=== PATIENT | female | born 1935 | race Caucasian/White ===

== ENCOUNTER 2017-02-14 09:37 | Inpatient (IN) | payer MEDICARE ==
[2017-02-14] MEDS ORDERED: FUROSEMIDE 10 MG/ML 4 ML VIAL IV STA (09:56)
[2017-02-14] MEDS ORDERED: NITROGLYCERIN OINT 1 INCH/GM PACKET TOPICAL STA (09:56)
--- NOTE | 2017-02-14 09:58 | ED ---
General Adult HPI - General Chief complaint: Shortness of Breath Stated complaint: short of breath Time Seen by Provider: 02/14/17 09:51 Source: patient, RN notes reviewed Mode of arrival: wheelchair Limitations: no limitations - History of Present Illness Initial comments: Patient is a pleasant 81-year-old female presenting to the emergency department complaining of fatigue and shortness of breath. Patient was in the hospital and released several days ago. Patient was diagnosed with A. fib and congestive heart failure at that time. Patient states symptoms are similar. Symptoms do worsen with exertion. No chest pain. - Related Data Home Medications Medication Instructions Recorded Confirmed Apixaban [Eliquis] 2.5 mg PO BID 02/02/17 02/14/17 Cholecalciferol [Vitamin D3] 2,000 unit PO DAILY 02/02/17 02/14/17 Fenofibrate [Lofibra] 160 mg PO HS 02/02/17 02/14/17 Previous Rx's Medication Instructions Recorded Amiodarone [Cordarone] 200 mg PO BID #60 tab 02/09/17 Carvedilol [Coreg*] 12.5 mg PO BID-W/MEALS #60 tab 02/09/17 Lisinopril [Zestril] 2.5 mg PO DAILY #90 tab 02/09/17 Sennosides-Docusate Sodium 1 each PO BID PRN tab 02/09/17 [Senokot-S] Spironolactone [Aldactone] 25 mg PO DAILY #90 tab 02/09/17 Allergies Allergy/AdvReac Type Severity Reaction Status Date / Time No Known Allergies Allergy Verified 02/14/17 10:50 Review of Systems ROS Statement: Those systems with pertinent positive or pertinent negative responses have been documented in the HPI. ROS Other: All systems not noted in ROS Statement are negative. Constitutional: Denies: fever Eyes: Denies: eye pain ENT: Denies: ear pain Respiratory: Reports: dyspnea. Denies: cough Cardiovascular: Reports: palpitations. Denies: chest pain Endocrine: Reports: fatigue Gastrointestinal: Denies: abdominal pain Genitourinary: Denies: dysuria Musculoskeletal: Denies: back pain Skin: Denies: rash Neurological: Denies: weakness Past Medical History Past Medical History: Atrial Fibrillation, Heart Failure, GERD/Reflux, Hyperlipidemia, Hypertension History of Any Multi-Drug Resistant Organisms: None Reported Past Surgical History: Cholecystectomy Additional Past Surgical History / Comment(s): cataracts Past Anesthesia/Blood Transfusion Reactions: No Reported Reaction Past Psychological History: No Psychological Hx Reported Smoking Status: Former smoker Past Alcohol Use History: None Reported Past Drug Use History: None Reported - Past Family History Mother Family Medical History: Diabetes Mellitus Father Family Medical History: Myocardial Infarction ([place]) General Exam Limitations: no limitations General appearance: alert, in no apparent distress Head exam: Present: atraumatic Eye exam: Present: normal appearance Neck exam: Present: normal inspection Respiratory exam: Present: normal lung sounds bilaterally Cardiovascular Exam: Present: tachycardia, irregular rhythm GI/Abdominal exam: Present: soft. Absent: tenderness Extremities exam: Present: pedal edema. Absent: calf tenderness Neurological exam: Present: alert Psychiatric exam: Present: normal affect, normal mood Skin exam: Present: normal color Course Vital Signs 02/14/17 02/14/17 02/14/17 09:39 11:00 11:30 Temperature 97.0 F L Pulse Rate 121 H 118 H 114 H Respiratory 22 20 20 Rate Blood Pressure 154/108 209/119 192/113 O2 Sat by Pulse 95 98 99 Oximetry EKG Findings - EKG Comments: EKG Findings:: A. fib with RVR, rate 109. QRS 98. QT 294. QTC 395. Left axis. Q wave in lead V1 and V2. No acute ST change. Medical Decision Making - Medical Decision Making Patient reexamined and slightly improved. Heart rate has improved to 105. Patient and family updated on results and plan. Case discussed with Dr. Kolb , who will admit for Dr. Anglin. - Lab Data Result diagrams: 02/14/17 10:22 02/14/17 11:39 Lab Results 02/14/17 02/14/17 02/14/17 Range/Units 10:22 10:22 10:22 WBC 6.0 (3.8-10.6) k/uL RBC 4.14 (3.80-5.40) m/uL Hgb 13.4 (11.4-16.0) gm/dL Hct 42.0 (34.0-46.0) % MCV 101.4 H (80.0-100.0) fL MCH 32.3 (25.0-35.0) pg MCHC 31.8 (31.0-37.0) g/dL RDW 13.9 (11.5-15.5) % Plt Count 185 (150-450) k/uL Neutrophils % 67 % Lymphocytes % 22 % Monocytes % 8 % Eosinophils % 1 % Basophils % 0 % Neutrophils # 4.0 (1.3-7.7) k/uL Lymphocytes # 1.3 (1.0-4.8) k/uL Monocytes # 0.5 (0-1.0) k/uL Eosinophils # 0.1 (0-0.7) k/uL Basophils # 0.0 (0-0.2) k/uL Macrocytosis Slight PT (9.0-12.0) sec INR (<1.2) APTT (22.0-30.0) sec Sodium 132 L (137-145) mmol/L Potassium 6.2 H* (3.5-5.1) mmol/L Chloride 101 (98-107) mmol/L Carbon Dioxide 22 (22-30) mmol/L Anion Gap 9 mmol/L BUN 25 H (7-17) mg/dL Creatinine 1.10 H (0.52-1.04) mg/dL Est GFR (MDRD) Af Amer 58 (>60 ml/min/1.73 sqM) Est GFR (MDRD) Non-Af 48 (>60 ml/min/1.73 sqM) Glucose 119 H (74-99) mg/dL Calcium 9.4 (8.4-10.2) mg/dL Magnesium 1.8 (1.6-2.3) mg/dL Total Bilirubin 1.6 H (0.2-1.3) mg/dL AST 55 H (14-36) U/L ALT 9 (9-52) U/L Alkaline Phosphatase 32 L (38-126) U/L Total Creatine Kinase 65 (30-135) U/L CK-MB (CK-2) 1.3 (0.0-2.4) ng/mL CK-MB (CK-2) Rel Index 2.0 Troponin I 0.025 (0.000-0.034) ng/mL NT-Pro-B Natriuret Pep pg/mL Total Protein 7.5 (6.3-8.2) g/dL Albumin 4.1 (3.5-5.0) g/dL 02/14/17 02/14/17 02/14/17 Range/Units 10:22 11:39 11:53 WBC (3.8-10.6) k/uL RBC (3.80-5.40) m/uL Hgb (11.4-16.0) gm/dL Hct (34.0-46.0) % MCV (80.0-100.0) fL MCH (25.0-35.0) pg MCHC (31.0-37.0) g/dL RDW (11.5-15.5) % Plt Count (150-450) k/uL Neutrophils % % Lymphocytes % % Monocytes % % Eosinophils % % Basophils % % Neutrophils # (1.3-7.7) k/uL Lymphocytes # (1.0-4.8) k/uL Monocytes # (0-1.0) k/uL Eosinophils # (0-0.7) k/uL Basophils # (0-0.2) k/uL Macrocytosis PT 11.3 (9.0-12.0) sec INR 1.1 (<1.2) APTT 24.5 (22.0-30.0) sec Sodium (137-145) mmol/L Potassium 4.7 (3.5-5.1) mmol/L Chloride (98-107) mmol/L Carbon Dioxide (22-30) mmol/L Anion Gap mmol/L BUN (7-17) mg/dL Creatinine (0.52-1.04) mg/dL Est GFR (MDRD) Af Amer (>60 ml/min/1.73 sqM) Est GFR (MDRD) Non-Af (>60 ml/min/1.73 sqM) Glucose (74-99) mg/dL Calcium (8.4-10.2) mg/dL Magnesium (1.6-2.3) mg/dL Total Bilirubin (0.2-1.3) mg/dL AST (14-36) U/L ALT (9-52) U/L Alkaline Phosphatase (38-126) U/L Total Creatine Kinase (30-135) U/L CK-MB (CK-2) (0.0-2.4) ng/mL CK-MB (CK-2) Rel Index Troponin I (0.000-0.034) ng/mL NT-Pro-B Natriuret Pep 07823 pg/mL Total Protein (6.3-8.2) g/dL Albumin (3.5-5.0) g/dL - Radiology Data Radiology results: image reviewed (Chest x-ray shows cardiomegaly and vascular congestion.) Critical Care Time Critical Care Time: Yes Total Critical Care Time: 31 Disposition Clinical Impression: Atrial fibrillation with RVR, Congestive heart failure Disposition: ADMITTED IP TO THIS [facility] Condition: Serious Referrals: Jl Anglin MD [Primary Care Provider] - 1-2 days Decision Time: 12:38
[2017-02-14] MEDS: DILTIAZEM 125 MG in SODIUM CHLORIDE 0.9% 100 ML IV SCH (10:30)
[2017-02-14 10:38] LABS: Basophils % (A) 0 %; CH 31.5; CHCM 31.2; Eosinophils # (A) 0.1 k/uL (0-0.7); Eosinophils % (A) 1 %; HDW 2.06; HGB 13.4 gm/dL (11.4-16.0); Luc # (Auto) 0.14; Luc % (Auto) 2; Lymphocytes # (A) 1.3 k/uL (1.0-4.8); Lymphocytes % (A) 22 %; MCH 32.3 pg (25.0-35.0); MCHC 31.8 g/dL (31.0-37.0); MCV 101.4 fL (80.0-100.0); Macrocytosis Slight; Mean Platelet Volume 7.6; Monocytes # (A) 0.5 k/uL (0-1.0); Monocytes % (A) 8 %; Neutrophils % (A) 67 %; RBC 4.14 m/uL (3.80-5.40); RDW 13.9 % (11.5-15.5); WBC (Perox) 5.72
[2017-02-14 11:07] LABS: Calcium 9.4 mg/dL (8.4-10.2); Magnesium 1.8 mg/dL (1.6-2.3); Total Protein 7.5 g/dL (6.3-8.2)
[2017-02-14 11:13] LABS: Creatine Kinase MB 1.3 ng/mL (0.0-2.4); Troponin I 0.025 ng/mL (0.000-0.034)
[2017-02-14] MEDS ORDERED: DEXTROSE 50%-WATER 50 ML SYRINGE IVP STA (11:18)
[2017-02-14] MEDS ORDERED: INSULIN REGULAR 100 UNIT/ML VIAL IV ONE (11:19)
[2017-02-14] MEDS ORDERED: SODIUM POLYSTYRENE SULFONATE 15 GM/60 ML BOTTLE PO STA (11:19)
[2017-02-14 11:30] LABS: Potassium 6.2 mmol/L (3.5-5.1)
[2017-02-14] MEDS ORDERED: CALCIUM GLUCONATE 1,000 MG in SODIUM CHLORIDE 0.9% 100 ML IVPB ONE (11:30)
[2017-02-14 12:12] LABS: INR 1.1 (<1.2); Partial Thromboplastin Time 24.5 sec (22.0-30.0); Prothrombin Time 11.3 sec (9.0-12.0)
--- NOTE | 2017-02-14 12:33 | XR ---
EXAMINATION TYPE: XR chest 2V DATE OF EXAM: 02/14/2017 HISTORY: difficulty breathing. REFERENCE: Previous examination dated 02/05/2017. FINDINGS: The lungs are overinflated. The heart is enlarged. There is mild vascular congestion. There is mild interstitial change. Pleural spaces are clear. IMPRESSION: 1. COPD. 2. CARDIOMEGALY. 3. CHANGES MOST CONSISTENT WITH MILD HEART FAILURE.
[2017-02-14 12:36] LABS: Total Bilirubin 1.6 mg/dL (0.2-1.3)
--- NOTE | 2017-02-14 16:40 | P.HPIM ---
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 Patient states symptoms are similar to her previous admission.. Symptoms do worsen with exertion. No chest pain. No fever no chills. Patient was found have it fibrillation with a rapid regular rate. Chest x-ray showed mild pulmonary vascular congestion. B[place] [id number] Review of Systems Constitutional: Patient denies any fever or chills . No generalized weakness or weight loss. Abdomen: Patient denied nausea vomiting and diarrhea and abdominal pain. Cardiovascular: Patient denies any chest pain . Patient does have short of breath and palpitations. Respiratory: patient denied any cough is from production. No shortness of breath Neurologic: Patient denied any numbness or tingling headache. Musculoskeletal: Patient denies any complaints of joint swelling or deformity. Skin: Negative Psychiatric: Negative Endocrine: No heat or cold intolerance. No recent weight gain. Genitourinary: No dysuria or hematuria. All other 14 point ROS negative except the above Past Medical History Past Medical History: Atrial Fibrillation, Heart Failure, GERD/Reflux, Hyperlipidemia, Hypertension History of Any Multi-Drug Resistant Organisms: None Reported Past Surgical History: Cholecystectomy Additional Past Surgical History / Comment(s): cataracts Past Anesthesia/Blood Transfusion Reactions: No Reported Reaction Past Psychological History: No Psychological Hx Reported Smoking Status: Former smoker Past Alcohol Use History: None Reported Past Drug Use History: None Reported - Past Family History Mother Family Medical History: Diabetes Mellitus Father Family Medical History: Myocardial Infarction ([place]) Medications and Allergies Home Medications Medication Instructions Recorded Confirmed Type Apixaban [Eliquis] 2.5 mg PO BID 02/02/17 02/14/17 History Cholecalciferol [Vitamin D3] 2,000 unit PO DAILY 02/02/17 02/14/17 History Fenofibrate [Lofibra] 160 mg PO HS 02/02/17 02/14/17 History Amiodarone [Cordarone] 200 mg PO BID #60 tab 02/09/17 02/14/17 Rx Carvedilol [Coreg*] 12.5 mg PO BID-W/MEALS #60 tab 02/09/17 02/14/17 Rx Lisinopril [Zestril] 2.5 mg PO DAILY #90 tab 02/09/17 02/14/17 Rx Sennosides-Docusate Sodium 1 each PO BID PRN tab 02/09/17 02/14/17 Rx [Senokot-S] Spironolactone [Aldactone] 25 mg PO DAILY #90 tab 02/09/17 02/14/17 Rx Allergies Allergy/AdvReac Type Severity Reaction Status Date / Time No Known Allergies Allergy Verified 02/14/17 10:50 Physical Exam Vitals: Vital Signs Temp Pulse Pulse Resp BP BP Pulse Ox 02/14/17 14:04 97.8 F 93 18 150/93 96 02/14/17 13:10 98.1 F 94 18 170/85 99 02/14/17 12:00 110 H 20 173/82 99 02/14/17 11:30 114 H 20 192/113 99 02/14/17 11:00 118 H 20 209/119 98 02/14/17 09:39 97.0 F L 121 H 22 154/108 95 Intake and Output 02/13/17 02/14/17 02/14/17 23:59 06:59 14:59 Other: Weight 83.915 kg Patient Weight 02/15/17 06:59 Weight 83.915 kg PHYSICAL EXAMINATION: Patient is lying in the bed comfortably, no acute distress, awake alert and oriented.. HEENT: Normocephalic. Neck is supple. Pupils reactive. Nostrils clear. Oral cavity is moist. Ears reveal no drainage. Neck reveals no JVD, carotid bruits, or thyromegaly. CHEST EXAMINATION: Trachea is central. Symmetrical expansion. Bilateral air entry is present. Minimal right basilar crackles. No wheezing. CARDIAC: Normal S1, S2 with no gallops. No murmurs ABDOMEN: Soft. Bowel sounds normal. No organomegaly. No abdominal bruits. Extremities: 2+ pitting edema. No clubbing or cyanosis Neurologically awake, alert, oriented x3 with well-coordinated movements. No focal deficits noted Skin: No rash or skin lesions. Psychiatric: Cooperative. Nonsuicidal Musculoskeletal: No joint swelling or deformity. Normal range of motion. Results CBC & Chem 7: 02/14/17 10:22 02/14/17 11:39 Labs: Abnormal Lab Results - Last 24 Hours (Table) 02/14/17 02/14/17 Range/Units 10:22 10:22 MCV 101.4 H (80.0-100.0) fL Sodium 132 L (137-145) mmol/L Potassium 6.2 H* (3.5-5.1) mmol/L BUN 25 H (7-17) mg/dL Creatinine 1.10 H (0.52-1.04) mg/dL Glucose 119 H (74-99) mg/dL Total Bilirubin 1.6 H (0.2-1.3) mg/dL AST 55 H (14-36) U/L Alkaline Phosphatase 32 L (38-126) U/L Assessment and Plan Assessment: Atrial fibrillation with rapid regular rate Hyperkalemia with moderate hemolysis. 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 Continue with the Cardizem drip. Patient was started back on Coreg and amiodarone. Continue with oral anticoagulation. Cardiology was consulted. We will continue the current management and further recommendations based on the clinical course. Time with Patient: Greater than 30
[2017-02-14] MEDS: CARVEDILOL 12.5 MG TAB PO SCH (17:00)
[2017-02-14] MEDS: FUROSEMIDE 10 MG/ML 4 ML VIAL IV SCH ×2 (17:00→23:05)
--- NOTE | 2017-02-14 19:47 | P.CRDCN ---
History of Present Illness Consult date: 02/14/17 Chief complaint: Shortness of breath History of present illness: This is a pleasant 81-year-old female patient with past medical history significant for severe cardiomyopathy documented on recent echocardiogram with an ejection fraction around 20-25%, persistent atrial fibrillation, as well as multiple comorbid conditions who just was discharged from the hospital recently, presented back to the hospital complaining of fatigue, shortness of breath, and not feeling well. The patient was admitted to the hospital a few days ago with progressive dyspnea and at that point she was diagnosed was congestive heart failure exacerbation. An echocardiogram revealed severe lead impaired LV function with an ejection fraction around 20-25% and known if it's too to ischemic or nonischemic. Also the patient was at that point in A. fib with RVR. She was treated medically and discharged home in stable medical condition. She presented back to the hospital with progressive dyspnea and fatigue as well as tiredness. She developed severe bilateral lower extremities edema. She stated that she was compliant with her medications at home but she was not very compliant with her diet. The patient did not have any symptoms of chest pain or discomfort. No dizziness or lightheadedness. No syncope. No cough. No fever and no chills. The physical examination revealed that the patient was not in acute respiratory distress. She has bilateral rhonchi. She does have severe pitting edema was mild chronic skin changes. This time the chest x-ray showed findings consistent with CHF. The BNP came in to be around 10,000. The EKG showed low voltage QRS with A. fib and diffuse nonspecific ST and T wave abnormalities. The patient was started on Lasix IV. She was also started on Cardizem IV in view of her A. fib with RVR. Past Medical History Past Medical History: Atrial Fibrillation, Heart Failure, GERD/Reflux, Hyperlipidemia, Hypertension History of Any Multi-Drug Resistant Organisms: None Reported Past Surgical History: Cholecystectomy Additional Past Surgical History / Comment(s): cataracts Past Anesthesia/Blood Transfusion Reactions: No Reported Reaction Past Psychological History: No Psychological Hx Reported Smoking Status: Former smoker Past Alcohol Use History: None Reported Past Drug Use History: None Reported - Past Family History Mother Family Medical History: Diabetes Mellitus Father Family Medical History: Myocardial Infarction ([place]) Medications and Allergies Home Medications Medication Instructions Recorded Confirmed Type Apixaban [Eliquis] 2.5 mg PO BID 02/02/17 02/14/17 History Cholecalciferol [Vitamin D3] 2,000 unit PO DAILY 02/02/17 02/14/17 History Fenofibrate [Lofibra] 160 mg PO HS 02/02/17 02/14/17 History Amiodarone [Cordarone] 200 mg PO BID #60 tab 02/09/17 02/14/17 Rx Carvedilol [Coreg*] 12.5 mg PO BID-W/MEALS #60 tab 02/09/17 02/14/17 Rx Lisinopril [Zestril] 2.5 mg PO DAILY #90 tab 02/09/17 02/14/17 Rx Sennosides-Docusate Sodium 1 each PO BID PRN tab 02/09/17 02/14/17 Rx [Senokot-S] Spironolactone [Aldactone] 25 mg PO DAILY #90 tab 02/09/17 02/14/17 Rx Allergies Allergy/AdvReac Type Severity Reaction Status Date / Time No Known Allergies Allergy Verified 02/14/17 10:50 Physical Exam Vitals: Vital Signs Temp Pulse Pulse Resp BP BP Pulse Ox 02/14/17 16:00 98 F 85 20 149/100 93 L 02/14/17 14:04 97.8 F 93 18 150/93 96 02/14/17 13:10 98.1 F 94 18 170/85 99 02/14/17 12:00 110 H 20 173/82 99 02/14/17 11:30 114 H 20 192/113 99 02/14/17 11:00 118 H 20 209/119 98 02/14/17 09:39 97.0 F L 121 H 22 154/108 95 Intake and Output 02/14/17 02/14/17 02/14/17 06:59 14:59 22:59 Intake Total 100 Balance 100 Intake: Oral 100 Other: # Voids 1 Weight 83.915 kg Patient Weight 02/15/17 06:59 Weight 83.915 kg - Constitutional General appearance: no acute distress - Respiratory Respiratory: bilateral: rales - Cardiovascular Rhythm: irregularly irregular Heart sounds: normal: S1, S2 Results 02/14/17 10:22 02/14/17 11:39 Cardiac Enzymes 02/14/17 02/14/17 Range/Units 10:22 10:22 AST 55 H (14-36) U/L CK-MB (CK-2) 1.3 (0.0-2.4) ng/mL Troponin I 0.025 (0.000-0.034) ng/mL Coagulation 02/14/17 Range/Units 11:53 PT 11.3 (9.0-12.0) sec APTT 24.5 (22.0-30.0) sec CBC 02/14/17 Range/Units 10:22 WBC 6.0 (3.8-10.6) k/uL RBC 4.14 (3.80-5.40) m/uL Hgb 13.4 (11.4-16.0) gm/dL Hct 42.0 (34.0-46.0) % Plt Count 185 (150-450) k/uL Comprehensive Metabolic Panel 02/14/17 02/14/17 Range/Units 10:22 11:39 Sodium 132 L (137-145) mmol/L Potassium 6.2 H* 4.7 (3.5-5.1) mmol/L Chloride 101 (98-107) mmol/L Carbon Dioxide 22 (22-30) mmol/L BUN 25 H (7-17) mg/dL Creatinine 1.10 H (0.52-1.04) mg/dL Glucose 119 H (74-99) mg/dL Calcium 9.4 (8.4-10.2) mg/dL AST 55 H (14-36) U/L ALT 9 (9-52) U/L Alkaline Phosphatase 32 L (38-126) U/L Total Protein 7.5 (6.3-8.2) g/dL Albumin 4.1 (3.5-5.0) g/dL Current Medications Generic Name Dose Route Start Last Admin Trade Name Freq PRN Reason Stop Dose Admin Amiodarone HCl 200 mg 02/14/17 21:00 Cordarone PO BID DELROY Apixaban 2.5 mg 02/14/17 21:00 Eliquis PO BID DELROY Carvedilol 12.5 mg 02/14/17 17:30 02/14/17 17:00 Coreg PO 12.5 mg BID-W/MEALS DELROY Administration Fenofibrate 160 mg 02/14/17 21:00 Lofibra PO HS DELROY Furosemide 40 mg 02/14/17 16:00 02/14/17 17:00 Lasix IV 40 mg Q8HR DELROY Administration Diltiazem HCl 125 mg/ Sodium 125 mls @ 5 mls/hr 02/14/17 09:56 02/14/17 10:30 Chloride IV 5 mg/hr .Q24H DELROY 5 mls/hr 5 MG/HR Administration Lisinopril 2.5 mg 02/15/17 09:00 Zestril PO DAILY DELROY Sodium Chloride 10 ml 02/14/17 21:00 Saline Flush IV BID DELROY Spironolactone 25 mg 02/15/17 09:00 Aldactone PO DAILY DELROY Intake and Output 02/14/17 02/14/17 02/14/17 06:59 14:59 22:59 Intake Total 100 Balance 100 Intake: Oral 100 Other: # Voids 1 Weight 83.915 kg Patient Weight 02/15/17 06:59 Weight 83.915 kg 02/14/17 10:22 02/14/17 11:39 Assessment and Plan Assessment: This is a pleasant 81-year-old female patient with known severe cardiomyopathy unknown if is due to ischemic or nonischemic etiology, as well as persistent atrial fibrillation presented back to the hospital was progressive dyspnea as well as fatigue and not feeling well. She was found to be in A. fib with RVR as well as she was in congestive heart failure exacerbation secondary to systolic dysfunction. Agree to keep the patient on the current above dose of Lasix IV with continued monitoring the kidney function and electrolytes. Agree to keep the patient on Cardizem IV and try to wean her from the Cardizem IV as well as. I will continue the Coreg. Continue the amiodarone. She is on chronic anticoagulation orally. Once the patient is better, I do feel that she needs to have a heart catheterization to rule out any severe underlying coronary artery disease as an etiology for her cardiomyopathy which could be also related to tachycardia induced cardiomyopathy secondary to A. fib. We'll continue following up with the patient. Thank you for allowing us participate in her care
[2017-02-14] MEDS: APIXABAN 2.5 MG TABLET PO SCH (20:31)
[2017-02-14] MEDS: AMIODARONE 200 MG TAB PO SCH (20:31)
[2017-02-14] MEDS: FENOFIBRATE 160 MG TAB PO SCH (20:31)
[2017-02-14 22:54] LABS: Calcium 9.4 mg/dL (8.4-10.2); Magnesium 1.6 mg/dL (1.6-2.3); Potassium 4.3 mmol/L (3.5-5.1)
[2017-02-14] MEDS ORDERED: Magnesium Replacement Protocol 1 EACH MISC MISCELLANE PRN (23:10)
[2017-02-14] MEDS: MAGNESIUM SULFATE-D5W PMX 1 GM in DEXTROSE/WATER 1 100ML.BAG IVPB SCH (23:28)
[2017-02-15] MEDS: MAGNESIUM SULFATE-D5W PMX 1 GM in DEXTROSE/WATER 1 100ML.BAG IVPB SCH (00:43)
[2017-02-15 06:11] LABS: Basophils % (A) 0 %; CH 31.9; CHCM 31.3; Eosinophils # (A) 0.1 k/uL (0-0.7); Eosinophils % (A) 2 %; HCT 39.5 % (34.0-46.0); HDW 2.09; HGB 12.2 gm/dL (11.4-16.0); Luc # (Auto) 0.12; Luc % (Auto) 3; Lymphocytes # (A) 1.2 k/uL (1.0-4.8); Lymphocytes % (A) 25 %; MCH 31.8 pg (25.0-35.0); MCV 102.4 fL (80.0-100.0); Macrocytosis Slight; Mean Platelet Volume 7.1; Monocytes # (A) 0.5 k/uL (0-1.0); Monocytes % (A) 11 %; Neutrophils % (A) 60 %; RBC 3.85 m/uL (3.80-5.40); RDW 12.9 % (11.5-15.5); WBC 4.9 k/uL (3.8-10.6); WBC (Perox) 4.88
[2017-02-15 06:31] LABS: Calcium 9.3 mg/dL (8.4-10.2); Magnesium 2.1 mg/dL (1.6-2.3); Potassium 4.1 mmol/L (3.5-5.1)
[2017-02-15] MEDS: CARVEDILOL 12.5 MG TAB PO SCH (06:41)
[2017-02-15] MEDS: LISINOPRIL 2.5 MG TAB PO SCH (08:37)
[2017-02-15] MEDS: FUROSEMIDE 10 MG/ML 4 ML VIAL IV SCH ×3 (08:37→22:21)
[2017-02-15] MEDS: SPIRONOLACTONE 25 MG TAB PO SCH (08:37)
[2017-02-15] MEDS: APIXABAN 2.5 MG TABLET PO SCH ×2 (08:37→20:43)
[2017-02-15] MEDS: AMIODARONE 200 MG TAB PO SCH ×2 (08:37→20:43)
[2017-02-15] MEDS: DILTIAZEM 125 MG in SODIUM CHLORIDE 0.9% 100 ML IV SCH ×2 (08:51→10:51)
--- NOTE | 2017-02-15 12:26 | P.PN ---
Subjective Progress Note Date: 02/15/17 Principal diagnosis: A. fib with RVR This is a pleasant 81-year-old female patient with past medical history significant for severe cardiomyopathy documented on recent echocardiogram with an ejection fraction around 20-25%, persistent atrial fibrillation, as well as multiple comorbid conditions who just was discharged from the hospital recently, presented back to the hospital complaining of fatigue, shortness of breath, and not feeling well. The patient was admitted to the hospital a few days ago with progressive dyspnea and at that point she was diagnosed was congestive heart failure exacerbation. An echocardiogram revealed severe lead impaired LV function with an ejection fraction around 20-25% and known if it's too to ischemic or nonischemic. Also the patient was at that point in A. fib with RVR. She was treated medically and discharged home in stable medical condition. She presented back to the hospital with progressive dyspnea and fatigue as well as tiredness. She developed severe bilateral lower extremities edema. She stated that she was compliant with her medications at home but she was not very compliant with her diet. The patient did not have any symptoms of chest pain or discomfort. No dizziness or lightheadedness. No syncope. No cough. No fever and no chills. The physical examination revealed that the patient was not in acute respiratory distress. She has bilateral rhonchi. She does have severe pitting edema was mild chronic skin changes. This time the chest x-ray showed findings consistent with CHF secondary to systolic dysfunction. So the patient currently is in acute on chronic congestive heart failure secondary to systolic dysfunction. The BNP came in to be around 10,000. The EKG showed low voltage QRS with A. fib and diffuse nonspecific ST and T wave abnormalities. I'll follow-up with the patient today, she is feeling better. The shortness of breath is better. The heart rate is better. I will try to wean her from Cardizem IV and increase the dose of Coreg. We'll continue oral anticoagulation. Objective - Vital Signs Vital signs: Vital Signs Temp 96.9 F L 02/15/17 08:00 Pulse 65 02/15/17 08:00 Resp 16 02/15/17 08:00 BP 112/51 02/15/17 08:00 Pulse Ox 98 02/15/17 08:00 Intake & Output 02/14/17 02/15/17 02/15/17 18:59 06:59 18:59 Intake Total 100 82.125 295.667 Output Total 350 500 Balance 100 -267.875 -204.333 Weight 83.915 kg 81.2 kg Intake: IV 40 0.9 40 Intake, IV Titration 82.125 19.667 Amount Diltiazem 125 mg In 82.125 19.667 Sodium Chloride 0.9% 100 ml @ 5 MG/HR 5 mls/hr IV .Q24H [facility] Rx#:[id number] Oral 100 0 236 Output: Urine 350 500 Other: Voiding Method Toilet # Voids 1 4 - Constitutional General appearance: Present: no acute distress - Respiratory Respiratory: bilateral: diminished - Cardiovascular Rhythm: irregularly irregular Heart sounds: normal: S1, S2 - Labs CBC & Chem 7: 02/15/17 05:32 02/15/17 05:32 Labs: Abnormal Lab Results - Last 24 Hours (Table) 02/14/17 02/14/17 02/15/17 Range/Units 10:22 22:16 05:32 MCV 102.4 H (80.0-100.0) fL Sodium 134 L (137-145) mmol/L Chloride (98-107) mmol/L Carbon Dioxide (22-30) mmol/L BUN 26 H (7-17) mg/dL Creatinine 1.30 H (0.52-1.04) mg/dL Total Bilirubin 1.6 H (0.2-1.3) mg/dL AST 55 H (14-36) U/L 02/15/17 Range/Units 05:32 MCV (80.0-100.0) fL Sodium 136 L (137-145) mmol/L Chloride 96 L (98-107) mmol/L Carbon Dioxide 34 H (22-30) mmol/L BUN 23 H (7-17) mg/dL Creatinine 1.38 H (0.52-1.04) mg/dL Total Bilirubin (0.2-1.3) mg/dL AST (14-36) U/L Assessment and Plan Assessment: This is a pleasant 81-year-old female patient with known severe cardiomyopathy unknown if is due to ischemic or nonischemic etiology, as well as persistent atrial fibrillation presented back to the hospital was progressive dyspnea as well as fatigue and not feeling well. She was found to be in A. fib with RVR as well as she was in congestive heart failure exacerbation secondary to systolic dysfunction. I'll follow-up with the patient today, she is feeling better. The shortness of breath is better. The heart rate is better. I will try to wean her from Cardizem IV and increase the dose of Coreg. We'll continue oral anticoagulation.
[2017-02-15 13:58] VITALS: BMI 28.8
[2017-02-15] MEDS: CARVEDILOL 6.25 MG TAB PO SCH (17:38)
[2017-02-15] MEDS: FENOFIBRATE 160 MG TAB PO SCH (20:43)
--- NOTE | 2017-02-15 23:28 | P.PN ---
Subjective Progress Note Date: 02/15/17 Principal diagnosis: Atrial fibrillation with a rapid regular rate and CHF exacerbation Patient is a 81-year-old female with a known history of recently diagnosed cardio myopathy ejection fraction 20-25%, atrial fibrillation, ventricular tachycardia and hypertension Presents to ER with complaints of fatigue and shortness of breath. Patient states symptoms are similar to her previous admission.. Symptoms do worsen with exertion. No chest pain. No fever no chills. Patient was found have it fibrillation with a rapid regular rate. Chest x-ray showed mild pulmonary vascular congestion. BNP elevated 03611 02/15/2017 Patient's heart rate is better controlled. Patient denied any complaints of chest pain. Shortness of breath improved. No fever no chills. Leg swelling improved as well. No nausea vomiting or abdominal pain. Current medications reviewed Objective - Vital Signs Vital signs: Vital Signs Temp 98.4 F 02/15/17 20:00 Pulse 117 H 02/15/17 20:00 Resp 18 02/15/17 20:00 BP 128/76 02/15/17 20:00 Pulse Ox 95 02/15/17 20:00 Intake & Output 02/15/17 02/15/17 02/16/17 06:59 18:59 06:59 Intake Total 82.125 755.667 Output Total 350 1550 300 Balance -267.875 -794.333 -300 Weight 81.2 kg 81.2 kg Intake: IV 40 0.9 40 Intake, IV Titration 82.125 19.667 Amount Diltiazem 125 mg In 82.125 19.667 Sodium Chloride 0.9% 100 ml @ 5 MG/HR 5 mls/hr IV .Q24H [facility] Rx#:[id number] Oral 0 696 Output: Urine 350 1550 300 Other: Voiding Method Toilet Toilet # Voids 4 - Exam PHYSICAL EXAMINATION: Patient is lying in the bed comfortably, no acute distress, awake alert and oriented.. HEENT: Normocephalic. Neck is supple. Pupils reactive. Nostrils clear. Oral cavity is moist. Ears reveal no drainage. Neck reveals no JVD, carotid bruits, or thyromegaly. CHEST EXAMINATION: Trachea is central. Symmetrical expansion. Bilateral partial decreased air entry. No wheezing. CARDIAC: Normal S1, S2 with no gallops. No murmurs ABDOMEN: Soft. Bowel sounds normal. No organomegaly. No abdominal bruits. Extremities: 2+ edema. No clubbing or cyanosis Neurologically awake, alert, oriented x3 with well-coordinated movements. No focal deficits noted Skin: No rash or skin lesions. Psychiatric: Operative. Nonsuicidal Musculoskeletal: No joint swelling or deformity. Normal range of motion. - Labs CBC & Chem 7: 02/15/17 05:32 02/15/17 05:32 Labs: Abnormal Lab Results - Last 24 Hours (Table) 02/14/17 02/15/17 02/15/17 Range/Units 22:16 05:32 05:32 MCV 102.4 H (80.0-100.0) fL Sodium 134 L 136 L (137-145) mmol/L Chloride 96 L (98-107) mmol/L Carbon Dioxide 34 H (22-30) mmol/L BUN 26 H 23 H (7-17) mg/dL Creatinine 1.30 H 1.38 H (0.52-1.04) mg/dL Assessment and Plan Assessment: Atrial fibrillation with rapid regular rate Hyperkalemia with moderate hemolysis. 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 Plan: Patient will be continued on IV diuresis. Still on Cardizem drip. Patient was started on Coreg back and does has been increased as per cardiology. Continue with IV diuresis and follow-up renal function. We will reduce Lasix to 40 mg twice a day Patient was started back on Coreg and amiodarone. Continue with oral anticoagulation. Cardiology was consulted. We will continue the current management and further recommendations based on the clinical course. Time with Patient: Greater than 30
[2017-02-16] MEDS: CARVEDILOL 6.25 MG TAB PO SCH ×2 (06:15→16:57)
[2017-02-16 06:22] LABS: Basophils % (A) 0 %; CH 32.4; CHCM 32.2; Eosinophils # (A) 0.1 k/uL (0-0.7); Eosinophils % (A) 2 %; HCT 41.2 % (34.0-46.0); HDW 2.09; Luc # (Auto) 0.19; Luc % (Auto) 3; Lymphocytes # (A) 1.6 k/uL (1.0-4.8); Lymphocytes % (A) 28 %; MCH 31.9 pg (25.0-35.0); MCHC 31.6 g/dL (31.0-37.0); Mean Platelet Volume 7.1; Monocytes # (A) 0.6 k/uL (0-1.0); Monocytes % (A) 10 %; Neutrophils # (A) 3.3 k/uL (1.3-7.7); Neutrophils % (A) 57 %; RBC 4.08 m/uL (3.80-5.40); RDW 13.1 % (11.5-15.5); WBC 5.9 k/uL (3.8-10.6); WBC (Perox) 5.82
[2017-02-16 06:45] LABS: Calcium 9.4 mg/dL (8.4-10.2); Potassium 3.9 mmol/L (3.5-5.1)
[2017-02-16] MEDS: SPIRONOLACTONE 25 MG TAB PO SCH (08:04)
[2017-02-16] MEDS: APIXABAN 2.5 MG TABLET PO SCH ×2 (08:04→20:20)
[2017-02-16] MEDS: AMIODARONE 200 MG TAB PO SCH ×2 (08:04→20:20)
[2017-02-16] MEDS: LISINOPRIL 2.5 MG TAB PO SCH (08:04)
[2017-02-16] MEDS ORDERED: FUROSEMIDE 10 MG/ML 4 ML VIAL IV SCH (09:00)
--- NOTE | 2017-02-16 10:50 | P.PN ---
Subjective patient states improvement from admission states edema less severe in the lower extremities Objective - Vital Signs Vital signs: Vital Signs Temp 98.6 F 02/16/17 07:57 Pulse 133 H 02/16/17 07:57 Resp 18 02/16/17 07:57 BP 120/64 02/16/17 07:57 Pulse Ox 93 L 02/16/17 07:57 Intake & Output 02/15/17 02/16/17 02/16/17 18:59 06:59 18:59 Intake Total 755.667 200 Output Total 1550 300 Balance -794.333 -300 200 Weight 81.2 kg 77.8 kg Intake: IV 40 0.9 40 Intake, IV Titration 19.667 Amount Diltiazem 125 mg In 19.667 Sodium Chloride 0.9% 100 ml @ 5 MG/HR 5 mls/hr IV .Q24H [facility] Rx#:[id number] Oral 696 200 Output: Urine 1550 300 Other: Voiding Method Toilet # Voids 1 1 - Constitutional General appearance: Present: obese - EENT Eyes: Present: PERRLA Ears: bilateral: normal - Neck Neck: Present: normal ROM - Respiratory Respiratory: bilateral: CTA - Cardiovascular Rhythm: irregularly irregular - Peripheral edema leg Peripheral Edema: bilateral: 2+ - Gastrointestinal General gastrointestinal: Present: soft - Integumentary Integumentary: Present: normal - Neurologic Neurologic: Present: CNII-XII intact - Musculoskeletal Musculoskeletal: Present: generalized weakness - Psychiatric Psychiatric: Present: A&O x's 3, appropriate affect, intact judgment & insight - Labs CBC & Chem 7: 02/16/17 05:58 02/16/17 05:58 Labs: Abnormal Lab Results - Last 24 Hours (Table) 02/16/17 02/16/17 Range/Units 05:58 05:58 MCV 101.0 H (80.0-100.0) fL Sodium 135 L (137-145) mmol/L Chloride 94 L (98-107) mmol/L Carbon Dioxide 34 H (22-30) mmol/L BUN 29 H (7-17) mg/dL Creatinine 1.60 H (0.52-1.04) mg/dL - Imaging and Cardiology Chest x-ray: report reviewed Assessment and Plan Plan: assessment Atrial fibrillation with RVR Acute on chronic congestive heart failure with systolic dysfunction cardiomyopathy with ejection fraction at 20% severe Ventricular tachycardia history Hypertension Hyperlipidemia Continue consultation with cardiology
--- NOTE | 2017-02-16 12:04 | CDI ---
In responding to this query, please exercise your independent professional judgment. The [facility] Coding Staff and Clinical Documentation Specialists appreciate your assistance in clarifying documentation, maintaining compliance with coding guidelines, accurately documenting patients condition and capturing severity of illness. The fact that a question is asked does not imply that any particular answer is desired or expected. Communication forms are a method of clarifying documentation and are not made part of the Legal Health Record. Thank you in advance for your clarification. Last Revision, February 2015 Jon Argueta [address] [facility] [place] [address] Documentation Clarification Form Date: 02/16/2017 11:57:00 AM From: Rosa De La Paz CCS, CCDS Admit Date: 02/14/2017 12:39:00 PM Patient Name: Linda Jamison Visit Number: [id number] Discharge Date: Dr. Cristian Anglin/Shazia Qureshi PA: The patient has documented sodium level of: 132, 134, 136, 135 Clinical indicators: Admit with Persistent Atrial Fibrillation & Acute on Chronic Systolic CHF requiring IV diuresis. Also diagnosed with RANDI probably d/ t diuresis per attending PN 02/15. Treatment: continued IV Lasix now po, Cardizem drip, Insulin drip, IV Mag Sulfate, IV fluid 10 mL BID In order to capture the severity of condition, please clarify if the condition signifies: Hyponatremia Abnormal Lab Value Unable to determine Other condition, please specify Please document in your progress notes and discharge summary in order to capture severity of illness and risk of mortality. Include clinical findings that support your diagnosis. FYI: Press F11 to launch patient chart. GABBY
--- NOTE | 2017-02-16 13:27 | P.PN ---
Subjective Progress Note Date: 02/16/17 Principal diagnosis: Shortness of breath This is an 81-year-old female with past medical history significant for severe ischemic cardiomyopathy, persistent atrial fibrillation, hypertension , hyperlipidemia, GERD, prior history of smoking, who was recently in the hospital, readmitted with symptoms of shortness of breath with associated general malaise. She was diagnosed to have an exacerbation of congestive cardiac failure and was initiated on IV Lasix. She diuresed well through the night last night, her weight today is down 4 kg from yesterday. Sodium 135, potassium 3.9, BUN 29, creatinine 1.6. TSH 1.59. Blood pressure this morning 128/70 with a heart rate in the 90s to low 100s. Objective - Vital Signs Vital signs: Vital Signs Temp 98.9 F 02/16/17 11:04 Pulse 110 H 02/16/17 11:04 Resp 18 02/16/17 11:04 BP 129/74 02/16/17 11:04 Pulse Ox 97 02/16/17 11:04 Intake & Output 02/15/17 02/16/17 02/16/17 18:59 06:59 18:59 Intake Total 755.667 200 Output Total 1550 300 Balance -794.333 -300 200 Weight 81.2 kg 77.8 kg Intake: IV 40 0.9 40 Intake, IV Titration 19.667 Amount Diltiazem 125 mg In 19.667 Sodium Chloride 0.9% 100 ml @ 5 MG/HR 5 mls/hr IV .Q24H [facility] Rx#:[id number] Oral 696 200 Output: Urine 1550 300 Other: Voiding Method Toilet # Voids 1 1 - Exam PHYSICAL EXAMINATION: HEENT: Head is atraumatic, normocephalic. Pupils equal, round. Neck is supple. There is no elevated jugular venous pressure. HEART EXAMINATION: Heart S1 and S2 irregularly irregular CHEST EXAMINATION: Lungs are clear to auscultation and precussion. No chest wall tenderness is noted on palpation or with deep breathing. ABDOMEN: Soft, nontender. Bowel sounds are heard. No organomegaly noted. EXTREMITIES: 2+ peripheral pulses with trace evidence of peripheral edema and no calf tenderness noted. NEUROLOGIC patient is awake, alert and oriented -3. . - Labs CBC & Chem 7: 02/16/17 05:58 02/16/17 05:58 Labs: Abnormal Lab Results - Last 24 Hours (Table) 02/16/17 02/16/17 Range/Units 05:58 05:58 MCV 101.0 H (80.0-100.0) fL Sodium 135 L (137-145) mmol/L Chloride 94 L (98-107) mmol/L Carbon Dioxide 34 H (22-30) mmol/L BUN 29 H (7-17) mg/dL Creatinine 1.60 H (0.52-1.04) mg/dL Assessment and Plan Plan: Assessment and plan #1 systolic congestive heart failure acute on chronic #2 chronic persistent atrial fibrillation, on Eliquis for anticoagulation #3 hypertension #4 hyperlipidemia Plan We will discontinue the patient's IV Lasix and start her on oral diuretics today. Repeat chest x-ray in the morning. DNP note has been reviewed, I agree with a documented findings and plan of care. Patient was seen and examined.
--- NOTE | 2017-02-16 14:56 | XR ---
EXAMINATION TYPE: XR chest 2V DATE OF EXAM: 02/16/2017 COMPARISON: Prior chest x-ray 02/14/2017 HISTORY: Follow-up congestive heart failure TECHNIQUE: Frontal and lateral views of the chest are obtained. FINDINGS: Hyperinflation is again noted. No pneumothorax or pleural effusion. Heart is enlarged. The re is improvement in the interstitium. Patient is rotated. Hyperinflation suggests underlying COPD. T here are overlying cardiac leads. IMPRESSION: Improvement in patient's volume status.
[2017-02-16] MEDS ORDERED: FUROSEMIDE 40 MG TAB PO SCH (16:00)
[2017-02-16] MEDS: FENOFIBRATE 160 MG TAB PO SCH (20:20)
[2017-02-16] MEDS: MAGNESIUM SULFATE-D5W PMX 1 GM in DEXTROSE/WATER 1 100ML.BAG IVPB SCH ×2 (21:00→22:39)
[2017-02-17] MEDS: CARVEDILOL 6.25 MG TAB PO SCH (06:53)
[2017-02-17] MEDS: FUROSEMIDE 20 MG TAB PO SCH ×2 (09:21→14:29)
[2017-02-17] MEDS: APIXABAN 2.5 MG TABLET PO SCH ×2 (09:21→20:56)
[2017-02-17] MEDS: AMIODARONE 200 MG TAB PO SCH ×2 (09:21→20:55)
--- NOTE | 2017-02-17 10:32 | P.PN ---
Subjective Principal diagnosis: The patient complaining of intermittent episodes of dizziness this morning. Discussed possible senior housing after discharge Objective - Vital Signs Vital signs: Vital Signs Temp 96.9 F L 02/17/17 07:22 Pulse 89 02/17/17 07:22 Resp 18 02/17/17 07:22 BP 99/59 02/17/17 08:30 Pulse Ox 95 02/17/17 07:22 Intake & Output 02/16/17 02/17/17 02/17/17 18:59 06:59 18:59 Intake Total 620 100 Balance 620 100 Weight 75.2 kg Intake: Intake, IV Titration 100 Amount Magnesium Sulfate-D5w Pmx 100 1 gm In Dextrose/Water 1 100ml.bag @ 100 mls/hr IVPB Q1H [facility] Rx#: [id number] Oral 620 Other: Voiding Method Toilet # Voids 1 1 - Constitutional General appearance: Present: mild distress - EENT Eyes: Present: PERRLA Ears: bilateral: normal - Neck Neck: Present: normal ROM - Respiratory Respiratory: bilateral: CTA - Cardiovascular Rhythm: irregularly irregular - Peripheral edema leg Peripheral Edema: bilateral: 2+ - Gastrointestinal General gastrointestinal: Present: soft - Integumentary Integumentary: Present: normal - Neurologic Neurologic: Present: CNII-XII intact - Musculoskeletal Musculoskeletal: Present: generalized weakness - Psychiatric Psychiatric: Present: A&O x's 3, appropriate affect, intact judgment & insight - Labs CBC & Chem 7: 02/16/17 05:58 02/16/17 05:58 - Imaging and Cardiology Chest x-ray: report reviewed Assessment and Plan Assessment: Assessment Chronic atrial fibrillation with RVR Acute on chronic congestive heart failure with systolic dysfunction ejection fraction 20% cardiomyopathy history of ventricular tachycardia Hypertension Hyperlipidemia Plan Continue consultation with cardiology
[2017-02-17] MEDS: SPIRONOLACTONE 25 MG TAB PO SCH (11:04)
[2017-02-17] MEDS: LISINOPRIL 2.5 MG TAB PO SCH (11:04)
--- NOTE | 2017-02-17 11:30 | P.PN ---
Subjective Progress Note Date: 02/17/17 Principal diagnosis: Shortness of breath This is an 81-year-old female with past medical history significant for severe ischemic cardiomyopathy, persistent atrial fibrillation, hypertension , hyperlipidemia, GERD, prior history of smoking, who was recently in the hospital, readmitted with symptoms of shortness of breath with associated general malaise. She was diagnosed to have an exacerbation of congestive cardiac failure and was initiated on IV Lasix. She diuresed well through the night last night, her weight today is down 4 kg from yesterday. Sodium 135, potassium 3.9, BUN 29, creatinine 1.6. TSH 1.59. Blood pressure this morning 128/70 with a heart rate in the 90s to low 100s. 02/17/2017 Seen and examined this morning, she had an episode earlier which she was getting up to go to the bathroom, felt dizzy and lightheaded, the nurse checked her blood pressure at that time, her pressure sitting was 100/60, standing 68/ 40. Patient was placed back to bed in Trendelenburg position. Blood pressure was rechecked again around 11 AM, 126/80 at that time. Heart rate stable overall her breathing is significantly improved. We will hold her dose of oral Lasix today and from tomorrow start her on by mouth Lasix. The patient had received her Coreg prior to this, the dose of Coreg to 3.125 mg by mouth twice a day. Objective - Vital Signs Vital signs: Vital Signs Temp 97.0 F L 02/17/17 11:19 Pulse 93 02/17/17 11:19 Resp 18 02/17/17 11:19 BP 126/88 02/17/17 11:19 Pulse Ox 96 02/17/17 11:19 Intake & Output 02/16/17 02/17/17 02/17/17 18:59 06:59 18:59 Intake Total 620 100 Balance 620 100 Weight 75.2 kg Intake: Intake, IV Titration 100 Amount Magnesium Sulfate-D5w Pmx 100 1 gm In Dextrose/Water 1 100ml.bag @ 100 mls/hr IVPB Q1H [facility] Rx#: [id number] Oral 620 Other: Voiding Method Toilet # Voids 1 1 - Exam PHYSICAL EXAMINATION: HEENT: Head is atraumatic, normocephalic. Pupils equal, round. Neck is supple. There is no elevated jugular venous pressure. HEART EXAMINATION: Heart S1 and S2 irregularly irregular CHEST EXAMINATION: Lungs are clear to auscultation and precussion. No chest wall tenderness is noted on palpation or with deep breathing. ABDOMEN: Soft, nontender. Bowel sounds are heard. No organomegaly noted. EXTREMITIES: 2+ peripheral pulses with trace evidence of peripheral edema and no calf tenderness noted. NEUROLOGIC patient is awake, alert and oriented -3. . - Labs CBC & Chem 7: 02/16/17 05:58 02/16/17 05:58 Assessment and Plan Plan: Assessment and plan #1 systolic congestive heart failure acute on chronic #2 chronic persistent atrial fibrillation, on Eliquis for anticoagulation #3 hypertension #4 hyperlipidemia Plan Patient did have an episode of orthostatic hypotension this morning, we will hold the Lasix today and from tomorrow resume at 20 mg by mouth twice a day. We will also decrease her dose of Coreg to 3.125 mg by mouth twice a day. Check lytes BUN and creatinine today and again tomorrow morning. DNP note has been reviewed, I agree with a documented findings and plan of care. Patient was seen and examined.
[2017-02-17 11:43] LABS: Calcium 9.2 mg/dL (8.4-10.2); Potassium 4.3 mmol/L (3.5-5.1)
[2017-02-17] MEDS: CARVEDILOL 3.125 MG TAB PO SCH (17:15)
[2017-02-17] MEDS: FENOFIBRATE 160 MG TAB PO SCH (20:56)
[2017-02-18 00:42] VITALS: TEMP 97.2
[2017-02-18 06:45] LABS: Potassium 4.4 mmol/L (3.5-5.1)
[2017-02-18] MEDS: CARVEDILOL 3.125 MG TAB PO SCH ×2 (06:49→17:44)
[2017-02-18] MEDS: FUROSEMIDE 20 MG TAB PO SCH ×2 (09:38→17:02)
[2017-02-18] MEDS: AMIODARONE 200 MG TAB PO SCH ×2 (09:38→17:43)
[2017-02-18] MEDS: LISINOPRIL 2.5 MG TAB PO SCH (09:39)
[2017-02-18] MEDS: APIXABAN 2.5 MG TABLET PO SCH ×2 (09:39→17:44)
[2017-02-18] MEDS: SPIRONOLACTONE 25 MG TAB PO SCH (09:39)
--- NOTE | 2017-02-18 11:34 | P.PN ---
Subjective Progress Note Date: 02/18/17 Principal diagnosis: Shortness of breath This is an 81-year-old female with past medical history significant for severe ischemic cardiomyopathy, persistent atrial fibrillation, hypertension , hyperlipidemia, GERD, prior history of smoking, who was recently in the hospital, readmitted with symptoms of shortness of breath with associated general malaise. She was diagnosed to have an exacerbation of congestive cardiac failure and was initiated on IV Lasix. She diuresed well through the night last night, her weight today is down 4 kg from yesterday. Sodium 135, potassium 3.9, BUN 29, creatinine 1.6. TSH 1.59. Blood pressure this morning 128/70 with a heart rate in the 90s to low 100s. 02/17/2017 Seen and examined this morning, she had an episode earlier which she was getting up to go to the bathroom, felt dizzy and lightheaded, the nurse checked her blood pressure at that time, her pressure sitting was 100/60, standing 68/ 40. Patient was placed back to bed in Trendelenburg position. Blood pressure was rechecked again around 11 AM, 126/80 at that time. Heart rate stable overall her breathing is significantly improved. We will hold her dose of oral Lasix today and from tomorrow start her on by mouth Lasix. The patient had received her Coreg prior to this, the dose of Coreg to 3.125 mg by mouth twice a day. 02/18/2017 Patient seen and examined this morning, she has been up ambulating with physical therapy twice today. Feels well, blood pressure remaining stable. Sodium 129, BUN 40, creatinine 1.7. Objective - Vital Signs Vital signs: Vital Signs Temp 97.2 F L 02/18/17 04:00 Pulse 86 02/18/17 08:00 Resp 18 02/18/17 08:00 BP 144/78 02/18/17 08:00 Pulse Ox 97 02/18/17 08:00 Intake & Output 02/17/17 02/18/17 02/18/17 18:59 06:59 18:59 Intake Total 510 180 Output Total 750 Balance -240 180 Weight 78.1 kg Intake: IV 0 0.9 0 Intake, IV Titration 100 Amount Magnesium Sulfate-D5w Pmx 100 1 gm In Dextrose/Water 1 100ml.bag @ 100 mls/hr IVPB Q1H [facility] Rx#: [id number] Oral 410 180 Output: Urine 750 Other: Voiding Method Toilet # Voids 1 1 - Exam PHYSICAL EXAMINATION: HEENT: Head is atraumatic, normocephalic. Pupils equal, round. Neck is supple. There is no elevated jugular venous pressure. HEART EXAMINATION: Heart S1 and S2 irregularly irregular CHEST EXAMINATION: Lungs are clear to auscultation and precussion. No chest wall tenderness is noted on palpation or with deep breathing. ABDOMEN: Soft, nontender. Bowel sounds are heard. No organomegaly noted. EXTREMITIES: 2+ peripheral pulses with trace evidence of peripheral edema and no calf tenderness noted. NEUROLOGIC patient is awake, alert and oriented -3. . - Labs CBC & Chem 7: 02/16/17 05:58 02/18/17 06:14 Labs: Abnormal Lab Results - Last 24 Hours (Table) 02/17/17 02/18/17 Range/Units 05:34 06:14 Sodium 133 L 129 L (137-145) mmol/L Chloride 94 L 96 L (98-107) mmol/L Carbon Dioxide 32 H (22-30) mmol/L BUN 37 H 40 H (7-17) mg/dL Creatinine 1.84 H 1.70 H (0.52-1.04) mg/dL Assessment and Plan Plan: Assessment and plan #1 systolic congestive heart failure acute on chronic #2 chronic persistent atrial fibrillation, on Eliquis for anticoagulation #3 hypertension #4 hyperlipidemia Plan From cardiology's perspective, patient may be able to be discharged home today. We'll make a follow-up appointment in the office post discharge. We will continue the patient on amiodarone 200 mg one tablet by mouth twice a day, Eliquis 2-1/2 mg one tablet by mouth twice a day, Coreg 3.125 mg by mouth twice a day, Lasix 20 mg by mouth twice a day, lisinopril 2-1/2 mg daily and Aldactone 25 mg daily. DNP note has been reviewed, I agree with a documented findings and plan of care. Patient was seen and examined.
--- NOTE | 2017-02-18 11:49 | P.DS ---
Providers Date of admission: 02/14/17 12:39 Expected date of discharge: 02/18/17 Attending physician: Cristian Anglin Consults: 02/14/17 12:39 Consult Physician Routine Consulting Provider: Scot Melvin Consult Reason/Comments: a fib, chf Do you want consulting provider notified?: Yes Primary care physician: Jl Anglin [facility] Course: 81 -year-old female has return visit with continued complaints of increasing shortness of breath. Was stabilized by cardiology and medication adjustments made Assessment Atrial fibrillation with RVR Acute on chronic congestive heart failure with systolic dysfunction cardiomyopathy with ejection fraction of 20% Ventricular tachycardia history hypertension Hyperlipidemia Plan medications have been adjusted Patient to follow-up with food writer Discussed with the patient regarding possible change of residence to Senior housing or living assisted Patient Condition at Discharge: Serious Plan - Discharge Summary Discharge Rx Participant: Yes New Discharge Prescriptions: No Action Cholecalciferol [Vitamin D3] 2,000 unit PO DAILY Apixaban [Eliquis] 2.5 mg PO BID Fenofibrate [Lofibra] 160 mg PO HS Amiodarone [Cordarone] 200 mg PO BID #60 tab Carvedilol [Coreg*] 12.5 mg PO BID-W/MEALS #60 tab Lisinopril [Zestril] 2.5 mg PO DAILY #90 tab Sennosides-Docusate Sodium [Senokot-S] 1 each PO BID PRN tab PRN Reason: Constipation Spironolactone [Aldactone] 25 mg PO DAILY #90 tab Discharge Medication List Apixaban [Eliquis] 2.5 mg PO BID 02/02/17 [History] Cholecalciferol [Vitamin D3] 2,000 unit PO DAILY 02/02/17 [History] Fenofibrate [Lofibra] 160 mg PO HS 02/02/17 [History] Amiodarone [Cordarone] 200 mg PO BID #60 tab 02/09/17 [Rx] Carvedilol [Coreg*] 12.5 mg PO BID-W/MEALS #60 tab 02/09/17 [Rx] Lisinopril [Zestril] 2.5 mg PO DAILY #90 tab 02/09/17 [Rx] Sennosides-Docusate Sodium [Senokot-S] 1 each PO BID PRN tab 02/09/17 [Rx] Spironolactone [Aldactone] 25 mg PO DAILY #90 tab 02/09/17 [Rx] Follow up Appointment(s)/Referral(s): [facility], [NON-STAFF] - Scot Melvin MD [STAFF PHYSICIAN] - 1 Week Jl Anglin MD [Primary Care Provider] - 1-2 days Patient Instructions/Handouts: Heart Failure (DC), Hypotension (DC)
[2017-02-18 15:38] VITALS: BP 126/76; PULSE 88; RESP 16
--- NOTE | 2017-02-18 15:58 | P.PN ---
Progress Note - Text assessment hyponatremia secondary to diurectics
[2017-02-18] MEDS: FENOFIBRATE 160 MG TAB PO SCH (17:43)
--- NOTE | 2017-03-05 11:49 | P.PN ---
Progress Note - Text addendum persistant afib factors include hyponatremia cardiomyopathy
== END 2017-02-18 18:07 | disposition home health service (06) | DRG 308 ==
LOC: EC 09:37 → 6SEL 12:39
PROVIDERS: ADMIT Family Medicine; ATTEND Family Medicine
DX: I48.1 Persistent atrial fibrillation (principal); I50.23 Acute on chronic systolic (congestive) heart failure; N17.9 Acute kidney failure, unspecified; E87.1 Hypo-osmolality and hyponatremia; E78.5 Hyperlipidemia, unspecified; E87.5 Hyperkalemia; I11.0 Hypertensive heart disease with heart failure; I25.5 Ischemic cardiomyopathy; I48.2 Chronic atrial fibrillation; K21.9 Gastro-esophageal reflux disease without esophagitis; T50.2X5A Adverse effect of carbonic-anhydrase inhibitors, benzothiadiazides and other diuretics, initial encounter; Z79.01 Long term (current) use of anticoagulants; Z79.899 Other long term (current) drug therapy; Z87.891 Personal history of nicotine dependence; Z82.49 Family history of ischemic heart disease and other diseases of the circulatory system
CPT/HCPCS: 36415; 71020; 80048; 80053; 82550; 82553; 83735; 83880; 84132; 84443; 84484; 85025; 85610; 85730; 93005; 96365; 96366; 96375; 99291

== ENCOUNTER 2017-08-25 23:02 | Emergency (ER) | payer MEDICARE ==
--- NOTE | 2017-08-25 23:34 | ED ---
Fall HPI - General Chief Complaint: Fall Stated Complaint: fall Time Seen by Provider: 08/25/17 23:16 Source: patient, RN notes reviewed Mode of arrival: ambulatory - History of Present Illness Initial Comments: This is an 81-year-old female who presents to the emergency department with chief complaint of fall injury. Patient states that this evening she was getting ready to go to bed and walking through her kitchen. She says that she lost her balance and fell, landing on her right arm. She complains of upper right arm pain and states that she has difficulty moving her arm. She states she is unsure if she hit her head as it happened so quickly. She denies neck or back pain. Denies any other injuries or trauma. She does state that she takes Eliquis for atrial fibrillation. Denies fevers or chills, headache or dizziness, chest pain or shortness breath, abdominal pain, nausea or vomiting. Denies loss of consciousness. She states that it took her 30 minutes to get to the telephone to call EMS following the fall. - Related Data Home Medications Medication Instructions Recorded Confirmed Apixaban [Eliquis] 2.5 mg PO BID 02/02/17 02/14/17 Cholecalciferol [Vitamin D3] 2,000 unit PO DAILY 02/02/17 02/14/17 Fenofibrate [Lofibra] 160 mg PO HS 02/02/17 02/14/17 Previous Rx's Medication Instructions Recorded Amiodarone [Cordarone] 200 mg PO BID #60 tab 02/09/17 Carvedilol [Coreg*] 12.5 mg PO BID-W/MEALS #60 tab 02/09/17 Lisinopril [Zestril] 2.5 mg PO DAILY #90 tab 02/09/17 Sennosides-Docusate Sodium 1 each PO BID PRN tab 02/09/17 [Senokot-S] Spironolactone [Aldactone] 25 mg PO DAILY #90 tab 02/09/17 Furosemide [Lasix] 20 mg PO BID #60 tab 02/18/17 Allergies Allergy/AdvReac Type Severity Reaction Status Date / Time No Known Allergies Allergy Verified 08/25/17 23:09 Review of Systems ROS Statement: Those systems with pertinent positive or pertinent negative responses have been documented in the HPI. ROS Other: All systems not noted in ROS Statement are negative. Past Medical History Past Medical History: Atrial Fibrillation, Heart Failure, GERD/Reflux, Hyperlipidemia, Hypertension History of Any Multi-Drug Resistant Organisms: None Reported Past Surgical History: Cholecystectomy Additional Past Surgical History / Comment(s): cataracts Past Anesthesia/Blood Transfusion Reactions: No Reported Reaction Past Psychological History: No Psychological Hx Reported Smoking Status: Former smoker Past Alcohol Use History: None Reported Past Drug Use History: None Reported - Past Family History Mother Family Medical History: Diabetes Mellitus Father Family Medical History: Myocardial Infarction ([place]) General Exam - General Exam Comments Initial Comments: General: Awake and alert, well-developed; in no apparent distress. Lying comfortably on ED stretcher with a niece at bedside. HEENT: Head atraumatic, normocephalic. Pupils are equal, round and reactive to light. Extraocular movements intact. Oropharynx moist without erythema or exudate. Neck: C-collar is in place. Cardiovascular: Regular rate and rhythm. No murmurs, rubs or gallops. Chest symmetrical. Respiratory: Lungs clear to auscultation bilaterally. No wheezes, rales or rhonchi. Normal respiratory effort with no use of accessory muscles. Abdomen: Soft, non-tender, non-distended. No rigidity, rebound or guarding. Normal bowel sounds in all 4 quadrants. Musculoskeletal: Limited range of motion of the right upper arm due to pain. There is tenderness at the proximal humerus. Sensation is intact. Radial pulses are 2+ equal and palpable bilaterally. No obvious gross deformities. Skin: Coats, warm and dry without rashes or lesions. Neurological: Alert and oriented x3. CN II-XII grossly intact. Speech is fluent and answers are appropriate. No focal neuro deficits. Psychiatric: Normal mood and affect. No overt signs of depression or anxiety noted. Limitations: no limitations Course Vital Signs 08/25/17 08/26/17 23:06 00:30 Temperature 98.7 F 98.7 F Pulse Rate 66 64 Respiratory 16 18 Rate Blood Pressure 170/72 165/78 O2 Sat by Pulse 99 97 Oximetry Procedures - Orthopedic Splinting/Casting Injury #1 Side: right Upper Extremity Injury Location: long arm Upper Extremity Immobilizer: posterior splint, synthetic pre-padded splint Medical Decision Making - Medical Decision Making This is an 81-year-old female presented to the emergency department with chief complaint of fall injury. Patient states that she lost her balance this evening and fell down, landing on her right arm. She states that she is unsure if she hit her head but denies loss of consciousness. She currently is on Eliquis for atrial fibrillation. A computed tomography scan of the brain and C- spine was obtained and revealed no acute abnormalities. X-ray of the right humerus revealed a displaced mid shaft fracture. X-rays were reviewed with attending physician, Dr. Rubio. Recommended placement of a posterior OCL splint and sling. Patient tolerated well without complication. Throughout entire emergency department stay, patient refused pain medication. She is in no acute distress and vital signs are stable. She will be discharged home at this time. Patient is to follow-up with orthopedics within 1-2 days. She is in agreement with plan and voices understanding. All questions were answered. - Radiology Data Radiology results: report reviewed, image reviewed CT brain and C-spine without contrast impression: Cerebral atrophy. No acute intracranial abnormality. Spondylotic changes in the cervical spine. No fracture. X-ray right humerus impression: Acute displaced midshaft fracture of the humerus. There is probably an old healed fracture distal shaft of the humerus. Disposition Clinical Impression: Humerus shaft fracture Disposition: HOME SELF-CARE Condition: Good Instructions: Arm Fracture in Adults (ED), Fall Prevention for Older Adults (ED ) Additional Instructions: Please follow-up with Dr. Mallory, orthopedics within 1-2 days. Please keep splint clean, dry and intact. Please follow up with primary care provider within 1-2 days. Return to emergency department if symptoms should worsen or any concerns arise. Is patient prescribed a controlled substance at d/c from ED?: No Referrals: Cristian Anglin MD [Primary Care Provider] - 1-2 days Venkatesh Mallory MD [STAFF PHYSICIAN] - 1-2 days Time of Disposition: 01:15
--- NOTE | 2017-08-26 00:10 | CT ---
EXAMINATION TYPE: CT brain lacey boles DATE OF EXAM: 08/25/2017 COMPARISON: NONE HISTORY: fall/pt. is on blood thinners CT DLP: 1454.40 mGycm Automated exposure control for dose reduction was used. TECHNIQUE: CT scan of the head and cervical spine are performed without contrast. FINDINGS: There is cerebral cortical atrophy. There is no mass effect nor midline shift. There is n o sign of intracranial hemorrhage. The calvarium is intact. The cervical vertebra have fairly normal alignment. There is narrowing at C5-6 C6-7 disc spaces with spurring of the endplates. There is mild multilevel hypertrophic facet arthropathy. There is anterior spurring throughout the cervical spine. The skull base appears intact. There is no sign of a fractur e. IMPRESSION: Cerebral atrophy. No acute intracranial abnormality. Spondylotic changes in the cervical spine. No fracture.
--- NOTE | 2017-08-26 00:18 | XR ---
EXAMINATION TYPE: XR humerus RT DATE OF EXAM: 08/26/2017 COMPARISON: NONE HISTORY: Fall. Pain. TECHNIQUE: 3 views FINDINGS: There is a midshaft fracture of the right humerus. There is 100% lateral displacement and p osterior displacement of the distal fragment. There is normal alignment. There is osteopenia. Shoulde r joint appears intact. IMPRESSION: Acute displaced midshaft fracture of the humerus. There is probably an old healed fractur e distal shaft of the humerus.
[2017-08-26 00:52] VITALS: RESP 18
[2017-08-26] MEDS ORDERED: ACET/COD 300 MG/30 MG STARTER PACK 6 TAB BTL PO STA (01:14)
[2017-08-26 01:53] VITALS: BP 136/55; PULSE 59; TEMP 97.7
== END 2017-08-26 01:18 | disposition home or self-care (01) ==
LOC: EC 23:02
DX: S42.301A Unspecified fracture of shaft of humerus, right arm, initial encounter for closed fracture (principal); M47.812 Spondylosis without myelopathy or radiculopathy, cervical region; G31.9 Degenerative disease of nervous system, unspecified; I48.91 Unspecified atrial fibrillation; E78.5 Hyperlipidemia, unspecified; I11.0 Hypertensive heart disease with heart failure; I50.9 Heart failure, unspecified; Z87.891 Personal history of nicotine dependence; Z79.01 Long term (current) use of anticoagulants; Z79.899 Other long term (current) drug therapy; Z82.49 Family history of ischemic heart disease and other diseases of the circulatory system; W01.0XXA Fall on same level from slipping, tripping and stumbling without subsequent striking against object, initial encounter; Y93.01 Activity, walking, marching and hiking; Y92.000 Kitchen of unspecified non-institutional (private) residence as the place of occurrence of the external cause
CPT/HCPCS: 29105; 70450; 72125; 99284

== ENCOUNTER → 2017-08-25 | Outpatient (CLI) | payer MEDICARE ==
--- NOTE | 2017-08-25 14:45 | US ---
EXAMINATION TYPE: US kidneys/renal and bladder DATE OF EXAM: 08/25/2017 COMPARISON: NONE CLINICAL HISTORY: 81-year-old female N19 Renal Failure. abn labs TECHNIQUE: Multiple sonographic images of the kidneys and bladder are obtained. FINDINGS: EXAM MEASUREMENTS: Right Kidney: 8.6 x 3.8 x 3.5 cm without hydronephrosis. There is a 1.6 cm hypoechoic lesion in the upper pole. Left Kidney: 9.6 x 3.6 x 4.6 cm without hydronephrosis. Underdistention of the bladder limits its evaluation. On the left ureteral jet is seen. IMPRESSION: 1. No hydronephrosis. 2. A 1.6 cm hypoechoic lesion in the upper pole is suspected to represent a cyst. Internal echoes cou ld be artifactual or could represent debris. Recommend six-month follow-up ultrasound to exclude the less likely possibility of an enlarging soft tissue mass.
== END | disposition home or self-care (01) ==
LOC: RADUSWWP 13:59
PROVIDERS: ATTEND Family Medicine
DX: N28.9 Disorder of kidney and ureter, unspecified (principal)
CPT/HCPCS: 76770

== ENCOUNTER 2017-08-30 23:42 | Inpatient (IN) | payer MEDICARE ==
[2017-08-30] MEDS ORDERED: SODIUM CHLORIDE 0.9% 1,000 ML IV STA (23:58)
[2017-08-31 00:20] LABS: Basophils % (A) 0 %; Eosinophils # (A) 0.1 k/uL (0-0.7); Eosinophils % (A) 3 %; HCT 30.4 % (34.0-46.0); HGB 10.1 gm/dL (11.4-16.0); Lymphocytes # (A) 1.2 k/uL (1.0-4.8); Lymphocytes % (A) 26 %; MCHC 33.2 g/dL (31.0-37.0); MCV 99.3 fL (80.0-100.0); Monocytes # (A) 0.5 k/uL (0-1.0); Monocytes % (A) 10 %; Neutrophils # (A) 2.8 k/uL (1.3-7.7); Neutrophils % (A) 58 %; Platelet Count 179 k/uL (150-450); RBC 3.06 m/uL (3.80-5.40); RDW 13.8 % (11.5-15.5); WBC 4.8 k/uL (3.8-10.6)
--- NOTE | 2017-08-31 00:27 | XR ---
EXAMINATION TYPE: XR chest 2V DATE OF EXAM: 08/31/2017 COMPARISON: 02/16/2017 HISTORY: Weakness TECHNIQUE: Frontal and lateral views of the chest are obtained. FINDINGS: There is no heart failure nor confluent pneumonic infiltrate. Heart is enlarged. Costophre amish angles are clear. There are chest leads. IMPRESSION: Cardiomegaly. No active cardiopulmonary disease.
[2017-08-31 00:30] LABS: Albumin 3.3 g/dL (3.5-5.0); Calcium 8.5 mg/dL (8.4-10.2); Magnesium 2.5 mg/dL (1.6-2.3); Phosphorus 7.2 mg/dL (2.5-4.5); Total Bilirubin 0.9 mg/dL (0.2-1.3)
[2017-08-31 00:36] LABS: INR 1.1 (<1.2); Potassium 6.8 mmol/L (3.5-5.1); Prothrombin Time 10.3 sec (9.0-12.0)
[2017-08-31] MEDS ORDERED: SODIUM POLYSTYRENE SULFONATE 15 GM/60 ML BOTTLE PO STA ×2 (00:36→06:04)
[2017-08-31] MEDS ORDERED: SODIUM CHLORIDE 0.9% 1,000 ML IV STA (00:36)
[2017-08-31] MEDS ORDERED: INSULIN REGULAR 100 UNIT/ML VIAL IV ONE ×4 (00:36→15:55)
[2017-08-31] MEDS ORDERED: DEXTROSE 50%-WATER 50 ML SYRINGE IVP STA ×4 (00:36→15:56)
[2017-08-31] MEDS ORDERED: CALCIUM CHLORIDE 1,000 MG in SODIUM CHLORIDE 0.9% 100 ML IVPB STA ×2 (00:36→09:53)
[2017-08-31 00:56] LABS: Creatine Kinase MB 2.7 ng/mL (0.0-2.4); Troponin I 0.039 ng/mL (0.000-0.034)
--- NOTE | 2017-08-31 00:57 | ED ---
General Adult HPI - General Chief complaint: Recheck/Abnormal Lab/Rx Stated complaint: WEAKNESS Time Seen by Provider: 08/30/17 23:53 Source: patient, EMS, RN notes reviewed, old records reviewed Mode of arrival: EMS Limitations: no limitations - History of Present Illness Initial comments: This is an 81-year-old female the ER for evaluation. Patient was essay for evaluation regards to weakness, not able to ambulate, unable to take care of herself or fever eat. Patient does have significant recent medical history. Patient recently had right arm surgery by orthopedics at this hospital. She's had a downward Ur since being at home, activity level is significantly decreased strength is decreased appetite is decreased. Patient denies fevers no headache chest pain shortness of breath or abdominal pain. Patient is relatively asymptomatic - Related Data Home Medications Medication Instructions Recorded Confirmed Apixaban [Eliquis] 2.5 mg PO BID 02/02/17 08/31/17 Cholecalciferol [Vitamin D3] 2,000 unit PO DAILY 02/02/17 08/31/17 Fenofibrate [Lofibra] 160 mg PO HS 02/02/17 08/31/17 Lisinopril [Zestril] 2.5 mg PO BID 08/31/17 08/31/17 Sennosides-Docusate Sodium 1 tab PO BID PRN 08/31/17 08/31/17 [Senokot-S] Previous Rx's Medication Instructions Recorded Amiodarone [Cordarone] 200 mg PO BID #60 tab 02/09/17 Carvedilol [Coreg*] 12.5 mg PO BID-W/MEALS #60 tab 02/09/17 Spironolactone [Aldactone] 25 mg PO DAILY #90 tab 02/09/17 Furosemide [Lasix] 20 mg PO BID #60 tab 02/18/17 Allergies Allergy/AdvReac Type Severity Reaction Status Date / Time No Known Allergies Allergy Verified 08/25/17 23:09 Review of Systems ROS Statement: Those systems with pertinent positive or pertinent negative responses have been documented in the HPI. ROS Other: All systems not noted in ROS Statement are negative. Past Medical History Past Medical History: Atrial Fibrillation, Heart Failure, GERD/Reflux, Hyperlipidemia, Hypertension History of Any Multi-Drug Resistant Organisms: None Reported Past Surgical History: Cholecystectomy Additional Past Surgical History / Comment(s): cataracts Past Anesthesia/Blood Transfusion Reactions: No Reported Reaction Past Psychological History: No Psychological Hx Reported Smoking Status: Former smoker Past Alcohol Use History: None Reported Past Drug Use History: None Reported - Past Family History Mother Family Medical History: Diabetes Mellitus Father Family Medical History: Myocardial Infarction ([place]) General Exam Limitations: no limitations General appearance: alert, anxious, lethargic, obese Head exam: Present: atraumatic, normocephalic, normal inspection Eye exam: Present: normal appearance, PERRL, EOMI. Absent: scleral icterus, conjunctival injection, periorbital swelling ENT exam: Present: normal exam, mucous membranes moist Neck exam: Present: normal inspection. Absent: tenderness, meningismus, lymphadenopathy Respiratory exam: Present: normal lung sounds bilaterally. Absent: respiratory distress, wheezes, rales, rhonchi, stridor Cardiovascular Exam: Present: normal rhythm, bradycardia, normal heart sounds. Absent: systolic murmur, diastolic murmur, rubs, gallop, clicks GI/Abdominal exam: Present: soft, normal bowel sounds. Absent: distended, tenderness, guarding, rebound, rigid Extremities exam: Present: normal inspection, full ROM, normal capillary refill. Absent: tenderness, pedal edema, joint swelling, calf tenderness Back exam: Present: normal inspection Neurological exam: Present: alert, oriented X3, CN II-XII intact Psychiatric exam: Present: normal affect, normal mood Skin exam: Present: warm, dry, intact, normal color. Absent: rash Course Vital Signs 08/30/17 08/31/17 08/31/17 23:49 00:49 01:16 Temperature 96.8 F L 97.4 F L Pulse Rate 37 L 31 L Pulse Rate [ 34 L Full Stack Python Developer ] Respiratory 18 16 12 Rate Blood Pressure 125/52 106/43 Blood Pressure 87/53 [Left Arm] O2 Sat by Pulse 99 99 100 Oximetry 08/31/17 08/31/17 08/31/17 01:41 02:05 02:39 Temperature 97.1 F L Pulse Rate 31 L 33 L 33 L Pulse Rate [ Full Stack Python Developer ] Respiratory 16 16 18 Rate Blood Pressure 99/45 87/55 98/46 Blood Pressure [Left Arm] O2 Sat by Pulse 100 100 100 Oximetry - Reevaluation(s) Reevaluation #1: No real improvement patient's cardiac or clinical state here in the emergency room Will admit to ICU EKG Findings - EKG Comments: EKG Findings:: EKG shows sinus bradycardiar 35, NC 186, QRS 110, QTC 404 Medical Decision Making - Medical Decision Making 81 female admitted and near, secondary to severe renal failure dehydration bradycardia likely's hyperkalemic induced. Patient will be admitted to the ICU ICU for cardiopulmonary support and monitoring - Lab Data Result diagrams: 08/31/17 17:35 08/31/17 21:38 Lab Results 08/31/17 08/31/17 08/31/17 Range/Units 00:09 00:09 00:09 WBC 4.8 (3.8-10.6) k/uL RBC 3.06 L (3.80-5.40) m/uL Hgb 10.1 L (11.4-16.0) gm/dL Hct 30.4 L (34.0-46.0) % MCV 99.3 (80.0-100.0) fL MCH 33.0 (25.0-35.0) pg MCHC 33.2 (31.0-37.0) g/dL RDW 13.8 (11.5-15.5) % Plt Count 179 (150-450) k/uL Neutrophils % 58 % Lymphocytes % 26 % Monocytes % 10 % Eosinophils % 3 % Basophils % 0 % Neutrophils # 2.8 (1.3-7.7) k/uL Lymphocytes # 1.2 (1.0-4.8) k/uL Monocytes # 0.5 (0-1.0) k/uL Eosinophils # 0.1 (0-0.7) k/uL Basophils # 0.0 (0-0.2) k/uL PT (9.0-12.0) sec INR (<1.2) APTT (22.0-30.0) sec Sodium 121 L (137-145) mmol/L Potassium 6.8 H* (3.5-5.1) mmol/L Chloride 90 L (98-107) mmol/L Carbon Dioxide 19 L (22-30) mmol/L Anion Gap 12 mmol/L BUN 115 H* (7-17) mg/dL Creatinine 6.20 H* (0.52-1.04) mg/dL Est GFR (CKD-EPI)AfAm 7 (>60 ml/min/1.73 sqM) Est GFR (CKD-EPI)NonAf 6 (>60 ml/min/1.73 sqM) Glucose 110 H (74-99) mg/dL Estimated Ave Glu mg/dL Hemoglobin A1c (4.0-6.0) % Plasma Lactic Acid Tejinder (0.7-2.0) mmol/L Calcium 8.5 (8.4-10.2) mg/dL Phosphorus 7.2 H (2.5-4.5) mg/dL Magnesium 2.5 H (1.6-2.3) mg/dL Total Bilirubin 0.9 (0.2-1.3) mg/dL AST 50 H (14-36) U/L ALT 36 (9-52) U/L Alkaline Phosphatase 32 L (38-126) U/L Total Creatine Kinase 186 H (30-135) U/L CK-MB (CK-2) 2.7 H* (0.0-2.4) ng/mL CK-MB (CK-2) Rel Index 1.5 Troponin I 0.039 H* (0.000-0.034) ng/mL Total Protein 6.0 L (6.3-8.2) g/dL Albumin 3.3 L (3.5-5.0) g/dL TSH 2.650 (0.465-4.680) mIU/L 08/31/17 08/31/17 08/31/17 Range/Units 00:09 00:09 00:09 WBC (3.8-10.6) k/uL RBC (3.80-5.40) m/uL Hgb (11.4-16.0) gm/dL Hct (34.0-46.0) % MCV (80.0-100.0) fL MCH (25.0-35.0) pg MCHC (31.0-37.0) g/dL RDW (11.5-15.5) % Plt Count (150-450) k/uL Neutrophils % % Lymphocytes % % Monocytes % % Eosinophils % % Basophils % % Neutrophils # (1.3-7.7) k/uL Lymphocytes # (1.0-4.8) k/uL Monocytes # (0-1.0) k/uL Eosinophils # (0-0.7) k/uL Basophils # (0-0.2) k/uL PT 10.3 (9.0-12.0) sec INR 1.1 (<1.2) APTT 20.2 L (22.0-30.0) sec Sodium (137-145) mmol/L Potassium (3.5-5.1) mmol/L Chloride (98-107) mmol/L Carbon Dioxide (22-30) mmol/L Anion Gap mmol/L BUN (7-17) mg/dL Creatinine (0.52-1.04) mg/dL Est GFR (CKD-EPI)AfAm (>60 ml/min/1.73 sqM) Est GFR (CKD-EPI)NonAf (>60 ml/min/1.73 sqM) Glucose (74-99) mg/dL Estimated Ave Glu mg/dL 105 Hemoglobin A1c 5.3 (4.0-6.0) % Plasma Lactic Acid Tejinder 0.7 (0.7-2.0) mmol/L Calcium (8.4-10.2) mg/dL Phosphorus (2.5-4.5) mg/dL Magnesium (1.6-2.3) mg/dL Total Bilirubin (0.2-1.3) mg/dL AST (14-36) U/L ALT (9-52) U/L Alkaline Phosphatase (38-126) U/L Total Creatine Kinase (30-135) U/L CK-MB (CK-2) (0.0-2.4) ng/mL CK-MB (CK-2) Rel Index Troponin I (0.000-0.034) ng/mL Total Protein (6.3-8.2) g/dL Albumin (3.5-5.0) g/dL TSH (0.465-4.680) mIU/L - Radiology Data Radiology results: report reviewed (Chest x-rays negative for acute disease), image reviewed Critical Care Time Critical Care Time: Yes Total Critical Care Time: 31 Disposition Clinical Impression: Sinus bradycardia, Hyperkalemia, Acute renal failure, Weakness, Postoperative pain, Hyponatremia Disposition: ADMITTED IP TO THIS [facility] Condition: Critical Is patient prescribed a controlled substance at d/c from ED?: No
[2017-08-31] MEDS ORDERED: MORPHINE SULFATE 4 MG/ML SYRINGE IV PRN (00:58)
[2017-08-31] MEDS ORDERED: NALOXONE 0.4 MG/ML 1 ML VIAL IV PRN (00:58)
[2017-08-31 01:16] LABS: Partial Thromboplastin Time 20.2 sec (22.0-30.0)
[2017-08-31 01:30] LABS: Appearance,Urine Clear (Clear); Bilirubin,Urine Negative (Negative); Blood,Urine Negative (Negative); Color,Urine Yellow; Glucose,Urine (UA) Negative (Negative); Ketones,Urine Negative (Negative); Leukocyte Esterase,Urine Negative (Negative); Nitrite,Urine Negative (Negative); Protein,Urine Negative (Negative); Specific Gravity,Urine 1.013 (1.001-1.035)
[2017-08-31 03:03] LABS: Glucose,Whole Blood 95 mg/dL (75-99)
[2017-08-31 03:46] LABS: Calcium 9.2 mg/dL (8.4-10.2); Potassium 5.7 mmol/L (3.5-5.1)
[2017-08-31] MEDS ORDERED: SODIUM BICARB 8.4% 50 ML SYR (1 MEQ/ML) IV ONE ×2 (03:59→06:03)
[2017-08-31 04:53] LABS: Basophils % (A) 0 %; Eosinophils # (A) 0.1 k/uL (0-0.7); Eosinophils % (A) 2 %; HCT 27.2 % (34.0-46.0); HGB 8.8 gm/dL (11.4-16.0); Lymphocytes % (A) 24 %; MCH 32.6 pg (25.0-35.0); MCHC 32.2 g/dL (31.0-37.0); MCV 101.1 fL (80.0-100.0); Macrocytosis Slight; Mean Platelet Volume 7.8; Monocytes # (A) 0.5 k/uL (0-1.0); Monocytes % (A) 12 %; Neutrophils # (A) 2.5 k/uL (1.3-7.7); Neutrophils % (A) 58 %; Platelet Count 155 k/uL (150-450); RBC 2.69 m/uL (3.80-5.40); RDW 13.8 % (11.5-15.5); WBC 4.3 k/uL (3.8-10.6)
[2017-08-31 04:56] LABS: Magnesium 2.5 mg/dL (1.6-2.3); Phosphorus 6.7 mg/dL (2.5-4.5)
[2017-08-31 05:18] LABS: Glucose,Whole Blood 114 mg/dL (75-99)
[2017-08-31] MEDS ORDERED: ATROPINE SULFATE 0.1 MG/ML 10ML SYRINGE ONE (05:53)
[2017-08-31] MEDS ORDERED: DOPamine DRIP 500 ML IV ONE (06:09)
[2017-08-31] MEDS ORDERED: SODIUM BICARB 8.4% 50 ML SYR (1 MEQ/ML) ONE (06:17)
[2017-08-31] MEDS: DOPamine DRIP 800 MG in DEXTROSE/WATER 1 500ML.BAG IV SCH (06:22)
--- NOTE | 2017-08-31 07:25 | P.CNPUL ---
History of Present Illness Consult date: 08/31/17 Reason for consult: other Chief complaint: Hyperkalemia, bradycardia, hypotension History of present illness: Pulmonary consult dated 08/31/2017 81-year-old female who was admitted with a diagnosis of weakness and poor oral intake and multiple electrolyte disturbances. This is a woman who apparently fell and fractured her right elbow/arm. It was casted by one of the orthopedic surgeons. She apparently stopped a stopped eating at home became very weak and dehydrated and came in with significant electrolyte disturbances including hyponatremia hyperkalemia renal failure, etc. He was seen by one of the ER physicians. She was noted to be bradycardic and hypotensive. This morning the nurse call me and I started the patient on some dopamine which is corrected both problems. She is awake and alert. She is oriented. Really has no major complaints at this time. She does have a history of congestive heart failure atrial fibrillation and gastroesophageal reflux disease hyperlipidemia hypertension cataracts surgery and cholecystectomy. She was a former smoker. Denies alcohol and illicit drug use. Review of Systems A 12 point review of system is positive for weakness. She denies all other complaints at this time. Past Medical History Past Medical History: Atrial Fibrillation, Heart Failure, GERD/Reflux, Hyperlipidemia, Hypertension Additional Past Medical History / Comment(s): CKD (DX 1 month ago) History of Any Multi-Drug Resistant Organisms: None Reported Past Surgical History: Cholecystectomy Additional Past Surgical History / Comment(s): cataracts Past Anesthesia/Blood Transfusion Reactions: No Reported Reaction Past Psychological History: No Psychological Hx Reported Additional Psychological History / Comment(s): pt's year ago. pt has occasional bouts of sadness, but no thoughs of wanting to harm self. pt lives in a single level home that has 4 porch steps. no home care servies recieved. uses a cane when up. Smoking Status: Former smoker Past Alcohol Use History: None Reported Additional Past Alcohol Use History / Comment(s): started smoking at age 22, smoked 1.5 packs per wek. quit 1977 Past Drug Use History: None Reported - Past Family History Mother Family Medical History: Diabetes Mellitus Father Family Medical History: Myocardial Infarction ([place]) Medications and Allergies Home Medications Medication Instructions Recorded Confirmed Type Apixaban [Eliquis] 2.5 mg PO BID 02/02/17 02/14/17 History Cholecalciferol [Vitamin D3] 2,000 unit PO DAILY 02/02/17 02/14/17 History Fenofibrate [Lofibra] 160 mg PO HS 02/02/17 02/14/17 History Amiodarone [Cordarone] 200 mg PO BID #60 tab 02/09/17 02/14/17 Rx Carvedilol [Coreg*] 12.5 mg PO BID-W/MEALS #60 tab 02/09/17 02/14/17 Rx Lisinopril [Zestril] 2.5 mg PO DAILY #90 tab 02/09/17 02/14/17 Rx Sennosides-Docusate Sodium 1 each PO BID PRN tab 02/09/17 02/14/17 Rx [Senokot-S] Spironolactone [Aldactone] 25 mg PO DAILY #90 tab 02/09/17 02/14/17 Rx Furosemide [Lasix] 20 mg PO BID #60 tab 02/18/17 Rx Allergies Allergy/AdvReac Type Severity Reaction Status Date / Time No Known Allergies Allergy Verified 08/25/17 23:09 Physical Exam Osteopathic Statement: *. No significant issues noted on an osteopathic structural exam other than those noted in the History and Physical/Consult. Vitals: Vital Signs Temp Pulse Pulse Resp BP BP Pulse Ox 08/31/17 07:00 83 15 129/48 96 08/31/17 06:00 30 L 20 75/33 99 08/31/17 05:00 61 16 121/49 97 08/31/17 04:00 97.5 F L 33 L 27 H 100/39 100 08/31/17 03:15 34 L 18 08/31/17 02:39 33 L 18 98/46 100 08/31/17 02:05 97.1 F L 33 L 16 87/55 100 08/31/17 01:41 31 L 16 99/45 100 08/31/17 01:16 97.4 F L 34 L 12 87/53 100 08/31/17 00:49 31 L 16 106/43 99 08/30/17 23:49 96.8 F L 37 L 18 125/52 99 Intake and Output 08/30/17 08/31/17 08/31/17 22:59 06:59 14:59 Intake Total 525 100 Output Total 78 20 Balance 447 80 Intake: IV 525 100 D50w 75 Sodium Chloride 0.9% 1, 300 100 000 ml @ 100 mls/hr IV . Q10H STA Rx#:[id number] Sodium bicarb 150 Output: Urine 78 20 Other: Voiding Method Indwelling Catheter Weight 80.3 kg No acute distress, oriented 3. Nasal O2 at 2 L/m is noted. HEENT examination is grossly unremarkable. Mucous membranes are moist. No oral lesions. Neck supple. Full range of motion. No adenopathy thyromegaly or neck vein distention. Cardiovascular examination reveals regular rhythm rate. S1-S2 normal. No S3 or S4. No discernible murmur noted. Lungs reveal clear breath sounds. Her sounds are equal bilaterally. No adventitious lung sounds including wheezes rhonchi or crackles. Abdomen soft bowel sounds are heard. No masses or tenderness. Extremities are intact. No cyanosis clubbing or edema. Skin is without rash or lesion. Neurologic examination is brief but nonfocal. Results - Laboratory Findings CBC and BMP: 08/31/17 03:20 08/31/17 03:20 PT/INR, D-dimer PT 10.3 sec (9.0-12.0) 08/31/17 00:09 INR 1.1 (<1.2) 08/31/17 00:09 Abnormal lab findings: Abnormal Labs 08/31/17 08/31/17 08/31/17 00:09 00:09 00:09 RBC 3.06 L Hgb 10.1 L Hct 30.4 L MCV APTT Sodium 121 L Potassium 6.8 H* Chloride 90 L Carbon Dioxide 19 L BUN 115 H* Creatinine 6.20 H* Glucose 110 H POC Glucose (mg/dL) Phosphorus 7.2 H Magnesium 2.5 H AST 50 H Alkaline Phosphatase 32 L Total Creatine Kinase 186 H CK-MB (CK-2) 2.7 H* Troponin I 0.039 H* Total Protein 6.0 L Albumin 3.3 L 08/31/17 08/31/17 08/31/17 00:09 03:20 03:20 RBC 2.69 L Hgb 8.8 L Hct 27.2 L MCV 101.1 H APTT 20.2 L Sodium 122 L Potassium 5.7 H Chloride 93 L Carbon Dioxide 18 L BUN 112 H* Creatinine 6.10 H* Glucose 70 L POC Glucose (mg/dL) Phosphorus 6.7 H Magnesium 2.5 H AST Alkaline Phosphatase Total Creatine Kinase CK-MB (CK-2) Troponin I Total Protein Albumin 08/31/17 05:16 RBC Hgb Hct MCV APTT Sodium Potassium Chloride Carbon Dioxide BUN Creatinine Glucose POC Glucose (mg/dL) 114 H Phosphorus Magnesium AST Alkaline Phosphatase Total Creatine Kinase CK-MB (CK-2) Troponin I Total Protein Albumin - Diagnostic Findings Chest x-ray: image reviewed (Labs x-rays and medications are all reviewed.) Assessment and Plan Assessment: Assessment Poor oral intake with severe dehydration significant electrolyte disturbances and acute kidney injury, all subsequent to a fall and a fractured right elbow History of atrial fibrillation History of CHF Gastroesophageal reflux disease Hyperlipidemia Hypertension Significant bradycardia and hypotension, responsive to dopamine therapy. Significant hyperkalemia Plan: Plan dated 08/31/2017 The patient remains on dopamine therapy for her blood pressure and heart rate. We will wean that as the day progresses. We will continue to follow closely. We'll continue to correct electrolytes him. Additional recommendations and suggestions are forthcoming. Both cardiology and nephrology have been consulted. The patient is a DO NOT RESUSCITATE. Labs x-rays and medications are all reviewed. Critical care time 34 minutes Time with Patient: Greater than 30
[2017-08-31 08:05] LABS: Basophils % (A) 0 %; Eosinophils # (A) 0.2 k/uL (0-0.7); Eosinophils % (A) 2 %; HCT 29.1 % (34.0-46.0); Lymphocytes # (A) 1.1 k/uL (1.0-4.8); Lymphocytes % (A) 15 %; MCH 33.3 pg (25.0-35.0); MCHC 34.3 g/dL (31.0-37.0); MCV 97.1 fL (80.0-100.0); Mean Platelet Volume 8.5; Monocytes # (A) 0.9 k/uL (0-1.0); Monocytes % (A) 12 %; Neutrophils % (A) 69 %; Platelet Count 179 k/uL (150-450); RDW 14.2 % (11.5-15.5); WBC 7.3 k/uL (3.8-10.6)
[2017-08-31] MEDS: HEPARIN SODIUM,PORCINE 5,000 UNIT/ML 1 ML VIAL SQ SCH ×2 (08:25→16:48)
[2017-08-31 08:59] LABS: Magnesium 2.4 mg/dL (1.6-2.3); Phosphorus 6.2 mg/dL (2.5-4.5)
--- NOTE | 2017-08-31 09:08 | P.CRDCN ---
History of Present Illness Consult date: 08/31/17 History of present illness: This is a 81-year-old female with history of cardiomyopathy, atrial fibrillation and congestive heart failure who was admitted to the hospital with complaints of weakness and fatigue. She was found to be in acute renal failure with hyperkalemia. Patient also had junctional bradycardia. Patient was started on IV dopamine with improvement of her heart rhythm and blood pressure. She was hypotensive on arrival. Apparently about several days ago, patient fell in her kitchen and sustained fracture of the right on requiring cast. She lives by herself. She hasn't been eating or drinking. She has been taking her medications. However. She was also on Aldactone and Coreg and amiodarone. Patient also became bradycardic this morning requiring titration of the documented to 10 mics. Her urine output is low. I will hold amiodarone, Coreg and also anticoagulation at this time. Patient is also slightly anemic. Continue with efforts of correcting her hypokalemia and addressing her renal failure. Once her hyperkalemia is corrected, her heart rhythm will improve. Currently she seemed to be in sinus rhythm. Given her history of living alone and tendency to fall, we had to reevaluate the safety of long-term anticoagulation. Review of Systems REVIEW OF SYSTEMS: CONSTITUTIONAL:. Patient complains of being weak and fatigued EYES: Denies diplopia, blurring of vision EARS, NOSE, MOUTH, THROAT: Denies headaches, denies sore throat. CARDIOVASCULAR: Denies chest pain, denies shortness of breath, denies palpitations RESPIRATORY: Denies shortness of breath, denies cough. GASTROINTESTINAL: Denies change in appetite, denies abdominal pain, denies diarrhea GENITOURINARY: Denies hematuria, denies infections. MUSKULOSKELETAL: Denies pain, denies swelling. Denies any cramps or claudication INTEGUMENTARY: Denies rash, denies eczema. NEUROLOGICAL: Denies focal weakness, or visual disturbance. Denies any dizziness or syncope PSYCHIATRIC: Denies anxiety, denies depression. HEMATOLOGIC/LYMPHATIC: Denies any bleeding, denies enlarged lymph nodes. Past Medical History Past Medical History: Atrial Fibrillation, Heart Failure, GERD/Reflux, Hyperlipidemia, Hypertension Additional Past Medical History / Comment(s): CKD (DX 1 month ago) History of Any Multi-Drug Resistant Organisms: None Reported Past Surgical History: Cholecystectomy Additional Past Surgical History / Comment(s): cataracts Past Anesthesia/Blood Transfusion Reactions: No Reported Reaction Past Psychological History: No Psychological Hx Reported Additional Psychological History / Comment(s): pt's year ago. pt has occasional bouts of sadness, but no thoughs of wanting to harm self. pt lives in a single level home that has 4 porch steps. no home care servies recieved. uses a cane when up. Smoking Status: Former smoker Past Alcohol Use History: None Reported Additional Past Alcohol Use History / Comment(s): started smoking at age 22, smoked 1.5 packs per wek. quit 1977 Past Drug Use History: None Reported - Past Family History Mother Family Medical History: Diabetes Mellitus Father Family Medical History: Myocardial Infarction ([place]) Medications and Allergies Home Medications Medication Instructions Recorded Confirmed Type Apixaban [Eliquis] 2.5 mg PO BID 02/02/17 08/31/17 History Cholecalciferol [Vitamin D3] 2,000 unit PO DAILY 02/02/17 08/31/17 History Fenofibrate [Lofibra] 160 mg PO HS 02/02/17 08/31/17 History Amiodarone [Cordarone] 200 mg PO BID #60 tab 02/09/17 08/31/17 Rx Carvedilol [Coreg*] 12.5 mg PO BID-W/MEALS #60 tab 02/09/17 08/31/17 Rx Spironolactone [Aldactone] 25 mg PO DAILY #90 tab 02/09/17 08/31/17 Rx Furosemide [Lasix] 20 mg PO BID #60 tab 02/18/17 08/31/17 Rx Lisinopril [Zestril] 2.5 mg PO BID 08/31/17 08/31/17 History Sennosides-Docusate Sodium 1 tab PO BID PRN 08/31/17 08/31/17 History [Senokot-S] Allergies Allergy/AdvReac Type Severity Reaction Status Date / Time No Known Allergies Allergy Verified 08/25/17 23:09 Physical Exam Vitals: Vital Signs Temp Pulse Pulse Resp BP BP Pulse Ox 08/31/17 08:00 97.4 F L 78 20 128/59 96 08/31/17 07:43 95 08/31/17 07:00 83 15 129/48 96 05/22/18 06:00 30 L 20 75/33 99 08/31/17 05:00 61 16 121/49 97 08/31/17 04:00 97.5 F L 33 L 27 H 100/39 100 08/31/17 03:15 34 L 18 08/31/17 02:39 33 L 18 98/46 100 08/31/17 02:05 97.1 F L 33 L 16 87/55 100 08/31/17 01:41 31 L 16 99/45 100 08/31/17 01:16 97.4 F L 34 L 12 87/53 100 08/31/17 00:49 31 L 16 106/43 99 08/30/17 23:49 96.8 F L 37 L 18 125/52 99 Intake and Output 08/30/17 08/31/17 08/31/17 22:59 06:59 14:59 Intake Total 525 200 Output Total 78 42 Balance 447 158 Intake: IV 525 200 D50w 75 Sodium Chloride 0.9% 1, 300 200 000 ml @ 100 mls/hr IV . Q10H STA Rx#:[id number] Sodium bicarb 150 Output: Urine 78 42 Other: Voiding Method Indwelling Catheter Weight 80.3 kg GENERAL EXAM: Patient is alert and oriented. Appears weak and frail HEENT: Normocephalic. Normal reaction of pupils, equal size, normal range of extraocular motion. No erythema or exudates in the throat. NECK: No masses, no nuchal rigidity. CHEST: No chest wall deformity. LUNGS: Equal air entry with no crackles or wheeze. HEART: S1 and S2 normal with no audible mumurs or gallops. Regular rhythm, femorals equal on both sides.. ABDOMEN: No hepatosplenomegaly, normal bowel sounds, no guarding or rigidity. SKIN: No rashes CENTRAL NERVOUS SYSTEM: No focal deficits. EXTREMITIES: No cyanosis, clubbing or edema. Results 08/31/17 07:25 08/31/17 03:20 Cardiac Enzymes 08/31/17 08/31/17 Range/Units 00:09 00:09 AST 50 H (14-36) U/L CK-MB (CK-2) 2.7 H* (0.0-2.4) ng/mL Troponin I 0.039 H* (0.000-0.034) ng/mL Coagulation 08/31/17 Range/Units 00:09 PT 10.3 (9.0-12.0) sec APTT 20.2 L (22.0-30.0) sec CBC 08/31/17 08/31/17 08/31/17 Range/Units 00:09 03:20 07:25 WBC 4.8 4.3 7.3 (3.8-10.6) k/uL RBC 3.06 L 2.69 L 3.00 L (3.80-5.40) m/uL Hgb 10.1 L 8.8 L 10.0 L (11.4-16.0) gm/dL Hct 30.4 L 27.2 L 29.1 L (34.0-46.0) % Plt Count 179 155 179 (150-450) k/uL Comprehensive Metabolic Panel 08/31/17 08/31/17 Range/Units 00:09 03:20 Sodium 121 L 122 L (137-145) mmol/L Potassium 6.8 H* 5.7 H (3.5-5.1) mmol/L Chloride 90 L 93 L (98-107) mmol/L Carbon Dioxide 19 L 18 L (22-30) mmol/L BUN 115 H* 112 H* (7-17) mg/dL Creatinine 6.20 H* 6.10 H* (0.52-1.04) mg/dL Glucose 110 H 70 L (74-99) mg/dL Calcium 8.5 9.2 (8.4-10.2) mg/dL AST 50 H (14-36) U/L ALT 36 (9-52) U/L Alkaline Phosphatase 32 L (38-126) U/L Total Protein 6.0 L (6.3-8.2) g/dL Albumin 3.3 L (3.5-5.0) g/dL Current Medications Generic Name Dose Route Start Last Admin Trade Name Freq PRN Reason Stop Dose Admin Heparin Sodium (Porcine) 5,000 unit 08/31/17 08:00 08/31/17 08:25 Heparin SQ 5,000 unit Q8HR DELROY Administration Sodium Chloride 1,000 mls @ 100 mls/hr 08/30/17 23:58 08/31/17 00:43 Saline 0.9% IV 08/31/17 09:57 100 mls/hr .Q10H STA Administration Dopamine HCl/Dextrose 800 mg/ 500 mls @ 30.11 mls/hr 08/31/17 06:15 08/31/17 06:22 IV Solution IV 10 mcg/kg/min .[id number] DELROY 30.11 mls/hr Protocol Administration 10 MCG/KG/MIN Morphine Sulfate 4 mg 08/31/17 00:58 Morphine Sulfate (Inj) IV Q4HR PRN Pain Scale 8 to 10 Naloxone HCl 0.2 mg 08/31/17 00:58 Narcan IV Q2M PRN Opioid Reversal Pantoprazole Sodium 40 mg 08/31/17 09:00 Protonix IV DAILY DELROY Intake and Output 08/30/17 08/31/17 08/31/17 22:59 06:59 14:59 Intake Total 525 200 Output Total 78 42 Balance 447 158 Intake: IV 525 200 D50w 75 Sodium Chloride 0.9% 1, 300 200 000 ml @ 100 mls/hr IV . Q10H STA Rx#:[id number] Sodium bicarb 150 Output: Urine 78 42 Other: Voiding Method Indwelling Catheter Weight 80.3 kg 08/31/17 07:25 08/31/17 03:20 EKG Interpretations (text) Junctional bradycardia with occasional conducted sinus beats Initially. Currently she appears to be in sinus rhythm. Assessment and Plan (1) History of cardiomyopathy Current Visit: Yes Status: Acute Code(s): Z86.79 - PERSONAL HISTORY OF OTHER DISEASES OF THE CIRCULATORY SYSTEM SNOMED Code(s): 599238081753917 (2) Hyperkalemia Current Visit: Yes Status: Acute Code(s): E87.5 - HYPERKALEMIA SNOMED Code (s): 86143501 (3) Hyponatremia Current Visit: Yes Status: Acute Code(s): E87.1 - HYPO-OSMOLALITY AND HYPONATREMIA SNOMED Code(s): 72580881 (4) Congestive heart failure Current Visit: No Status: Acute Code(s): I50.9 - HEART FAILURE, UNSPECIFIED SNOMED Code(s): 09425872 (5) Humerus shaft fracture Current Visit: No Status: Acute Code(s): S42.309A - UNSP FRACTURE OF SHAFT OF HUMERUS, UNSP ARM, INIT SNOMED Code(s): 06501589 (6) History of atrial fibrillation Current Visit: Yes Status: Acute Code(s): Z86.79 - PERSONAL HISTORY OF OTHER DISEASES OF THE CIRCULATORY SYSTEM SNOMED Code(s): 129188450 Plan: Continue current medical therapy to Correct hyperkalemia and acute renal failure. Patient is in sinus rhythm at this time and hopefully she'll maintain it. I will hold Coreg, amiodarone, Aldactone and Lasix and also anticoagulation for another 24 hours. Further recommendations depend upon the clinical course.
[2017-08-31 09:18] LABS: Potassium 6.3 mmol/L (3.5-5.1)
[2017-08-31 09:25] LABS: Glucose,Whole Blood 36 mg/dL (75-99)
[2017-08-31 09:25] LABS: Glucose,Whole Blood 42 mg/dL (75-99)
--- NOTE | 2017-08-31 09:32 | P.CNOR ---
History of Present Illness - [facility] Consult date: 08/31/17 Consult reason: fracture (Mid-shaft humerus fracture right arm) History of present illness: The patient is an 81 y/o female who is known to our office. She presented to our office on 08/26/2017 after sustaining a fall at home on 08/25/2017. The patient was seen in the ER on 08/25/2017 and was found to have a right humerus fracture. The patient was seen in the office by Dr. Mallory and was placed in a hanging arm cast. She felt dizzy and weakness yesterday and a family member called EMS. She is currently now in ICU for acute renal failure, bradycardia, dehydration, hyperkalemia, and hyponatremia. We will consulted for her right humerus fracture. This morning, she states she is still feeling weak and tired. She denies fever, chills, chest pain, and abdominal pain this morning. She is feeling short of breath at times. She states her cast is comfortable except for some pinching at time in the upper arm. She denies hand numbness. Review of Systems Right upper arm pain, swelling, and bruising. Constitutional: Reports fatigue, Reports lethargy, Denies chills, Denies fever Cardiovascular: Reports shortness of breath, Denies chest pain Respiratory: Reports cough Musculoskeletal: Reports fractures Past Medical History Past Medical History: Atrial Fibrillation, Heart Failure, GERD/Reflux, Hyperlipidemia, Hypertension Additional Past Medical History / Comment(s): CKD (DX 1 month ago) History of Any Multi-Drug Resistant Organisms: None Reported Past Surgical History: Cholecystectomy Additional Past Surgical History / Comment(s): cataracts Past Anesthesia/Blood Transfusion Reactions: No Reported Reaction Past Psychological History: No Psychological Hx Reported Additional Psychological History / Comment(s): pt's year ago. pt has occasional bouts of sadness, but no thoughs of wanting to harm self. pt lives in a single level home that has 4 porch steps. no home care servies recieved. uses a cane when up. Smoking Status: Former smoker Past Alcohol Use History: None Reported Additional Past Alcohol Use History / Comment(s): started smoking at age 22, smoked 1.5 packs per wek. quit 1977 Past Drug Use History: None Reported - Past Family History Mother Family Medical History: Diabetes Mellitus Father Family Medical History: Myocardial Infarction ([place]) Medications and Allergies Home Medications Medication Instructions Recorded Confirmed Type Apixaban [Eliquis] 2.5 mg PO BID 02/02/17 08/31/17 History Cholecalciferol [Vitamin D3] 2,000 unit PO DAILY 02/02/17 08/31/17 History Fenofibrate [Lofibra] 160 mg PO HS 02/02/17 08/31/17 History Amiodarone [Cordarone] 200 mg PO BID #60 tab 02/09/17 08/31/17 Rx Carvedilol [Coreg*] 12.5 mg PO BID-W/MEALS #60 tab 02/09/17 08/31/17 Rx Spironolactone [Aldactone] 25 mg PO DAILY #90 tab 02/09/17 08/31/17 Rx Furosemide [Lasix] 20 mg PO BID #60 tab 02/18/17 08/31/17 Rx Lisinopril [Zestril] 2.5 mg PO BID 08/31/17 08/31/17 History Sennosides-Docusate Sodium 1 tab PO BID PRN 08/31/17 08/31/17 History [Senokot-S] Allergies Allergy/AdvReac Type Severity Reaction Status Date / Time No Known Allergies Allergy Verified 08/25/17 23:09 Physical Examination The patient is an 81 y/o female in no acute distress. She is oriented x2. She is alert but falls asleep easy during exam. Exam of the right upper extremity reveals a long arm hanging cast. There is a sharp edge on the proximal end of the cast, which was padded with an ABD pad. Otherwise, the cast is in excellent condition. Ecchmyosis is present to the upper arm. Slight tenderness to the fracture site on palpation. She is able to wiggle her fingers. No neurological deficits. Circulatory status is intact. Results X-rays from 08/25/2017 revealed a displaced mid-shaft transverse fracture of the right humerus. - Labs Labs: Abnormal Lab Results - Last 24 Hours (Table) 08/31/17 08/31/17 08/31/17 Range/Units 00:09 00:09 00:09 RBC 3.06 L (3.80-5.40) m/uL Hgb 10.1 L (11.4-16.0) gm/dL Hct 30.4 L (34.0-46.0) % MCV (80.0-100.0) fL APTT (22.0-30.0) sec Sodium 121 L (137-145) mmol/L Potassium 6.8 H* (3.5-5.1) mmol/L Chloride 90 L (98-107) mmol/L Carbon Dioxide 19 L (22-30) mmol/L BUN 115 H* (7-17) mg/dL Creatinine 6.20 H* (0.52-1.04) mg/dL Glucose 110 H (74-99) mg/dL POC Glucose (mg/dL) (75-99) mg/dL Phosphorus 7.2 H (2.5-4.5) mg/dL Magnesium 2.5 H (1.6-2.3) mg/dL AST 50 H (14-36) U/L Alkaline Phosphatase 32 L (38-126) U/L Total Creatine Kinase 186 H (30-135) U/L CK-MB (CK-2) 2.7 H* (0.0-2.4) ng/mL Troponin I 0.039 H* (0.000-0.034) ng/mL Total Protein 6.0 L (6.3-8.2) g/dL Albumin 3.3 L (3.5-5.0) g/dL 08/31/17 08/31/17 08/31/17 Range/Units 00:09 03:20 03:20 RBC 2.69 L (3.80-5.40) m/uL Hgb 8.8 L (11.4-16.0) gm/dL Hct 27.2 L (34.0-46.0) % MCV 101.1 H (80.0-100.0) fL APTT 20.2 L (22.0-30.0) sec Sodium 122 L (137-145) mmol/L Potassium 5.7 H (3.5-5.1) mmol/L Chloride 93 L (98-107) mmol/L Carbon Dioxide 18 L (22-30) mmol/L BUN 112 H* (7-17) mg/dL Creatinine 6.10 H* (0.52-1.04) mg/dL Glucose 70 L (74-99) mg/dL POC Glucose (mg/dL) (75-99) mg/dL Phosphorus 6.7 H (2.5-4.5) mg/dL Magnesium 2.5 H (1.6-2.3) mg/dL AST (14-36) U/L Alkaline Phosphatase (38-126) U/L Total Creatine Kinase (30-135) U/L CK-MB (CK-2) (0.0-2.4) ng/mL Troponin I (0.000-0.034) ng/mL Total Protein (6.3-8.2) g/dL Albumin (3.5-5.0) g/dL 08/31/17 08/31/17 08/31/17 Range/Units 05:16 07:25 07:25 RBC 3.00 L (3.80-5.40) m/uL Hgb 10.0 L (11.4-16.0) gm/dL Hct 29.1 L (34.0-46.0) % MCV (80.0-100.0) fL APTT (22.0-30.0) sec Sodium 130 L (137-145) mmol/L Potassium 6.3 H* (3.5-5.1) mmol/L Chloride 94 L (98-107) mmol/L Carbon Dioxide (22-30) mmol/L BUN 120 H* (7-17) mg/dL Creatinine 6.07 H* (0.52-1.04) mg/dL Glucose 34 L* (74-99) mg/dL POC Glucose (mg/dL) 114 H (75-99) mg/dL Phosphorus 6.2 H (2.5-4.5) mg/dL Magnesium 2.4 H (1.6-2.3) mg/dL AST (14-36) U/L Alkaline Phosphatase (38-126) U/L Total Creatine Kinase (30-135) U/L CK-MB (CK-2) (0.0-2.4) ng/mL Troponin I (0.000-0.034) ng/mL Total Protein (6.3-8.2) g/dL Albumin (3.5-5.0) g/dL H & H 08/31/17 08/31/17 08/31/17 Range/Units 00:09 03:20 07:25 Hgb 10.1 L 8.8 L 10.0 L (11.4-16.0) gm/dL Hct 30.4 L 27.2 L 29.1 L (34.0-46.0) % Coagulation 08/31/17 Range/Units 00:09 INR 1.1 (<1.2) Result Diagrams: 08/31/17 07:25 08/31/17 07:25 Assessment and Plan (1) Weakness Current Visit: Yes Status: Acute Code(s): R53.1 - WEAKNESS SNOMED Code(s) : 79636092 (2) Humerus shaft fracture Current Visit: No Status: Acute Code(s): S42.309A - UNSP FRACTURE OF SHAFT OF HUMERUS, UNSP ARM, INIT SNOMED Code(s): 37537168 Plan: The clinical findings were discussed with the patient. The case was also discussed with Dr. Mallory. Maintain hanging arm cast. Ice to fracture site as needed. Continue medical management with internal medicine, pulmonary, and cardiology. We will continue to follow the patient with you.
[2017-08-31 09:42] LABS: Glucose,Whole Blood 48 mg/dL (75-99)
[2017-08-31] MEDS ORDERED: FUROSEMIDE 10 MG/ML 10 ML VIAL IV STA (09:53)
[2017-08-31 10:02] LABS: Glucose,Whole Blood 104 mg/dL (75-99)
[2017-08-31] MEDS ORDERED: ALBUTEROL NEBULIZED 2.5 MG/3 ML INHALATION STA (10:02)
[2017-08-31] MEDS ORDERED: ALBUTEROL NEB (CONC) 2.5 MG/0.5 ML INHALATION STA (10:03)
--- NOTE | 2017-08-31 10:16 | P.NPCON ---
History of Present Illness - Reason for Consult acute renal failure - History of Present Illness Reason for consultation: Acute kidney injury and electrolyte imbalance History of present illness: Patient is a 81-year-old female seen in renal consultation for acute kidney injury and electrolyte imbalance. Patient presented to the hospital with generalized weakness and poor oral intake. She was noted to be bradycardic with heart rate in the 30s. Potassium level was 6.8 which was medically treated with IV insulin, Kayexalate, sodium bicarbonate as well as calcium gluconate. Potassium low did come down to 5.7 but is up again to 6.3 this morning. Her urine output is about 20 mL an hour. She is currently maintained on normal saline at 100 mL an hour. She does have history of systolic CHF with ejection fraction of 25-30%. Patient also sustained a fall prior to admission and is noted to have a right humerus midshaft fracture and is currently wearing a cast. She is awake and alert. Her heart rate is in the 70s but she is also on 10 mics of dopamine. She was taking Aldactone and lisinopril at home which are currently held. She was noted to be quite hypotensive with systolic blood pressure as low as 75/33 and is up to 126/44 this morning. She did receive 1 L of IV fluid bolus in the ER. She denies use of NSAIDs. Her urine output was low for the last few days but denies any hematuria or dysuria. No history of diabetes. Chest x-ray revealed no evidence of fluid overload. No evidence of hydronephrosis noted on ultrasound. Urinalysis benign. Vital signs are stable. General: The patient appeared well nourished and normally developed. HEENT: Head exam is unremarkable. Neck is without jugular venous distension. LUNGS: Lungs are clear to auscultation and percussion. Breath sounds decreased. HEART: Rate and Rhythm are regular. First and second heart sounds normal. No murmurs, rubs or gallops. ABDOMEN: Abdominal exam reveals normal bowel sounds. Non-tender and non- distended. No evidence of peritonitis. EXTREMITITES: No clubbing, cyanosis, or edema. Right humerus cast noted. Past Medical History Past Medical History: Atrial Fibrillation, Heart Failure, GERD/Reflux, Hyperlipidemia, Hypertension Additional Past Medical History / Comment(s): CKD (DX 1 month ago) History of Any Multi-Drug Resistant Organisms: None Reported Past Surgical History: Cholecystectomy Additional Past Surgical History / Comment(s): cataracts Past Anesthesia/Blood Transfusion Reactions: No Reported Reaction Past Psychological History: No Psychological Hx Reported Additional Psychological History / Comment(s): pt's year ago. pt has occasional bouts of sadness, but no thoughs of wanting to harm self. pt lives in a single level home that has 4 porch steps. no home care servies recieved. uses a cane when up. Smoking Status: Former smoker Past Alcohol Use History: None Reported Additional Past Alcohol Use History / Comment(s): started smoking at age 22, smoked 1.5 packs per wek. quit 1977 Past Drug Use History: None Reported - Past Family History Mother Family Medical History: Diabetes Mellitus Father Family Medical History: Myocardial Infarction ([place]) Medications and Allergies Home Medications Medication Instructions Recorded Confirmed Type Apixaban [Eliquis] 2.5 mg PO BID 02/02/17 08/31/17 History Cholecalciferol [Vitamin D3] 2,000 unit PO DAILY 02/02/17 08/31/17 History Fenofibrate [Lofibra] 160 mg PO HS 02/02/17 08/31/17 History Amiodarone [Cordarone] 200 mg PO BID #60 tab 02/09/17 08/31/17 Rx Carvedilol [Coreg*] 12.5 mg PO BID-W/MEALS #60 tab 02/09/17 08/31/17 Rx Spironolactone [Aldactone] 25 mg PO DAILY #90 tab 02/09/17 08/31/17 Rx Furosemide [Lasix] 20 mg PO BID #60 tab 02/18/17 08/31/17 Rx Lisinopril [Zestril] 2.5 mg PO BID 08/31/17 08/31/17 History Sennosides-Docusate Sodium 1 tab PO BID PRN 08/31/17 08/31/17 History [Senokot-S] Allergies Allergy/AdvReac Type Severity Reaction Status Date / Time No Known Allergies Allergy Verified 08/25/17 23:09 Physical Exam Vitals: Vital Signs Temp Pulse Pulse Resp BP BP Pulse Ox 08/31/17 10:00 75 18 126/44 93 L 08/31/17 09:00 67 20 114/41 95 08/31/17 08:00 97.4 F L 78 20 128/59 96 08/31/17 07:43 95 08/31/17 07:00 83 15 129/48 96 08/31/17 06:00 30 L 20 75/33 99 08/31/17 05:00 61 16 121/49 97 08/31/17 04:00 97.5 F L 33 L 27 H 100/39 100 08/31/17 03:15 34 L 18 08/31/17 02:39 33 L 18 98/46 100 08/31/17 02:05 97.1 F L 33 L 16 87/55 100 08/31/17 01:41 31 L 16 99/45 100 08/31/17 01:16 97.4 F L 34 L 12 87/53 100 08/31/17 00:49 31 L 16 106/43 99 08/30/17 23:49 96.8 F L 37 L 18 125/52 99 Intake and Output 08/30/17 08/31/17 08/31/17 22:59 06:59 14:59 Intake Total 525 700 Output Total 78 64 Balance 447 636 Intake: IV 525 300 D50w 75 Sodium Chloride 0.9% 1, 300 300 000 ml @ 100 mls/hr IV . Q10H STA Rx#:[id number] Sodium bicarb 150 Oral 400 Output: Urine 78 64 Other: Voiding Method Indwelling Catheter Weight 80.3 kg Results - Lab Results Most recent lab results Calcium 9.0 mg/dL (8.4-10.2) 08/31/17 07:25 Phosphorus 6.2 mg/dL (2.5-4.5) H 08/31/17 07:25 Magnesium 2.4 mg/dL (1.6-2.3) H 08/31/17 07:25 08/31/17 07:25 08/31/17 07:25 Assessment and Plan Plan: Assessment: 1. Oliguric acute kidney injury secondary to ischemic ATN secondary to bradycardia and further worsened with the use of diuretics and lisinopril. Creatinine 6.1 on admission and 6.07 today. Urinalysis is benign. No evidence of hydronephrosis noted on renal ultrasound. 2. Hypovolemic hyponatremia improved with IV hydration. 3. Hyperkalemia secondary to acute kidney injury and further worsened with the use of Aldactone and lisinopril. 4. Bradycardia secondary to hyperkalemia. Currently on dopamine. Heart rate in 70s. 5. Systolic CHF with ejection fraction of 25-30%. Currently compensated. 6. Status post fall with right shaft humerus fracture. 7. Chronic kidney disease stage III with creatinine in the range of 1.1-1.3 in February 2017. Etiology is nephrosclerosis. 8. Metabolic acidosis secondary to acute kidney injury. Improved. Plan: I would decrease the rate of normal saline to 70 mL an hour. 20 mg of nebulized albuterol and 1 g of calcium chloride now. 80 mg of IV Lasix once now. Avoid nephrotoxic agents and hypotensive episodes. Due to oliguria and hyperkalemia, I will schedule her for hemodialysis today. Patient is in agreement to proceed. Will consult vascular surgery for dialysis catheter placement. Check cortisol level. Thank you for the consultation. I will continue to follow the patient with you during her hospital stay.
[2017-08-31] MEDS: PANTOPRAZOLE 40 MG/10 ML VIAL IV SCH (10:25)
[2017-08-31] MEDS: SODIUM CHLORIDE 0.9% 1,000 ML IV STA ×2 (10:49→14:29)
[2017-08-31 11:18] LABS: Glucose,Whole Blood 140 mg/dL (75-99)
[2017-08-31] MEDS ORDERED: LIDOCAINE 1% INJ 10MG/ML (20 ML MDV) ONE (15:30)
[2017-08-31] MEDS ORDERED: HEPARIN SODIUM 1,000 UN/ML (10ML VL) ONE (15:30)
[2017-08-31 15:44] LABS: Potassium 6.3 mmol/L (3.5-5.1)
[2017-08-31 16:37] LABS: Hemoglobin A1C 5.3 % (4.0-6.0)
[2017-08-31 16:57] LABS: HGB 10.9 gm/dL (11.4-16.0); MCH 32.7 pg (25.0-35.0); MCV 99.1 fL (80.0-100.0); RBC 3.33 m/uL (3.80-5.40); RDW 13.8 % (11.5-15.5); WBC 5.3 k/uL (3.8-10.6)
[2017-08-31 17:23] LABS: Platelet Count 54 k/uL (150-450)
[2017-08-31 17:27] LABS: Band Neutrophils % 4 %; Lymphocytes # (M) 1.22 k/uL (1.0-4.8); Monocytes # (M) 0.16 k/uL (0-1.0); Neutrophils % (M) 70 %; Nucleated Red Blood Cells 0 /100 WBC (0-0); Total Cells Counted 100
[2017-08-31 17:42] LABS: Basophils % (A) 0 %; Eosinophils # (A) 0.1 k/uL (0-0.7); Eosinophils % (A) 3 %; HCT 27.9 % (34.0-46.0); Lymphocytes # (A) 0.3 k/uL (1.0-4.8); Lymphocytes % (A) 8 %; MCH 32.8 pg (25.0-35.0); MCV 99.3 fL (80.0-100.0); Mean Platelet Volume 7.5; Monocytes # (A) 0.3 k/uL (0-1.0); Monocytes % (A) 8 %; Neutrophils # (A) 3.1 k/uL (1.3-7.7); Neutrophils % (A) 80 %; RBC 2.81 m/uL (3.80-5.40); RDW 13.8 % (11.5-15.5); WBC 3.9 k/uL (3.8-10.6)
[2017-08-31 17:45] LABS: Platelet Count 161 k/uL (150-450)
[2017-08-31 17:48] LABS: HGB 9.2 gm/dL (11.4-16.0)
[2017-08-31 19:00] LABS: Glucose,Whole Blood 117 mg/dL (75-99)
[2017-08-31] MEDS ORDERED: HEPARIN SODIUM,PORCINE 5,000 UNIT/ML 1 ML VIAL ONE (19:15)
--- NOTE | 2017-08-31 20:59 | P.HPIM ---
History of Present Illness 81-year-old female was admitted to the emergency room with the complaints of weakness poor oral intake and electronic disturbance. Patient had fallen and fractured her right elbow had been cast by orthopedic surgeons. Patient stopped eating at home became weak and dehydrated and presented to ER with hyponatremia hyperkalemia renal failure. Patient developed bradycardia and hypotensive. At this time she is in the intensive care unit Review of Systems Musculoskeletal: right: elbow pain, elbow swelling Past Medical History Past Medical History: Atrial Fibrillation, Heart Failure, GERD/Reflux, Hyperlipidemia, Hypertension Additional Past Medical History / Comment(s): CKD (DX 1 month ago) History of Any Multi-Drug Resistant Organisms: None Reported Past Surgical History: Cholecystectomy Additional Past Surgical History / Comment(s): cataracts Past Anesthesia/Blood Transfusion Reactions: No Reported Reaction Past Psychological History: No Psychological Hx Reported Additional Psychological History / Comment(s): pt's year ago. pt has occasional bouts of sadness, but no thoughs of wanting to harm self. pt lives in a single level home that has 4 porch steps. no home care servies recieved. uses a cane when up. Smoking Status: Former smoker Past Alcohol Use History: None Reported Additional Past Alcohol Use History / Comment(s): started smoking at age 22, smoked 1.5 packs per wek. quit 1977 Past Drug Use History: None Reported - Past Family History Mother Family Medical History: Diabetes Mellitus Father Family Medical History: Myocardial Infarction ([place]) Medications and Allergies Home Medications Medication Instructions Recorded Confirmed Type Apixaban [Eliquis] 2.5 mg PO BID 02/02/17 08/31/17 History Cholecalciferol [Vitamin D3] 2,000 unit PO DAILY 02/02/17 08/31/17 History Fenofibrate [Lofibra] 160 mg PO HS 02/02/17 08/31/17 History Amiodarone [Cordarone] 200 mg PO BID #60 tab 02/09/17 08/31/17 Rx Carvedilol [Coreg*] 12.5 mg PO BID-W/MEALS #60 tab 02/09/17 08/31/17 Rx Spironolactone [Aldactone] 25 mg PO DAILY #90 tab 02/09/17 08/31/17 Rx Furosemide [Lasix] 20 mg PO BID #60 tab 02/18/17 08/31/17 Rx Lisinopril [Zestril] 2.5 mg PO BID 08/31/17 08/31/17 History Sennosides-Docusate Sodium 1 tab PO BID PRN 08/31/17 08/31/17 History [Senokot-S] Allergies Allergy/AdvReac Type Severity Reaction Status Date / Time No Known Allergies Allergy Verified 08/25/17 23:09 Physical Exam Vitals: Vital Signs Temp Pulse Pulse Resp BP BP Pulse Ox 08/31/17 20:00 98.1 F 78 17 102/45 100 08/31/17 19:55 82 17 08/31/17 19:00 84 17 104/57 97 08/31/17 18:00 81 15 98/46 98 08/31/17 17:00 54 L 15 114/58 96 08/31/17 16:00 97.7 F 79 16 141/83 97 08/31/17 15:00 96.2 F L 81 13 144/52 97 08/31/17 14:00 94 F L 72 15 149/54 97 08/31/17 13:00 92.9 F L 76 16 137/50 97 08/31/17 12:00 74 15 119/40 95 08/31/17 11:00 74 21 112/52 97 08/31/17 10:39 78 08/31/17 10:18 75 08/31/17 10:00 75 18 126/44 93 L 08/31/17 09:00 67 20 114/41 95 08/31/17 08:00 97.4 F L 78 20 128/59 96 08/31/17 07:43 95 08/31/17 07:00 83 15 129/48 96 08/31/17 06:00 30 L 20 75/33 99 08/31/17 05:00 61 16 121/49 97 08/31/17 04:00 97.5 F L 33 L 27 H 100/39 100 08/31/17 03:15 34 L 18 08/31/17 02:39 33 L 18 98/46 100 08/31/17 02:05 97.1 F L 33 L 16 87/55 100 08/31/17 01:41 31 L 16 99/45 100 08/31/17 01:16 97.4 F L 34 L 12 87/53 100 08/31/17 00:49 31 L 16 106/43 99 08/30/17 23:49 96.8 F L 37 L 18 125/52 99 Intake and Output 08/31/17 08/31/17 08/31/17 06:59 14:59 22:59 Intake Total 525 1400 1073.976 Output Total 78 454 587 Balance 447 946 486.976 Intake: IV 525 750 420 Calcium Chloride 1,000 mg 100 In Sodium Chloride 0.9% 100 ml @ 100 mls/hr IVPB ONCE STA Rx#:[id number] D50w 75 Sodium Chloride 0.9% 1, 300 300 000 ml @ 100 mls/hr IV . Q10H STA Rx#:[id number] Sodium Chloride 0.9% 1, 350 420 000 ml @ 70 mls/hr IV . [id number] STA Rx#:[id number] Sodium bicarb 150 Intake, IV Titration 403.976 Amount DOPamine DRIP 800 mg In 403.976 Dextrose/Water 1 500ml. bag @ 10 MCG/KG/MIN 30.11 mls/hr IV .[id number] REPLACED BY [facility] Rx#:[id number] Oral 650 250 Output: Urine 78 454 587 Other: Voiding Method Indwelling Catheter Indwelling Catheter Indwelling Catheter Weight 80.3 kg 80.3 kg - Constitutional General appearance: mild distress - EENT Eyes: PERRLA Ears: bilateral: normal - Neck Neck: normal ROM - Respiratory Respiratory: bilateral: CTA - Cardiovascular Generalized anasarca Rhythm: regular - Gastrointestinal General gastrointestinal: soft - Integumentary Ecchymosis noted to of right upper extremity. Right arm cast Integumentary: normal - Neurologic Neurologic: CNII-XII intact - Musculoskeletal Musculoskeletal: generalized weakness - Psychiatric Psychiatric: A&O x's 3, appropriate affect, intact judgment & insight Results CBC & Chem 7: 08/31/17 17:35 08/31/17 14:59 Labs: Abnormal Lab Results - Last 24 Hours (Table) 08/31/17 08/31/17 08/31/17 Range/Units 00:09 00:09 00:09 RBC 3.06 L (3.80-5.40) m/uL Hgb 10.1 L (11.4-16.0) gm/dL Hct 30.4 L (34.0-46.0) % MCV (80.0-100.0) fL Plt Count (150-450) k/uL Lymphocytes # (1.0-4.8) k/uL APTT (22.0-30.0) sec Sodium 121 L (137-145) mmol/L Potassium 6.8 H* (3.5-5.1) mmol/L Chloride 90 L (98-107) mmol/L Carbon Dioxide 19 L (22-30) mmol/L BUN 115 H* (7-17) mg/dL Creatinine 6.20 H* (0.52-1.04) mg/dL Glucose 110 H (74-99) mg/dL POC Glucose (mg/dL) (75-99) mg/dL Phosphorus 7.2 H (2.5-4.5) mg/dL Magnesium 2.5 H (1.6-2.3) mg/dL AST 50 H (14-36) U/L Alkaline Phosphatase 32 L (38-126) U/L Total Creatine Kinase 186 H (30-135) U/L CK-MB (CK-2) 2.7 H* (0.0-2.4) ng/mL Troponin I 0.039 H* (0.000-0.034) ng/mL Total Protein 6.0 L (6.3-8.2) g/dL Albumin 3.3 L (3.5-5.0) g/dL 08/31/17 08/31/17 08/31/17 Range/Units 00:09 03:20 03:20 RBC 2.69 L (3.80-5.40) m/uL Hgb 8.8 L (11.4-16.0) gm/dL Hct 27.2 L (34.0-46.0) % MCV 101.1 H (80.0-100.0) fL Plt Count (150-450) k/uL Lymphocytes # (1.0-4.8) k/uL APTT 20.2 L (22.0-30.0) sec Sodium 122 L (137-145) mmol/L Potassium 5.7 H (3.5-5.1) mmol/L Chloride 93 L (98-107) mmol/L Carbon Dioxide 18 L (22-30) mmol/L BUN 112 H* (7-17) mg/dL Creatinine 6.10 H* (0.52-1.04) mg/dL Glucose 70 L (74-99) mg/dL POC Glucose (mg/dL) (75-99) mg/dL Phosphorus 6.7 H (2.5-4.5) mg/dL Magnesium 2.5 H (1.6-2.3) mg/dL AST (14-36) U/L Alkaline Phosphatase (38-126) U/L Total Creatine Kinase (30-135) U/L CK-MB (CK-2) (0.0-2.4) ng/mL Troponin I (0.000-0.034) ng/mL Total Protein (6.3-8.2) g/dL Albumin (3.5-5.0) g/dL 08/31/17 08/31/17 08/31/17 Range/Units 05:16 07:25 07:25 RBC 3.00 L (3.80-5.40) m/uL Hgb 10.0 L (11.4-16.0) gm/dL Hct 29.1 L (34.0-46.0) % MCV (80.0-100.0) fL Plt Count (150-450) k/uL Lymphocytes # (1.0-4.8) k/uL APTT (22.0-30.0) sec Sodium 130 L (137-145) mmol/L Potassium 6.3 H* (3.5-5.1) mmol/L Chloride 94 L (98-107) mmol/L Carbon Dioxide (22-30) mmol/L BUN 120 H* (7-17) mg/dL Creatinine 6.07 H* (0.52-1.04) mg/dL Glucose 34 L* (74-99) mg/dL POC Glucose (mg/dL) 114 H (75-99) mg/dL Phosphorus 6.2 H (2.5-4.5) mg/dL Magnesium 2.4 H (1.6-2.3) mg/dL AST (14-36) U/L Alkaline Phosphatase (38-126) U/L Total Creatine Kinase (30-135) U/L CK-MB (CK-2) (0.0-2.4) ng/mL Troponin I (0.000-0.034) ng/mL Total Protein (6.3-8.2) g/dL Albumin (3.5-5.0) g/dL 08/31/17 08/31/17 08/31/17 Range/Units 09:19 09:20 09:39 RBC (3.80-5.40) m/uL Hgb (11.4-16.0) gm/dL Hct (34.0-46.0) % MCV (80.0-100.0) fL Plt Count (150-450) k/uL Lymphocytes # (1.0-4.8) k/uL APTT (22.0-30.0) sec Sodium (137-145) mmol/L Potassium (3.5-5.1) mmol/L Chloride (98-107) mmol/L Carbon Dioxide (22-30) mmol/L BUN (7-17) mg/dL Creatinine (0.52-1.04) mg/dL Glucose (74-99) mg/dL POC Glucose (mg/dL) 36 L 42 L 48 L (75-99) mg/dL Phosphorus (2.5-4.5) mg/dL Magnesium (1.6-2.3) mg/dL AST (14-36) U/L Alkaline Phosphatase (38-126) U/L Total Creatine Kinase (30-135) U/L CK-MB (CK-2) (0.0-2.4) ng/mL Troponin I (0.000-0.034) ng/mL Total Protein (6.3-8.2) g/dL Albumin (3.5-5.0) g/dL 08/31/17 08/31/17 08/31/17 Range/Units 10:00 11:15 14:59 RBC (3.80-5.40) m/uL Hgb (11.4-16.0) gm/dL Hct (34.0-46.0) % MCV (80.0-100.0) fL Plt Count (150-450) k/uL Lymphocytes # (1.0-4.8) k/uL APTT (22.0-30.0) sec Sodium 130 L (137-145) mmol/L Potassium 6.3 H* (3.5-5.1) mmol/L Chloride 95 L (98-107) mmol/L Carbon Dioxide 21 L (22-30) mmol/L BUN (7-17) mg/dL Creatinine (0.52-1.04) mg/dL Glucose (74-99) mg/dL POC Glucose (mg/dL) 104 H 140 H (75-99) mg/dL Phosphorus (2.5-4.5) mg/dL Magnesium (1.6-2.3) mg/dL AST (14-36) U/L Alkaline Phosphatase (38-126) U/L Total Creatine Kinase (30-135) U/L CK-MB (CK-2) (0.0-2.4) ng/mL Troponin I (0.000-0.034) ng/mL Total Protein (6.3-8.2) g/dL Albumin (3.5-5.0) g/dL 08/31/17 08/31/17 08/31/17 Range/Units 16:50 17:35 18:57 RBC 3.33 L 2.81 L (3.80-5.40) m/uL Hgb 10.9 L 9.2 L D (11.4-16.0) gm/dL Hct 33.0 L 27.9 L (34.0-46.0) % MCV (80.0-100.0) fL Plt Count 54 L D (150-450) k/uL Lymphocytes # 0.3 L (1.0-4.8) k/uL APTT (22.0-30.0) sec Sodium (137-145) mmol/L Potassium (3.5-5.1) mmol/L Chloride (98-107) mmol/L Carbon Dioxide (22-30) mmol/L BUN (7-17) mg/dL Creatinine (0.52-1.04) mg/dL Glucose (74-99) mg/dL POC Glucose (mg/dL) 117 H (75-99) mg/dL Phosphorus (2.5-4.5) mg/dL Magnesium (1.6-2.3) mg/dL AST (14-36) U/L Alkaline Phosphatase (38-126) U/L Total Creatine Kinase (30-135) U/L CK-MB (CK-2) (0.0-2.4) ng/mL Troponin I (0.000-0.034) ng/mL Total Protein (6.3-8.2) g/dL Albumin (3.5-5.0) g/dL Microbiology - Last 24 Hours (Table) 08/31/17 01:16 Urine Culture - Preliminary Urine,Catheterized Chest x-ray: report reviewed Thrombosis Risk Factor Assmnt - Choose All That Apply Any of the Below Risk Factors Present?: Yes Each Factor Represents 1 point: Heart failure (<1month), Obesity (BMI >25), Swollen legs (current) Other Risk Factors: Yes Each Risk Factor Represents 3 Points: Age 75 years or older Other congenital or acquired thrombophilia - If yes, enter type in comment: No Thrombosis Risk Factor Assessment Total Risk Factor Score: 6 Thrombosis Risk Factor Assessment Level: High Risk Assessment and Plan Plan: Assessment Severe dehydration secondary to poor oral intake Metabolic acidosis improved Chronic kidney disease stage III Acute kidney injury Right humerus fracture History of atrial fibrillation Congestive heart failure systolic dysfunction ejection fraction 25-30% cardiomyopathy GERD Hyperlipidemia History hypertension Bradycardia and hypotension responsive to dopamine therapy Hyperkalemia Plan Patient is DO NOT RESUSCITATE Vascular surgeon for dialysis catheter Orthopedics to follow humerus fracture Cardiology regarding bradycardia and hypertension Dr. Hanna ICU management Nephrology dialysis plan
[2017-08-31 22:19] LABS: Calcium 8.1 mg/dL (8.4-10.2); Potassium 4.8 mmol/L (3.5-5.1)
[2017-09-01] MEDS: HEPARIN SODIUM,PORCINE 5,000 UNIT/ML 1 ML VIAL SQ SCH ×3 (00:03→16:10)
[2017-09-01] MEDS: DOPamine DRIP 800 MG in DEXTROSE/WATER 1 500ML.BAG IV SCH (00:04)
[2017-09-01 04:54] LABS: Basophils % (A) 0 %; Eosinophils % (A) 1 %; HGB 8.8 gm/dL (11.4-16.0); Lymphocytes # (A) 0.7 k/uL (1.0-4.8); Lymphocytes % (A) 13 %; MCH 32.5 pg (25.0-35.0); MCHC 32.8 g/dL (31.0-37.0); Mean Platelet Volume 7.2; Monocytes # (A) 0.5 k/uL (0-1.0); Monocytes % (A) 10 %; Neutrophils % (A) 74 %; Platelet Count 160 k/uL (150-450); RBC 2.72 m/uL (3.80-5.40); WBC 5.3 k/uL (3.8-10.6)
[2017-09-01 05:07] LABS: Albumin 2.3 g/dL (3.5-5.0); Calcium 7.4 mg/dL (8.4-10.2); Magnesium 1.8 mg/dL (1.6-2.3); Phosphorus 5.1 mg/dL (2.5-4.5); Potassium 3.8 mmol/L (3.5-5.1); Total Bilirubin 0.7 mg/dL (0.2-1.3); Total Protein 4.5 g/dL (6.3-8.2)
--- NOTE | 2017-09-01 07:53 | XR ---
EXAMINATION TYPE: XR chest 1V DATE OF EXAM: 09/01/2017 HISTORY: Shortness of breath. COMPARISON: 08/31/2017 TECHNIQUE: Single view of the chest is submitted. FINDINGS: Demonstrated are scattered senescent parenchymal change. There is no evidence for focal infiltrate. The heart is stable. Hilar and mediastinal structures are within normal limits. Degenerative changes are seen of the dorsal spine. IMPRESSION: 1. Chronic changes without evidence for acute pulmonary disease.
--- NOTE | 2017-09-01 08:15 | P.PN ---
Subjective Progress Note Date: 09/01/17 Principal diagnosis: Right humerus fracture. Renal failure. This is an 82-year-old female who we're following regarding her right midshaft humerus fracture. She remains in ICU. They have begun dialysis for her renal failure. She has no new orthopedic complaints today. Objective - Vital Signs Vital signs: Vital Signs Temp 98 F 09/01/17 04:00 Pulse 118 H 09/01/17 07:00 Resp 10 L 09/01/17 07:00 BP 106/48 09/01/17 07:00 Pulse Ox 97 09/01/17 07:00 Intake & Output 08/31/17 09/01/17 09/01/17 18:59 06:59 18:59 Intake Total 1930 1378.440 Output Total 954 847 Balance 976 531.440 Weight 80.3 kg 86.2 kg Intake: IV 1030 910 Calcium Chloride 1,000 mg 100 In Sodium Chloride 0.9% 100 ml @ 100 mls/hr IVPB ONCE STA Rx#:[id number] Sodium Chloride 0.9% 1, 300 000 ml @ 100 mls/hr IV . Q10H STA Rx#:[id number] Sodium Chloride 0.9% 1, 630 910 000 ml @ 70 mls/hr IV . [id number] STA Rx#:[id number] Intake, IV Titration 468.440 Amount DOPamine DRIP 800 mg In 468.440 Dextrose/Water 1 500ml. bag @ 10 MCG/KG/MIN 30.11 mls/hr IV .[id number] [facility] Rx#:[id number] Oral 900 Output: Urine 954 847 Other: Voiding Method Indwelling Catheter Indwelling Catheter - Exam This is a pleasant 82-year-old female in no acute distress. She is alert and oriented 3. Exam of the right upper extremity reveals ecchymosis and swelling. Long-arm cast is in place. She has full finger motion without difficulty or pain. Neurovascular status the upper extremity is intact. - Labs CBC & Chem 7: 09/01/17 04:23 09/01/17 04:23 Labs: Abnormal Lab Results - Last 24 Hours (Table) 08/31/17 08/31/17 08/31/17 Range/Units 07:25 09:19 09:20 RBC (3.80-5.40) m/uL Hgb (11.4-16.0) gm/dL Hct (34.0-46.0) % Plt Count (150-450) k/uL Lymphocytes # (1.0-4.8) k/uL Sodium 130 L (137-145) mmol/L Potassium 6.3 H* (3.5-5.1) mmol/L Chloride 94 L (98-107) mmol/L Carbon Dioxide (22-30) mmol/L BUN 120 H* (7-17) mg/dL Creatinine 6.07 H* (0.52-1.04) mg/dL Glucose 34 L* (74-99) mg/dL POC Glucose (mg/dL) 36 L 42 L (75-99) mg/dL Calcium (8.4-10.2) mg/dL Phosphorus 6.2 H (2.5-4.5) mg/dL Magnesium 2.4 H (1.6-2.3) mg/dL AST (14-36) U/L Alkaline Phosphatase (38-126) U/L Total Protein (6.3-8.2) g/dL Albumin (3.5-5.0) g/dL 08/31/17 08/31/17 08/31/17 Range/Units 09:39 10:00 11:15 RBC (3.80-5.40) m/uL Hgb (11.4-16.0) gm/dL Hct (34.0-46.0) % Plt Count (150-450) k/uL Lymphocytes # (1.0-4.8) k/uL Sodium (137-145) mmol/L Potassium (3.5-5.1) mmol/L Chloride (98-107) mmol/L Carbon Dioxide (22-30) mmol/L BUN (7-17) mg/dL Creatinine (0.52-1.04) mg/dL Glucose (74-99) mg/dL POC Glucose (mg/dL) 48 L 104 H 140 H (75-99) mg/dL Calcium (8.4-10.2) mg/dL Phosphorus (2.5-4.5) mg/dL Magnesium (1.6-2.3) mg/dL AST (14-36) U/L Alkaline Phosphatase (38-126) U/L Total Protein (6.3-8.2) g/dL Albumin (3.5-5.0) g/dL 08/31/17 08/31/17 08/31/17 Range/Units 14:59 16:50 17:35 RBC 3.33 L 2.81 L (3.80-5.40) m/uL Hgb 10.9 L 9.2 L D (11.4-16.0) gm/dL Hct 33.0 L 27.9 L (34.0-46.0) % Plt Count 54 L D (150-450) k/uL Lymphocytes # 0.3 L (1.0-4.8) k/uL Sodium 130 L (137-145) mmol/L Potassium 6.3 H* (3.5-5.1) mmol/L Chloride 95 L (98-107) mmol/L Carbon Dioxide 21 L (22-30) mmol/L BUN (7-17) mg/dL Creatinine (0.52-1.04) mg/dL Glucose (74-99) mg/dL POC Glucose (mg/dL) (75-99) mg/dL Calcium (8.4-10.2) mg/dL Phosphorus (2.5-4.5) mg/dL Magnesium (1.6-2.3) mg/dL AST (14-36) U/L Alkaline Phosphatase (38-126) U/L Total Protein (6.3-8.2) g/dL Albumin (3.5-5.0) g/dL 08/31/17 08/31/17 09/01/17 Range/Units 18:57 21:38 04:23 RBC 2.72 L (3.80-5.40) m/uL Hgb 8.8 L (11.4-16.0) gm/dL Hct 27.0 L (34.0-46.0) % Plt Count (150-450) k/uL Lymphocytes # 0.7 L (1.0-4.8) k/uL Sodium 129 L (137-145) mmol/L Potassium (3.5-5.1) mmol/L Chloride 96 L (98-107) mmol/L Carbon Dioxide (22-30) mmol/L BUN 69 H (7-17) mg/dL Creatinine 3.30 H (0.52-1.04) mg/dL Glucose 100 H (74-99) mg/dL POC Glucose (mg/dL) 117 H (75-99) mg/dL Calcium 8.1 L (8.4-10.2) mg/dL Phosphorus (2.5-4.5) mg/dL Magnesium (1.6-2.3) mg/dL AST (14-36) U/L Alkaline Phosphatase (38-126) U/L Total Protein (6.3-8.2) g/dL Albumin (3.5-5.0) g/dL 09/01/17 Range/Units 04:23 RBC (3.80-5.40) m/uL Hgb (11.4-16.0) gm/dL Hct (34.0-46.0) % Plt Count (150-450) k/uL Lymphocytes # (1.0-4.8) k/uL Sodium 131 L (137-145) mmol/L Potassium (3.5-5.1) mmol/L Chloride 96 L (98-107) mmol/L Carbon Dioxide (22-30) mmol/L BUN 65 H (7-17) mg/dL Creatinine 3.28 H (0.52-1.04) mg/dL Glucose (74-99) mg/dL POC Glucose (mg/dL) (75-99) mg/dL Calcium 7.4 L (8.4-10.2) mg/dL Phosphorus 5.1 H (2.5-4.5) mg/dL Magnesium (1.6-2.3) mg/dL AST 40 H (14-36) U/L Alkaline Phosphatase 23 L (38-126) U/L Total Protein 4.5 L (6.3-8.2) g/dL Albumin 2.3 L (3.5-5.0) g/dL Microbiology - Last 24 Hours (Table) 08/31/17 01:16 Urine Culture - Preliminary Urine,Catheterized Assessment and Plan (1) Fracture of humerus, right, closed Current Visit: Yes Status: Acute Code(s): S42.301A - UNSP FRACTURE OF SHAFT OF HUMERUS, RIGHT ARM, INIT SNOMED Code(s): 88329272 (2) Acute renal failure Current Visit: Yes Status: Acute Code(s): N17.9 - ACUTE KIDNEY FAILURE, UNSPECIFIED SNOMED Code(s): 50593197 (3) Weakness Current Visit: Yes Status: Acute Code(s): R53.1 - WEAKNESS SNOMED Code(s) : 17515899 Plan: The clinical findings are discussed with the patient. She is remain in the current long-arm cast. Positioning of the arm is to comfort. We'll continue to follow.
[2017-09-01] MEDS: PANTOPRAZOLE 40 MG/10 ML VIAL IV SCH (08:43)
[2017-09-01] MEDS ORDERED: SODIUM CHLORIDE 0.9% 500 ML IV ONE ×3 (08:44→15:40)
--- NOTE | 2017-09-01 09:38 | P.PN ---
Subjective Progress Note Date: 09/01/17 Principal diagnosis: Acute kidney injury secondary to ATN, acute electrolyte disturbance Pulmonary consult dated 08/31/2017 81-year-old female who was admitted with a diagnosis of weakness and poor oral intake and multiple electrolyte disturbances. This is a woman who apparently fell and fractured her right elbow/arm. It was casted by one of the orthopedic surgeons. She apparently stopped a stopped eating at home became very weak and dehydrated and came in with significant electrolyte disturbances including hyponatremia hyperkalemia renal failure, etc. He was seen by one of the ER physicians. She was noted to be bradycardic and hypotensive. This morning the nurse call me and I started the patient on some dopamine which is corrected both problems. She is awake and alert. She is oriented. Really has no major complaints at this time. She does have a history of congestive heart failure atrial fibrillation and gastroesophageal reflux disease hyperlipidemia hypertension cataracts surgery and cholecystectomy. She was a former smoker. Denies alcohol and illicit drug use. On 09/01/2017 patient seen again in the intensive care unit. She is resting in bed, awake alert, and answering questions appropriately. Denies any acute distress, denies any chest pain or dyspnea. Patient had a hemodialysis catheter placed in the right groin yesterday and she had her initial hemodialysis, with no fluid removed, patient had ultrafiltration. Currently remains on 0.9 normal saline at a rate of 79 per hour, dopamine drip is at 6 mics per kilo per minute. Patient is now in atrial fibrillation, and is tachycardic up to 121 BPM. Blood pressure remains marginal 89/59 with a map of 74. Patient is now producing urine, 90-150 ML per hour. Her oral intake is improving. She remains afebrile, she is currently on 2 L per nasal cannula with O2 sat 94-98%. Today's chest x-ray has been reviewed and shows chronic changes without evidence of for acute pulmonary disease. Today's labs were reviewed, WBC of 5.3, hemoglobin 8.8, serum sodium is improving, up to 131 on today's labs, potassium is 3.8, chloride is 96, BUN 65, creatinine is 3.28. Patient's right arm is in the fold cast, fingers on the right hand are warm, pink, and patient denies any numbness or tingling. Left arm extremity appears to be quite swollen, and the blood pressure cough is being measured on the left arm. We will restart the patient's Eliquis today. Urine culture is pending, patient denies any fever or chills. Objective - Vital Signs Vital signs: Vital Signs Temp 98.4 F 09/01/17 08:00 Pulse 109 H 09/01/17 09:00 Resp 15 09/01/17 09:00 BP 117/62 09/01/17 09:00 Pulse Ox 98 09/01/17 09:00 Intake & Output 08/31/17 09/01/17 09/01/17 18:59 06:59 18:59 Intake Total 1930 1378.440 140 Output Total 954 847 160 Balance 976 531.440 -20 Weight 80.3 kg 86.2 kg Intake: IV 1030 910 140 Calcium Chloride 1,000 mg 100 In Sodium Chloride 0.9% 100 ml @ 100 mls/hr IVPB ONCE STA Rx#:[id number] Sodium Chloride 0.9% 1, 300 000 ml @ 100 mls/hr IV . Q10H STA Rx#:[id number] Sodium Chloride 0.9% 1, 630 910 140 000 ml @ 70 mls/hr IV . [id number] STA Rx#:[id number] Intake, IV Titration 468.440 Amount DOPamine DRIP 800 mg In 468.440 Dextrose/Water 1 500ml. bag @ 10 MCG/KG/MIN 30.11 mls/hr IV .[id number] [facility] Rx#:[id number] Oral 900 Output: Urine 954 847 160 Other: Voiding Method Indwelling Catheter Indwelling Catheter - Exam No acute distress, oriented 3. Nasal O2 at 2 L/m is noted. HEENT examination is grossly unremarkable. Mucous membranes are moist. No oral lesions. Neck supple. Full range of motion. No adenopathy thyromegaly or neck vein distention. Cardiovascular examination reveals irregularly irregular heart sounds, S1 and S2. No S3 or S4. No discernible murmur noted. Lungs reveal clear breath sounds. Her sounds are equal bilaterally. No adventitious lung sounds including wheezes rhonchi or crackles. Abdomen soft bowel sounds are heard. No masses or tenderness. Right groin temporary hemodialysis catheter is in place Extremities are intact. Right arm hanging cast is present, the area above the cast at the right shoulder is swollen and ecchymotic, right hand fingers are pink and warm, and sensation is intact. Left arm has 2+ nonpitting edema, there is a blood pressure cuff present on the left upper arm Skin is without rash or lesion. Neurologic examination is brief but nonfocal. - Labs CBC & Chem 7: 09/01/17 04:23 09/01/17 04:23 Labs: Abnormal Lab Results - Last 24 Hours (Table) 08/31/17 08/31/17 08/31/17 Range/Units 09:19 09:20 09:39 RBC (3.80-5.40) m/uL Hgb (11.4-16.0) gm/dL Hct (34.0-46.0) % Plt Count (150-450) k/uL Lymphocytes # (1.0-4.8) k/uL Sodium (137-145) mmol/L Potassium (3.5-5.1) mmol/L Chloride (98-107) mmol/L Carbon Dioxide (22-30) mmol/L BUN (7-17) mg/dL Creatinine (0.52-1.04) mg/dL Glucose (74-99) mg/dL POC Glucose (mg/dL) 36 L 42 L 48 L (75-99) mg/dL Calcium (8.4-10.2) mg/dL Phosphorus (2.5-4.5) mg/dL AST (14-36) U/L Alkaline Phosphatase (38-126) U/L Total Protein (6.3-8.2) g/dL Albumin (3.5-5.0) g/dL 08/31/17 08/31/17 08/31/17 Range/Units 10:00 11:15 14:59 RBC (3.80-5.40) m/uL Hgb (11.4-16.0) gm/dL Hct (34.0-46.0) % Plt Count (150-450) k/uL Lymphocytes # (1.0-4.8) k/uL Sodium 130 L (137-145) mmol/L Potassium 6.3 H* (3.5-5.1) mmol/L Chloride 95 L (98-107) mmol/L Carbon Dioxide 21 L (22-30) mmol/L BUN (7-17) mg/dL Creatinine (0.52-1.04) mg/dL Glucose (74-99) mg/dL POC Glucose (mg/dL) 104 H 140 H (75-99) mg/dL Calcium (8.4-10.2) mg/dL Phosphorus (2.5-4.5) mg/dL AST (14-36) U/L Alkaline Phosphatase (38-126) U/L Total Protein (6.3-8.2) g/dL Albumin (3.5-5.0) g/dL 08/31/17 08/31/17 08/31/17 Range/Units 16:50 17:35 18:57 RBC 3.33 L 2.81 L (3.80-5.40) m/uL Hgb 10.9 L 9.2 L D (11.4-16.0) gm/dL Hct 33.0 L 27.9 L (34.0-46.0) % Plt Count 54 L D (150-450) k/uL Lymphocytes # 0.3 L (1.0-4.8) k/uL Sodium (137-145) mmol/L Potassium (3.5-5.1) mmol/L Chloride (98-107) mmol/L Carbon Dioxide (22-30) mmol/L BUN (7-17) mg/dL Creatinine (0.52-1.04) mg/dL Glucose (74-99) mg/dL POC Glucose (mg/dL) 117 H (75-99) mg/dL Calcium (8.4-10.2) mg/dL Phosphorus (2.5-4.5) mg/dL AST (14-36) U/L Alkaline Phosphatase (38-126) U/L Total Protein (6.3-8.2) g/dL Albumin (3.5-5.0) g/dL 08/31/17 09/01/17 09/01/17 Range/Units 21:38 04:23 04:23 RBC 2.72 L (3.80-5.40) m/uL Hgb 8.8 L (11.4-16.0) gm/dL Hct 27.0 L (34.0-46.0) % Plt Count (150-450) k/uL Lymphocytes # 0.7 L (1.0-4.8) k/uL Sodium 129 L 131 L (137-145) mmol/L Potassium (3.5-5.1) mmol/L Chloride 96 L 96 L (98-107) mmol/L Carbon Dioxide (22-30) mmol/L BUN 69 H 65 H (7-17) mg/dL Creatinine 3.30 H 3.28 H (0.52-1.04) mg/dL Glucose 100 H (74-99) mg/dL POC Glucose (mg/dL) (75-99) mg/dL Calcium 8.1 L 7.4 L (8.4-10.2) mg/dL Phosphorus 5.1 H (2.5-4.5) mg/dL AST 40 H (14-36) U/L Alkaline Phosphatase 23 L (38-126) U/L Total Protein 4.5 L (6.3-8.2) g/dL Albumin 2.3 L (3.5-5.0) g/dL Microbiology - Last 24 Hours (Table) 08/31/17 01:16 Urine Culture - Preliminary Urine,Catheterized Assessment and Plan Plan: Assessment: Poor oral intake with severe dehydration significant electrolyte disturbances and acute kidney injury, all subsequent to a fall and a fractured right elbow, improving History of atrial fibrillation, the patient is currently in A. fib RVR with a rate of 103-120 BPM History of CHF Gastroesophageal reflux disease Hyperlipidemia Hypertension Significant bradycardia and hypotension, responsive to dopamine therapy, recovering Significant hyperkalemia, resolved Plan: Plan dated 08/31/2017 The patient remains on dopamine therapy for her blood pressure and heart rate. We will wean that as the day progresses. We will continue to follow closely. We'll continue to correct electrolytes him. Additional recommendations and suggestions are forthcoming. Both cardiology and nephrology have been consulted. The patient is a DO NOT RESUSCITATE. Labs x-rays and medications are all reviewed. Plan dated 09/01/2017 Patient has developed tachycardia, she is currently in A. fib with a rate of 120 BPM. She is making more urine output, and this is averaging at 100 ML per hour. Actually light profile is improving, she had her initial hemodialysis yesterday. Neurology is following. Patient remains on 6 mics of dopamine, in view of ongoing hypotension, we will give the patient 500 mL of fluid bolus, and try to wean the dopamine off, if vasopressor support is needed we will use norepinephrine in view of patient's tachycardia. Overall she is improving, her right arm pain is reasonably controlled. We will restart Eliquis. Encourage deep breathing and coughing I performed a history & physical examination of the patient and discussed their management with my nurse practitioner, Pastoar Osorio. I reviewed the nurse practitioner's note and agree with the documented findings and plan of care. Lung sounds are clear. The findings and the impression was discussed with the patient. I attest to the documentation by the nurse practitioner. Critical care time is over 35 minutes Time with Patient: Greater than 30
[2017-09-01] MEDS: NOREPINEPHRIN 4 MG-0.9% NS PMX 4 MG/250 ML ML IV SCH (10:07)
--- NOTE | 2017-09-01 11:01 | P.PN ---
Subjective Patient continues in intensive care unit. Patient had dialysis catheter inserted into groin improved chemistry. Patient in atrial fibrillation with RVR. The dopamine discontinued on Levaquin at this time. Continues to be hypotensive. Continue consultation with picker feeder and nephrology cardiology Objective - Vital Signs Vital signs: Vital Signs Temp 98.4 F 09/01/17 08:00 Pulse 95 09/01/17 10:00 Resp 13 09/01/17 10:00 BP 81/52 09/01/17 10:00 Pulse Ox 100 09/01/17 10:00 Intake & Output 08/31/17 09/01/17 09/01/17 18:59 06:59 18:59 Intake Total 1930 1378.440 365.253 Output Total 954 847 190 Balance 976 531.440 175.253 Weight 80.3 kg 86.2 kg Intake: IV 1030 910 210 Calcium Chloride 1,000 mg 100 In Sodium Chloride 0.9% 100 ml @ 100 mls/hr IVPB ONCE STA Rx#:[id number] Sodium Chloride 0.9% 1, 300 000 ml @ 100 mls/hr IV . Q10H STA Rx#:[id number] Sodium Chloride 0.9% 1, 630 910 210 000 ml @ 70 mls/hr IV . [id number] STA Rx#:[id number] Intake, IV Titration 468.440 155.253 Amount DOPamine DRIP 800 mg In 468.440 151.503 Dextrose/Water 1 500ml. bag @ 10 MCG/KG/MIN 30.11 mls/hr IV .[id number] [facility] Rx#:[id number] Norepinephrin 4 mg-0.9% 3.75 Ns Pmx 4 mg In 250 ml @ Titrate IV .Q0M [facility] Rx#: [id number] Oral 900 Output: Urine 954 847 190 Other: Voiding Method Indwelling Catheter Indwelling Catheter Indwelling Catheter - Constitutional General appearance: Present: mild distress - EENT Eyes: Present: PERRLA Ears: bilateral: normal - Neck Neck: Present: normal ROM - Respiratory Respiratory: bilateral: CTA - Cardiovascular Details: Generalized anasarca Rhythm: irregularly irregular - Gastrointestinal General gastrointestinal: Present: soft - Genitourinary Genitourinary Comment(s): Patient has Bolton catheter for producing urine - Integumentary Integumentary: Present: normal - Neurologic Neurologic: Present: CNII-XII intact - Musculoskeletal Musculoskeletal Comment(s): Continues with cast to right arm ecchymosis noted to upper extremity Musculoskeletal: Present: generalized weakness - Psychiatric Psychiatric: Present: A&O x's 3, appropriate affect, intact judgment & insight - Labs CBC & Chem 7: 09/01/17 04:23 09/01/17 04:23 Labs: Abnormal Lab Results - Last 24 Hours (Table) 08/31/17 08/31/17 08/31/17 Range/Units 11:15 14:59 16:50 RBC 3.33 L (3.80-5.40) m/uL Hgb 10.9 L (11.4-16.0) gm/dL Hct 33.0 L (34.0-46.0) % Plt Count 54 L D (150-450) k/uL Lymphocytes # (1.0-4.8) k/uL Sodium 130 L (137-145) mmol/L Potassium 6.3 H* (3.5-5.1) mmol/L Chloride 95 L (98-107) mmol/L Carbon Dioxide 21 L (22-30) mmol/L BUN (7-17) mg/dL Creatinine (0.52-1.04) mg/dL Glucose (74-99) mg/dL POC Glucose (mg/dL) 140 H (75-99) mg/dL Calcium (8.4-10.2) mg/dL Phosphorus (2.5-4.5) mg/dL AST (14-36) U/L Alkaline Phosphatase (38-126) U/L Total Protein (6.3-8.2) g/dL Albumin (3.5-5.0) g/dL 08/31/17 08/31/17 08/31/17 Range/Units 17:35 18:57 21:38 RBC 2.81 L (3.80-5.40) m/uL Hgb 9.2 L D (11.4-16.0) gm/dL Hct 27.9 L (34.0-46.0) % Plt Count (150-450) k/uL Lymphocytes # 0.3 L (1.0-4.8) k/uL Sodium 129 L (137-145) mmol/L Potassium (3.5-5.1) mmol/L Chloride 96 L (98-107) mmol/L Carbon Dioxide (22-30) mmol/L BUN 69 H (7-17) mg/dL Creatinine 3.30 H (0.52-1.04) mg/dL Glucose 100 H (74-99) mg/dL POC Glucose (mg/dL) 117 H (75-99) mg/dL Calcium 8.1 L (8.4-10.2) mg/dL Phosphorus (2.5-4.5) mg/dL AST (14-36) U/L Alkaline Phosphatase (38-126) U/L Total Protein (6.3-8.2) g/dL Albumin (3.5-5.0) g/dL 09/01/17 09/01/17 Range/Units 04:23 04:23 RBC 2.72 L (3.80-5.40) m/uL Hgb 8.8 L (11.4-16.0) gm/dL Hct 27.0 L (34.0-46.0) % Plt Count (150-450) k/uL Lymphocytes # 0.7 L (1.0-4.8) k/uL Sodium 131 L (137-145) mmol/L Potassium (3.5-5.1) mmol/L Chloride 96 L (98-107) mmol/L Carbon Dioxide (22-30) mmol/L BUN 65 H (7-17) mg/dL Creatinine 3.28 H (0.52-1.04) mg/dL Glucose (74-99) mg/dL POC Glucose (mg/dL) (75-99) mg/dL Calcium 7.4 L (8.4-10.2) mg/dL Phosphorus 5.1 H (2.5-4.5) mg/dL AST 40 H (14-36) U/L Alkaline Phosphatase 23 L (38-126) U/L Total Protein 4.5 L (6.3-8.2) g/dL Albumin 2.3 L (3.5-5.0) g/dL Microbiology - Last 24 Hours (Table) 08/31/17 01:16 Urine Culture - Preliminary Urine,Catheterized - Imaging and Cardiology Chest x-ray: report reviewed Assessment and Plan Plan: Assessment Severe dehydration secondary to poor oral intake electrolyte disturbance acute kidney injury Chronic kidney disease stage III Metabolic acidosis improved Right humerus fracture Post dialysis Atrial fibrillation with RVR History of congestive heart failure systolic dysfunction with ejection fraction of 25-30% cardiomyopathy GERD Hyperlipidemia Hypotension with bradycardia History of hypertension Hyperkalemia corrected Plan Patient is a DO NOT RESUSCITATE Continue consultation with orthopedics regarding fracture cardiology regarding bradycardia and atrial fibrillation Dr. Hanna ICU care Continue consultation with nephrology and dialysis
--- NOTE | 2017-09-01 11:06 | P.PN ---
Subjective Patient is seen in follow-up for acute kidney injury. Patient's creatinine was 6.2 on admission and was also noted to be hyperkalemic which did not improve despite medical management. She underwent 1 treatment of hemodialysis yesterday. Creatinine is stable at 3.28 today. She is nonoliguric. She became tachycardic with dopamine and is now on 4 mics of levophed. Chest x-ray reveals no evidence of fluid overload. She is maintained on normal saline at 70 mL an hour. She does have history of systolic CHF with ejection fraction of 25-30%. Her blood pressures have been running on the lower side and she did receive a 500 mL boluses morning. Blood pressures low. Afebrile. General: The patient appeared well nourished and normally developed. HEENT: Head exam is unremarkable. Neck is without jugular venous distension. LUNGS: Breath sounds decreased. HEART: Rate and Rhythm are regular. First and second heart sounds normal. No murmurs, rubs or gallops. ABDOMEN: Abdominal exam reveals normal bowel sounds. Non-tender and non- distended. No evidence of peritonitis. EXTREMITITES: No clubbing, cyanosis, or edema. Objective - Vital Signs Vital signs: Vital Signs Temp 98.4 F 09/01/17 08:00 Pulse 95 09/01/17 10:00 Resp 13 09/01/17 10:00 BP 81/52 09/01/17 10:00 Pulse Ox 100 09/01/17 10:00 Intake & Output 08/31/17 09/01/17 09/01/17 18:59 06:59 18:59 Intake Total 1930 1378.440 365.253 Output Total 954 847 190 Balance 976 531.440 175.253 Weight 80.3 kg 86.2 kg Intake: IV 1030 910 210 Calcium Chloride 1,000 mg 100 In Sodium Chloride 0.9% 100 ml @ 100 mls/hr IVPB ONCE STA Rx#:[id number] Sodium Chloride 0.9% 1, 300 000 ml @ 100 mls/hr IV . Q10H STA Rx#:[id number] Sodium Chloride 0.9% 1, 630 910 210 000 ml @ 70 mls/hr IV . [id number] STA Rx#:[id number] Intake, IV Titration 468.440 155.253 Amount DOPamine DRIP 800 mg In 468.440 151.503 Dextrose/Water 1 500ml. bag @ 10 MCG/KG/MIN 30.11 mls/hr IV .[id number] [facility] Rx#:[id number] Norepinephrin 4 mg-0.9% 3.75 Ns Pmx 4 mg In 250 ml @ Titrate IV .Q0M [facility] Rx#: [id number] Oral 900 Output: Urine 954 847 190 Other: Voiding Method Indwelling Catheter Indwelling Catheter Indwelling Catheter - Labs CBC & Chem 7: 09/01/17 04:23 09/01/17 04:23 Labs: Abnormal Lab Results - Last 24 Hours (Table) 08/31/17 08/31/17 08/31/17 Range/Units 11:15 14:59 16:50 RBC 3.33 L (3.80-5.40) m/uL Hgb 10.9 L (11.4-16.0) gm/dL Hct 33.0 L (34.0-46.0) % Plt Count 54 L D (150-450) k/uL Lymphocytes # (1.0-4.8) k/uL Sodium 130 L (137-145) mmol/L Potassium 6.3 H* (3.5-5.1) mmol/L Chloride 95 L (98-107) mmol/L Carbon Dioxide 21 L (22-30) mmol/L BUN (7-17) mg/dL Creatinine (0.52-1.04) mg/dL Glucose (74-99) mg/dL POC Glucose (mg/dL) 140 H (75-99) mg/dL Calcium (8.4-10.2) mg/dL Phosphorus (2.5-4.5) mg/dL AST (14-36) U/L Alkaline Phosphatase (38-126) U/L Total Protein (6.3-8.2) g/dL Albumin (3.5-5.0) g/dL 08/31/17 08/31/17 08/31/17 Range/Units 17:35 18:57 21:38 RBC 2.81 L (3.80-5.40) m/uL Hgb 9.2 L D (11.4-16.0) gm/dL Hct 27.9 L (34.0-46.0) % Plt Count (150-450) k/uL Lymphocytes # 0.3 L (1.0-4.8) k/uL Sodium 129 L (137-145) mmol/L Potassium (3.5-5.1) mmol/L Chloride 96 L (98-107) mmol/L Carbon Dioxide (22-30) mmol/L BUN 69 H (7-17) mg/dL Creatinine 3.30 H (0.52-1.04) mg/dL Glucose 100 H (74-99) mg/dL POC Glucose (mg/dL) 117 H (75-99) mg/dL Calcium 8.1 L (8.4-10.2) mg/dL Phosphorus (2.5-4.5) mg/dL AST (14-36) U/L Alkaline Phosphatase (38-126) U/L Total Protein (6.3-8.2) g/dL Albumin (3.5-5.0) g/dL 09/01/17 09/01/17 Range/Units 04:23 04:23 RBC 2.72 L (3.80-5.40) m/uL Hgb 8.8 L (11.4-16.0) gm/dL Hct 27.0 L (34.0-46.0) % Plt Count (150-450) k/uL Lymphocytes # 0.7 L (1.0-4.8) k/uL Sodium 131 L (137-145) mmol/L Potassium (3.5-5.1) mmol/L Chloride 96 L (98-107) mmol/L Carbon Dioxide (22-30) mmol/L BUN 65 H (7-17) mg/dL Creatinine 3.28 H (0.52-1.04) mg/dL Glucose (74-99) mg/dL POC Glucose (mg/dL) (75-99) mg/dL Calcium 7.4 L (8.4-10.2) mg/dL Phosphorus 5.1 H (2.5-4.5) mg/dL AST 40 H (14-36) U/L Alkaline Phosphatase 23 L (38-126) U/L Total Protein 4.5 L (6.3-8.2) g/dL Albumin 2.3 L (3.5-5.0) g/dL Microbiology - Last 24 Hours (Table) 08/31/17 01:16 Urine Culture - Preliminary Urine,Catheterized Assessment and Plan Plan: Assessment: 1. Oliguric - now nonoliguric - acute kidney injury secondary to ischemic ATN secondary to bradycardia and further worsened with the use of diuretics and lisinopril. Creatinine 6.2 on admission - underwent 1 treatment of hemodialysis on August 31 - creatinine 3.28 today. Urinalysis is benign. No evidence of hydronephrosis noted on renal ultrasound. 2. Hypovolemic hyponatremia improved with IV hydration. 3. Hyperkalemia secondary to acute kidney injury and further worsened with the use of Aldactone and lisinopril. Resolved postdialysis. 4. Bradycardia secondary to hyperkalemia - now tachycardic due to dopamine. 5. Systolic CHF with ejection fraction of 25-30%. Currently compensated. 6. Status post fall with right shaft humerus fracture. 7. Chronic kidney disease stage III with creatinine in the range of 1.1-1.3 in February 2017. Etiology is nephrosclerosis. 8. Metabolic acidosis secondary to acute kidney injury. Improved. 9. Anemia. Rule out iron deficiency. Plan: I will decrease the rate of normal saline to 50 mL an hour. Encouraged oral intake. Avoid nephrotoxic agents and hypotensive episodes. May repeat one more 500 mL 0.9 bolus if needed for persistent hypotension. Strict I's and os. Hold off on hemodialysis today. Check iron studies. Repeat electrolytes in the morning.
[2017-09-01 11:57] LABS: Hepatitis B Surface AB- Quant 3.5 mIU/mL
--- NOTE | 2017-09-01 12:02 | P.PN ---
Subjective Progress Note Date: 09/01/17 This is a 82-year-old female was admitted to the hospital with acute renal failure and hyperkalemia. Patient was bradycardic with junctional rhythm on admission. Patient had dialysis yesterday. Her creatinine is in the range of 3.8. Her potassium is corrected. Patient is in atrial flutter with the heart rate in the 90s. Patient is hypotensive on Levophed. Patient is alert and awake. Doesn't appear to be in acute distress. We'll continue current medical therapy. Patient may need further dialysis Objective - Vital Signs Vital signs: Vital Signs Temp 98.4 F 09/01/17 08:00 Pulse 85 09/01/17 11:00 Resp 22 09/01/17 11:00 BP 81/44 09/01/17 11:00 Pulse Ox 93 L 09/01/17 11:00 Intake & Output 08/31/17 09/01/17 09/01/17 18:59 06:59 18:59 Intake Total 1930 1378.440 442.003 Output Total 954 847 250 Balance 976 531.440 192.003 Weight 80.3 kg 86.2 kg Intake: IV 1030 910 280 Calcium Chloride 1,000 mg 100 In Sodium Chloride 0.9% 100 ml @ 100 mls/hr IVPB [facility] Rx#:[id number] Sodium Chloride 0.9% 1, 300 000 ml @ 100 mls/hr IV . Q10H [facility] Rx#:[id number] Sodium Chloride 0.9% 1, 630 910 280 000 ml @ 70 mls/hr IV . [id number] [facility] Rx#:[id number] Intake, IV Titration 468.440 162.003 Amount DOPamine DRIP 800 mg In 468.440 151.503 Dextrose/Water 1 500ml. bag @ 10 MCG/KG/MIN 30.11 mls/hr IV .[id number] [facility] Rx#:[id number] Norepinephrin 4 mg-0.9% 10.50 Ns Pmx 4 mg In 250 ml @ Titrate IV .Q0M [facility] Rx#: [id number] Oral 900 Output: Urine 954 847 250 Other: Voiding Method Indwelling Catheter Indwelling Catheter Indwelling Catheter # Bowel Movements 1 - Exam GENERAL EXAM: Patient is alert and oriented and doesn't appear to be in any acute distress HEENT: Normocephalic. Normal reaction of pupils, equal size, normal range of extraocular motion. No erythema or exudates in the throat. NECK: No masses, no nuchal rigidity. CHEST: No chest wall deformity. LUNGS: Equal air entry with no crackles or wheeze. HEART: Irregular heart sounds ABDOMEN: No hepatosplenomegaly, normal bowel sounds, no guarding or rigidity. SKIN: No rashes CENTRAL NERVOUS SYSTEM: No focal deficits. EXTREMITIES: No cyanosis, clubbing or edema. - Labs CBC & Chem 7: 09/01/17 04:23 09/01/17 04:23 Labs: Abnormal Lab Results - Last 24 Hours (Table) 08/31/17 08/31/17 08/31/17 Range/Units 14:59 16:50 17:35 RBC 3.33 L 2.81 L (3.80-5.40) m/uL Hgb 10.9 L 9.2 L D (11.4-16.0) gm/dL Hct 33.0 L 27.9 L (34.0-46.0) % Plt Count 54 L D (150-450) k/uL Lymphocytes # 0.3 L (1.0-4.8) k/uL Sodium 130 L (137-145) mmol/L Potassium 6.3 H* (3.5-5.1) mmol/L Chloride 95 L (98-107) mmol/L Carbon Dioxide 21 L (22-30) mmol/L BUN (7-17) mg/dL Creatinine (0.52-1.04) mg/dL Glucose (74-99) mg/dL POC Glucose (mg/dL) (75-99) mg/dL Calcium (8.4-10.2) mg/dL Phosphorus (2.5-4.5) mg/dL AST (14-36) U/L Alkaline Phosphatase (38-126) U/L Total Protein (6.3-8.2) g/dL Albumin (3.5-5.0) g/dL 08/31/17 08/31/17 09/01/17 Range/Units 18:57 21:38 04:23 RBC 2.72 L (3.80-5.40) m/uL Hgb 8.8 L (11.4-16.0) gm/dL Hct 27.0 L (34.0-46.0) % Plt Count (150-450) k/uL Lymphocytes # 0.7 L (1.0-4.8) k/uL Sodium 129 L (137-145) mmol/L Potassium (3.5-5.1) mmol/L Chloride 96 L (98-107) mmol/L Carbon Dioxide (22-30) mmol/L BUN 69 H (7-17) mg/dL Creatinine 3.30 H (0.52-1.04) mg/dL Glucose 100 H (74-99) mg/dL POC Glucose (mg/dL) 117 H (75-99) mg/dL Calcium 8.1 L (8.4-10.2) mg/dL Phosphorus (2.5-4.5) mg/dL AST (14-36) U/L Alkaline Phosphatase (38-126) U/L Total Protein (6.3-8.2) g/dL Albumin (3.5-5.0) g/dL 09/01/17 Range/Units 04:23 RBC (3.80-5.40) m/uL Hgb (11.4-16.0) gm/dL Hct (34.0-46.0) % Plt Count (150-450) k/uL Lymphocytes # (1.0-4.8) k/uL Sodium 131 L (137-145) mmol/L Potassium (3.5-5.1) mmol/L Chloride 96 L (98-107) mmol/L Carbon Dioxide (22-30) mmol/L BUN 65 H (7-17) mg/dL Creatinine 3.28 H (0.52-1.04) mg/dL Glucose (74-99) mg/dL POC Glucose (mg/dL) (75-99) mg/dL Calcium 7.4 L (8.4-10.2) mg/dL Phosphorus 5.1 H (2.5-4.5) mg/dL AST 40 H (14-36) U/L Alkaline Phosphatase 23 L (38-126) U/L Total Protein 4.5 L (6.3-8.2) g/dL Albumin 2.3 L (3.5-5.0) g/dL Microbiology - Last 24 Hours (Table) 08/31/17 01:16 Urine Culture - Preliminary Urine,Catheterized Assessment and Plan (1) History of cardiomyopathy Current Visit: Yes Status: Acute Code(s): Z86.79 - PERSONAL HISTORY OF OTHER DISEASES OF THE CIRCULATORY SYSTEM SNOMED Code(s): 700891275318450 (2) Hyperkalemia Current Visit: Yes Status: Acute Code(s): E87.5 - HYPERKALEMIA SNOMED Code (s): 84195195 (3) Hyponatremia Current Visit: Yes Status: Acute Code(s): E87.1 - HYPO-OSMOLALITY AND HYPONATREMIA SNOMED Code(s): 13430356 (4) Congestive heart failure Current Visit: No Status: Acute Code(s): I50.9 - HEART FAILURE, UNSPECIFIED SNOMED Code(s): 60517653 (5) Humerus shaft fracture Current Visit: No Status: Acute Code(s): S42.309A - UNSP FRACTURE OF SHAFT OF HUMERUS, UNSP ARM, INIT SNOMED Code(s): 57992184 (6) History of atrial fibrillation Current Visit: Yes Status: Acute Code(s): Z86.79 - PERSONAL HISTORY OF OTHER DISEASES OF THE CIRCULATORY SYSTEM SNOMED Code(s): 309229514 Plan: Patient is in atrial flutter with controlled ventricular response and a hypotensive requiring Levophed. I will resume her oral medications 1. Blood pressure more stable. Continue current management
[2017-09-01] MEDS: SODIUM CHLORIDE 0.9% 1,000 ML IV SCH (12:19)
[2017-09-01 16:18] LABS: Iron Saturation 15.61 (12.00-45.00)
[2017-09-01] MEDS: cefTRIAXone IN SWFI 1,000 MG/10 ML SYRINGE IVP SCH (20:50)
[2017-09-01] MEDS: AMIODARONE 200 MG TAB PO SCH (20:51)
[2017-09-01] MEDS: APIXABAN 2.5 MG TABLET PO SCH (20:51)
[2017-09-02] MEDS: NOREPINEPHRIN 4 MG-0.9% NS PMX 4 MG/250 ML ML IV SCH (00:44)
[2017-09-02] MEDS: SODIUM CHLORIDE 0.9% 1,000 ML IV SCH (00:45)
[2017-09-02 04:47] LABS: Basophils % (A) 0 %; Eosinophils # (A) 0.1 k/uL (0-0.7); Eosinophils % (A) 2 %; HCT 25.8 % (34.0-46.0); HGB 8.6 gm/dL (11.4-16.0); Lymphocytes # (A) 1.6 k/uL (1.0-4.8); Lymphocytes % (A) 26 %; MCH 32.7 pg (25.0-35.0); MCHC 33.5 g/dL (31.0-37.0); MCV 97.8 fL (80.0-100.0); Mean Platelet Volume 7.3; Monocytes # (A) 0.5 k/uL (0-1.0); Monocytes % (A) 8 %; Neutrophils # (A) 3.8 k/uL (1.3-7.7); Neutrophils % (A) 61 %; Platelet Count 154 k/uL (150-450); RBC 2.64 m/uL (3.80-5.40); RDW 14.1 % (11.5-15.5); WBC 6.2 k/uL (3.8-10.6)
[2017-09-02 05:13] LABS: Calcium 7.4 mg/dL (8.4-10.2); Magnesium 1.7 mg/dL (1.6-2.3); Potassium 3.7 mmol/L (3.5-5.1)
--- NOTE | 2017-09-02 07:28 | XR ---
EXAMINATION TYPE: XR chest 1V DATE OF EXAM: 09/02/2017 COMPARISON: 08/31/2017 HISTORY: Shortness of breath TECHNIQUE: Single frontal view of the chest is obtained. FINDINGS: There is no focal air space opacity, pleural effusion, or pneumothorax seen. Minimal left basilar platelike subsegmental atelectasis is unchanged from the prior. The cardiac silhouette size i s within normal limits. The osseous structures are intact. Calcified granuloma or pleural plaque is seen within the right lung apex. Mild degenerative changes of the thoracic spine and right acromiocl avicular joint are present. IMPRESSION: Minimal platelike subsegmental left basilar atelectasis. Otherwise no acute cardiopulmon peter process.
[2017-09-02] MEDS: PANTOPRAZOLE 40 MG TABLET PO SCH (08:28)
[2017-09-02] MEDS: AMIODARONE 200 MG TAB PO SCH ×2 (08:29→22:09)
[2017-09-02] MEDS: APIXABAN 2.5 MG TABLET PO SCH ×2 (08:29→22:09)
[2017-09-02] MEDS: cefTRIAXone IN SWFI 1,000 MG/10 ML SYRINGE IVP SCH (08:29)
--- NOTE | 2017-09-02 08:31 | XR ---
EXAMINATION TYPE: XR humerus RT DATE OF EXAM: 09/02/2017 CLINICAL HISTORY: Fall with right arm pain and known fracture. TECHNIQUE: Two views of the right humerus are obtained. COMPARISON: 08/25/2017 FINDINGS: There is redemonstration of the known mid diaphyseal right humeral fracture with comminutio n and approximately 2.0 cm of foreshortening. The distal diaphyseal healed well-corticated fracture i s also visualized. There is osseous demineralization throughout. Moderate acromioclavicular arthropat hy is present. No new fracture is identified. Overlying soft tissue swelling is present. IMPRESSION: Redemonstration of the known comminuted right humeral mid diaphyseal foreshortened fractu re, diffuse osseous demineralization, chronic right humeral distal diaphyseal healed fracture, and mo derate right acromio clavicular arthropathy. No new fracture is seen.
--- NOTE | 2017-09-02 08:52 | P.PN ---
Subjective Progress Note Date: 09/02/17 Principal diagnosis: Right humerus fracture. Renal failure. This is an 82-year-old female who we're following regarding her right midshaft humerus fracture. She remains in ICU. They have begun dialysis for her renal failure. She has no new orthopedic complaints today. Objective - Vital Signs Vital signs: Vital Signs Temp 98.5 F 09/02/17 04:00 Pulse 119 H 09/02/17 07:30 Resp 14 09/02/17 07:30 BP 135/73 09/02/17 07:30 Pulse Ox 98 09/02/17 07:30 Intake & Output 09/01/17 09/02/17 09/02/17 18:59 06:59 18:59 Intake Total 2341.003 844.5 Output Total 665 765 Balance 1676.003 79.5 Weight 87.1 kg Intake: IV 1080 600 Sodium Chloride 0.9% 1, 800 600 000 ml @ 50 mls/hr IV . Q20H [facility] Rx#:[id number] Sodium Chloride 0.9% 1, 280 000 ml @ 70 mls/hr IV . [id number] [facility] Rx#:[id number] Intake, IV Titration 761.003 244.5 Amount DOPamine DRIP 800 mg In 151.503 Dextrose/Water 1 500ml. bag @ 10 MCG/KG/MIN 30.11 mls/hr IV .[id number] [facility] Rx#:[id number] Norepinephrin 4 mg-0.9% 109.500 244.5 Ns Pmx 4 mg In 250 ml @ Titrate IV .Q0M [facility] Rx#: [id number] Sodium Chloride 0.9% 500 500 ml @ 999 mls/hr IV .Q31M [facility] Rx#:[id number] Oral 500 Output: Urine 665 765 Other: Voiding Method Indwelling Catheter Indwelling Catheter # Bowel Movements 1 - Exam This is a pleasant 82-year-old female in no acute distress. She is alert and oriented 3. Exam of the right upper extremity reveals ecchymosis and swelling. Long-arm cast is in place. She has full finger motion without difficulty or pain. Neurovascular status the upper extremity is intact. - Labs CBC & Chem 7: 09/02/17 04:25 09/02/17 04:25 Labs: Abnormal Lab Results - Last 24 Hours (Table) 09/01/17 09/02/17 09/02/17 Range/Units 04:23 04:25 04:25 RBC 2.64 L (3.80-5.40) m/uL Hgb 8.6 L (11.4-16.0) gm/dL Hct 25.8 L (34.0-46.0) % Sodium 134 L (137-145) mmol/L BUN 67 H (7-17) mg/dL Creatinine 2.60 H (0.52-1.04) mg/dL Calcium 7.4 L (8.4-10.2) mg/dL Iron 37 L (50-170) ug/dL Ferritin 480.0 H (10.0-291.0) ng/mL Microbiology - Last 24 Hours (Table) 08/31/17 16:50 Blood Culture Gram Stain - Preliminary Blood 08/31/17 16:50 Blood Culture - Final Blood 08/31/17 01:16 Urine Culture - Final Urine,Catheterized Assessment and Plan (1) Fracture of humerus, right, closed Current Visit: Yes Status: Acute Code(s): S42.301A - UNSP FRACTURE OF SHAFT OF HUMERUS, RIGHT ARM, INIT SNOMED Code(s): 65669021 (2) Acute renal failure Current Visit: Yes Status: Acute Code(s): N17.9 - ACUTE KIDNEY FAILURE, UNSPECIFIED SNOMED Code(s): 33919942 (3) Weakness Current Visit: Yes Status: Acute Code(s): R53.1 - WEAKNESS SNOMED Code(s) : 18295045 Plan: The clinical findings are discussed with the patient. She is remain in the current long-arm cast. Positioning of the arm is to comfort. I have ordered a repeat humerus x-ray for follow up. We'll continue to follow.
--- NOTE | 2017-09-02 09:16 | P.PN ---
Subjective Progress Note Date: 09/02/17 Principal diagnosis: Acute kidney injury secondary to ATN, acute electrolyte disturbance Pulmonary consult dated 08/31/2017 81-year-old female who was admitted with a diagnosis of weakness and poor oral intake and multiple electrolyte disturbances. This is a woman who apparently fell and fractured her right elbow/arm. It was casted by one of the orthopedic surgeons. She apparently stopped a stopped eating at home became very weak and dehydrated and came in with significant electrolyte disturbances including hyponatremia hyperkalemia renal failure, etc. He was seen by one of the ER physicians. She was noted to be bradycardic and hypotensive. This morning the nurse call me and I started the patient on some dopamine which is corrected both problems. She is awake and alert. She is oriented. Really has no major complaints at this time. She does have a history of congestive heart failure atrial fibrillation and gastroesophageal reflux disease hyperlipidemia hypertension cataracts surgery and cholecystectomy. She was a former smoker. Denies alcohol and illicit drug use. On 09/01/2017 patient seen again in the intensive care unit. She is resting in bed, awake alert, and answering questions appropriately. Denies any acute distress, denies any chest pain or dyspnea. Patient had a hemodialysis catheter placed in the right groin yesterday and she had her initial hemodialysis, with no fluid removed, patient had ultrafiltration. Currently remains on 0.9 normal saline at a rate of 79 per hour, dopamine drip is at 6 mics per kilo per minute. Patient is now in atrial fibrillation, and is tachycardic up to 121 BPM. Blood pressure remains marginal 89/59 with a map of 74. Patient is now producing urine, 90-150 ML per hour. Her oral intake is improving. She remains afebrile, she is currently on 2 L per nasal cannula with O2 sat 94-98%. Today's chest x-ray has been reviewed and shows chronic changes without evidence of for acute pulmonary disease. Today's labs were reviewed, WBC of 5.3, hemoglobin 8.8, serum sodium is improving, up to 131 on today's labs, potassium is 3.8, chloride is 96, BUN 65, creatinine is 3.28. Patient's right arm is in the fold cast, fingers on the right hand are warm, pink, and patient denies any numbness or tingling. Left arm extremity appears to be quite swollen, and the blood pressure cough is being measured on the left arm. We will restart the patient's Eliquis today. Urine culture is pending, patient denies any fever or chills. 09/01/2017 patient seen in follow-up. She remains in the intensive care, more hemodynamically stable today, levo fed has been on hold since 7:00 this morning. Today we switched patient from dopamine to levo fed in view of patient 's tachycardia. Additional 500 mL IV bolus was given, and patient is nonoliguric, she remains in A. fib, with a controlled rate, currently on room air, with O2 sat at 98%, respirations are even and nonlabored, lung sounds are clear, diminished at the bases. Today's chest x-ray shows some limited atelectasis at the left lower base. IV 0.9 normal saline is infusing at a rate of 50 ML per hour. Patient has developed significant left arm extremity edema, and we will get Doppler ultrasound to rule out DVT. Right arm is in the hanging cast, and there is no evidence of distal circulation compromise, there is no numbness or tingling, right hand fingers are pink and warm. Overall patient is doing well. Today's labs were reviewed, WBC 6.2, hemoglobin is 8.6, serum sodium is 134, potassium is 3.7, B1 is 67, creatinine is 2.60. There has been further improvement in her renal profile. Patient was restarted on her home dose Eliquis for her history of chronic A. fib. She remains on empiric antibiotics in the form of Rocephin, denies any fever or chills, and microbiology results are negative to date. Objective - Vital Signs Vital signs: Vital Signs Temp 98.5 F 09/02/17 04:00 Pulse 119 H 09/02/17 07:30 Resp 14 09/02/17 07:30 BP 135/73 09/02/17 07:30 Pulse Ox 98 09/02/17 07:30 Intake & Output 09/01/17 09/02/17 09/02/17 18:59 06:59 18:59 Intake Total 2341.003 844.5 Output Total 665 765 Balance 1676.003 79.5 Weight 87.1 kg Intake: IV 1080 600 Sodium Chloride 0.9% 1, 800 600 000 ml @ 50 mls/hr IV . Q20H [facility] Rx#:[id number] Sodium Chloride 0.9% 1, 280 000 ml @ 70 mls/hr IV . [id number] [facility] Rx#:[id number] Intake, IV Titration 761.003 244.5 Amount DOPamine DRIP 800 mg In 151.503 Dextrose/Water 1 500ml. bag @ 10 MCG/KG/MIN 30.11 mls/hr IV .[id number] [facility] Rx#:[id number] Norepinephrin 4 mg-0.9% 109.500 244.5 Ns Pmx 4 mg In 250 ml @ Titrate IV .Q0M [facility] Rx#: [id number] Sodium Chloride 0.9% 500 500 ml @ 999 mls/hr IV .Q31M [facility] Rx#:[id number] Oral 500 Output: Urine 665 765 Other: Voiding Method Indwelling Catheter Indwelling Catheter # Bowel Movements 1 - Exam No acute distress, oriented 3. Nasal O2 at 2 L/m is noted. HEENT examination is grossly unremarkable. Mucous membranes are moist. No oral lesions. Neck supple. Full range of motion. No adenopathy thyromegaly or neck vein distention. Cardiovascular examination reveals irregularly irregular heart sounds, S1 and S2. No S3 or S4. No discernible murmur noted. Lungs reveal clear breath sounds. Her sounds are equal bilaterally. No adventitious lung sounds including wheezes rhonchi or crackles. Abdomen soft bowel sounds are heard. No masses or tenderness. Right groin temporary hemodialysis catheter is in place Extremities are intact. Right arm hanging cast is present, the area above the cast at the right shoulder is swollen and ecchymotic, right hand fingers are pink and warm, and sensation is intact. Left arm has 2+ nonpitting edema, there is a blood pressure cuff present on the left upper arm Skin is without rash or lesion. Neurologic examination is brief but nonfocal. - Labs CBC & Chem 7: 09/02/17 04:25 09/02/17 04:25 Labs: Abnormal Lab Results - Last 24 Hours (Table) 09/01/17 09/02/17 09/02/17 Range/Units 04:23 04:25 04:25 RBC 2.64 L (3.80-5.40) m/uL Hgb 8.6 L (11.4-16.0) gm/dL Hct 25.8 L (34.0-46.0) % Sodium 134 L (137-145) mmol/L BUN 67 H (7-17) mg/dL Creatinine 2.60 H (0.52-1.04) mg/dL Calcium 7.4 L (8.4-10.2) mg/dL Iron 37 L (50-170) ug/dL Ferritin 480.0 H (10.0-291.0) ng/mL Microbiology - Last 24 Hours (Table) 08/31/17 16:50 Blood Culture Gram Stain - Preliminary Blood 08/31/17 16:50 Blood Culture - Final Blood 08/31/17 01:16 Urine Culture - Final Urine,Catheterized Assessment and Plan Plan: Assessment: Poor oral intake with severe dehydration significant electrolyte disturbances and acute kidney injury, all subsequent to a fall and a fractured right elbow, improving History of atrial fibrillation, the patient is currently in A. fib with a controlled rate History of CHF Gastroesophageal reflux disease Hyperlipidemia Hypertension Significant bradycardia and hypotension, responsive to dopamine therapy, recovering Significant hyperkalemia, resolved Plan: Plan dated 08/31/2017 The patient remains on dopamine therapy for her blood pressure and heart rate. We will wean that as the day progresses. We will continue to follow closely. We'll continue to correct electrolytes him. Additional recommendations and suggestions are forthcoming. Both cardiology and nephrology have been consulted. The patient is a DO NOT RESUSCITATE. Labs x-rays and medications are all reviewed. Plan dated 09/01/2017 Patient has developed tachycardia, she is currently in A. fib with a rate of 120 BPM. She is making more urine output, and this is averaging at 100 ML per hour. Actually light profile is improving, she had her initial hemodialysis yesterday. Neurology is following. Patient remains on 6 mics of dopamine, in view of ongoing hypotension, we will give the patient 500 mL of fluid bolus, and try to wean the dopamine off, if vasopressor support is needed we will use norepinephrine in view of patient's tachycardia. Overall she is improving, her right arm pain is reasonably controlled. We will restart Eliquis. Encourage deep breathing and coughing Plan dated 09/02/2017 Levofed has been weaned off since 7:00 this morning, patient remains hemodynamically stable, producing urine, and her renal profile at was noted to be improving. No fever or chills, no cough, chest congestion or sputum production. Patient continues on empiric Rocephin, microbiology is negative thus far. No evidence of leukocytosis. She is tolerating oral intake. Continue encouraging deep breathing and coughing. Is stable to transfer out of the intensive care today to regular general medical surgical floor. Stop daily chest x-rays. I performed a history & physical examination of the patient and discussed their management with my nurse practitioner, Pastora Osorio. I reviewed the nurse practitioner's note and agree with the documented findings and plan of care. Lung sounds are clear. The findings and the impression was discussed with the patient. I attest to the documentation by the nurse practitioner. Critical care time is over 35 minutes Time with Patient: Greater than 30
--- NOTE | 2017-09-02 10:13 | P.PN ---
Subjective Patient is seen in follow-up for acute kidney injury. Patient's creatinine was 6.2 on admission and was also noted to be hyperkalemic which did not improve despite medical management. She underwent 1 treatment of hemodialysis on August 31. Renal function is improving with creatinine down to 2.6 today. She is nonoliguric. Levophed was discontinued this morning. Chest x-ray reveals no evidence of fluid overload. She is maintained on normal saline at 50 mL an hour. She does have history of systolic CHF with ejection fraction of 25-30%. Oral intake is fair. No active complaints at this time. Blood pressures low. Afebrile. General: The patient appeared well nourished and normally developed. HEENT: Head exam is unremarkable. Neck is without jugular venous distension. LUNGS: Breath sounds decreased. HEART: Rate and Rhythm are regular. First and second heart sounds normal. No murmurs, rubs or gallops. ABDOMEN: Abdominal exam reveals normal bowel sounds. Non-tender and non- distended. No evidence of peritonitis. EXTREMITITES: No clubbing, cyanosis, or edema. Objective - Vital Signs Vital signs: Vital Signs Temp 98.5 F 09/02/17 04:00 Pulse 119 H 09/02/17 07:30 Resp 14 09/02/17 07:30 BP 135/73 09/02/17 07:30 Pulse Ox 98 09/02/17 07:30 Intake & Output 09/01/17 09/02/17 09/02/17 18:59 06:59 18:59 Intake Total 2341.003 844.5 Output Total 665 765 Balance 1676.003 79.5 Weight 87.1 kg Intake: IV 1080 600 Sodium Chloride 0.9% 1, 800 600 000 ml @ 50 mls/hr IV . Q20H [facility] Rx#:[id number] Sodium Chloride 0.9% 1, 280 000 ml @ 70 mls/hr IV . [id number] [facility] Rx#:[id number] Intake, IV Titration 761.003 244.5 Amount DOPamine DRIP 800 mg In 151.503 Dextrose/Water 1 500ml. bag @ 10 MCG/KG/MIN 30.11 mls/hr IV .[id number] [facility] Rx#:[id number] Norepinephrin 4 mg-0.9% 109.500 244.5 Ns Pmx 4 mg In 250 ml @ Titrate IV .Q0M [facility] Rx#: [id number] Sodium Chloride 0.9% 500 500 ml @ 999 mls/hr IV .Q31M [facility] Rx#:[id number] Oral 500 Output: Urine 665 765 Other: Voiding Method Indwelling Catheter Indwelling Catheter # Bowel Movements 1 - Labs CBC & Chem 7: 09/02/17 04:25 09/02/17 04:25 Labs: Abnormal Lab Results - Last 24 Hours (Table) 09/01/17 09/02/17 09/02/17 Range/Units 04:23 04:25 04:25 RBC 2.64 L (3.80-5.40) m/uL Hgb 8.6 L (11.4-16.0) gm/dL Hct 25.8 L (34.0-46.0) % Sodium 134 L (137-145) mmol/L BUN 67 H (7-17) mg/dL Creatinine 2.60 H (0.52-1.04) mg/dL Calcium 7.4 L (8.4-10.2) mg/dL Iron 37 L (50-170) ug/dL Ferritin 480.0 H (10.0-291.0) ng/mL Microbiology - Last 24 Hours (Table) 08/31/17 16:50 Blood Culture Gram Stain - Preliminary Blood 08/31/17 16:50 Blood Culture - Final Blood 08/31/17 01:16 Urine Culture - Final Urine,Catheterized Assessment and Plan Plan: Assessment: 1. Oliguric - now nonoliguric - acute kidney injury secondary to ischemic ATN secondary to bradycardia and further worsened with the use of diuretics and lisinopril. Creatinine 6.2 on admission - underwent 1 treatment of hemodialysis on August 31 - creatinine 2.6 today. Urinalysis is benign. No evidence of hydronephrosis noted on renal ultrasound. 2. Hypovolemic hyponatremia improved with IV hydration. 3. Hyperkalemia secondary to acute kidney injury and further worsened with the use of Aldactone and lisinopril. Resolved postdialysis. 4. Bradycardia secondary to hyperkalemia - resolved. 5. Systolic CHF with ejection fraction of 25-30%. Currently compensated. 6. Status post fall with right shaft humerus fracture. 7. Chronic kidney disease stage III with creatinine in the range of 1.1-1.3 in February 2017. Etiology is nephrosclerosis. 8. Metabolic acidosis secondary to acute kidney injury. Improved. 9. Anemia. Iron deficiency noted. Plan: Maintain normal saline at 50 mL an hour. Encouraged oral intake. Avoid nephrotoxic agents and hypotensive episodes. Ferrlecit 125 mg IV daily for 3 days. First dose today. Continue to hold off on hemodialysis at this time. Repeat electrolytes in the morning.
--- NOTE | 2017-09-02 10:34 | P.PN ---
Subjective Progress Note Date: 09/02/17 This is a 82-year-old female was admitted to the hospital with acute renal failure and hyperkalemia. Patient was bradycardic with junctional rhythm on admission. Patient had dialysis yesterday. Her creatinine is in the range of 3.8. Her potassium is corrected. Patient is in atrial flutter with the heart rate in the 90s. Patient is hypotensive on Levophed. Patient is alert and awake. Doesn't appear to be in acute distress. We'll continue current medical therapy. Patient may need further dialysis. 09/02/2017: This patient is more stable. She is off Levophed. She is maintaining blood pressure systolics up to 100. Doesn't appear to be in acute distress. She is in atrial flutter with heart rate in the 100s. Patient is back on amiodarone. I'm going to start her back on Coreg 3.125 mg twice daily. I I will titrate dose slowly. She is also on anticoagulation therapy. This no pedal and also Lasix is being held at this time. Patient is being transferred to telemetry unit Objective - Vital Signs Vital signs: Vital Signs Temp 97.0 F L 09/02/17 08:30 Pulse 85 09/02/17 10:00 Resp 17 09/02/17 10:00 BP 100/49 09/02/17 10:00 Pulse Ox 91 L 09/02/17 10:00 Intake & Output 09/01/17 09/02/17 09/02/17 18:59 06:59 18:59 Intake Total 2341.003 844.5 390 Output Total 665 765 150 Balance 1676.003 79.5 240 Weight 87.1 kg 87.1 kg Intake: IV 1080 600 150 Sodium Chloride 0.9% 1, 800 600 150 000 ml @ 50 mls/hr IV . Q20H [facility] Rx#:[id number] Sodium Chloride 0.9% 1, 280 000 ml @ 70 mls/hr IV . [id number] [facility] Rx#:[id number] Intake, IV Titration 761.003 244.5 Amount DOPamine DRIP 800 mg In 151.503 Dextrose/Water 1 500ml. bag @ 10 MCG/KG/MIN 30.11 mls/hr IV .[id number] [facility] Rx#:[id number] Norepinephrin 4 mg-0.9% 109.500 244.5 Ns Pmx 4 mg In 250 ml @ Titrate IV .Q0M [facility] Rx#: [id number] Sodium Chloride 0.9% 500 500 ml @ 999 mls/hr IV .Q31M [facility] Rx#:[id number] Oral 500 240 Output: Urine 665 765 150 Other: Voiding Method Indwelling Catheter Indwelling Catheter # Bowel Movements 1 - Exam GENERAL EXAM: Patient is alert and oriented and doesn't appear to be in any acute distress HEENT: Normocephalic. Normal reaction of pupils, equal size, normal range of extraocular motion. No erythema or exudates in the throat. NECK: No masses, no nuchal rigidity. CHEST: No chest wall deformity. LUNGS: Equal air entry with no crackles or wheeze. HEART: Irregular heart sounds ABDOMEN: No hepatosplenomegaly, normal bowel sounds, no guarding or rigidity. SKIN: No rashes CENTRAL NERVOUS SYSTEM: No focal deficits. EXTREMITIES: No cyanosis, clubbing or edema. - Labs CBC & Chem 7: 09/02/17 04:25 09/02/17 04:25 Labs: Abnormal Lab Results - Last 24 Hours (Table) 09/01/17 09/02/17 09/02/17 Range/Units 04:23 04:25 04:25 RBC 2.64 L (3.80-5.40) m/uL Hgb 8.6 L (11.4-16.0) gm/dL Hct 25.8 L (34.0-46.0) % Sodium 134 L (137-145) mmol/L BUN 67 H (7-17) mg/dL Creatinine 2.60 H (0.52-1.04) mg/dL Calcium 7.4 L (8.4-10.2) mg/dL Iron 37 L (50-170) ug/dL Ferritin 480.0 H (10.0-291.0) ng/mL Microbiology - Last 24 Hours (Table) 08/31/17 16:50 Blood Culture Gram Stain - Preliminary Blood 08/31/17 16:50 Blood Culture - Final Blood 08/31/17 01:16 Urine Culture - Final Urine,Catheterized Assessment and Plan (1) History of cardiomyopathy Current Visit: Yes Status: Acute Code(s): Z86.79 - PERSONAL HISTORY OF OTHER DISEASES OF THE CIRCULATORY SYSTEM SNOMED Code(s): 990969925966809 (2) Hyperkalemia Current Visit: Yes Status: Acute Code(s): E87.5 - HYPERKALEMIA SNOMED Code (s): 63322071 (3) Hyponatremia Current Visit: Yes Status: Acute Code(s): E87.1 - HYPO-OSMOLALITY AND HYPONATREMIA SNOMED Code(s): 01357797 (4) Congestive heart failure Current Visit: No Status: Acute Code(s): I50.9 - HEART FAILURE, UNSPECIFIED SNOMED Code(s): 30528421 (5) Humerus shaft fracture Current Visit: No Status: Acute Code(s): S42.309A - UNSP FRACTURE OF SHAFT OF HUMERUS, UNSP ARM, INIT SNOMED Code(s): 44736360 (6) History of atrial fibrillation Current Visit: Yes Status: Acute Code(s): Z86.79 - PERSONAL HISTORY OF OTHER DISEASES OF THE CIRCULATORY SYSTEM SNOMED Code(s): 914893182 Plan: Hemodynamically more stable. We will resume Coreg. Continue with amiodarone and anticoagulation. May have to decide about anticoagulation in the long run, because of her tendency to fall.
[2017-09-02] MEDS: SODIUM FERRIC GLUCONAT-SUCROSE 125 MG in SODIUM CHLORIDE 0.9% 100 ML IVPB SCH (10:49)
--- NOTE | 2017-09-02 12:01 | P.PN ---
Subjective Patient improving. Improving urine output them. Levophed is discontinued. Potassium stabilized a BUN/creatinine improving Objective - Vital Signs Vital signs: Vital Signs Temp 97.0 F L 09/02/17 08:30 Pulse 85 09/02/17 10:00 Resp 17 09/02/17 10:00 BP 100/49 09/02/17 10:00 Pulse Ox 91 L 09/02/17 10:00 Intake & Output 09/01/17 09/02/17 09/02/17 18:59 06:59 18:59 Intake Total 2341.003 844.5 398.75 Output Total 665 765 150 Balance 1676.003 79.5 248.75 Weight 87.1 kg 87.1 kg Intake: IV 1080 600 150 Sodium Chloride 0.9% 1, 800 600 150 000 ml @ 50 mls/hr IV . Q20H [facility] Rx#:[id number] Sodium Chloride 0.9% 1, 280 000 ml @ 70 mls/hr IV . [id number] [facility] Rx#:[id number] Intake, IV Titration 761.003 244.5 8.75 Amount DOPamine DRIP 800 mg In 151.503 Dextrose/Water 1 500ml. bag @ 10 MCG/KG/MIN 30.11 mls/hr IV .[id number] [facility] Rx#:[id number] Norepinephrin 4 mg-0.9% 109.500 244.5 8.75 Ns Pmx 4 mg In 250 ml @ Titrate IV .Q0M [facility] Rx#: [id number] Sodium Chloride 0.9% 500 500 ml @ 999 mls/hr IV .Q31M [facility] Rx#:[id number] Oral 500 240 Output: Urine 665 765 150 Other: Voiding Method Indwelling Catheter Indwelling Catheter Indwelling Catheter # Bowel Movements 1 - Constitutional General appearance: Present: mild distress, obese - EENT Eyes: Present: PERRLA Ears: bilateral: normal - Neck Neck: Present: normal ROM - Respiratory Respiratory: bilateral: CTA - Gastrointestinal General gastrointestinal: Present: soft - Integumentary Integumentary: Present: normal - Neurologic Neurologic: Present: CNII-XII intact - Musculoskeletal Musculoskeletal Comment(s): Continues with cast to right arm. Ecchymosis continues to right upper extremity Musculoskeletal: Present: generalized weakness - Psychiatric Psychiatric: Present: A&O x's 3, appropriate affect, intact judgment & insight - Labs CBC & Chem 7: 09/02/17 04:25 09/02/17 04:25 Labs: Abnormal Lab Results - Last 24 Hours (Table) 09/01/17 09/02/17 09/02/17 Range/Units 04:23 04:25 04:25 RBC 2.64 L (3.80-5.40) m/uL Hgb 8.6 L (11.4-16.0) gm/dL Hct 25.8 L (34.0-46.0) % Sodium 134 L (137-145) mmol/L BUN 67 H (7-17) mg/dL Creatinine 2.60 H (0.52-1.04) mg/dL Calcium 7.4 L (8.4-10.2) mg/dL Iron 37 L (50-170) ug/dL Ferritin 480.0 H (10.0-291.0) ng/mL Microbiology - Last 24 Hours (Table) 08/31/17 16:50 Blood Culture Gram Stain - Preliminary Blood 08/31/17 16:50 Blood Culture - Final Blood 08/31/17 01:16 Urine Culture - Final Urine,Catheterized Assessment and Plan Plan: Assessment Dehydration secondary to poor oral intake with acute kidney injury Chronic kidney disease stage III Metabolic acidosis improved Atrial fibrillation with RVR Fractured humerus Postdialysis History of congestive heart failure ejection fraction 25-30% systolic dysfunction cardiomyopathy GERD hyperlipidemia Hypertension Improving bradycardia hypotension Hyperkalemia improves Plan Hopeful transfer from ICU to stepdown unit In continued consult with cardiology nephrology and orthopedics regarding fractured humerus
--- NOTE | 2017-09-02 12:27 | US ---
EXAMINATION TYPE: US venous doppler duplex UE DATE OF EXAM: 09/02/2017 COMPARISON: NONE CLINICAL HISTORY: swelling r/o DVT. SIDE PERFORMED: Grayscale, color doppler, spectral doppler imaging performed of the deep veins of the left upper extremity Morbidly obese ICU patient. Technically difficult study. Unable to visualize cephalic v. Left Arm: There appears to be a DVT in one of the left radial v's. Unable to compress this vein and a ppears to have no flow. There is overlying subcutaneous edema noted. Preliminary result given to RN at time of exam. IMPRESSION: Acute deep venous thrombosis within the left radial vein with overlying subcutaneous carole a. Preliminary result given to RN at time of exam by the purchasing coordinator.
[2017-09-02] MEDS: CARVEDILOL 3.125 MG TAB PO SCH (16:46)
[2017-09-02] MEDS: MAG HYDROX/AL HYDROX/SIMETH 30 ML CUP PO PRN (19:46)
[2017-09-03] MEDS: MAG HYDROX/AL HYDROX/SIMETH 30 ML CUP PO PRN (00:18)
[2017-09-03] MEDS: SODIUM CHLORIDE 0.9% 1,000 ML IV SCH (05:40)
[2017-09-03 07:10] LABS: HCT 25.5 % (34.0-46.0); HGB 8.4 gm/dL (11.4-16.0); MCH 32.5 pg (25.0-35.0); MCHC 33.1 g/dL (31.0-37.0); MCV 98.4 fL (80.0-100.0); Mean Platelet Volume 6.8; Platelet Count 144 k/uL (150-450); RDW 14.1 % (11.5-15.5); WBC 4.8 k/uL (3.8-10.6)
[2017-09-03 07:45] LABS: Calcium 7.3 mg/dL (8.4-10.2); Magnesium 1.7 mg/dL (1.6-2.3); Phosphorus 2.3 mg/dL (2.5-4.5); Potassium 3.2 mmol/L (3.5-5.1)
[2017-09-03] MEDS: APIXABAN 2.5 MG TABLET PO SCH ×2 (07:45→21:21)
[2017-09-03] MEDS: CARVEDILOL 3.125 MG TAB PO SCH ×2 (07:45→17:30)
[2017-09-03] MEDS: AMIODARONE 200 MG TAB PO SCH ×2 (07:45→21:21)
[2017-09-03] MEDS: PANTOPRAZOLE 40 MG TABLET PO SCH (07:45)
[2017-09-03] MEDS: SODIUM FERRIC GLUCONAT-SUCROSE 125 MG in SODIUM CHLORIDE 0.9% 100 ML IVPB SCH (08:10)
[2017-09-03] MEDS: cefTRIAXone IN SWFI 1,000 MG/10 ML SYRINGE IVP SCH (08:11)
[2017-09-03] MEDS ORDERED: HYDROcodone/APAP 5-325MG 1 EACH TAB PO PRN (08:23)
--- NOTE | 2017-09-03 08:23 | P.PN ---
Subjective Progress Note Date: 09/03/17 Principal diagnosis: Right humerus fracture. Renal failure. This is an 82-year-old female who we're following regarding her right midshaft humerus fracture. She has been transferred to the orthopedic floor. X-rays were taken of the right humerus yesterday. She continues to have slight bayoneting of the fracture. Overall alignment is satisfactory. She has no new complaints or concerns today. Vital signs are stable. Objective - Vital Signs Vital signs: Vital Signs Temp 98.4 F 09/03/17 05:35 Pulse 85 09/03/17 05:35 Resp 16 09/03/17 05:35 BP 130/63 09/03/17 05:35 Pulse Ox 93 L 09/03/17 07:54 Intake & Output 09/02/17 09/03/17 09/03/17 18:59 06:59 18:59 Intake Total 918.75 550 Output Total 450 Balance 468.75 550 Weight 87.1 kg 90.5 kg Intake: IV 450 550 Sodium Chloride 0.9% 1, 450 550 000 ml @ 50 mls/hr IV . Q20H [facility] Rx#:[id number] Intake, IV Titration 108.75 Amount Norepinephrin 4 mg-0.9% 8.75 Ns Pmx 4 mg In 250 ml @ Titrate IV .Q0M [facility] Rx#: [id number] Sodium Ferric Gluconat- 100 Sucrose 125 mg In Sodium Chloride 0.9% 100 ml @ 100 mls/hr IVPB DAILY [facility] Rx#:[id number] Oral 360 Output: Urine 450 Other: Voiding Method Indwelling Catheter Indwelling Catheter - Exam This is a pleasant 82-year-old female in no acute distress. She is alert and oriented 3. Exam of the right upper extremity reveals ecchymosis and swelling. Long-arm cast is in place. She has full finger motion without difficulty or pain. Neurovascular status the upper extremity is intact. - Labs CBC & Chem 7: 09/03/17 06:50 09/03/17 06:50 Labs: Abnormal Lab Results - Last 24 Hours (Table) 09/03/17 09/03/17 Range/Units 06:50 06:50 RBC 2.60 L (3.80-5.40) m/uL Hgb 8.4 L (11.4-16.0) gm/dL Hct 25.5 L (34.0-46.0) % Plt Count 144 L (150-450) k/uL Sodium 134 L (137-145) mmol/L Potassium 3.2 L (3.5-5.1) mmol/L BUN 59 H (7-17) mg/dL Creatinine 2.04 H (0.52-1.04) mg/dL Calcium 7.3 L (8.4-10.2) mg/dL Phosphorus 2.3 L (2.5-4.5) mg/dL Microbiology - Last 24 Hours (Table) 08/31/17 16:50 Blood Culture Gram Stain - Preliminary Blood Blood Culture - Preliminary Diphtheroid species Assessment and Plan (1) Fracture of humerus, right, closed Current Visit: Yes Status: Acute Code(s): S42.301A - UNSP FRACTURE OF SHAFT OF HUMERUS, RIGHT ARM, INIT SNOMED Code(s): 80831018 (2) Acute renal failure Current Visit: Yes Status: Acute Code(s): N17.9 - ACUTE KIDNEY FAILURE, UNSPECIFIED SNOMED Code(s): 40475069 (3) Weakness Current Visit: Yes Status: Acute Code(s): R53.1 - WEAKNESS SNOMED Code(s) : 00185504 Plan: The clinical findings are discussed with the patient. She is to remain in the current long-arm cast. Positioning of the arm is to comfort. She may be discharged when cleared medically.
[2017-09-03] MEDS ORDERED: POTASSIUM CHLORIDE ER 20 MEQ TAB.ER PO STA (08:27)
[2017-09-03] MEDS ORDERED: MAGNESIUM SULFATE-D5W PMX 1 GM in DEXTROSE/WATER 1 100ML.BAG IVPB ONE (08:30)
[2017-09-03 08:45] LABS: Eosinophils # (M) 0.05 k/uL (0-0.7); Lymphocytes # (M) 1.01 k/uL (1.0-4.8); Monocytes # (M) 1.01 k/uL (0-1.0); Neutrophils # (M) 2.74 k/uL (1.3-7.7); Neutrophils % (M) 57 %; Nucleated Red Blood Cells 0 /100 WBC (0-0); Total Cells Counted 100
[2017-09-03 08:46] LABS: Poikilocytosis (M) Present
--- NOTE | 2017-09-03 09:25 | P.PN ---
Subjective Patient is seen in follow-up for acute kidney injury. Patient's creatinine was 6.2 on admission and was also noted to be hyperkalemic which did not improve despite medical management. She underwent 1 treatment of hemodialysis on August 31. Renal function is improving with creatinine down to 2.04 today. She is nonoliguric. Chest x-ray reveals no evidence of fluid overload. She is maintained on normal saline at 50 mL an hour. She does have history of systolic CHF with ejection fraction of 25-30%. Oral intake is fair. No active complaints at this time. Blood pressures low. Afebrile. General: The patient appeared well nourished and normally developed. HEENT: Head exam is unremarkable. Neck is without jugular venous distension. LUNGS: Breath sounds decreased. HEART: Rate and Rhythm are regular. First and second heart sounds normal. No murmurs, rubs or gallops. ABDOMEN: Abdominal exam reveals normal bowel sounds. Non-tender and non- distended. No evidence of peritonitis. EXTREMITITES: No clubbing, cyanosis, or edema. Objective - Vital Signs Vital signs: Vital Signs Temp 98.4 F 09/03/17 05:35 Pulse 85 09/03/17 05:35 Resp 16 09/03/17 05:35 BP 130/63 09/03/17 05:35 Pulse Ox 93 L 09/03/17 07:54 Intake & Output 09/02/17 09/03/17 09/03/17 18:59 06:59 18:59 Intake Total 918.75 550 Output Total 450 Balance 468.75 550 Weight 87.1 kg 90.5 kg Intake: IV 450 550 Sodium Chloride 0.9% 1, 450 550 000 ml @ 50 mls/hr IV . Q20H [facility] Rx#:[id number] Intake, IV Titration 108.75 Amount Norepinephrin 4 mg-0.9% 8.75 Ns Pmx 4 mg In 250 ml @ Titrate IV .Q0M [facility] Rx#: [id number] Sodium Ferric Gluconat- 100 Sucrose 125 mg In Sodium Chloride 0.9% 100 ml @ 100 mls/hr IVPB DAILY [facility] Rx#:[id number] Oral 360 Output: Urine 450 Other: Voiding Method Indwelling Catheter Indwelling Catheter - Labs CBC & Chem 7: 09/03/17 06:50 09/03/17 06:50 Labs: Abnormal Lab Results - Last 24 Hours (Table) 09/03/17 09/03/17 Range/Units 06:50 06:50 RBC 2.60 L (3.80-5.40) m/uL Hgb 8.4 L (11.4-16.0) gm/dL Hct 25.5 L (34.0-46.0) % Plt Count 144 L (150-450) k/uL Monocytes # (Manual) 1.01 H (0-1.0) k/uL Sodium 134 L (137-145) mmol/L Potassium 3.2 L (3.5-5.1) mmol/L BUN 59 H (7-17) mg/dL Creatinine 2.04 H (0.52-1.04) mg/dL Calcium 7.3 L (8.4-10.2) mg/dL Phosphorus 2.3 L (2.5-4.5) mg/dL Microbiology - Last 24 Hours (Table) 08/31/17 16:50 Blood Culture Gram Stain - Final Blood Blood Culture - Final Diphtheroid species Assessment and Plan Plan: Assessment: 1. Oliguric - now nonoliguric - acute kidney injury secondary to ischemic ATN secondary to bradycardia and further worsened with the use of diuretics and lisinopril. Creatinine 6.2 on admission - underwent 1 treatment of hemodialysis on August 31 - creatinine 2.04 today. Urinalysis is benign. No evidence of hydronephrosis noted on renal ultrasound. 2. Hypovolemic hyponatremia improved with IV hydration. 3. Hyperkalemia secondary to acute kidney injury and further worsened with the use of Aldactone and lisinopril. Resolved postdialysis. Now hypokalemic due to recovering renal function. 4. Bradycardia secondary to hyperkalemia - resolved. 5. Systolic CHF with ejection fraction of 25-30%. Currently compensated. 6. Status post fall with right shaft humerus fracture. 7. Chronic kidney disease stage III with creatinine in the range of 1.1-1.3 in February 2017. Etiology is nephrosclerosis. 8. Metabolic acidosis secondary to acute kidney injury. Improved. 9. Anemia. Iron deficiency noted. Plan: Maintain normal saline at 50 mL an hour. Encouraged oral intake. Avoid nephrotoxic agents and hypotensive episodes. Ferrlecit 125 mg IV daily for 3 days. Second dose today. Repeat electrolytes in the morning. Discontinue dialysis catheter. Replace potassium. 60 mEq today.
--- NOTE | 2017-09-03 10:35 | P.PN ---
Subjective Progress Note Date: 09/03/17 Principal diagnosis: Acute kidney injury secondary to ATN, acute electrolyte disturbance Pulmonary consult dated 08/31/2017 81-year-old female who was admitted with a diagnosis of weakness and poor oral intake and multiple electrolyte disturbances. This is a woman who apparently fell and fractured her right elbow/arm. It was casted by one of the orthopedic surgeons. She apparently stopped a stopped eating at home became very weak and dehydrated and came in with significant electrolyte disturbances including hyponatremia hyperkalemia renal failure, etc. He was seen by one of the ER physicians. She was noted to be bradycardic and hypotensive. This morning the nurse call me and I started the patient on some dopamine which is corrected both problems. She is awake and alert. She is oriented. Really has no major complaints at this time. She does have a history of congestive heart failure atrial fibrillation and gastroesophageal reflux disease hyperlipidemia hypertension cataracts surgery and cholecystectomy. She was a former smoker. Denies alcohol and illicit drug use. On 09/01/2017 patient seen again in the intensive care unit. She is resting in bed, awake alert, and answering questions appropriately. Denies any acute distress, denies any chest pain or dyspnea. Patient had a hemodialysis catheter placed in the right groin yesterday and she had her initial hemodialysis, with no fluid removed, patient had ultrafiltration. Currently remains on 0.9 normal saline at a rate of 79 per hour, dopamine drip is at 6 mics per kilo per minute. Patient is now in atrial fibrillation, and is tachycardic up to 121 BPM. Blood pressure remains marginal 89/59 with a map of 74. Patient is now producing urine, 90-150 ML per hour. Her oral intake is improving. She remains afebrile, she is currently on 2 L per nasal cannula with O2 sat 94-98%. Today's chest x-ray has been reviewed and shows chronic changes without evidence of for acute pulmonary disease. Today's labs were reviewed, WBC of 5.3, hemoglobin 8.8, serum sodium is improving, up to 131 on today's labs, potassium is 3.8, chloride is 96, BUN 65, creatinine is 3.28. Patient's right arm is in the fold cast, fingers on the right hand are warm, pink, and patient denies any numbness or tingling. Left arm extremity appears to be quite swollen, and the blood pressure cough is being measured on the left arm. We will restart the patient's Eliquis today. Urine culture is pending, patient denies any fever or chills. 09/02/2017 patient seen in follow-up. She remains in the intensive care, more hemodynamically stable today, levo fed has been on hold since 7:00 this morning. Today we switched patient from dopamine to levo fed in view of patient 's tachycardia. Additional 500 mL IV bolus was given, and patient is nonoliguric, she remains in A. fib, with a controlled rate, currently on room air, with O2 sat at 98%, respirations are even and nonlabored, lung sounds are clear, diminished at the bases. Today's chest x-ray shows some limited atelectasis at the left lower base. IV 0.9 normal saline is infusing at a rate of 50 ML per hour. Patient has developed significant left arm extremity edema, and we will get Doppler ultrasound to rule out DVT. Right arm is in the hanging cast, and there is no evidence of distal circulation compromise, there is no numbness or tingling, right hand fingers are pink and warm. Overall patient is doing well. Today's labs were reviewed, WBC 6.2, hemoglobin is 8.6, serum sodium is 134, potassium is 3.7, B1 is 67, creatinine is 2.60. There has been further improvement in her renal profile. Patient was restarted on her home dose Eliquis for her history of chronic A. fib. She remains on empiric antibiotics in the form of Rocephin, denies any fever or chills, and microbiology results are negative to date. On 09/03/2017 patient seen again in follow-up on medical surgical floor. No acute distress, she is awake and alert, denies any dyspnea, denies any chest pain. Her renal profile continues to improve. On today's labs, is nonoliguric. Patient will have her temporary hemodialysis catheter removed today. Lung sounds are clear to auscultation, no rhonchi no wheezes. His been afebrile, she is on room air with O2 sat at 93%. Venous Doppler of the left extremity was reviewed, and there was a DVT in the left radial vein. Patient remains on an requests, the left arm appears to be less swollen on today's exam. No other acute issues overnight, we will sign off at this time, and follow with the patient on as-needed basis. Objective - Vital Signs Vital signs: Vital Signs Temp 98.4 F 09/03/17 05:35 Pulse 85 09/03/17 05:35 Resp 16 09/03/17 05:35 BP 130/63 09/03/17 05:35 Pulse Ox 93 L 09/03/17 07:54 Intake & Output 09/02/17 09/03/17 09/03/17 18:59 06:59 18:59 Intake Total 918.75 550 Output Total 450 Balance 468.75 550 Weight 87.1 kg 90.5 kg Intake: IV 450 550 Sodium Chloride 0.9% 1, 450 550 000 ml @ 50 mls/hr IV . Q20H [facility] Rx#:[id number] Intake, IV Titration 108.75 Amount Norepinephrin 4 mg-0.9% 8.75 Ns Pmx 4 mg In 250 ml @ Titrate IV .Q0M [facility] Rx#: [id number] Sodium Ferric Gluconat- 100 Sucrose 125 mg In Sodium Chloride 0.9% 100 ml @ 100 mls/hr IVPB DAILY [facility] Rx#:[id number] Oral 360 Output: Urine 450 Other: Voiding Method Indwelling Catheter Indwelling Catheter Indwelling Catheter - Exam No acute distress, oriented 3. Nasal O2 at 2 L/m is noted. HEENT examination is grossly unremarkable. Mucous membranes are moist. No oral lesions. Neck supple. Full range of motion. No adenopathy thyromegaly or neck vein distention. Cardiovascular examination reveals irregularly irregular heart sounds, S1 and S2. No S3 or S4. No discernible murmur noted. Lungs reveal clear breath sounds. Her sounds are equal bilaterally. No adventitious lung sounds including wheezes rhonchi or crackles. Abdomen soft bowel sounds are heard. No masses or tenderness. Right groin temporary hemodialysis catheter is in place Extremities are intact. Right arm hanging cast is present, the area above the cast at the right shoulder is swollen and ecchymotic, right hand fingers are pink and warm, and sensation is intact. Left arm has 2+ nonpitting edema, slightly improved compared to yesterday's exam. Skin is without rash or lesion. Neurologic examination is brief but nonfocal. - Labs CBC & Chem 7: 09/03/17 06:50 09/03/17 06:50 Labs: Abnormal Lab Results - Last 24 Hours (Table) 09/03/17 09/03/17 Range/Units 06:50 06:50 RBC 2.60 L (3.80-5.40) m/uL Hgb 8.4 L (11.4-16.0) gm/dL Hct 25.5 L (34.0-46.0) % Plt Count 144 L (150-450) k/uL Monocytes # (Manual) 1.01 H (0-1.0) k/uL Sodium 134 L (137-145) mmol/L Potassium 3.2 L (3.5-5.1) mmol/L BUN 59 H (7-17) mg/dL Creatinine 2.04 H (0.52-1.04) mg/dL Calcium 7.3 L (8.4-10.2) mg/dL Phosphorus 2.3 L (2.5-4.5) mg/dL Microbiology - Last 24 Hours (Table) 08/31/17 16:50 Blood Culture Gram Stain - Final Blood Blood Culture - Final Diphtheroid species Assessment and Plan Plan: Assessment: Poor oral intake with severe dehydration significant electrolyte disturbances and acute kidney injury, all subsequent to a fall and a fractured right elbow, improving History of atrial fibrillation, the patient is currently in A. fib with a controlled rate History of CHF Gastroesophageal reflux disease Hyperlipidemia Hypertension Significant bradycardia and hypotension, responsive to dopamine therapy, recovering Significant hyperkalemia, resolved Plan: Plan dated 08/31/2017 The patient remains on dopamine therapy for her blood pressure and heart rate. We will wean that as the day progresses. We will continue to follow closely. We'll continue to correct electrolytes him. Additional recommendations and suggestions are forthcoming. Both cardiology and nephrology have been consulted. The patient is a DO NOT RESUSCITATE. Labs x-rays and medications are all reviewed. Plan dated 09/01/2017 Patient has developed tachycardia, she is currently in A. fib with a rate of 120 BPM. She is making more urine output, and this is averaging at 100 ML per hour. Actually light profile is improving, she had her initial hemodialysis yesterday. Neurology is following. Patient remains on 6 mics of dopamine, in view of ongoing hypotension, we will give the patient 500 mL of fluid bolus, and try to wean the dopamine off, if vasopressor support is needed we will use norepinephrine in view of patient's tachycardia. Overall she is improving, her right arm pain is reasonably controlled. We will restart Eliquis. Encourage deep breathing and coughing Plan dated 09/02/2017 Levofed has been weaned off since 7:00 this morning, patient remains hemodynamically stable, producing urine, and her renal profile at was noted to be improving. No fever or chills, no cough, chest congestion or sputum production. Patient continues on empiric Rocephin, microbiology is negative thus far. No evidence of leukocytosis. She is tolerating oral intake. Continue encouraging deep breathing and coughing. Is stable to transfer out of the intensive care today to regular general medical surgical floor. Stop daily chest x-rays. Plan dated 09/03/2017 Patient remains stable from pulmonary standpoint, no critical care issues at this time. Right femoral hemodialysis catheter will be removed today, renal profile is improving. We will follow the patient on as-needed basis. Thank you for this consultation. I performed a history & physical examination of the patient and discussed their management with my nurse practitioner, Pastora Osorio. I reviewed the nurse practitioner's note and agree with the documented findings and plan of care. Lung sounds are clear. The findings and the impression was discussed with the patient. I attest to the documentation by the nurse practitioner. Time with Patient: Less than 30
[2017-09-03] MEDS ORDERED: POTASSIUM CHLORIDE ER 20 MEQ TAB.ER PO ONE (12:00)
--- NOTE | 2017-09-03 12:06 | P.PN ---
Subjective Mrs. Jamison is a pleasant 82-year-old female past medical history significant for atrial fibrillation/flutter, heart failure, cardiomyopahty, hypertension, dyslipidemia and kidney disease. She has followed with Dr. Horne in the office. Most recent echocardiogram from 01/2017 reveals severely impaired LV systolic function with EF 25-30%, mild-moderate TR, mild pulmonary hypertension with RVSP 46.15 mmHg, mild LVH and severely dilated left atrium. She is currently maintained on amiodarone 200 mg BID, eliquis 2.5 mg BID and coreg 3.125 mg BID. When she initially presented to the hospital for weakness and fall and was found to be in acute renal failure with hypokalemia and hypotension although maintaining sinus mechanism. Her amiodarone, coreg, lisinopril, aldactone, lasix and eliquis were held. She has undergone dialysis and her atrial flutter has returned. Yesterday her coreg and amiodarone were resumed. [employer] team resumed her Eliquis 09/01 at 2.5 mg BID for renal function. Blood pressure this morning 130/62 heart rate 85 and maintaining oxygen saturation on nasal cannula. She complains of a discomfort in the mid- sternal region that started last night. Denies shortness of breath, palpitations , nausea, vomiting, dizziness or diaphoresis. Telemetry tracings show atrial flutter with controlled ventricular response. Laboratory data reviewed, hgb 8.4 , plt 144, sodium 134, potassium 3.2, creatinine 2.04, phosphorus 2.3, magnesium 1.7. Doppler of left arm reveals acute DVT within left radial vein with overlying SQ edema. Objective - Vital Signs Vital signs: Vital Signs Temp 98.4 F 09/03/17 05:35 Pulse 85 09/03/17 05:35 Resp 16 09/03/17 05:35 BP 130/63 09/03/17 05:35 Pulse Ox 93 L 09/03/17 07:54 Intake & Output 09/02/17 09/03/17 09/03/17 18:59 06:59 18:59 Intake Total 918.75 550 Output Total 450 Balance 468.75 550 Weight 87.1 kg 90.5 kg Intake: IV 450 550 Sodium Chloride 0.9% 1, 450 550 000 ml @ 50 mls/hr IV . [facility]H [facility] Rx#:[id number] Intake, IV Titration 108.75 Amount Norepinephrin 4 mg-0.9% 8.75 Ns Pmx 4 mg In 250 ml @ Titrate IV .Q0M [facility] Rx#: [id number] Sodium Ferric Gluconat- 100 Sucrose 125 mg In Sodium Chloride 0.9% 100 ml @ 100 mls/hr IVPB DAILY [facility] Rx#:[id number] Oral 360 Output: Urine 450 Other: Voiding Method Indwelling Catheter Indwelling Catheter Indwelling Catheter - Exam GENERAL: Well-appearing, well-nourished and in no acute distress. Right arm caste in place. Bruising noted to left arm. NECK: Supple without JVD or thyromegaly. LUNGS: Breath sounds clear to auscultation bilaterally. Respiration equal and unlabored. No wheezes, rales or rhonchi. HEART: Regular rate and rhythm without murmurs, rubs or gallops. S1 and S2 heard. EXTREMITIES: Normal range of motion, left arm edema, non-pitting. No clubbing or cyanosis. Peripheral pulses intact. - Labs CBC & Chem 7: 09/03/17 06:50 09/03/17 06:50 Labs: Abnormal Lab Results - Last 24 Hours (Table) 09/03/17 09/03/17 Range/Units 06:50 06:50 RBC 2.60 L (3.80-5.40) m/uL Hgb 8.4 L (11.4-16.0) gm/dL Hct 25.5 L (34.0-46.0) % Plt Count 144 L (150-450) k/uL Monocytes # (Manual) 1.01 H (0-1.0) k/uL Sodium 134 L (137-145) mmol/L Potassium 3.2 L (3.5-5.1) mmol/L BUN 59 H (7-17) mg/dL Creatinine 2.04 H (0.52-1.04) mg/dL Calcium 7.3 L (8.4-10.2) mg/dL Phosphorus 2.3 L (2.5-4.5) mg/dL Microbiology - Last 24 Hours (Table) 08/31/17 16:50 Blood Culture Gram Stain - Final Blood Blood Culture - Final Diphtheroid species Assessment and Plan Assessment: ASSESSMENT 1. Acute on chronic systolic heart failure 2. Dilated cardiomyopathy 3. History of atrial fibrillation/flutter with controlled ventricular response on assisted anticoagulation with Eliquis. 4. Hyperkalemia on admission, resolved 5. Hypokalemia, currently being replaced per nephrology 6. Right humerus fracture s/p fall 7. Left radial vein DVT, acute. 8. Pleuritic chest pain PLAN Check cardiac profile with troponin and CKMB to rule out an acute coronary event. Obtain repeat EKG. Obtain 2D echocardiogram and doppler study to assess cardiac structure and function. Consider VQ scan to assess for possible PE. Further recommendations to follow based on clinical course. Nurse Practitioner note has been reviewed, I agree with a documented findings and plan of care. Patient was seen and examined.
--- NOTE | 2017-09-03 13:19 | ECHOF ---
Referral Reason:dilated cm MEASUREMENTS -------- HEIGHT: 172.7 cm WEIGHT: 90.7 kg BP: 120/80 RVIDd: 3.0 cm (< 3.3) IVSd: 1.0 cm (0.6 - 1.1) LVIDd: 4.1 cm (3.9 - 5.3) LVPWd: 1.0 cm (0.6 - 1.1) IVSs: 1.8 cm LVIDs: 3.1 cm LVPWs: 1.3 cm Ao Diam: 3.3 cm (2.0 - 3.7) AV Cusp: 2.3 cm (1.5 - 2.6) LA Diam: 4.2 cm (2.7 - 3.8) RAP: 15.00 mmHg RVSP: 50.98 mmHg FINDINGS -------- Atrial fibrillation. This was a technically good study. The left ventricular size is normal. There is mild concentric left ventricular hypertrophy. Overa ll left ventricular systolic function is mild-moderately impaired with, an EF between 40 - 45 %. The right ventricle is normal in size and function. The left atrium is mildly dilated. RA appears enlarged. The aortic valve is trileaflet, and appears structurally normal. No aortic stenosis or regurgitation. Moderate mitral regurgitation is present. Moderate tricuspid regurgitation present. There is moderate pulmonary hypertension. The right oz tricular systolic pressure, as measured by Doppler, is 50.98mmHg. Pulmonic valve appears structurally normal. The aortic root size is normal. The inferior vena cava is mildly dilated. The pericardium is normal. CONCLUSIONS -------- 1. Atrial fibrillation. 2. This was a technically good study. 3. The left ventricular size is normal. 4. There is mild concentric left ventricular hypertrophy. 5. Overall left ventricular systolic function is mild-moderately impaired with, an EF between 40 - 45 %. 6. The right ventricle is normal in size and function. 7. The left atrium is mildly dilated. 8. RA appears enlarged. 9. The aortic valve is trileaflet, and appears structurally normal. No aortic stenosis or regurgitati on. 10. Moderate mitral regurgitation is present. 11. Moderate tricuspid regurgitation present. 12. There is moderate pulmonary hypertension. 13. The right ventricular systolic pressure, as measured by Doppler, is 50.98mmHg. 14. Pulmonic valve appears structurally normal. 15. The aortic root size is normal. 16. The inferior vena cava is mildly dilated. 17. The pericardium is normal. GAS DISPATCHER: Lyric Ramírez RDCS
--- NOTE | 2017-09-03 13:41 | NM ---
EXAMINATION TYPE: NM pul vent and perfuse DATE OF EXAM: 09/03/2017 COMPARISON: Chest x-ray 09/02/2017 HISTORY: Pain in chest TECHNIQUE: Utilizing inhalation of 29.6 mCi Tc 99m DTPA aerosol and intravenous injection of 4.91 mC i of Tc 99m MAA, ventilation and perfusion images are acquired post injection in multiple projections . FINDINGS: There is patchy distribution on the ventilation portion of the study. This will limit the evaluation. There are patchy perfusion defects which appear to match defects on ventilation. Defects in ventilat ion are larger than the perfusion defects. Moderate enlargement mismatched defects are not identified . Triple matched defects are not evident. IMPRESSION: 1. Indeterminate probability for pulmonary embolism based on PIOPED 2 criteria. 2. Patchy distribution of ventilation radiotracer limits evaluation and can reflect COPD.
[2017-09-03 14:18] LABS: Troponin I 0.104 ng/mL (0.000-0.034)
--- NOTE | 2017-09-03 14:31 | XR ---
EXAMINATION TYPE: XR sternum DATE OF EXAM: 09/03/2017 COMPARISON: NONE HISTORY: Pain fall TECHNIQUE: 3 views sternum FINDINGS: No displaced fractures are identified. Retrosternal space appears intact. IMPRESSION: 1. Normal sternum.
[2017-09-03] MEDS ORDERED: SENNOSIDES-DOCUSATE SODIUM 1 EACH TAB PO PRN (17:02)
--- NOTE | 2017-09-03 18:54 | PN ---
PROGRESS NOTE DATE OF SERVICE: 09/03/2017 I am covering for Dr. Cristian Anglin. This 82-year-old woman is admitted dehydration, acute kidney injury, also complaining of chest pain. The patient also had a fall and significant contusion of the left side of the chest. The chest pain is mainly in the lower part of the chest. Cardiology following the patient. Troponin is indeterminate at this time. The patient also had a poor intake. The patient also had a fall and a fracture of the right elbow also. The patient underwent multiple evaluations including 2D echo with Doppler at this time today by Cardiology and which is read as showing ejection fraction about 40-45% , mild impairment and moderate mitral and tricuspid regurgitations and troponin is only 0.104. The patient also had a V/Q scan and V/Q scan showed indeterminate probability and patchy distribution of tracer indication of COPD. Sternal x-ray was also sought , which showed normal sternum. PAST MEDICAL HISTORY: Reviewed. REVIEW OF SYSTEMS: Cardiovascular: As mentioned earlier. Respirations: As mentioned earlier. GI no nausea or vomiting. : No dysuria. Central nervous system: No numbness, weakness. CURRENT MEDICATIONS ARE: Reviewed and include: 1. [place] 5 mg q.4h. 2. Maalox 30 mL q.6h p.r.n. 3. Cordarone 20 mg p.o. b.i.d. 4. Eliquis 2.5 mg b.i.d. 5. Coreg 3.1 mg b.i.d. 6. Rocephin 1 g daily. 7. Ancef. 8. Multivitamins. 9. Narcan 0.2 q.2h p.r.n. 10.Levophed. 11.Protonix. PHYSICAL EXAM: GENERAL: Patient is alert, oriented x3. VITAL SIGNS: Pulse is 50. Blood pressure 140/66. Respirations 16, temperature 97.8, pulse ox 93% on 2 L. HEENT: Conjunctivae normal. Oral mucosa moist. NECK: Neck is no jugular venous distention. No carotid bruit. No lymph node enlargement. CARDIOVASCULAR: S1, S2 muffled. RESPIRATORY: Breath sounds diminished in the bases. A few scattered rhonchi and crackles. ABDOMEN: Soft, nontender. No mass palpable. LEGS: No edema and no swelling. NERVOUS SYSTEM: Higher functions as mentioned earlier. Moves all four limbs. No focal deficits. SKIN: No ulcer, rash or bleeding. Bruise on the left chest present. LABS: WBC 4.8, hemoglobin is 8.4. D-dimer is 1.62 and creatinine is 2.04 and troponin 0.104. ASSESSMENT: 1. Dehydration secondary to poor p.o. intake and as well as acute kidney injury. 2. Chronic kidney disease stage 3. 3. Acute on chronic renal failure. 4. Chest pain possible rule out acute non ST-segment myocardial infarction with troponin 0.104. 5. Chest wall contusion with no evidence of fractures. 6. Metabolic acidosis. 7. Atrial fibrillation with rapid ventricular rate. 8. Fractured humerus. 9. History of congestive heart failure, ejection fraction 40-45% with chronic systolic dysfunction. 10.Moderate mitral and tricuspid regurgitation. 11.Hypertension. 12.Gastroesophageal reflux disease. 13.Hyperlipidemia. 14.Bradycardia. 15.Hypokalemia improved. 16.Gait dysfunction. 17.NO CODE, NO CPR, NO VENT. RECOMMENDATIONS AND DISCUSSION: This 82-year-old woman who presented with multiple complex medical issues. We will monitor the patient closely. Continue the current medications, management and symptomatic treatment. Otherwise, at this time, I would recommend symptomatic treatment. The patient is also already on Eliquis and we will continue the same. Symptomatic treatment of the pain. Telemetry. Continue with cardiology consultations. Guarded prognosis because of the multiple complex medical issues and further recommendations to follow. See orders for details. I would also recommend PT/ OT evaluation also and possibly rehab also. MARCELLO / BERHANEN: [id number] / GABBY
[2017-09-03 20:32] LABS: Troponin I 0.083 ng/mL (0.000-0.034)
[2017-09-04 06:33] LABS: Basophils % (A) 0 %; Eosinophils # (A) 0.1 k/uL (0-0.7); Eosinophils % (A) 2 %; HCT 27.6 % (34.0-46.0); Lymphocytes # (A) 0.9 k/uL (1.0-4.8); Lymphocytes % (A) 23 %; MCH 32.9 pg (25.0-35.0); MCHC 32.5 g/dL (31.0-37.0); MCV 101.2 fL (80.0-100.0); Macrocytosis Slight; Mean Platelet Volume 7.3; Monocytes # (A) 0.4 k/uL (0-1.0); Monocytes % (A) 11 %; Neutrophils # (A) 2.4 k/uL (1.3-7.7); Neutrophils % (A) 61 %; Platelet Count 133 k/uL (150-450); RBC 2.73 m/uL (3.80-5.40)
[2017-09-04 06:37] LABS: Calcium 7.7 mg/dL (8.4-10.2); Magnesium 1.9 mg/dL (1.6-2.3); Phosphorus 2.4 mg/dL (2.5-4.5); Potassium 4.2 mmol/L (3.5-5.1)
[2017-09-04] MEDS: PANTOPRAZOLE 40 MG TABLET PO SCH (06:41)
[2017-09-04] MEDS: SODIUM CHLORIDE 0.9% 1,000 ML IV SCH (06:41)
[2017-09-04] MEDS: CARVEDILOL 3.125 MG TAB PO SCH ×2 (06:42→17:46)
[2017-09-04] MEDS: cefTRIAXone IN SWFI 1,000 MG/10 ML SYRINGE IVP SCH (09:11)
[2017-09-04] MEDS: SODIUM FERRIC GLUCONAT-SUCROSE 125 MG in SODIUM CHLORIDE 0.9% 100 ML IVPB SCH (09:11)
[2017-09-04] MEDS: APIXABAN 2.5 MG TABLET PO SCH ×2 (09:13→19:29)
[2017-09-04] MEDS: AMIODARONE 200 MG TAB PO SCH ×2 (09:13→20:43)
[2017-09-04] MEDS: LOSARTAN 50 MG TAB PO SCH (12:07)
--- NOTE | 2017-09-04 15:08 | P.PN ---
Subjective Progress Note Date: 09/04/17 Seen and examined for the follow-up of acute kidney injury. Has hematuria and Bolton catheter today. No dysuria. Her dialysis Fernandez catheter was removed this morning. Objective - Vital Signs Vital signs: Vital Signs Temp 98.5 F 09/04/17 07:00 Pulse 54 L 09/04/17 08:00 Resp 22 09/04/17 08:00 BP 162/101 09/04/17 07:00 Pulse Ox 96 09/03/17 20:10 Intake & Output 09/03/17 09/04/17 09/04/17 18:59 06:59 18:59 Intake Total 400 1180 180 Output Total 1100 Balance 400 80 180 Weight 90.5 kg 90 kg Intake: IV 400 700 Sodium Chloride 0.9% 1, 400 700 000 ml @ 50 mls/hr IV . Q20H [facility] Rx#:[id number] Oral 480 180 Output: Urine 1100 Other: Voiding Method Indwelling Catheter Indwelling Catheter Indwelling Catheter # Voids 1 - Exam Lying in bed no acute distress S1-S2 heard Abdomen soft distended Bolton draining bloody urine Edema - Labs CBC & Chem 7: 09/04/17 05:40 09/04/17 05:40 Labs: Abnormal Lab Results - Last 24 Hours (Table) 09/03/17 09/04/17 09/04/17 Range/Units 18:55 05:40 05:40 RBC 2.73 L (3.80-5.40) m/uL Hgb 9.0 L (11.4-16.0) gm/dL Hct 27.6 L (34.0-46.0) % MCV 101.2 H (80.0-100.0) fL Plt Count 133 L (150-450) k/uL Lymphocytes # 0.9 L (1.0-4.8) k/uL Sodium 134 L (137-145) mmol/L BUN 45 H (7-17) mg/dL Creatinine 1.70 H (0.52-1.04) mg/dL Calcium 7.7 L (8.4-10.2) mg/dL Phosphorus 2.4 L (2.5-4.5) mg/dL Troponin I 0.083 H* (0.000-0.034) ng/mL Microbiology - Last 24 Hours (Table) 08/31/17 16:50 Blood Culture Gram Stain - Final Blood Blood Culture - Final Diphtheroid species Assessment and Plan Assessment: Impression: #1 RANDI status post HD, resolved. Creatinine improving. #2 hypervolemic hyponatremia #3 edema #4 CHF with systolic dysfunction EF 25-30% #5 CKD stage 4 baseline creatinine 1.1-1.3. #6 hypertension with CKD #7 immaturity a suspect secondary to trauma and also on blood thinners. Recommendations: #1 stop IV fluids #2 add Lasix 40 mg IV daily #3 continue with IV iron. #4 ELEQUIS has been discontinued for hematuria. If persistent consult urology
[2017-09-04] MEDS ORDERED: ALPRAZolam 0.25 MG TAB PO PRN (16:13)
--- NOTE | 2017-09-04 16:49 | PN ---
PROGRESS NOTE Mrs. Jamison is an 82-year-old lady with a history of congestive heart failure. At the time of my evaluation, she seems to be clinically about the same. She indicates to me that she is actually feeling somewhat better today. She is known to have ejection fraction in the 25-30% range with some mild to moderate pulmonary hypertension and also has a history of atrial fibrillation on amiodarone. She seems to be breathing better today. Her atrial fibrillation rate appears to be better also. I am recommending that we start her on a small dose of losartan 50 mg daily and see how she tolerates this. She is already on apixaban and carvedilol, which we will continue. Her vital signs are stable with a blood pressure that is somewhat on the higher side. Pulse rate is about 60 per minute. Rhythm appears to be atrial fibrillation. I am recommending that we continue current medications and we will add a small dose of losartan and her diuresis is also being managed by Nephrology. Prognosis remains guarded. MMODL / IJN: [id number] /
[2017-09-04 16:52] LABS: INR 1.1 (<1.2)
[2017-09-04] MEDS: FUROSEMIDE 10 MG/ML 4 ML VIAL IV SCH (17:46)
[2017-09-04 18:32] LABS: Appearance,Urine Clear (Clear); Bilirubin,Urine Negative (Negative); Blood,Urine Large (Negative); Color,Urine Light Yellow; Glucose,Urine (UA) Trace (Negative); Ketones,Urine Negative (Negative); Leukocyte Esterase,Urine Negative (Negative); Nitrite,Urine Negative (Negative); PH, Urine 5.5 (5.0-8.0); Protein,Urine Negative (Negative); RBC,Urine 89 /hpf (0-5); Specific Gravity,Urine 1.006 (1.001-1.035); Squamous Epithelial Cell,Urine <1 /hpf (0-4); Urobilinogen,Urine <2.0 mg/dL (<2.0); WBC,Urine 32 /hpf (0-5)
--- NOTE | 2017-09-04 20:04 | PN ---
PROGRESS NOTE DATE OF SERVICE: 09/04/2017 I am covering for Dr. Cristian Anglin. This 82-year-old woman who was admitted with dehydration secondary to poor p.o. intake, also had chest pain. The troponins are slightly elevated. Patient also had a possible chest wall contusion also. Multiple consultants are following the patient closely including cardiology and Nephrology. Ejection fraction found to be 25 to 30% with moderate pulmonary hypertension. The patient is already on apixaban and the patient is also having some gross hematuria at this time. VQ scan is indeterminate probability. PAST MEDICAL HISTORY: Reviewed. REVIEW OF SYSTEMS: Cardiovascular: No angina or palpitations. Respirations: As mentioned earlier. GI as mentioned earlier. no dysuria. Nervous System: As mentioned earlier. Allergy/Immunology: No asthma or hayfever. CURRENT MEDICATIONS ARE: Reviewed and include: 1. [place] 5 mg q.4h p.r.n. 2. Meloxicam. 3. Xanax 0.125 mg p.o. daily p.r.n. 4. Cordarone 200 mg p.o. b.i.d. 5. Eliquis 2.5 mg b.i.d. 6. Coreg 3.125 mg p.o. b.i.d. 7. Rocephin 1 g daily. 8. Iron sulfate. 9. Lasix 40 mg daily. 10.Cozaar. 11.Narcan. 12.Levophed. 13.Protonix. 14.Senokot. PHYSICAL EXAM: GENERAL: Patient is alert, oriented x3. VITAL SIGNS: Pulse 82. Blood pressure 162/101, respiration 22, temperature 98.2, pulse ox 94% on 2 L. HEENT is conjunctivae normal. Oral mucosa moist. NECK: Is no jugular venous distention. No lymph node enlargement. CARDIOVASCULAR SYSTEM: S1, S2 muffled. RESPIRATORY: Breath sounds diminished in the bases. A few bilateral scattered rhonchi and crackles. ABDOMEN: Soft, nontender. No mass. LEGS: No edema, no swelling. CENTRAL NERVOUS SYSTEM: No focal deficits. Bolton catheter draining hematuria. LABS: WBC 4, hemoglobin is 9, INR is 1.1, creatinine is 1.70. Troponin 0.083. ASSESSMENT: 1. Dehydration secondary to poor p.o. intake and as well as acute kidney injury, present on admission. 2. Chronic kidney disease stage 3. 3. Acute on chronic renal failure. 4. Chest pain possible acute non ST segment elevation myocardial infarction with troponin 0.104. 5. Chest wall contusion with no evidence of fractures. 6. Hematuria. 7. On apixaban. 8. Metabolic acidosis. 9. Atrial fibrillation with rapid ventricular rate. 10.Fractured humerus. 11.Indeterminate VQ scan. 12.History of congestive heart failure, ejection fraction 40-45% with chronic systolic dysfunction. 13.Moderate mitral and tricuspid regurgitation. 14.Hypertension. 15.Gastroesophageal reflux disease. 16.Hyperlipidemia. 17.Bradycardia. 18.Hypokalemia. 19.Gait dysfunction. 20.NO CODE, NO CPR, NO VENT. RECOMMENDATIONS AND DISCUSSION: Recommend to continue current medication, continue symptomatic treatment. Recommend to hold the apixaban at this time. Continue the rest of medications. Closely follow with multiple consultants. Monitor creatinine closely. Symptomatic treatment will be provided. Prognosis extremely guarded in this 82-year-old woman with a past medical history multiple complex medical issues. Further recommendations to follow. MMODL / IJN: [id number] /
[2017-09-05] MEDS: FUROSEMIDE 10 MG/ML 4 ML VIAL IV SCH (05:15)
[2017-09-05 06:46] LABS: Calcium 8.2 mg/dL (8.4-10.2); Magnesium 1.8 mg/dL (1.6-2.3); Phosphorus 2.4 mg/dL (2.5-4.5); Potassium 4.6 mmol/L (3.5-5.1)
[2017-09-05] MEDS: CARVEDILOL 3.125 MG TAB PO SCH ×2 (07:01→18:20)
[2017-09-05] MEDS: PANTOPRAZOLE 40 MG TABLET PO SCH (07:02)
[2017-09-05 07:18] LABS: HCT 30.7 % (34.0-46.0); HGB 9.7 gm/dL (11.4-16.0); Hypochromasia Slight; MCH 33.1 pg (25.0-35.0); MCHC 31.6 g/dL (31.0-37.0); MCV 104.7 fL (80.0-100.0); Macrocytosis Moderate; Platelet Count 171 k/uL (150-450); RBC 2.93 m/uL (3.80-5.40); RDW 14.1 % (11.5-15.5); WBC 5.8 k/uL (3.8-10.6)
[2017-09-05 07:30] LABS: Eosinophils # (M) 0.23 k/uL (0-0.7); Lymphocytes # (M) 1.22 k/uL (1.0-4.8); Neutrophils # (M) 3.65 k/uL (1.3-7.7); Neutrophils % (M) 63 %; Nucleated Red Blood Cells 0 /100 WBC (0-0); Total Cells Counted 100
[2017-09-05] MEDS: AMIODARONE 200 MG TAB PO SCH ×2 (09:48→19:48)
[2017-09-05] MEDS: APIXABAN 2.5 MG TABLET PO SCH (09:48)
[2017-09-05] MEDS: LOSARTAN 50 MG TAB PO SCH (09:49)
[2017-09-05] MEDS: SODIUM FERRIC GLUCONAT-SUCROSE 125 MG in SODIUM CHLORIDE 0.9% 100 ML IVPB SCH (09:49)
[2017-09-05] MEDS: cefTRIAXone IN SWFI 1,000 MG/10 ML SYRINGE IVP SCH (09:49)
--- NOTE | 2017-09-05 13:17 | P.PN ---
Subjective Progress Note Date: 09/05/17 Seen and examined for the follow-up of acute kidney injury. Still has persistent hematuria. Good urine output. Objective - Vital Signs Vital signs: Vital Signs Temp 98.5 F 09/05/17 08:00 Pulse 64 09/05/17 08:00 Resp 20 09/05/17 08:00 BP 138/72 09/05/17 08:00 Pulse Ox 94 L 09/05/17 08:00 Intake & Output 09/04/17 09/05/17 09/05/17 18:59 06:59 18:59 Intake Total 546 270 480 Output Total 600 1200 Balance -54 930 480 Weight 94.5 kg Intake: IV 30 0.9 30 Oral 546 240 480 Output: Urine 600 1200 Other: Voiding Method Indwelling Catheter Indwelling Catheter Indwelling Catheter - Exam Lying in bed no acute distress S1-S2 heard Abdomen soft distended Bolton draining bloody urine Edema - Labs CBC & Chem 7: 09/05/17 05:36 09/05/17 05:36 Labs: Abnormal Lab Results - Last 24 Hours (Table) 09/04/17 09/04/17 09/05/17 Range/Units 15:25 18:00 05:36 RBC 2.93 L (3.80-5.40) m/uL Hgb 9.7 L (11.4-16.0) gm/dL Hct 30.7 L (34.0-46.0) % MCV 104.7 H (80.0-100.0) fL APTT 32.3 H (22.0-30.0) sec BUN (7-17) mg/dL Creatinine (0.52-1.04) mg/dL Calcium (8.4-10.2) mg/dL Phosphorus (2.5-4.5) mg/dL Urine Glucose (UA) Trace H (Negative) Urine Blood Large H (Negative) Urine RBC 89 H (0-5) /hpf Urine WBC 32 H (0-5) /hpf 09/05/17 Range/Units 05:36 RBC (3.80-5.40) m/uL Hgb (11.4-16.0) gm/dL Hct (34.0-46.0) % MCV (80.0-100.0) fL APTT (22.0-30.0) sec BUN 39 H (7-17) mg/dL Creatinine 1.50 H (0.52-1.04) mg/dL Calcium 8.2 L (8.4-10.2) mg/dL Phosphorus 2.4 L (2.5-4.5) mg/dL Urine Glucose (UA) (Negative) Urine Blood (Negative) Urine RBC (0-5) /hpf Urine WBC (0-5) /hpf Microbiology - Last 24 Hours (Table) 09/04/17 18:00 Urine Culture - Preliminary Urine,Catheterized 08/31/17 16:50 Blood Culture Gram Stain - Final Blood Blood Culture - Final Diphtheroid species Assessment and Plan Assessment: Impression: #1 RANDI status post HD, resolved. Creatinine improving, close to baseline. #2 hypervolemic hyponatremia improving #3 edema #4 CHF with systolic dysfunction EF 25-30% #5 CKD stage 4 baseline creatinine 1.1-1.3. #6 hypertension with CKD #7 hematuria suspect secondary to trauma /UTI and also on blood thinners. Recommendations: #1 renal function stable and improving close to baseline. continue with Lasix 40 mg IV daily #2 consider urology evaluation for persistent hematuria. #3 on antibiotics for urinary tract infection #4 repeat labs in the morning
--- NOTE | 2017-09-05 13:59 | PN ---
PROGRESS NOTE This is a lady with a history of atrial fibrillation, hypertension, who has been having some hematuria yesterday and Eliquis has been discontinued. Her breathing is easier. She is actually feeling better. Vital signs are stable. She was also anemic. S1-S2 are heard normally, irregular rate and rhythm noted. Short systolic murmur noted. Lungs reveal improved air entry. Abdomen and lower extremity exam is unchanged. From a cardiac standpoint, I believe under the circumstances with significant hematuria, we will discontinue Eliquis but she remains at risk of embolic stroke and patient is fully aware of this. MMODL / IJN: [id number] /
--- NOTE | 2017-09-05 18:26 | PN ---
PROGRESS NOTE DATE OF SERVICE: 09/05/2017 I am covering for Dr. Cristian Anglin. This 82-year-old woman was admitted with dehydration, also chronic kidney disease. The patient also had chest pain. The patient also complained of tiredness and weakness. The patient also had evidence of chest contusion. X-rays showed no fracture at this time. PAST MEDICAL HISTORY: Reviewed. REVIEW OF SYSTEMS: Cardiovascular: No angina, palpitations. RESPIRATORY: As mentioned earlier. GI: No nausea, vomiting. : No dysuria. NERVOUS: No numbness, weakness. CURRENT MEDICATIONS: Reviewed, include: 1. [place] 5 mg q.4h p.r.n. 2. [place] 30 mL q.4h p.r.n. 3. Xanax 0.5 daily p.r.n. 4. Cordarone 200 mg b.i.d. 5. Eliquis 2.5 mg b.i.d. 6. Coreg 3.125 mg b.i.d. 7. Rocephin 1 g daily. 8. Lasix 40 mg IV daily. 9. Cozaar 50 mg daily. 10.Narcan 0.2 q.2h p.r.n. 11.Levophed. 12.Protonix. 13.Senokot. PHYSICAL EXAM: Patient is alert, oriented x2. Pulse 64, blood pressure 130/72, respirations 20, temperature 98.5, pulse ox 94% on 2L. HEENT: Conjunctivae normal. Oral mucosa moist. NECK: No jugular venous distention. No carotid bruits. No lymph node enlargement. CARDIOVASCULAR: S1, S2 muffled. RESPIRATORY: Breath sounds diminished in the bases. A few scattered rhonchi and crackles. ABDOMEN: Soft, nontender. No mass palpable. LEGS: No edema. No swelling. NERVOUS SYSTEM: Diffusely weak. LAB STUDIES: White count 5.8, hemoglobin is 9.7. Creatinine is 1.5. UA noted. ASSESSMENT: 1. Dehydration secondary to poor p.o. intake as well as acute kidney injury, present on admission. 2. Chronic kidney disease stage 3. 3. Acute on chronic renal failure. 4. Chest pain, possible acute non ST-segment elevation myocardial infarction with troponin 0.104. 5. Chest wall contusion. No evidence of fractures. 6. Hematuria. 7. On apixaban. 8. Metabolic acidosis. 9. Atrial fibrillation with rapid ventricular rate. 10.Fractured humerus history. 11.Indeterminate V/Q scan. 12.History of congestive heart failure with ejection fraction 40%-45% with chronic systolic dysfunction. 13.Moderate mild tricuspid regurgitation. 14.Hypertension. 15.Gastroesophageal reflux disease. 16.Hyperlipidemia. 17.History of bradycardia. 18.Hypokalemia. 19.Gait dysfunction. 20.NO CODE, NO CPR, NO VENT. RECOMMENDATIONS AND DISCUSSION: Recommend to continue current medical management, continue monitoring and symptomatic treatment. Otherwise at this time, I recommend continuing with beta blockers, empiric antibiotics. Hold the heparin for now. Otherwise, PT/OT evaluation and ECF rehab. Continue the rest of the medications. Guarded prognosis because of multiple complex medical issues. Further recommendations to follow. MMODL / IJN: [id number] /
[2017-09-06 03:42] LABS: HCT 25.3 % (34.0-46.0); Hypochromasia Moderate; MCHC 31.1 g/dL (31.0-37.0); Macrocytosis Moderate; Mean Platelet Volume 6.9; Platelet Count 133 k/uL (150-450); RBC 2.39 m/uL (3.80-5.40); RDW 14.7 % (11.5-15.5); WBC 4.3 k/uL (3.8-10.6)
[2017-09-06 03:48] LABS: HGB 7.9 gm/dL (11.4-16.0)
[2017-09-06 04:01] LABS: Calcium 7.7 mg/dL (8.4-10.2); Potassium 4.6 mmol/L (3.5-5.1)
[2017-09-06 04:37] LABS: Myelocytes # (M) 0.04 k/uL (0); Myelocytes % 1 %; Nucleated Red Blood Cells 0 /100 WBC (0-0)
[2017-09-06 04:39] LABS: Eosinophils # (M) 0.04 k/uL (0-0.7); Lymphocytes # (M) 1.63 k/uL (1.0-4.8); Monocytes # (M) 0.43 k/uL (0-1.0); Neutrophils # (M) 2.19 k/uL (1.3-7.7); Neutrophils % (M) 51 %; Total Cells Counted 200
[2017-09-06] MEDS: CARVEDILOL 3.125 MG TAB PO SCH ×2 (09:03→16:56)
[2017-09-06] MEDS: cefTRIAXone IN SWFI 1,000 MG/10 ML SYRINGE IVP SCH (09:09)
[2017-09-06] MEDS: LOSARTAN 50 MG TAB PO SCH (09:09)
[2017-09-06] MEDS: PANTOPRAZOLE 40 MG TABLET PO SCH (09:09)
[2017-09-06] MEDS: AMIODARONE 200 MG TAB PO SCH (09:26)
[2017-09-06] MEDS: FUROSEMIDE 10 MG/ML 4 ML VIAL IV SCH ×3 (09:26→23:49)
[2017-09-06 10:06] LABS: Magnesium 1.8 mg/dL (1.6-2.3)
--- NOTE | 2017-09-06 13:06 | P.PN ---
Subjective Progress Note Date: 09/06/17 Seen and examined for the follow-up of acute kidney injury. Hematuria improving , hemoglobin dropped 2 g. Edema is getting worse Objective - Vital Signs Vital signs: Vital Signs Temp 97.3 F L 09/06/17 08:52 Pulse 57 L 09/06/17 11:32 Resp 18 09/06/17 11:32 BP 92/45 09/06/17 11:32 Pulse Ox 100 09/06/17 11:32 Intake & Output 09/05/17 09/06/17 09/06/17 18:59 06:59 18:59 Intake Total 480 270 Output Total 1025 300 Balance -545 -30 Weight 76 kg 83.4 kg Intake: IV 30 0.9 30 Oral 480 240 Output: Urine 1025 300 Other: Voiding Method Indwelling Catheter Indwelling Catheter Indwelling Catheter # Bowel Movements 1 - Exam Lying in bed no acute distress S1-S2 heard Abdomen soft distended Bolton draining bloody urine Edema - Labs CBC & Chem 7: 09/06/17 03:03 09/06/17 03:26 Labs: Abnormal Lab Results - Last 24 Hours (Table) 09/06/17 09/06/17 Range/Units 03:03 03:26 RBC 2.39 L (3.80-5.40) m/uL Hgb 7.9 L D (11.4-16.0) gm/dL Hct 25.3 L (34.0-46.0) % MCV 106.0 H (80.0-100.0) fL Plt Count 133 L (150-450) k/uL Myelocytes # (Manual) 0.04 H (0) k/uL BUN 41 H (7-17) mg/dL Creatinine 1.60 H (0.52-1.04) mg/dL Calcium 7.7 L (8.4-10.2) mg/dL Microbiology - Last 24 Hours (Table) 09/04/17 18:00 Urine Culture - Final Urine,Catheterized Assessment and Plan Assessment: Impression: #1 RANDI status post HD, resolved. Creatinine improving, close to baseline. #2 hypervolemic hyponatremia improving #3 edema #4 CHF with systolic dysfunction EF 25-30% #5 CKD stage 4 baseline creatinine 1.1-1.3. #6 hypertension with CKD, blood pressure is low normal. #7 hematuria suspect secondary to trauma /UTI and also on blood thinners. Recommendations: #1 renal function stable and improving close to baseline. #2 increase Lasix to 40 mg IV 3 times a day for better diuresis. If fails then plan for Lasix gtt. #3 on antibiotics for urinary tract infection #4 decrease Cozaar to 12.5 mg 4 low blood pressure.
[2017-09-06 14:10] LABS: T4, Free (Free Thyroxine) 2.4 ng/dL (0.78-2.19)
--- NOTE | 2017-09-06 16:36 | PN ---
PROGRESS NOTE This elderly lady has significant LV dysfunction. Last night, she developed some bradycardia. I am recommending that we discontinue amiodarone altogether and hold Coreg for heart rate of less than 60. Her hemoglobin is down to 7.9. She has extensive bruising all over the body. I will discontinue Eliquis and she is fully aware of the fact that there is risk of embolic stroke. S1, S2 heard normally. JVD is evident. Lungs reveal diminished air entry. Abdomen is distended. Multiple bruises noted. Plan is to consider a Lasix drip, but I will defer the decision to the supervisor paper machine and we will see whether pulse Lasix IV push or Lasix drip is better. I will let the supervisor paper machine decide, but she should be diuresed carefully and we will discontinue anticoagulation. Prognosis remains poor. MMCASPERL / IJN: [id number] /
--- NOTE | 2017-09-06 18:07 | XR ---
EXAMINATION: XR chest 1V portable DATE AND TIME: 09/06/2017 5:40 PM ORDERING PROVIDER: Blaire Mai CLINICAL INDICATION: chf TECHNIQUE: Portable AP upright COMPARISON: None. DESCRIPTION: The overlying soft tissues are prominent. Study is negative for pulmonary edema. The right lung appears clear. However, the left hemidiaphragm is silhouetted, and there is a thickene d pleural shadow laterally on the left. These findings suggest left pleural effusion with partial ai rlessness of the left lower lobe. This can correlate with left lower lobe atelectasis with or without concurrent bronchopneumonia. At the left hilum is a linear horizontal band band, most consistent wit h subsegmental atelectasis radiating from the hilum. unremarkable. The cardiac silhouette is moderately enlarged, unchanged. The right pleural space is negative; there is no pneumothorax. The skeletal structures and soft tissues are negative for acute findings. IMPRESSION: 1. NEW LEFT LUNG BASE LUNG/PLEURAL SPACE PROCESS. 2. MODERATELY ENLARGED CARDIAC SILHOUETTE, UNCHANGED.
--- NOTE | 2017-09-06 19:06 | PN ---
PROGRESS NOTE DATE OF SERVICE: 09/06/2017 I am covering for Dr. Cristian Anglin. HISTORY OF PRESENT ILLNESS: This 82-year-old woman was admitted with dehydration, also had multiple other medical problems. The patient is being followed by Nephrology and as well as Cardiology. The patient had some bradycardia noted. Amiodarone has been discontinued. The most recent chest x-ray done about 4 days ago. No chest pain. No palpitations. No fever. EXAM: Alert and oriented x3. Pulse is 54, blood pressure 140/97 respiration 17, temperature 97 degrees, pulse ox 98% on 2 L HEENT: Conjunctivae normal. NECK: No JVD. CARDIOVASCULAR: S1, S2. RESPIRATORY: Diminished breath sounds at the bases. A few scattered rhonchi. No crackles. ABDOMEN: Soft, nontender. No mass palpable. LEGS: No edema. NERVOUS SYSTEM: No focal deficits. LABS: Creatinine 1.60 and free T4 is 2.4. TSH is 2.360. ASSESSMENT: 1. Dehydration secondary to poor p.o. intake as well as acute kidney injury, present on admission. 2. Chronic kidney disease stage 3. 3. Acute on chronic renal failure. 4. Chest pain, possible acute non ST elevation myocardial infarction with troponin 0.104. 5. Chest wall contusion. No evidence of fracture. 6. Hematuria. 7. Metabolic acidosis. 8. Atrial fibrillation with rapid ventricular rate. 9. Fractured humerus history. 10.Indeterminate V/Q scan. 11.History of CHF, ejection fraction 40-45% with chronic systolic dysfunction. 12.Moderate tricuspid regurgitation. 13.Hypertension. 14.GERD. 15.Hyperlipidemia. 16.History of bradycardia. 17.Hypokalemia. 18.Gait dysfunction. 19.No code, no CPR, no VENT. RECOMMENDATIONS AND DISCUSSION: I recommend to continue current management, continue symptomatic treatment, continue with the current medications, continue with empiric antibiotics. I would also recommend repeat labs and closely follow with Nephrology and Cardiology. Guarded prognosis because of the multiple complex medical issues and further recommendations to follow. I would order a chest x-ray also. MMODL / IJN: [id number] /
[2017-09-07 06:38] LABS: HCT 25.2 % (34.0-46.0); HGB 8.1 gm/dL (11.4-16.0); Hypochromasia Slight; MCH 33.9 pg (25.0-35.0); MCHC 32.3 g/dL (31.0-37.0); MCV 105.1 fL (80.0-100.0); Macrocytosis Moderate; Mean Platelet Volume 7.7; Platelet Count 137 k/uL (150-450); RDW 14.1 % (11.5-15.5); WBC 4.6 k/uL (3.8-10.6)
[2017-09-07 06:41] LABS: Calcium 8.1 mg/dL (8.4-10.2); Potassium 4.7 mmol/L (3.5-5.1)
[2017-09-07] MEDS: PANTOPRAZOLE 40 MG TABLET PO SCH (06:50)
[2017-09-07] MEDS: CARVEDILOL 3.125 MG TAB PO SCH ×2 (06:50→15:56)
[2017-09-07 07:07] LABS: Eosinophils # (M) 0.14 k/uL (0-0.7); Monocytes # (M) 0.37 k/uL (0-1.0); Neutrophils # (M) 2.39 k/uL (1.3-7.7); Neutrophils % (M) 52 %; Nucleated Red Blood Cells 0 /100 WBC (0-0); Total Cells Counted 100
[2017-09-07] MEDS: FUROSEMIDE 10 MG/ML 4 ML VIAL IV SCH ×3 (08:54→23:57)
[2017-09-07] MEDS: LOSARTAN 25 MG TAB PO SCH (08:54)
[2017-09-07] MEDS: cefTRIAXone IN SWFI 1,000 MG/10 ML SYRINGE IVP SCH (08:58)
[2017-09-07 09:56] VITALS: BMI 28.3
[2017-09-07] MEDS ORDERED: DARBEPOETIN ALFA 40 MCG/0.4 ML SYRINGE SQ SCH (10:00)
--- NOTE | 2017-09-07 10:00 | P.PN ---
Subjective Patient is seen in follow-up for acute kidney injury. Patient's creatinine was 6.2 on admission and was also noted to be hyperkalemic which did not improve despite medical management. She underwent 1 treatment of hemodialysis on August 31. Renal function improved and dialysis catheter has been discontinued. She is nonoliguric. She is noted to have ejection fraction of 40-45% with moderate mitral regurgitation, moderate tricuspid regurgitation and pulmonary hypertension. Patient became quite edematous and is currently maintained on Lasix 40 mg IV 3 times daily. Urine output is documented is 1.9 L in the last 24 hours. Creatinine is up to 1.7 today. Blood pressures low. Afebrile. General: The patient appeared well nourished and normally developed. HEENT: Head exam is unremarkable. Neck is without jugular venous distension. LUNGS: Breath sounds decreased. HEART: Rate and Rhythm are regular. First and second heart sounds normal. No murmurs, rubs or gallops. ABDOMEN: Abdominal exam reveals normal bowel sounds. Non-tender and non- distended. No evidence of peritonitis. EXTREMITITES: 1+ edema. Objective - Vital Signs Vital signs: Vital Signs Temp 97.9 F 09/07/17 08:45 Pulse 65 09/07/17 08:45 Resp 18 09/07/17 08:45 BP 112/52 09/07/17 08:45 Pulse Ox 98 09/07/17 08:45 Intake & Output 09/06/17 09/07/17 09/07/17 18:59 06:59 18:59 Intake Total 180 510 240 Output Total 800 1100 Balance -620 -590 240 Weight 83.4 kg 82 kg Intake: IV 30 0.9 30 Oral 180 480 240 Output: Urine 800 1100 Other: Voiding Method Indwelling Catheter Indwelling Catheter Indwelling Catheter - Labs CBC & Chem 7: 09/07/17 05:29 09/07/17 05:29 Labs: Abnormal Lab Results - Last 24 Hours (Table) 09/06/17 09/07/17 09/07/17 Range/Units 03:26 05:29 05:29 RBC 2.40 L (3.80-5.40) m/uL Hgb 8.1 L (11.4-16.0) gm/dL Hct 25.2 L (34.0-46.0) % MCV 105.1 H (80.0-100.0) fL Plt Count 137 L (150-450) k/uL Sodium 134 L (137-145) mmol/L BUN 56 H (7-17) mg/dL Creatinine 1.70 H (0.52-1.04) mg/dL Calcium 8.1 L (8.4-10.2) mg/dL Free T4 2.40 H (0.78-2.19) ng/dL Assessment and Plan Plan: Assessment: 1. Oliguric - now nonoliguric - acute kidney injury secondary to ischemic ATN secondary to bradycardia and further worsened with the use of diuretics and lisinopril. Creatinine 6.2 on admission - underwent 1 treatment of hemodialysis on August 31. Urinalysis is benign. No evidence of hydronephrosis noted on renal ultrasound. Creatinine did come down to 1.5 and is up to 1.7 today which is due to diuresis. 2. Hypervolemic hyponatremia. 3. Hyperkalemia secondary to acute kidney injury and further worsened with the use of Aldactone and lisinopril. Resolved postdialysis. 4. Bradycardia secondary to hyperkalemia - resolved. 5. Systolic CHF with ejection fraction of 40-45% with moderate mitral and tricuspid regurgitation and moderate pulmonary hypertension.. 6. Status post fall with right shaft humerus fracture. 7. Chronic kidney disease stage III with creatinine in the range of 1.1-1.3 in February 2017. Etiology is nephrosclerosis. 8. Metabolic acidosis secondary to acute kidney injury. Improved. 9. Anemia. Iron deficiency noted - status post IV iron. Plan: Low-salt diet and 1.2 L fluid restriction. Maintain Lasix 40 mg IV 3 times daily for now. Encouraged oral intake. Avoid nephrotoxic agents and hypotensive episodes. Add Aranesp.
--- NOTE | 2017-09-07 12:53 | P.PN ---
Subjective Principal diagnosis: Patient resting in bed continues with edema to bilateral extremities. Cast noted to right arm. Improvement in kidney function with good urine output Objective - Vital Signs Vital signs: Vital Signs Temp 97.4 F L 09/07/17 11:40 Pulse 67 09/07/17 11:44 Resp 18 09/07/17 11:44 BP 115/53 09/07/17 11:40 Pulse Ox 98 09/07/17 11:40 Intake & Output 09/06/17 09/07/17 09/07/17 18:59 06:59 18:59 Intake Total 180 510 480 Output Total 800 1100 900 Balance -620 -590 -420 Weight 83.4 kg 82 kg 82 kg Intake: IV 30 0.9 30 Oral 180 480 480 Output: Urine 800 1100 900 Uretheral ([place]) 900 Other: Voiding Method Indwelling Catheter Indwelling Catheter Indwelling Catheter - Constitutional General appearance: Present: obese - EENT Eyes: Present: PERRLA Ears: bilateral: normal - Neck Neck: Present: normal ROM - Respiratory Respiratory: bilateral: CTA - Cardiovascular Rhythm: irregularly irregular Abnormal Heart Sounds: Present: systolic murmur - Peripheral edema ankle Peripheral Edema Comment(s): Edema noted bilateral upper extremities - Gastrointestinal General gastrointestinal: Present: soft - Integumentary Integumentary: Present: normal - Neurologic Neurologic: Present: CNII-XII intact - Musculoskeletal Musculoskeletal: Present: generalized weakness - Psychiatric Psychiatric: Present: A&O x's 3, appropriate affect, intact judgment & insight - Labs CBC & Chem 7: 09/07/17 05:29 09/07/17 05:29 Labs: Abnormal Lab Results - Last 24 Hours (Table) 09/06/17 09/07/17 09/07/17 Range/Units 03:26 05:29 05:29 RBC 2.40 L (3.80-5.40) m/uL Hgb 8.1 L (11.4-16.0) gm/dL Hct 25.2 L (34.0-46.0) % MCV 105.1 H (80.0-100.0) fL Plt Count 137 L (150-450) k/uL Sodium 134 L (137-145) mmol/L BUN 56 H (7-17) mg/dL Creatinine 1.70 H (0.52-1.04) mg/dL Calcium 8.1 L (8.4-10.2) mg/dL Free T4 2.40 H (0.78-2.19) ng/dL Assessment and Plan Plan: Assessment Dehydration secondary to poor intake with acute injury to kidneys Chronic kidney disease stage III Acute on chronic renal failure Chest pain chest wall contusion Hematuria Metabolic acidosis corrected Atrial fibrillation Fraction humerus Indeterminate VQ scan History of congestive heart failure ejection fraction 40-45% with chronic systolic dysfunction Hypertension GERD Hyperlipidemia Bradycardia with hypotension Hyperkalemia corrected Gait dysfunction Plan No code no CPR no ventilator Continue consultation with nephrology and cardiology
--- NOTE | 2017-09-07 14:41 | P.PN ---
Subjective Progress Note Date: 09/07/17 This is a 81-year-old female with history of cardiomyopathy, atrial fibrillation and congestive heart failure who was admitted to the hospital with complaints of weakness and fatigue. She was found to be in acute renal failure with hyperkalemia. Patient also had junctional bradycardia. Patient was started on IV dopamine with improvement of her heart rhythm and blood pressure. She was hypotensive on arrival. Apparently about several days ago, patient fell in her kitchen and sustained fracture of the right on requiring cast. She lives by herself. She hasn't been eating or drinking. She has been taking her medications. However. She was also on Aldactone and Coreg and amiodarone. Patient also became bradycardic this morning requiring titration of the documented to 10 mics. Her urine output is low. I will hold amiodarone, Coreg and also anticoagulation at this time. Patient is also slightly anemic. Continue with efforts of correcting her hypokalemia and addressing her renal failure. Once her hyperkalemia is corrected, her heart rhythm will improve. Currently she seemed to be in sinus rhythm. Given her history of living alone and tendency to fall, we had to reevaluate the safety of long-term anticoagulation. 09/07/2017 Patient was noted to be bradycardic yesterday, amiodarone was discontinued and Coreg was placed on hold. Patient was seen and examined this morning, heart rate in the mid 60s to low 70s. Patient also had her Eliquis discontinued because of significant bruising all over the body, understanding her risk of embolic stroke. Patient was seen and examined this morning, continues to be on IV diuretics. She is diuresing well through the night last night. Hemoglobin this morning 8.1, platelet count 137, sodium 134, potassium 4.7, BUN 56, creatinine 1.7. TSH level 2.3 with a free T4 of 2.4. Objective - Vital Signs Vital signs: Vital Signs Temp 97.4 F L 09/07/17 11:40 Pulse 67 09/07/17 11:44 Resp 18 09/07/17 11:44 BP 115/53 09/07/17 11:40 Pulse Ox 98 09/07/17 11:40 Intake & Output 09/06/17 09/07/17 09/07/17 18:59 06:59 18:59 Intake Total 180 510 720 Output Total 800 1100 900 Balance -620 -590 -180 Weight 83.4 kg 82 kg 82 kg Intake: IV 30 0.9 30 Oral 180 480 720 Output: Urine 800 1100 900 Uretheral (Bolton) 900 Other: Voiding Method Indwelling Catheter Indwelling Catheter Indwelling Catheter - Exam PHYSICAL EXAMINATION: GENERAL: HEENT: Head is atraumatic, normocephalic. Pupils equal, round. Sclera anicteric. Conjunctiva are clear. Mucous membranes of the mouth are moist. Neck is supple. There is no elevated jugular venous pressure.] bruit is heard. HEART EXAMINATION: Heart S1, S2 normal. No murmur or gallop heard. CHEST EXAMINATION: Lungs reveal diminished air entry to bilateral bases. ABDOMEN: Soft, nontender. Bowel sounds are heard. No organomegaly noted. EXTREMITIES: 2+ peripheral pulses with evidence of peripheral edema and no calf tenderness noted. Significant bruising of the upper extremities noted. NEUROLOGIC patient is awake, alert and oriented -3. . - Labs CBC & Chem 7: 09/07/17 05:29 09/07/17 05:29 Labs: Abnormal Lab Results - Last 24 Hours (Table) 09/07/17 09/07/17 Range/Units 05:29 05:29 RBC 2.40 L (3.80-5.40) m/uL Hgb 8.1 L (11.4-16.0) gm/dL Hct 25.2 L (34.0-46.0) % MCV 105.1 H (80.0-100.0) fL Plt Count 137 L (150-450) k/uL Sodium 134 L (137-145) mmol/L BUN 56 H (7-17) mg/dL Creatinine 1.70 H (0.52-1.04) mg/dL Calcium 8.1 L (8.4-10.2) mg/dL Assessment and Plan Plan: Assessment and plan #1 systolic congestive heart failure acute on chronic #2 dilated cardiomyopathy #3 paroxysmal atrial fibrillation, patient was taken off of the Eliquis because of significant bruising, understanding her risk for thromboembolic event. #4 bradycardia, resolved, patient's amiodarone discontinued, patient still on Coreg. # 5 acute radial vein DVT plan We will continue patient on current dose of IV Lasix. Continue Coreg 3.125 mg twice a day along with Cozaar 12-1/2 mg daily. Lytes BUN and creatinine in the morning along with daily weights and intake and output. DNP note has been reviewed, I agree with a documented findings and plan of care. Patient was seen and examined.
[2017-09-08 06:18] LABS: HCT 28.5 % (34.0-46.0); HGB 9.3 gm/dL (11.4-16.0); MCH 33.4 pg (25.0-35.0); MCHC 32.7 g/dL (31.0-37.0); MCV 102.3 fL (80.0-100.0); Macrocytosis Slight; Mean Platelet Volume 7.8; Platelet Count 139 k/uL (150-450); RBC 2.79 m/uL (3.80-5.40); RDW 14.1 % (11.5-15.5); WBC 4.7 k/uL (3.8-10.6)
[2017-09-08] MEDS: CARVEDILOL 3.125 MG TAB PO SCH ×2 (06:20→17:42)
[2017-09-08] MEDS: PANTOPRAZOLE 40 MG TABLET PO SCH (06:20)
[2017-09-08] MEDS ORDERED: MORPHINE SULFATE 2 MG/ML SYRINGE IV PRN (07:51)
[2017-09-08 08:38] LABS: Calcium 8.4 mg/dL (8.4-10.2); Magnesium 1.6 mg/dL (1.6-2.3); Potassium 4.8 mmol/L (3.5-5.1)
[2017-09-08 08:54] LABS: Basophils # (M) 0.05 k/uL (0-0.2); Eosinophils # (M) 0.09 k/uL (0-0.7); Monocytes # (M) 0.33 k/uL (0-1.0); Neutrophils # (M) 2.73 k/uL (1.3-7.7); Neutrophils % (M) 58 %; Nucleated Red Blood Cells 0 /100 WBC (0-0); Poikilocytosis (M) Present; Total Cells Counted 100
[2017-09-08] MEDS: LOSARTAN 25 MG TAB PO SCH (09:21)
[2017-09-08] MEDS: FUROSEMIDE 10 MG/ML 4 ML VIAL IV SCH (09:21)
--- NOTE | 2017-09-08 09:40 | P.PN ---
Subjective Patient is seen in follow-up for acute kidney injury. Patient's creatinine was 6.2 on admission and was also noted to be hyperkalemic which did not improve despite medical management. She underwent 1 treatment of hemodialysis on August 31. Renal function improved and dialysis catheter has been discontinued. She is nonoliguric. She is noted to have ejection fraction of 40-45% with moderate mitral regurgitation, moderate tricuspid regurgitation and pulmonary hypertension. Patient became quite edematous and is currently maintained on Lasix 40 mg IV 3 times daily. Urine output is documented is 4.6 L in the last 24 hours. Creatinine is down to 1.57 today. Currently resting in bed. Denies chest pain or shortness of breath. Blood pressures low. Afebrile. General: The patient appeared well nourished and normally developed. HEENT: Head exam is unremarkable. Neck is without jugular venous distension. LUNGS: Breath sounds decreased. HEART: Rate and Rhythm are regular. First and second heart sounds normal. No murmurs, rubs or gallops. ABDOMEN: Abdominal exam reveals normal bowel sounds. Non-tender and non- distended. No evidence of peritonitis. EXTREMITITES: Trace edema. Objective - Vital Signs Vital signs: Vital Signs Temp 98.6 F 09/08/17 09:24 Pulse 91 09/08/17 09:24 Resp 18 09/08/17 09:24 BP 98/56 09/08/17 09:24 Pulse Ox 91 L 09/08/17 09:24 Intake & Output 09/07/17 09/08/17 09/08/17 18:59 06:59 18:59 Intake Total 1290 180 Output Total 1850 2800 Balance -560 -2800 180 Weight 82 kg 84 kg Intake: IV 70 0.9 70 Oral 1220 180 Output: Urine 1850 2800 Uretheral (Bolton) 1350 Other: Voiding Method Indwelling Catheter Indwelling Catheter Indwelling Catheter # Bowel Movements 1 - Labs CBC & Chem 7: 09/08/17 05:55 09/08/17 05:55 Labs: Abnormal Lab Results - Last 24 Hours (Table) 09/08/17 09/08/17 Range/Units 05:55 05:55 RBC 2.79 L (3.80-5.40) m/uL Hgb 9.3 L (11.4-16.0) gm/dL Hct 28.5 L (34.0-46.0) % MCV 102.3 H (80.0-100.0) fL Plt Count 139 L (150-450) k/uL Carbon Dioxide 31 H (22-30) mmol/L BUN 56 H (7-17) mg/dL Creatinine 1.57 H (0.52-1.04) mg/dL Assessment and Plan Plan: Assessment: 1. Oliguric - now nonoliguric - acute kidney injury secondary to ischemic ATN secondary to bradycardia and further worsened with the use of diuretics and lisinopril. Creatinine 6.2 on admission - underwent 1 treatment of hemodialysis on August 31. Urinalysis is benign. No evidence of hydronephrosis noted on renal ultrasound. Creatinine down to 1.57 today. 2. Hypervolemic hyponatremia. Improved with diuresis. 3. Hyperkalemia secondary to acute kidney injury and further worsened with the use of Aldactone and lisinopril. Resolved postdialysis. 4. Bradycardia secondary to hyperkalemia - resolved. 5. Systolic CHF with ejection fraction of 40-45% with moderate mitral and tricuspid regurgitation and moderate pulmonary hypertension.. 6. Status post fall with right shaft humerus fracture. 7. Chronic kidney disease stage III with creatinine in the range of 1.1-1.3 in February 2017. Etiology is nephrosclerosis. 8. Metabolic acidosis secondary to acute kidney injury. Improved. 9. Anemia. Iron deficiency noted - status post IV iron. Plan: Low-salt diet and 1.2 L fluid restriction. I will change Lasix to 40 mg orally twice daily. Encouraged oral intake. Avoid nephrotoxic agents and hypotensive episodes. Maintain Aranesp. Discontinue Bolton catheter and monitor postvoid residuals.
[2017-09-08] MEDS: cefTRIAXone IN SWFI 1,000 MG/10 ML SYRINGE IVP SCH (09:48)
--- NOTE | 2017-09-08 12:02 | P.PN ---
Subjective . Patient resting in bed patient states she has been working with physical therapy on the increasing ambulation. Patient has intermittent atrial fibrillation Objective - Vital Signs Vital signs: Vital Signs Temp 98.6 F 09/08/17 09:24 Pulse 91 09/08/17 09:24 Resp 18 09/08/17 09:24 BP 98/56 09/08/17 09:24 Pulse Ox 91 L 09/08/17 09:24 Intake & Output 09/07/17 09/08/17 09/08/17 18:59 06:59 18:59 Intake Total 1290 180 Output Total 1850 2800 Balance -560 -2800 180 Weight 82 kg 84 kg Intake: IV 70 0.9 70 Oral 1220 180 Output: Urine 1850 2800 Uretheral (B[place]) 1350 Other: Voiding Method Indwelling Catheter Indwelling Catheter Indwelling Catheter # Bowel Movements 1 - Constitutional General appearance: Present: mild distress, obese - EENT Eyes: Present: PERRLA Ears: bilateral: normal - Neck Neck: Present: normal ROM - Respiratory Respiratory: bilateral: CTA - Cardiovascular Rhythm: irregularly irregular Abnormal Heart Sounds: Present: systolic murmur - Gastrointestinal General gastrointestinal: Present: soft - Integumentary Integumentary: Present: normal - Neurologic Neurologic: Present: CNII-XII intact - Musculoskeletal Musculoskeletal: Present: generalized weakness - Psychiatric Psychiatric: Present: A&O x's 3, appropriate affect, intact judgment & insight - Labs CBC & Chem 7: 09/08/17 05:55 09/08/17 05:55 Labs: Abnormal Lab Results - Last 24 Hours (Table) 09/08/17 09/08/17 Range/Units 05:55 05:55 RBC 2.79 L (3.80-5.40) m/uL Hgb 9.3 L (11.4-16.0) gm/dL Hct 28.5 L (34.0-46.0) % MCV 102.3 H (80.0-100.0) fL Plt Count 139 L (150-450) k/uL Carbon Dioxide 31 H (22-30) mmol/L BUN 56 H (7-17) mg/dL Creatinine 1.57 H (0.52-1.04) mg/dL Assessment and Plan Plan: Assessment dehydration secondary to poor and put with acute kidney injury Chronic kidney disease stage III Chest pain chest wall contusion Hematuria Metabolic acidosis improved Atrial fibrillation with RVR Fractured humerus Indeterminate VQ scan History of congestive heart failure ejection fraction 40-45% chronic systolic dysfunction Hypertension Right arm DVT GERD Hyperlipidemia Bradycardia with hypotension Hypokalemia Gait dysfunction Plan No code no CPR no ventilator Continue consultation with nephrology and cardiology Hopeful discharge to extended care facility for rehab
--- NOTE | 2017-09-08 14:39 | P.PN ---
Subjective Progress Note Date: 09/08/17 This is a 81-year-old female with history of cardiomyopathy, atrial fibrillation and congestive heart failure who was admitted to the hospital with complaints of weakness and fatigue. She was found to be in acute renal failure with hyperkalemia. Patient also had junctional bradycardia. Patient was started on IV dopamine with improvement of her heart rhythm and blood pressure. She was hypotensive on arrival. Apparently about several days ago, patient fell in her kitchen and sustained fracture of the right on requiring cast. She lives by herself. She hasn't been eating or drinking. She has been taking her medications. However. She was also on Aldactone and Coreg and amiodarone. Patient also became bradycardic this morning requiring titration of the documented to 10 mics. Her urine output is low. I will hold amiodarone, Coreg and also anticoagulation at this time. Patient is also slightly anemic. Continue with efforts of correcting her hypokalemia and addressing her renal failure. Once her hyperkalemia is corrected, her heart rhythm will improve. Currently she seemed to be in sinus rhythm. Given her history of living alone and tendency to fall, we had to reevaluate the safety of long-term anticoagulation. 09/07/2017 Patient was noted to be bradycardic yesterday, amiodarone was discontinued and Coreg was placed on hold. Patient was seen and examined this morning, heart rate in the mid 60s to low 70s. Patient also had her Eliquis discontinued because of significant bruising all over the body, understanding her risk of embolic stroke. Patient was seen and examined this morning, continues to be on IV diuretics. She is diuresing well through the night last night. Hemoglobin this morning 8.1, platelet count 137, sodium 134, potassium 4.7, BUN 56, creatinine 1.7. TSH level 2.3 with a free T4 of 2.4. 09/08/2017 Patient was seen and examined this morning, heart rate in the 90s today, blood pressure 132/60, 94% on 2 L of oxygen. Hemoglobin 9.3, platelet count 139, sodium 137, potassium 4.8, BUN 56, creatinine 1.5. Magnesium 1.6. Objective - Vital Signs Vital signs: Vital Signs Temp 98.5 F 09/08/17 12:00 Pulse 117 H 05/30/18 12:00 Resp 18 09/08/17 12:00 BP 136/64 09/08/17 12:00 Pulse Ox 94 L 09/08/17 12:00 Intake & Output 09/07/17 09/08/17 09/08/17 18:59 06:59 18:59 Intake Total 1290 420 Output Total 1850 2800 Balance -560 -2800 420 Weight 82 kg 84 kg Intake: IV 70 0.9 70 Oral 1220 420 Output: Urine 1850 2800 Uretheral ([place]) 1350 Other: Voiding Method Indwelling Catheter Indwelling Catheter Indwelling Catheter # Bowel Movements 1 1 - Exam PHYSICAL EXAMINATION: GENERAL: HEENT: Head is atraumatic, normocephalic. Pupils equal, round. Sclera anicteric. Conjunctiva are clear. Mucous membranes of the mouth are moist. Neck is supple. There is no elevated jugular venous pressure.] bruit is heard. HEART EXAMINATION: Heart S1, S2 normal. No murmur or gallop heard. CHEST EXAMINATION: Lungs reveal diminished air entry to bilateral bases. ABDOMEN: Soft, nontender. Bowel sounds are heard. No organomegaly noted. EXTREMITIES: 2+ peripheral pulses with evidence of peripheral edema and no calf tenderness noted. Significant bruising of the upper extremities noted. NEUROLOGIC patient is awake, alert and oriented -3. . - Labs CBC & Chem 7: 09/08/17 05:55 09/08/17 05:55 Labs: Abnormal Lab Results - Last 24 Hours (Table) 09/08/17 09/08/17 Range/Units 05:55 05:55 RBC 2.79 L (3.80-5.40) m/uL Hgb 9.3 L (11.4-16.0) gm/dL Hct 28.5 L (34.0-46.0) % MCV 102.3 H (80.0-100.0) fL Plt Count 139 L (150-450) k/uL Carbon Dioxide 31 H (22-30) mmol/L BUN 56 H (7-17) mg/dL Creatinine 1.57 H (0.52-1.04) mg/dL Assessment and Plan Plan: Assessment and plan #1 systolic congestive heart failure acute on chronic #2 dilated cardiomyopathy #3 paroxysmal atrial fibrillation, patient was taken off of the Eliquis because of significant bruising, understanding her risk for thromboembolic event. #4 bradycardia, resolved, patient's amiodarone discontinued, patient still on Coreg. # 5 acute radial vein DVT plan We will continue patient on current dose of IV Lasix. Continue Coreg 3.125 mg twice a day along with Cozaar 12-1/2 mg daily. Replace magnesium. Lytes BUN and creatinine in the morning along with daily weights and intake and output. DNP note has been reviewed, I agree with a documented findings and plan of care. Patient was seen and examined.
[2017-09-08] MEDS: MAGNESIUM SULFATE-D5W PMX 1 GM in DEXTROSE/WATER 1 100ML.BAG IVPB SCH ×2 (15:24→17:42)
[2017-09-08] MEDS: FUROSEMIDE 40 MG TAB PO SCH (15:24)
[2017-09-09] MEDS: CARVEDILOL 3.125 MG TAB PO SCH ×2 (06:35→16:47)
[2017-09-09] MEDS: PANTOPRAZOLE 40 MG TABLET PO SCH (06:35)
[2017-09-09 06:56] LABS: Calcium 8.4 mg/dL (8.4-10.2); Magnesium 1.8 mg/dL (1.6-2.3); Potassium 3.9 mmol/L (3.5-5.1)
[2017-09-09] MEDS: LOSARTAN 25 MG TAB PO SCH (08:19)
[2017-09-09] MEDS: FUROSEMIDE 40 MG TAB PO SCH ×2 (08:19→16:47)
[2017-09-09] MEDS: cefTRIAXone IN SWFI 1,000 MG/10 ML SYRINGE IVP SCH (08:20)
--- NOTE | 2017-09-09 09:53 | P.PN ---
Subjective Patient is seen in follow-up for acute kidney injury. Patient's creatinine was 6.2 on admission and was also noted to be hyperkalemic which did not improve despite medical management. She underwent 1 treatment of hemodialysis on August 31. Renal function improved and dialysis catheter has been discontinued. She is nonoliguric. She is noted to have ejection fraction of 40-45% with moderate mitral regurgitation, moderate tricuspid regurgitation and pulmonary hypertension. Patient became quite edematous which has improved with diuresis. Currently maintained on Lasix 40 mg orally twice daily. She is nonoliguric. Creatinine is down to 1.41 today. Currently resting in bed. Denies chest pain or shortness of breath. Vital signs stable. General: The patient appeared well nourished and normally developed. HEENT: Head exam is unremarkable. Neck is without jugular venous distension. LUNGS: Breath sounds decreased. HEART: Rate and Rhythm are regular. First and second heart sounds normal. No murmurs, rubs or gallops. ABDOMEN: Abdominal exam reveals normal bowel sounds. Non-tender and non- distended. No evidence of peritonitis. EXTREMITITES: Trace edema. Objective - Vital Signs Vital signs: Vital Signs Temp 98.9 F 09/09/17 08:25 Pulse 82 09/09/17 08:25 Resp 18 09/09/17 08:25 BP 124/62 09/09/17 08:25 Pulse Ox 97 09/09/17 08:25 Intake & Output 09/08/17 09/09/17 09/09/17 18:59 06:59 18:59 Intake Total 660 190 240 Output Total 1400 2050 100 Balance -740 -1860 140 Weight 76 kg Intake: IV 40 0.9 40 Intake, IV Titration 100 Amount Magnesium Sulfate-D5w Pmx 100 1 gm In Dextrose/Water 1 100ml.bag @ 100 mls/hr IVPB Q1H [facility] Rx#: [id number] Oral 660 50 240 Output: Urine 1400 2050 100 Other: Voiding Method Indwelling Catheter Indwelling Catheter # Voids 4 1 # Bowel Movements 1 0 - Labs CBC & Chem 7: 09/08/17 05:55 09/09/17 06:23 Labs: Abnormal Lab Results - Last 24 Hours (Table) 09/09/17 Range/Units 06:23 Chloride 97 L (98-107) mmol/L Carbon Dioxide 37 H (22-30) mmol/L BUN 45 H (7-17) mg/dL Creatinine 1.41 H (0.52-1.04) mg/dL Assessment and Plan Plan: Assessment: 1. Oliguric - now nonoliguric - acute kidney injury secondary to ischemic ATN secondary to bradycardia and further worsened with the use of diuretics and lisinopril. Creatinine 6.2 on admission - underwent 1 treatment of hemodialysis on August 31. Urinalysis is benign. No evidence of hydronephrosis noted on renal ultrasound. Creatinine down to 1.41 today. 2. Hypervolemic hyponatremia. Improved with diuresis. 3. Hyperkalemia secondary to acute kidney injury and further worsened with the use of Aldactone and lisinopril. Resolved postdialysis. 4. Bradycardia secondary to hyperkalemia - resolved. 5. Systolic CHF with ejection fraction of 40-45% with moderate mitral and tricuspid regurgitation and moderate pulmonary hypertension.. 6. Status post fall with right shaft humerus fracture. 7. Chronic kidney disease stage III with creatinine in the range of 1.1-1.3 in February 2017. Etiology is nephrosclerosis. 8. Metabolic acidosis secondary to acute kidney injury. Improved. 9. Anemia. Iron deficiency noted - status post IV iron. 10. Hypomagnesemia secondary to diuresis. Improved post replacement. Plan: Low-salt diet and 1.2 L fluid restriction. Maintain Lasix 40 mg orally twice daily. Encouraged oral intake. Avoid nephrotoxic agents and hypotensive episodes. Maintain Aranesp.
[2017-09-09] MEDS ORDERED: MORPHINE ORAL SOLN 10 MG/5 ML CUP PO PRN (10:47)
--- NOTE | 2017-09-09 12:29 | P.PN ---
Subjective On visit of physical therapy assisting patient on bed. Patient states she feels improvement Objective - Vital Signs Vital signs: Vital Signs Temp 98.6 F 09/09/17 11:22 Pulse 108 H 09/09/17 11:22 Resp 16 09/09/17 11:22 BP 122/58 09/09/17 11:22 Pulse Ox 94 L 09/09/17 11:22 Intake & Output 09/08/17 09/09/17 09/09/17 18:59 06:59 18:59 Intake Total 660 190 240 Output Total 1400 2050 200 Balance -740 -1860 40 Weight 76 kg Intake: IV 40 0.9 40 Intake, IV Titration 100 Amount Magnesium Sulfate-D5w Pmx 100 1 gm In Dextrose/Water 1 100ml.bag @ 100 mls/hr IVPB Q1H [facility] Rx#: [id number] Oral 660 50 240 Output: Urine 1400 2050 200 Other: Voiding Method Indwelling Catheter Indwelling Catheter Indwelling Catheter # Voids 4 1 # Bowel Movements 1 0 - Constitutional General appearance: Present: obese - EENT Eyes: Present: PERRLA Ears: bilateral: normal - Neck Neck: Present: normal ROM - Cardiovascular Rhythm: irregularly irregular Abnormal Heart Sounds: Present: systolic murmur - Peripheral edema ankle Peripheral Edema: bilateral: 2+ - Gastrointestinal General gastrointestinal: Present: soft - Integumentary Integumentary: Present: normal - Neurologic Neurologic: Present: CNII-XII intact - Musculoskeletal Musculoskeletal Comment(s): Cath noted to right arm with ecchymosis to upper arm right arm improving edema Musculoskeletal: Present: generalized weakness - Psychiatric Psychiatric: Present: A&O x's 3, appropriate affect, intact judgment & insight - Labs CBC & Chem 7: 09/08/17 05:55 09/09/17 06:23 Labs: Abnormal Lab Results - Last 24 Hours (Table) 09/09/17 Range/Units 06:23 Chloride 97 L (98-107) mmol/L Carbon Dioxide 37 H (22-30) mmol/L BUN 45 H (7-17) mg/dL Creatinine 1.41 H (0.52-1.04) mg/dL - Imaging and Cardiology Chest x-ray: report reviewed Assessment and Plan Plan: Assessment Dehydration secondary to poor oral intake with acute kidney injury Chronic kidney disease stage III Right arm DVT Chest pain need crepitation with cardiology Chest wall contusion Hematuria Metabolic acidosis improved Atrial fibrillation with RVR Fractured right humerus V/Q indeterminant History of congestive heart failure ejection fraction 40-45% chroniic systolic dysfunction Hypertension GERD Hyperlipidemia Bradycardia with hypotension Hypokalemia corrected Gait dysfunction Plan Continue consultation with nephrology and cardiology Patient's no code no CPR no ventilator
--- NOTE | 2017-09-09 15:19 | P.PN ---
Subjective Progress Note Date: 09/09/17 This is a 81-year-old female with history of cardiomyopathy, atrial fibrillation and congestive heart failure who was admitted to the hospital with complaints of weakness and fatigue. She was found to be in acute renal failure with hyperkalemia. Patient also had junctional bradycardia. Patient was started on IV dopamine with improvement of her heart rhythm and blood pressure. She was hypotensive on arrival. Apparently about several days ago, patient fell in her kitchen and sustained fracture of the right on requiring cast. She lives by herself. She hasn't been eating or drinking. She has been taking her medications. However. She was also on Aldactone and Coreg and amiodarone. Patient also became bradycardic this morning requiring titration of the documented to 10 mics. Her urine output is low. I will hold amiodarone, Coreg and also anticoagulation at this time. Patient is also slightly anemic. Continue with efforts of correcting her hypokalemia and addressing her renal failure. Once her hyperkalemia is corrected, her heart rhythm will improve. Currently she seemed to be in sinus rhythm. Given her history of living alone and tendency to fall, we had to reevaluate the safety of long-term anticoagulation. 09/07/2017 Patient was noted to be bradycardic yesterday, amiodarone was discontinued and Coreg was placed on hold. Patient was seen and examined this morning, heart rate in the mid 60s to low 70s. Patient also had her Eliquis discontinued because of significant bruising all over the body, understanding her risk of embolic stroke. Patient was seen and examined this morning, continues to be on IV diuretics. She is diuresing well through the night last night. Hemoglobin this morning 8.1, platelet count 137, sodium 134, potassium 4.7, BUN 56, creatinine 1.7. TSH level 2.3 with a free T4 of 2.4. 09/08/2017 Patient was seen and examined this morning, heart rate in the 90s today, blood pressure 132/60, 94% on 2 L of oxygen. Hemoglobin 9.3, platelet count 139, sodium 137, potassium 4.8, BUN 56, creatinine 1.5. Magnesium 1.6. 09/09/2017 Patient seen and examined today, currently on by mouth diuretics, arrangements are being made for transfer to [facility]. At pressure 122/50 with a heart rate in the 90s, 94% on room air. Sodium 138, potassium 3.9, BUN 45, creatinine 1.4, magnesium 1.8. Objective - Vital Signs Vital signs: Vital Signs Temp 98.6 F 09/09/17 11:22 Pulse 108 H 09/09/17 11:22 Resp 16 09/09/17 11:22 BP 122/58 09/09/17 11:22 Pulse Ox 94 L 09/09/17 11:22 Intake & Output 09/08/17 09/09/17 09/09/17 18:59 06:59 18:59 Intake Total 660 190 240 Output Total 1400 2050 200 Balance -740 -1860 40 Weight 76 kg Intake: IV 40 0.9 40 Intake, IV Titration 100 Amount Magnesium Sulfate-D5w Pmx 100 1 gm In Dextrose/Water 1 100ml.bag @ 100 mls/hr IVPB Q1H DELROY Rx#: [id number] Oral 660 50 240 Output: Urine 1400 2050 200 Other: Voiding Method Indwelling Catheter Indwelling Catheter Indwelling Catheter # Voids 4 1 # Bowel Movements 1 0 - Exam PHYSICAL EXAMINATION: GENERAL: HEENT: Head is atraumatic, normocephalic. Pupils equal, round. Sclera anicteric. Conjunctiva are clear. Mucous membranes of the mouth are moist. Neck is supple. There is no elevated jugular venous pressure.] bruit is heard. HEART EXAMINATION: Heart S1, S2 normal. No murmur or gallop heard. CHEST EXAMINATION: Lungs reveal diminished air entry to bilateral bases. ABDOMEN: Soft, nontender. Bowel sounds are heard. No organomegaly noted. EXTREMITIES: 2+ peripheral pulses with evidence of peripheral edema and no calf tenderness noted. Significant bruising of the upper extremities noted. NEUROLOGIC patient is awake, alert and oriented -3. . - Labs CBC & Chem 7: 09/08/17 05:55 09/09/17 06:23 Labs: Abnormal Lab Results - Last 24 Hours (Table) 09/09/17 Range/Units 06:23 Chloride 97 L (98-107) mmol/L Carbon Dioxide 37 H (22-30) mmol/L BUN 45 H (7-17) mg/dL Creatinine 1.41 H (0.52-1.04) mg/dL Assessment and Plan Plan: Assessment and plan #1 systolic congestive heart failure acute on chronic #2 dilated cardiomyopathy #3 paroxysmal atrial fibrillation, patient was taken off of the Eliquis because of significant bruising, understanding her risk for thromboembolic event. #4 bradycardia, resolved, patient's amiodarone discontinued, patient still on Coreg. # 5 acute radial vein DVT plan Cardiology's perspective, we will recommend to continue the patient on her current medications. Arrangements are being made for her to be transferred to [facility]. DNP note has been reviewed, I agree with a documented findings and plan of care. Patient was seen and examined.
[2017-09-09] MEDS ORDERED: MAGNESIUM HYDROXIDE 2,400 MG/10 ML CUP PO PRN (21:00)
[2017-09-10] MEDS: PANTOPRAZOLE 40 MG TABLET PO SCH (06:31)
[2017-09-10] MEDS: CARVEDILOL 3.125 MG TAB PO SCH ×2 (06:31→16:08)
[2017-09-10 07:20] LABS: Calcium 8.6 mg/dL (8.4-10.2); Potassium 3.6 mmol/L (3.5-5.1)
[2017-09-10] MEDS: LOSARTAN 25 MG TAB PO SCH (07:42)
[2017-09-10] MEDS: cefTRIAXone IN SWFI 1,000 MG/10 ML SYRINGE IVP SCH (07:43)
[2017-09-10] MEDS: FUROSEMIDE 40 MG TAB PO SCH ×2 (07:43→16:08)
--- NOTE | 2017-09-10 08:49 | P.PN ---
Subjective Patient is seen in follow-up for acute kidney injury. Patient's creatinine was 6.2 on admission and was also noted to be hyperkalemic which did not improve despite medical management. She underwent 1 treatment of hemodialysis on August 31. Renal function improved and dialysis catheter has been discontinued. She is nonoliguric. She is noted to have ejection fraction of 40-45% with moderate mitral regurgitation, moderate tricuspid regurgitation and pulmonary hypertension. Patient became quite edematous which has improved with diuresis. Currently maintained on Lasix 40 mg orally twice daily. She is nonoliguric. Creatinine is down to 1.22 today. Currently resting in bed. Denies chest pain or shortness of breath. Vital signs stable. General: The patient appeared well nourished and normally developed. HEENT: Head exam is unremarkable. Neck is without jugular venous distension. LUNGS: Breath sounds decreased. HEART: Rate and Rhythm are regular. First and second heart sounds normal. No murmurs, rubs or gallops. ABDOMEN: Abdominal exam reveals normal bowel sounds. Non-tender and non- distended. No evidence of peritonitis. EXTREMITITES: Trace edema. Objective - Vital Signs Vital signs: Vital Signs Temp 98 F 09/10/17 04:00 Pulse 108 H 09/10/17 04:00 Resp 20 09/10/17 04:00 BP 150/80 09/10/17 04:00 Pulse Ox 95 09/10/17 04:00 Intake & Output 09/09/17 09/10/17 09/10/17 18:59 06:59 18:59 Intake Total 720 50 Output Total 700 900 Balance 20 -850 Weight 76.5 kg Intake: Oral 720 50 Output: Urine 700 900 Other: Voiding Method Indwelling Catheter Indwelling Catheter # Voids 1 2 # Bowel Movements 0 - Labs CBC & Chem 7: 09/08/17 05:55 09/10/17 06:47 Labs: Abnormal Lab Results - Last 24 Hours (Table) 09/10/17 Range/Units 06:47 Sodium 135 L (137-145) mmol/L Chloride 96 L (98-107) mmol/L Carbon Dioxide 35 H (22-30) mmol/L BUN 38 H (7-17) mg/dL Creatinine 1.22 H (0.52-1.04) mg/dL Assessment and Plan Plan: Assessment: 1. Oliguric - now nonoliguric - acute kidney injury secondary to ischemic ATN secondary to bradycardia and further worsened with the use of diuretics and lisinopril. Creatinine 6.2 on admission - underwent 1 treatment of hemodialysis on August 31. Urinalysis is benign. No evidence of hydronephrosis noted on renal ultrasound. Creatinine down to 1.22 today. 2. Hypervolemic hyponatremia. Improved with diuresis. 3. Hyperkalemia secondary to acute kidney injury and further worsened with the use of Aldactone and lisinopril. Resolved postdialysis. 4. Bradycardia secondary to hyperkalemia - resolved. 5. Systolic CHF with ejection fraction of 40-45% with moderate mitral and tricuspid regurgitation and moderate pulmonary hypertension.. 6. Status post fall with right shaft humerus fracture. 7. Chronic kidney disease stage III with creatinine in the range of 1.1-1.3 in February 2017. Etiology is nephrosclerosis. 8. Metabolic acidosis secondary to acute kidney injury. Improved. 9. Anemia. Iron deficiency noted - status post IV iron. 10. Hypomagnesemia secondary to diuresis. Improved post replacement. Plan: Low-salt diet and 1.2 L fluid restriction. Maintain Lasix 40 mg orally twice daily. Encouraged oral intake. Avoid nephrotoxic agents and hypotensive episodes. Maintain Aranesp.
[2017-09-10 10:53] VITALS: RESP 18; TEMP 97.6
[2017-09-10 12:21] VITALS: BP 124/58
--- NOTE | 2017-09-10 16:00 | P.DS ---
Providers Date of admission: 08/31/17 00:58 Expected date of discharge: 09/10/17 Attending physician: Cristian Heller Consults: 08/31/17 00:58 Consult Physician Routine Consulting Provider: Carisa Blanco Consult Reason/Comments: arf Do you want consulting provider notified?: Yes Consult Physician Urgent Consulting Provider: Dino Garvey Consult Reason/Comments: chiquis Do you want consulting provider notified?: Yes 08/31/17 01:18 Consult Physician Urgent Consulting Provider: Rebecca Hein Consult Reason/Comments: icu Do you want consulting provider notified?: Yes 08/31/17 09:54 Consult Physician Stat Consulting Provider: Marty Sierra Consult Reason/Comments: dialysis catheter insertion Do you want consulting provider notified?: Yes Primary care physician: Cristian Anglin Hospital Course: Final Diagnoses: #1 systolic congestive heart failure acute on chronic, dilated cardiomyopathy #2 acute on chronic renal failure,stage III, acute secondary to ischemic ATN, diuretics and RADHA inhibitor , chronic secondary to nephrosclerosis Creatinine 6.2 on admission, underwent 1 treatment of hemodialysis on August 31. Benign urinalysis, no evidence of hydronephrosis per renal ultrasound. Baseline creatinine 1.1-1.3. #3 paroxysmal atrial fibrillation with RVR #4 bradycardia secondary to hyperkalemia, resolved resolved # 5 acute radial vein DVT #6 status post fall with fractured right humerus #7 V/Q indeterminate #8 hypervolemic hyponatremia, improving with diuresing #9 moderate mitral and tricuspid regurgitation #10 moderate pulmonary hypertension Hospital course: This is an 82-year-old female admitted with multiple medical issues including acute CHF, renal failure, proximal atrial fibrillation, fractured right humerus. Evaluated by nephrology, cardiology and orthopedics.Creatinine 6.2 on admission, underwent 1 treatment of hemodialysis on August 31. Benign urinalysis no evidence of hydronephrosis per renal ultrasound. Creatinine down to 1.22 to today. Developed hypotension with bradycardia and amiodarone discontinued, maintained on Coreg as per cardiology. Significant clinical improvement. Eliquis had initially been placed on hold secondary to hematuria. Hematuria has subsided, low dose Eliquis to be resumed starting tomorrow. Patient has been cleared for discharge by all consults. Patient is being discharged to [facility] subacute rehab in stable condition with guarded prognosis. Physical Exam: Gen.: Sitting up in bed, no acute distress.LUNGS: Diminished.CV: Regular S1 and S2, positive systolic murmur, no rubs or gallops.ABD: Soft nontender positive bowel sounds.NEURO: No focal deficits The impression and plan of care has been dictated as directed. : I performed a history and examination of this patient, discussed the same with the dictator. I agree with the dictator's note ,documented as a scribe. Any additional findings or plans will be noted. Time taken: 35 minutes Patient Condition at Discharge: Stable Plan - Discharge Summary New Discharge Prescriptions: New Carvedilol [Coreg] 3.125 mg PO BID-W/MEALS tab Darbepoetin Salazar [Aranesp] 40 mcg SQ Q7D syringe Furosemide [Lasix] 40 mg PO BID@0900,1600 tab HYDROcodone/APAP 5-325MG [[place] 5-325] 1 each PO Q6H PRN #12 tab PRN Reason: Pain Losartan [Cozaar] 12.5 mg PO DAILY tab Pantoprazole [Protonix] 40 mg PO AC-BRKFST tablet. Apixaban [Eliquis] 2.5 mg PO BID #1 tab Continue Cholecalciferol [Vitamin D3] 2,000 unit PO DAILY Fenofibrate [Lofibra] 160 mg PO HS Sennosides-Docusate Sodium [Senokot-S] 1 tab PO BID PRN PRN Reason: Constipation Discontinued Apixaban [Eliquis] 2.5 mg PO BID Amiodarone [Cordarone] 200 mg PO BID #60 tab Carvedilol [Coreg*] 12.5 mg PO BID-W/MEALS #60 tab Spironolactone [Aldactone] 25 mg PO DAILY #90 tab Furosemide [Lasix] 20 mg PO BID #60 tab Lisinopril [Zestril] 2.5 mg PO BID Discharge Medication List Cholecalciferol [Vitamin D3] 2,000 unit PO DAILY 02/02/17 [History] Fenofibrate [Lofibra] 160 mg PO HS 02/02/17 [History] Sennosides-Docusate Sodium [Senokot-S] 1 tab PO BID PRN 08/31/17 [History] Apixaban [Eliquis] 2.5 mg PO BID #1 tab 09/10/17 [Rx] Carvedilol [Coreg] 3.125 mg PO BID-W/MEALS tab 09/10/17 [Rx] Darbepoetin Salazar [Aranesp] 40 mcg SQ Q7D syringe 09/10/17 [Rx] Furosemide [Lasix] 40 mg PO BID@0900,1600 tab 09/10/17 [Rx] HYDROcodone/APAP 5-325MG [[place] 5-325] 1 each PO Q6H PRN #12 tab 09/10/17 [Rx] Losartan [Cozaar] 12.5 mg PO DAILY tab 09/10/17 [Rx] Pantoprazole [Protonix] 40 mg PO AC-BRKFST tablet. 09/10/17 [Rx] Follow up Appointment(s)/Referral(s): Cristian Anglin MD [Primary Care Provider] - 1 Week (After DC from subacute rehab ) Nathan Ardon DO [STAFF PHYSICIAN] - 3 Days Venkatesh Mallory MD [STAFF PHYSICIAN] - 1 Week Ronaldo Lopez DO [STAFF PHYSICIAN] - 1 Week Activity/Diet/Wound Care/Special Instructions: [facility] confirm cardiology follow-up appointment prior to discharge. DIet: Low salt, 1.2 fluid restriction Activity: as tolerated cbc,bmp in 2 days Discharge Disposition: TRANSFER TO SNF/ECF
[2017-09-10 16:08] VITALS: PULSE 108
--- NOTE | 2017-09-29 11:03 | CONS ---
CONSULTATION This is an 82-year-old female I was consulted for placement of urgent dialysis catheter. The patient has been admitted with the diagnoses of 1) Systolic congestive heart failure; 2) Acute renal failure; 3) Paroxysmal atrial fibrillation ; 4) Bradycardia secondary to hyperkalemia; 5) Acute radial vein DVT; 6) Status post fracture right humerus. This is an 82-year-old female. She has multiple medical problems as above. I was consulted for placement of a dialysis catheter. SURGICAL HISTORY: Patient had a cholecystectomy done in the past. PHYSICAL EXAMINATION: On examination, neck is supple. CHEST: A few crackles at the lung bases. ABDOMEN: Soft. Femoral pulses are present. PLAN: Placement of the dialysis catheter. Risks and complications discussed. MARCELLO / BERHANEN: [id number] / MTDD
--- NOTE | 2017-09-29 11:45 | PCN ---
PROCEDURE NOTE PREOP DIAGNOSIS: Acute on chronic renal failure. PROCEDURE PERFORMED: Placement of dialysis catheter right femoral approach. DESCRIPTION OF PROCEDURE: The right groin was prepped and drapes were applied in usual sterile manner. 1% lidocaine plain was infiltrated into the exit site of the catheter in the groin area and micropuncture needle introduced into the right femoral vein. Micropuncture guide was passed and the regular guidewire was passed without any resistance. The dilator was advanced on top of the guidewire. Then we placed a temporary dialysis catheter right femoral approach. The guidewire was removed. It was secured with 3-0 nylon. Flushed with heparin saline and hep-locked. Dressing applied. Patient tolerated the procedure well. MMODL / IJN: [id number] /
== END 2017-09-10 19:00 | DRG 682 ==
LOC: EC 23:42 → 6ICU 08-31 00:58 → 5MS5E 09-02 15:54 → 6SEL 09-03 18:15
PROVIDERS: ADMIT Family Medicine; ATTEND Family Medicine
PROC: 5A1D70Z Performance of Urinary Filtration, Intermittent, Less than 6 Hours Per Day (ICD-10-PCS; principal; 2017-08-31)
PROC: 04HK33Z Insertion of Infusion Device into Right Femoral Artery, Percutaneous Approach (ICD-10-PCS; principal; 2017-08-31)
DX: N17.0 Acute kidney failure with tubular necrosis (principal); I50.23 Acute on chronic systolic (congestive) heart failure; S42.401A Unspecified fracture of lower end of right humerus, initial encounter for closed fracture; E87.1 Hypo-osmolality and hyponatremia; E87.2 Acidosis; I13.0 Hypertensive heart and chronic kidney disease with heart failure and stage 1 through stage 4 chronic kidney disease, or unspecified chronic kidney disease; I42.0 Dilated cardiomyopathy; I48.92 Unspecified atrial flutter; I82.623 Acute embolism and thrombosis of deep veins of upper extremity, bilateral; J98.11 Atelectasis; D50.9 Iron deficiency anemia, unspecified; E78.5 Hyperlipidemia, unspecified; E83.42 Hypomagnesemia; E86.0 Dehydration; E87.5 Hyperkalemia; E87.6 Hypokalemia; I08.1 Rheumatic disorders of both mitral and tricuspid valves; N18.4 Chronic kidney disease, stage 4 (severe); I27.20 Pulmonary hypertension, unspecified; I48.2 Chronic atrial fibrillation; J44.9 Chronic obstructive pulmonary disease, unspecified; K21.9 Gastro-esophageal reflux disease without esophagitis; N02.9 Recurrent and persistent hematuria with unspecified morphologic changes; S20.219A Contusion of unspecified front wall of thorax, initial encounter; T50.2X5A Adverse effect of carbonic-anhydrase inhibitors, benzothiadiazides and other diuretics, initial encounter; W19.XXXA Unspecified fall, initial encounter; Y92.000 Kitchen of unspecified non-institutional (private) residence as the place of occurrence of the external cause; Z66 Do not resuscitate; Z79.01 Long term (current) use of anticoagulants; Z79.899 Other long term (current) drug therapy; Z82.49 Family history of ischemic heart disease and other diseases of the circulatory system; Z83.3 Family history of diabetes mellitus; Z87.891 Personal history of nicotine dependence; Z90.49 Acquired absence of other specified parts of digestive tract; Z98.42 Cataract extraction status, left eye; Z98.41 Cataract extraction status, right eye
CPT/HCPCS: 36415; 51702; 71045; 71046; 71120; 78582; 80048; 80051; 80053; 81001; 81003; 82533; 82550; 82553; 82728; 83036; 83540; 83550; 83605; 83735; 84100; 84439; 84443; 84484; 85025; 85379; 85610; 85730; 86704; 86706; 87040; 87086; 87340; 90935; 93005; 93306; 94640; 94760; 96361; 96365; 96375; 99291

== ENCOUNTER 2017-12-30 09:24 | Day surgery (SDC) | payer MEDICARE ==
[2017-12-24 15:36] VITALS: BMI 25.9
[~2017-12-30 09:24] MED LIST: DEXAMETHASONE SOD PHOSPHATE 10 MG/ML 1 ML VIAL IV ONE; FUROSEMIDE 10 MG/ML 4 ML VIAL IV STA; LIDOCAINE 1% 20 ML VIAL (10MG/ML) FOR IV START INTRADERMA PRN; MIDAZOLAM 2 MG/2 ML VIAL IV PRN; ONDANSETRON 4 MG/2 ML VIAL IVP ONE; SODIUM CHLORIDE 0.9% 1,000 ML IV SCH; fentaNYL (PF) 50 MCG/ML 2 ML AMP IV PRN
[2017-12-30] MEDS ORDERED: FUROSEMIDE 10 MG/ML 4 ML VIAL ONE (09:26)
[2017-12-30] MEDS ORDERED: SODIUM CHLORIDE 0.9% 1,000 ML IV ONE (10:43)
[2017-12-30 11:24] LABS: Glucose,Whole Blood 98 mg/dL (75-99)
[2017-12-30 12:01] LABS: Albumin 3.3 g/dL (3.5-5.0); Calcium 9.3 mg/dL (8.4-10.2); Potassium 4.3 mmol/L (3.5-5.1); Total Bilirubin 0.7 mg/dL (0.2-1.3); Total Protein 6.4 g/dL (6.3-8.2)
[2017-12-30] MEDS ORDERED: MIDAZOLAM 2 MG/2 ML VIAL ONE (13:18)
[2017-12-30] MEDS ORDERED: fentaNYL (PF) 50 MCG/ML 2 ML AMP ONE (13:18)
[2017-12-30] MEDS ORDERED: LIDOCAINE 1% INJ 10MG/ML (20 ML MDV) ONE (13:33)
[2017-12-30] MEDS ORDERED: LIDOCAINE 1% INJ 10MG/ML (20 ML MDV) SQ ONE (13:54)
[2017-12-30] MEDS ORDERED: HEPARIN SODIUM (1,000 UNIT/ML) 1,000 UNIT in SODIUM CHLORIDE 0.9% 1,000 ML IRRIGATION ONE (14:17)
[2017-12-30] MEDS ORDERED: HYDROcodone/APAP 5-325MG 1 EACH TAB PO PRN (15:39)
[2017-12-30] MEDS ORDERED: ACETAMINOPHEN TAB 325 MG TAB PO PRN (15:39)
[2017-12-30] MEDS ORDERED: ACETAMINOPHEN IV (For NPO) 1,000 MG in EMPTY BAG 1 BAG IVPB ONE (15:39)
--- NOTE | 2017-12-30 15:54 | P.HPCAR ---
History of Present Illness 82-year-old female with severe heart failure, cardiomyopathy typical atrial flutter with RVR. Difficult rate control and a history of atrial fibrillation. Chronic kidney disease stage IV She has congestive heart failure acute and chronic systolic and she was brought in. An IV line was placed , Bolton catheter was placed, IV Lasix was administered, she diuresed well and was able to lie flat comfortably, following which we to the EP lab and under conscious sedation performed an EP study and a successful ablation for typical atrial flutter with complete bidirectional block with Isthmus conduction times of greater than 190 ms in either direction with confirmed bidirectional block. She is a long cavo tricuspid isthmus. She has underlying sinus bradycardia The long-term plan is after about 4-6 weeks proceed with a biventricular pacemaker for bradycardia followed by AV junction modification for long-term management of atrial fibrillation Therefore the amiodarone is only short term for now, to see this any improvement in her LV systolic function She needs long-term anticoagulation, a PICC Saran 2.5 g twice daily, carvedilol and Lasix. She is not on RADHA inhibitor as/angiotensin receptor blockers are spironolactone on account of her chronic kidney disease Physical Exam Vitals: Vital Signs Temp Pulse Resp BP Pulse Ox 12/30/17 11:04 97.7 F 122 H 16 160/84 97 Intake and Output 12/30/17 12/30/17 12/30/17 06:59 14:59 22:59 Intake Total 717 Output Total 550 Balance 717 -550 Intake: IV 717 Output: Urine 550 Past Medical History Past Medical History: Asthma, GERD/Reflux, Hyperlipidemia, Hypertension, Pneumonia, Renal Disease Additional Past Medical History / Comment(s): see Dr Mckenna H&P, asthma yrs ago , constipation, kidney failure 08/2017, fell and fx arm 08/2017 History of Any Multi-Drug Resistant Organisms: None Reported Past Surgical History: Cholecystectomy Additional Past Surgical History / Comment(s): elisha cataracts, Past Anesthesia/Blood Transfusion Reactions: No Reported Reaction Smoking Status: Former smoker - Past Family History Mother Family Medical History: Diabetes Mellitus Father Family Medical History: Cancer Physical Examination Vital Signs Temp Pulse Resp BP Pulse Ox 12/30/17 11:04 97.7 F 122 H 16 160/84 97 Intake and Output 12/30/17 12/30/1712/30/18 06:59 14:59 22:59 Intake Total 717 Output Total 550 Balance 717 -550 Intake: IV 717 Output: Urine 550 Results 12/30/17 11:08 Cardiac Enzymes 12/30/17 Range/Units 11:08 AST 33 (14-36) U/L Lipids 12/30/17 Range/Units 11:08 Triglycerides 108 (<150) mg/dL Cholesterol 131 (<200) mg/dL HDL Cholesterol 43 (40-60) mg/dL Comprehensive Metabolic Panel 12/30/17 Range/Units 11:08 Sodium 139 (137-145) mmol/L Potassium 4.3 (3.5-5.1) mmol/L Chloride 101 (98-107) mmol/L Carbon Dioxide 31 H (22-30) mmol/L BUN 50 H (7-17) mg/dL Creatinine 1.95 H (0.52-1.04) mg/dL Glucose 101 H (74-99) mg/dL Calcium 9.3 (8.4-10.2) mg/dL AST 33 (14-36) U/L ALT 22 (9-52) U/L Alkaline Phosphatase 46 (38-126) U/L Total Protein 6.4 (6.3-8.2) g/dL Albumin 3.3 L (3.5-5.0) g/dL Current Medications Generic Name Dose Route Start Last Admin Trade Name Freq PRN Reason Stop Dose Admin Acetaminophen 650 mg 12/30/17 15:39 Tylenol Tab PO Q6HR PRN Mild Pain Hydrocodone Bitart/Acetaminophen 1 each 12/30/17 15:39 [place] 5-325 PO Q4HR PRN Moderate Pain Amiodarone HCl 400 mg 12/30/17 15:45 Cordarone PO DAILY DELROY Apixaban 2.5 mg 12/30/17 21:00 Eliquis PO BID DELROY Carvedilol 12.5 mg 12/30/17 21:00 Coreg PO BID DELROY Fenofibrate 160 mg 12/30/17 21:00 Lofibra PO HS DELROY Furosemide 40 mg 12/30/17 21:00 Lasix PO BID DELROY Lactated Ringer's 1,000 mls @ 20 mls/hr 12/30/17 06:00 Lactated Ringers IV .Q24H DELROY Acetaminophen 1,000 mg/ IV 100 mls @ 400 mls/hr 12/30/17 15:39 Solution IVPB 12/30/17 15:53 ONCE ONE Lidocaine HCl 0.1 ml 12/30/17 06:00 .Xylocaine 1% Inj (10mg/Ml) For Iv Start INTRADERMA PER PROTOCOL PRN IV Start Sodium Chloride 12 ml 12/30/17 21:00 Saline Flush IV Q12HR DELROY Intake and Output 12/30/17 12/30/17 12/30/17 06:59 14:59 22:59 Intake Total 717 Output Total 550 Balance 717 -550 Intake: IV 717 Output: Urine 550 12/30/17 11:08
[2017-12-30 17:22] VITALS: RESP 18
--- NOTE | 2017-12-30 17:27 | PCN ---
PROCEDURE NOTE Linda Jamison is an 82-year-old female patient of Dr. Cristian Anglin who has heart failure exacerbated by an atrial arrhythmias. She underwent an atrial flutter ablation today. She came in with atrial flutter into the EP lab. The right and left groins were prepped and draped as per protocol. 1% lidocaine was used for local anesthesia. Two venous sheaths were placed in the right femoral vein, one venous sheath in the left femoral vein. Via these, diagnostic and mapping ablation catheters were placed in the coronary sinus, RV, his bundle area, high right atrium, cava tricuspid isthmus. An intracardiac echo catheter was placed. Intracardiac echocardiography was performed. A 3D mapping of the cava tricuspid isthmus was performed. The tachycardia cycle length was about 151 milliseconds with concentric activation. Entrainment mapping was first performed and cava tricuspid dependency was confirmed. Next, an mapping ablation for atrial flutter was performed. The patient had a long isthmus atrial flutter that was terminated with RF ablation. Following this, the RF line from the tricuspid isthmus to the IVC was completed. Pacing was performed from the coronary sinus and the final isthmus conduction time was greater than 190 milliseconds in either direction and bidirectional block was proven. No gaps were left in line, noncapture was proven along the line. Split potentials were noted along the line and differential pacing bidirectional block was shown. Following that, sinus node recovery time was 1048 millisecond consistent with a sinus node exit block. She has underlying sick sinus syndrome. AV node Wenckebach block of 320 milliseconds, VA Wenckebach block of 310 milliseconds. AH interval of 56 milliseconds, HV interval 60 milliseconds and sinus cycle length was between 800 and 900 milliseconds. RESULT: Successful atrial flutter ablation. PLAN: New anticoagulation with apixaban and start low-dose amiodarone 400 mg daily for a month and then 100 mg daily thereafter and for management of underlying sick sinus syndrome and tachy-chiquis syndrome proceed with biventricular pacing followed by AV junction modification for management of atrial fibrillation. Patient has underlying sick sinus syndrome. MMODL / IJN: [id number] /
[2017-12-30] MEDS: LACTATED RINGERS 1,000 ML IV SCH ×2 (18:24→19:41)
[2017-12-30] MEDS: AMIODARONE 200 MG TAB PO SCH (18:32)
[2017-12-30] MEDS: CARVEDILOL 12.5 MG TAB PO SCH (18:32)
[2017-12-30] MEDS: FUROSEMIDE 40 MG TAB PO SCH (19:40)
[2017-12-30] MEDS ORDERED: FENOFIBRATE 160 MG TAB PO SCH (21:00)
[2017-12-31] MEDS: FUROSEMIDE 40 MG TAB PO SCH (08:23)
[2017-12-31] MEDS: AMIODARONE 200 MG TAB PO SCH (08:23)
[2017-12-31] MEDS: CARVEDILOL 12.5 MG TAB PO SCH (08:23)
[2017-12-31] MEDS ORDERED: APIXABAN 2.5 MG TABLET PO SCH (09:00)
[2017-12-31 11:41] VITALS: BP 100/60; PULSE 64; TEMP 97.6
--- NOTE | 2017-12-31 15:19 | P.DS ---
Providers Attending physician: Severino Mckenna Primary care physician: Cristian Anglin [facility] Course: This is a pleasant 82-year-old female patient with acute on chronic systolic congestive heart failure, exacerbated by atrial arrhythmias. She has a known history of typical atrial flutter with RVR with a difficult to control heart rate and chronic kidney disease. She was brought in yesterday for EP study and radiofrequency ablation for typical atrial flutter. She is maintaining sinus rhythm. She's on amiodarone 400 mg by mouth daily which she'll meet again on this for one month at which time she will decrease to 100 mg by mouth daily. Long-term plan is to have biventricular pacemaker implanted in about 4-6 weeks followed by an AV junction modification for long-term management of atrial fibrillation with rapid ventricular response. Amiodarone will only be used for short term. She will remain on long-term anticoagulation with Eliquis 2.5 mg by mouth twice a day. Remain on carvedilol and Lasix. She is not on an RADHA inhibitor or an angiotensin receptor molina as well as spironolactone on account of her chronic kidney disease. Upon examination today, patient is resting comfortably in bed with head of bed down and is in no acute distress. She does complain of some continued shortness of breath with activity at times. She also says she's been up to the bathroom without difficulties. She is maintaining sinus rhythm with PVCs. Plan - Discharge Summary Discharge Rx Participant: Yes New Discharge Prescriptions: New Amiodarone [Cordarone] 400 mg PO DAILY #90 tablet Amiodarone [Cordarone] 400 mg PO DAILY tab Continue Fenofibrate [Lofibra] 160 mg PO HS Apixaban [Eliquis] 2.5 mg PO BID #1 tab Carvedilol [Coreg] 12.5 mg PO BID Furosemide [Lasix] 40 mg PO BID Discharge Medication List Fenofibrate [Lofibra] 160 mg PO HS 02/02/17 [History] Apixaban [Eliquis] 2.5 mg PO BID #1 tab 09/10/17 [Rx] Carvedilol [Coreg] 12.5 mg PO BID 12/01/17 [History] Furosemide [Lasix] 40 mg PO BID 12/01/17 [History] Amiodarone [Cordarone] 400 mg PO DAILY #90 tablet 12/30/17 [Rx] Amiodarone [Cordarone] 400 mg PO DAILY tab 12/31/17 [Rx] Follow up Appointment(s)/Referral(s): Severino Mckenna MD [STAFF PHYSICIAN] - 01/13/18 10:15 am Patient Instructions/Handouts: Electrophysiology Study (DC) Activity/Diet/Wound Care/Special Instructions: Post EP study - Ablation instructions 1. Keep access sites dry for 2 days. 2. No heavy lifting or straining for 2 days. 3. Avoid bending the hips repeatedly for 2 days. 4. You may go up and down stairs slowly Call if the following is noted 1. Bleeding, increasing swelling or pain at the access sites. 2. Increasing chest discomfort, especially upon taking a deep breath. 3. Increasing shortness of breath, at rest or with exertion. 4. Undue cough / phlegm 5. Difficulty or pain while swallowing. 6. Pain or change in color in the extremities. 7. Fever, chills, rigors. 8. Increasing headache or neurologic symptoms. 9. Dizziness, fainting, palpitations New medication is amiodarone 400 mg once daily for one month only Then 100 mg daily thereafter see Dr. VC Horne in 1 week Discharge Disposition: HOME SELF-CARE
== END 2017-12-31 17:06 | disposition home or self-care (01) ==
LOC: CATHEP 09:24 → 3OBS 15:09 → CATHEP 12-31 17:06
PROVIDERS: ATTEND Internal Medicine Clinical Cardiac Electrophysiology
DX: I48.3 Typical atrial flutter (principal); I49.5 Sick sinus syndrome; I42.0 Dilated cardiomyopathy; I48.1 Persistent atrial fibrillation; I13.0 Hypertensive heart and chronic kidney disease with heart failure and stage 1 through stage 4 chronic kidney disease, or unspecified chronic kidney disease; I50.23 Acute on chronic systolic (congestive) heart failure; N18.4 Chronic kidney disease, stage 4 (severe); F17.210 Nicotine dependence, cigarettes, uncomplicated; E78.5 Hyperlipidemia, unspecified; Z79.01 Long term (current) use of anticoagulants; Z79.899 Other long term (current) drug therapy
CPT/HCPCS: 93662; 93613; 93653; 80061; 80053; 84443; C1894; C1769 ×2; C1730; C1759; C1893; C1732; J2250; J1940; J2001; J3010; J1644

== ENCOUNTER 2019-07-25 08:56 | Inpatient (IN) | payer MEDICARE ==
[2019-07-25] MEDS ORDERED: SODIUM CHLORIDE 0.9% 1,000 ML IV STA (09:25)
--- NOTE | 2019-07-25 09:28 | ED ---
General Adult HPI - General Chief complaint: Weakness Stated complaint: weakness Time Seen by Provider: 07/25/19 08:59 Source: patient, EMS, RN notes reviewed Mode of arrival: EMS Limitations: no limitations - History of Present Illness Initial comments: Patient is a pleasant 83-year-old female presenting to the emergency Department with complaints of generalized weakness. Onset of symptoms was several days ago. Patient feels generally weak. Patient is able to make it to her bathroom only because it is right next to her room. Otherwise patient is very fatigued. Patient has not been eating or drinking well for the past several days. No confusion. No slightly or weakness. No fevers. - Related Data Home Medications Medication Instructions Recorded Confirmed Fenofibrate [Lofibra] 160 mg PO HS 02/02/17 12/30/17 Carvedilol [Coreg] 12.5 mg PO BID 12/01/17 12/30/17 Furosemide [Lasix] 40 mg PO BID 12/01/17 12/30/17 Previous Rx's Medication Instructions Recorded Apixaban [Eliquis] 2.5 mg PO BID #1 tab 09/10/17 Amiodarone [Cordarone] 400 mg PO DAILY #90 tablet 12/30/17 Amiodarone [Cordarone] 400 mg PO DAILY tab 12/31/17 Allergies Allergy/AdvReac Type Severity Reaction Status Date / Time No Known Allergies Allergy Verified 12/24/17 15:28 Review of Systems ROS Statement: Those systems with pertinent positive or pertinent negative responses have been documented in the HPI. ROS Other: All systems not noted in ROS Statement are negative. Constitutional: Denies: fever Eyes: Denies: eye pain ENT: Denies: ear pain Respiratory: Denies: cough Cardiovascular: Denies: chest pain Endocrine: Reports: fatigue Gastrointestinal: Denies: abdominal pain Genitourinary: Denies: dysuria Musculoskeletal: Denies: back pain Skin: Denies: rash Neurological: Reports: as per HPI Past Medical History Past Medical History: Asthma, GERD/Reflux, Hyperlipidemia, Hypertension, Pneumonia, Renal Disease Additional Past Medical History / Comment(s): see Dr Bala Hussein&Darion, asthma yrs ago, constipation, kidney failure 08/2017, fell and fx arm 08/2017 History of Any Multi-Drug Resistant Organisms: None Reported Past Surgical History: Cholecystectomy Additional Past Surgical History / Comment(s): elisha cataracts, Past Anesthesia/Blood Transfusion Reactions: No Reported Reaction Past Psychological History: No Psychological Hx Reported Smoking Status: Unknown if ever smoked Past Alcohol Use History: None Reported Past Drug Use History: None Reported - Past Family History Mother Family Medical History: Diabetes Mellitus Father Family Medical History: Cancer General Exam Limitations: no limitations General appearance: alert, in no apparent distress Head exam: Present: normocephalic Eye exam: Present: normal appearance, PERRL Neck exam: Present: normal inspection Respiratory exam: Present: normal lung sounds bilaterally Cardiovascular Exam: Present: regular rate, normal rhythm GI/Abdominal exam: Present: soft. Absent: tenderness Extremities exam: Present: pedal edema. Absent: calf tenderness Neurological exam: Present: alert, CN II-XII intact. Absent: motor sensory deficit Expanded Motor strength exam: RUE: 5, LUE: 5, RLE: 5, LLE: 5 Psychiatric exam: Present: normal affect, normal mood Skin exam: Present: normal color Course Vital Signs 07/25/19 07/25/19 08:56 09:10 Temperature 98.2 F Pulse Rate 59 L Respiratory 18 18 Rate Blood Pressure 140/75 O2 Sat by Pulse 99 Oximetry EKG Findings - EKG Comments: EKG Findings:: Sinus rhythm at 61. PVC is present. RI 182. QRS 106. QT 46. QTc 49. Left axis. No acute ST change. Normal QRS. Medical Decision Making - Medical Decision Making Patient reevaluated and updated. Patient is anemic requiring blood transfusion. Hemoccult-positive. Dr. Anglin has been paged for admission. Dr. Amaro will be consult for GI hemorrhage. - Lab Data Result diagrams: 07/25/19 09:05 07/25/19 09:05 Lab Results 07/25/19 07/25/19 07/25/19 Range/Units 09:05 09:05 09:05 WBC 3.0 L (3.8-10.6) k/uL RBC 1.78 L (3.80-5.40) m/uL Hgb 6.3 L* (11.4-16.0) gm/dL Hct 19.3 L* (34.0-46.0) % MCV 108.4 H (80.0-100.0) fL MCH 35.3 H (25.0-35.0) pg MCHC 32.5 (31.0-37.0) g/dL RDW 16.2 H (11.5-15.5) % Plt Count 79 L (150-450) k/uL Neutrophils % (Manual) 54 % Band Neutrophils % 1 % Lymphocytes % (Manual) 25 % Monocytes % (Manual) 16 % Eosinophils % (Manual) 4 % Neutrophils # (Manual) 1.60 (1.3-7.7) k/uL Lymphocytes # (Manual) 0.75 L (1.0-4.8) k/uL Monocytes # (Manual) 0.48 (0-1.0) k/uL Eosinophils # (Manual) 0.12 (0-0.7) k/uL Nucleated RBCs 0 (0-0) /100 WBC Hypochromasia Slight Poikilocytosis (manual Present Anisocytosis Slight Macrocytosis Marked A PT 12.9 H (9.0-12.0) sec INR 1.3 H (<1.2) APTT 28.0 (22.0-30.0) sec Sodium 132 L (137-145) mmol/L Potassium 4.6 (3.5-5.1) mmol/L Chloride 99 (98-107) mmol/L Carbon Dioxide 24 (22-30) mmol/L Anion Gap 9 mmol/L BUN 107 H* (7-17) mg/dL Creatinine 3.02 H (0.52-1.04) mg/dL Est GFR (CKD-EPI)AfAm 16 (>60 ml/min/1.73 sqM) Est GFR (CKD-EPI)NonAf 14 (>60 ml/min/1.73 sqM) Glucose 110 H (74-99) mg/dL Plasma Lactic Acid Tejinder (0.7-2.0) mmol/L Calcium 8.8 (8.4-10.2) mg/dL Phosphorus 4.4 (2.5-4.5) mg/dL Magnesium 2.7 H (1.6-2.3) mg/dL Total Bilirubin 1.3 (0.2-1.3) mg/dL AST 154 H (14-36) U/L ALT 63 H (4-34) U/L Alkaline Phosphatase 45 (38-126) U/L Creatine Kinase 155 H (30-135) U/L Troponin I (0.000-0.034) ng/mL Total Protein 6.0 L (6.3-8.2) g/dL Albumin 3.0 L (3.5-5.0) g/dL TSH 2.850 (0.465-4.680) mIU/L Urine Color Urine Appearance (Clear) Urine pH (5.0-8.0) Ur Specific Moca (1.001-1.035) Urine Protein (Negative) Urine Glucose (UA) (Negative) Urine Ketones (Negative) Urine Blood (Negative) Urine Nitrite (Negative) Urine Bilirubin (Negative) Urine Urobilinogen (<2.0) mg/dL Ur Leukocyte Esterase (Negative) Stool Occult Blood (Negative) Blood Type Recheck Bld Type Recheck Status Crossmatch Spec Expiration Date 07/25/19 07/25/19 07/25/19 Range/Units 09:05 09:05 09:05 WBC (3.8-10.6) k/uL RBC (3.80-5.40) m/uL Hgb (11.4-16.0) gm/dL Hct (34.0-46.0) % MCV (80.0-100.0) fL MCH (25.0-35.0) pg MCHC (31.0-37.0) g/dL RDW (11.5-15.5) % Plt Count (150-450) k/uL Neutrophils % (Manual) % Band Neutrophils % % Lymphocytes % (Manual) % Monocytes % (Manual) % Eosinophils % (Manual) % Neutrophils # (Manual) (1.3-7.7) k/uL Lymphocytes # (Manual) (1.0-4.8) k/uL Monocytes # (Manual) (0-1.0) k/uL Eosinophils # (Manual) (0-0.7) k/uL Nucleated RBCs (0-0) /100 WBC Hypochromasia Poikilocytosis (manual Anisocytosis Macrocytosis PT (9.0-12.0) sec INR (<1.2) APTT (22.0-30.0) sec Sodium (137-145) mmol/L Potassium (3.5-5.1) mmol/L Chloride (98-107) mmol/L Carbon Dioxide (22-30) mmol/L Anion Gap mmol/L BUN (7-17) mg/dL Creatinine (0.52-1.04) mg/dL Est GFR (CKD-EPI)AfAm (>60 ml/min/1.73 sqM) Est GFR (CKD-EPI)NonAf (>60 ml/min/1.73 sqM) Glucose (74-99) mg/dL Plasma Lactic Acid Tejinder 1.0 (0.7-2.0) mmol/L Calcium (8.4-10.2) mg/dL Phosphorus (2.5-4.5) mg/dL Magnesium (1.6-2.3) mg/dL Total Bilirubin (0.2-1.3) mg/dL AST (14-36) U/L ALT (4-34) U/L Alkaline Phosphatase (38-126) U/L Creatine Kinase (30-135) U/L Troponin I 0.057 H* (0.000-0.034) ng/mL Total Protein (6.3-8.2) g/dL Albumin (3.5-5.0) g/dL TSH (0.465-4.680) mIU/L Urine Color Yellow Urine Appearance Clear (Clear) Urine pH 6.0 (5.0-8.0) Ur Specific Moca 1.012 (1.001-1.035) Urine Protein Negative (Negative) Urine Glucose (UA) Negative (Negative) Urine Ketones Negative (Negative) Urine Blood Negative (Negative) Urine Nitrite Negative (Negative) Urine Bilirubin Negative (Negative) Urine Urobilinogen <2.0 (<2.0) mg/dL Ur Leukocyte Esterase Negative (Negative) Stool Occult Blood (Negative) Blood Type Recheck Bld Type Recheck Status Crossmatch Spec Expiration Date 07/25/19 07/25/19 Range/Units 09:05 10:40 WBC (3.8-10.6) k/uL RBC (3.80-5.40) m/uL Hgb (11.4-16.0) gm/dL Hct (34.0-46.0) % MCV (80.0-100.0) fL MCH (25.0-35.0) pg MCHC (31.0-37.0) g/dL RDW (11.5-15.5) % Plt Count (150-450) k/uL Neutrophils % (Manual) % Band Neutrophils % % Lymphocytes % (Manual) % Monocytes % (Manual) % Eosinophils % (Manual) % Neutrophils # (Manual) (1.3-7.7) k/uL Lymphocytes # (Manual) (1.0-4.8) k/uL Monocytes # (Manual) (0-1.0) k/uL Eosinophils # (Manual) (0-0.7) k/uL Nucleated RBCs (0-0) /100 WBC Hypochromasia Poikilocytosis (manual Anisocytosis Macrocytosis PT (9.0-12.0) sec INR (<1.2) APTT (22.0-30.0) sec Sodium (137-145) mmol/L Potassium (3.5-5.1) mmol/L Chloride (98-107) mmol/L Carbon Dioxide (22-30) mmol/L Anion Gap mmol/L BUN (7-17) mg/dL Creatinine (0.52-1.04) mg/dL Est GFR (CKD-EPI)AfAm (>60 ml/min/1.73 sqM) Est GFR (CKD-EPI)NonAf (>60 ml/min/1.73 sqM) Glucose (74-99) mg/dL Plasma Lactic Acid Tejinder (0.7-2.0) mmol/L Calcium (8.4-10.2) mg/dL Phosphorus (2.5-4.5) mg/dL Magnesium (1.6-2.3) mg/dL Total Bilirubin (0.2-1.3) mg/dL AST (14-36) U/L ALT (4-34) U/L Alkaline Phosphatase (38-126) U/L Creatine Kinase (30-135) U/L Troponin I (0.000-0.034) ng/mL Total Protein (6.3-8.2) g/dL Albumin (3.5-5.0) g/dL TSH (0.465-4.680) mIU/L Urine Color Urine Appearance (Clear) Urine pH (5.0-8.0) Ur Specific Moca (1.001-1.035) Urine Protein (Negative) Urine Glucose (UA) (Negative) Urine Ketones (Negative) Urine Blood (Negative) Urine Nitrite (Negative) Urine Bilirubin (Negative) Urine Urobilinogen (<2.0) mg/dL Ur Leukocyte Esterase (Negative) Stool Occult Blood Positive H (Negative) Blood Type Recheck No Previous Record Bld Type Recheck Status CABO Indicated Crossmatch See Detail Spec Expiration Date 07/28/20192339 Critical Care Time Critical Care Time: Yes Total Critical Care Time: 32 Disposition Clinical Impression: GI hemorrhage Disposition: ADMITTED IP TO THIS HOSP Is patient prescribed a controlled substance at d/c from ED?: No Referrals: Cristian Anglin MD [Primary Care Provider] - 1-2 days Decision Time: 11:03
[2019-07-25 09:52] LABS: Anisocytosis Slight; Hypochromasia Slight; MCH 35.3 pg (25.0-35.0); MCHC 32.5 g/dL (31.0-37.0); MCV 108.4 fL (80.0-100.0); Macrocytosis Marked; Mean Platelet Volume 9.4; RBC 1.78 m/uL (3.80-5.40); RDW 16.2 % (11.5-15.5)
[2019-07-25 09:57] LABS: INR 1.3 (<1.2); Prothrombin Time 12.9 sec (9.0-12.0)
[2019-07-25 09:59] LABS: HCT 19.3 % (34.0-46.0)
[2019-07-25 10:01] LABS: Calcium 8.8 mg/dL (8.4-10.2); Magnesium 2.7 mg/dL (1.6-2.3); Phosphorus 4.4 mg/dL (2.5-4.5); Potassium 4.6 mmol/L (3.5-5.1); Total Bilirubin 1.3 mg/dL (0.2-1.3)
[2019-07-25 10:11] LABS: Band Neutrophils % 1 %; Eosinophils # (M) 0.12 k/uL (0-0.7); Lymphocytes # (M) 0.75 k/uL (1.0-4.8); Monocytes # (M) 0.48 k/uL (0-1.0); Neutrophils % (M) 54 %; Nucleated Red Blood Cells 0 /100 WBC (0-0); Total Cells Counted 100
--- NOTE | 2019-07-25 10:11 | XR ---
EXAMINATION TYPE: XR chest 1V portable DATE OF EXAM: 07/25/2019 COMPARISON: 09/06/2017 HISTORY: Weakness TECHNIQUE: Single frontal view of the chest is obtained. FINDINGS: There is no focal air space opacity, pleural effusion, or pneumothorax seen. The cardiac silhouette size is within normal limits. The osseous structures are intact. Heart is enlarged and t here is diffuse osteopenia. Chronic appearing deformity the right humerus. Arthropathy of the shoulde rs. No overt failure. Mildly coarsened interstitium stable from prior exam. IMPRESSION: Cardiomegaly correlate for underlying COPD. Correlate for mild chronic interstitial lung disease.
[2019-07-25 10:13] LABS: Platelet Count 79 k/uL (150-450); Poikilocytosis (M) Present
[2019-07-25 10:19] LABS: HGB 6.3 gm/dL (11.4-16.0)
[2019-07-25] MEDS ORDERED: PANTOPRAZOLE 40 MG/10 ML VIAL IVP STA (10:22)
--- NOTE | 2019-07-25 10:42 | CT ---
EXAMINATION TYPE: CT brain wo con DATE OF EXAM: 07/25/2019 COMPARISON: 08/25/2017 HISTORY: weakness CT DLP: 1099.4 mGycm Automated exposure control for dose reduction was used. FINDINGS: Moderate generalized degenerative change with nonspecific low-attenuation the white matter. Most like ly in the basis of remote ischemia. Small areas of focal low-attenuation in the basal ganglia nonspec ific but stable and most suggestive of remote lacunar infarct. No acute hemorrhage, mass effect or midline shift. Calvarium intact. Changes of mild chronic sinusitis. Hyperostosis of the frontal calvarium. Dural jhonathan cifications noted. IMPRESSION: DEGENERATIVE AND NONSPECIFIC WHITE MATTER CHANGES MOST TYPICAL OF REMOTE ISCHEMIA.
[2019-07-25 10:53] LABS: Appearance,Urine Clear (Clear); Bilirubin,Urine Negative (Negative); Blood,Urine Negative (Negative); Color,Urine Yellow; Glucose,Urine (UA) Negative (Negative); Ketones,Urine Negative (Negative); Leukocyte Esterase,Urine Negative (Negative); Nitrite,Urine Negative (Negative); Protein,Urine Negative (Negative); Specific Gravity,Urine 1.012 (1.001-1.035); Urobilinogen,Urine <2.0 mg/dL (<2.0)
[2019-07-25] MEDS ORDERED: NALOXONE 0.4 MG/ML 1 ML VIAL IV PRN (11:03)
[2019-07-25] MEDS: SODIUM CHLORIDE 0.9% 1,000 ML IV SCH (12:56)
--- NOTE | 2019-07-25 14:26 | HP ---
HISTORY AND PHYSICAL DATE OF SERVICE: 07/25/2019 CHIEF COMPLAINTS: Weakness and anemia. HISTORY OF PRESENT ILLNESS: This is an 83-year-old gentleman with a past medical history of multiple medical problems including asthma, GERD, hypertension, hyperlipidemia, history of asthma, cholecystomy being followed by Dr. Cristian Anglin in the outpatient setting was admitted with weakness, which has been ongoing for several days. The patient apparently was at home without any contact with any sick individuals recently for the last couple of months, according to her. The patient is extremely weak and the patient was also noted some black tarry stools and patient came to [facility]. The patient is taking Eliquis and the hemoglobin is found to be 6.3. Other lab abnormalities, creatinine is also found to be 3.02. Patient also had a baseline kidney disease, troponin 0.057 and the patient admitted for further evaluation and GI evaluation in progress. There is no history of fever, chills or rigors. No history of shortness of breath. No hematochezia or melena at this time. PAST MEDICAL HISTORY: History of asthma, GERD, hypertension, hyperlipidemia, history of pneumonia, history of cholecystectomy. MEDICATIONS: Prior to admission: 1. Norvasc 2.5 mg q.h.s. 2. Lasix 40 mg p.o. b.i.d. 3. Lofibra 160 mg q.h.s. 4. Coreg 6.25 mg b.i.d. 5. Eliquis 2.5 mg b.i.d. 6. Cordarone 100 mg daily. ALLERGIES: None. FAMILY HISTORY: History of diabetes in the family. SOCIAL HISTORY: No history of smoking, no history of alcohol. REVIEW OF SYSTEMS: ENT: Diminished hearing, diminished vision. CARDIOVASCULAR SYSTEM: As mentioned earlier. RESPIRATION: As mentioned earlier. GI: As mentioned earlier. : No dysuria. NERVOUS SYSTEM: No numbness, otherwise weakness as mentioned earlier. ALLERGY/IMMUNOLOGY: No asthma or hay fever. MUSCULOSKELETAL: As mentioned earlier. HEMATOLOGY/ONCOLOGY: As mentioned earlier. ENDOCRINE: No history of diabetes or hypothyroidism. CONSTITUTIONAL: As mentioned earlier. DERMATOLOGY: Negative. RHEUMATOLOGY: Negative. PSYCHIATRY: As mentioned earlier. PHYSICAL EXAMINATION: Alert and oriented x3. Pulse 62, blood pressure 119/60, respirations 16, temperature 97.5, pulse ox 98% on room air. HEENT: Conjunctivae are pale. Oral mucosa moist/ NECK: No jugular venous distention. No lymph node enlargement. CARDIOVASCULAR SYSTEM: S1, S2, muffled, no S3, S4. RESPIRATION: Breath sounds diminished at the bases. No wheeze, no rhonchi. No crackles. ABDOMEN: Soft, mild diffuse distention, obese, nontender. No mass palpable. LEGS: No edema, no swelling. NERVOUS SYSTEM: Higher functions as mentioned earlier. Moves all 4 limbs, no focal motor or sensory deficits. LYMPHATICS: No lymph node enlargement in the neck or axillae. SKIN: No ulcer, no rash, no bleeding. JOINTS: No active deforming arthropathy. LABS: WBC 3, hemoglobin 6.3, platelets are 79. INR is 1.3. Sodium 132 and creatinine 3.02. Magnesium is 2.5, glucose 110 and AST is 154, ALT 63, creatine kinase 155. Troponin 0.057. Albumin is 3. Stool OB is positive. ASSESSMENT: 1. Severe weakness and anemia for evaluation, rule out possibly upper gastrointestinal bleeding and acute blood loss anemia. 2. Mild pancytopenia of undetermined etiology. 3. Hyponatremia. 4. Increased creatinine with acute renal failure. 5. Possible chronic kidney stage III as baseline. 6. Increased AST, ALT, possibly hepatitis of undetermined etiology. 7. Troponin 0.05 indeterminate. 8. History of asthma. 9. History of gastroesophageal reflux disease. 10.Hypertension. 11.Hyperlipidemia. 12.History of pneumonia. 13.History of renal disease. 14.History of degenerative joint disease. 15.History of cholecystectomy. 16.FULL CODE. RECOMMENDATION: In this 83-year-old woman who presented with multiple complex medical issues, will monitor the patient closely. Continue with the current management and symptomatic treatment. Will initiate transfusion. Monitor hemoglobin closely. Otherwise, closely follow with Gastroenterology. Repeat labs. Follow the creatinine closely, nephrology consultation. Otherwise hold of nephrotoxic medication, Protonix b.i.d. Will hold off the Eliquis and will consult Cardiology as well as following the patient in the outpatient setting. Otherwise see orders for details. Prognosis guarded. Discussed with the patient who understands. Further recommendations to follow. A copy of this will be forwarded to Dr. Cristian Anglni who is the primary physician. MMODL / IJN: [id number] /
--- NOTE | 2019-07-25 17:05 | CONS ---
CONSULTATION DATE OF SERVICE: 07/25/2019 REASON FOR CONSULTATION: Severe symptomatic anemia and performed weakness. HISTORY OF PRESENT ILLNESS: The patient is an 83-year-old pleasant white female with history of hypertension, hyperlipidemia, and asthma, who was admitted to the hospital because she came into the emergency room with progressive weakness for the last several weeks duration. Her weakness has been progressively getting worse, associated with fatigue and she started having some dark-colored stools for the last 2 weeks' duration. Patient has history of atrial fibrillation and has been on Eliquis and the last dose was last night. When she came into the emergency room, she was noted to have a hemoglobin of 6.8 g/dL and currently receiving a unit of blood transfusion. She also has history of chronic kidney disease. She denies any recent NSAID use. No prior history of peptic ulcer disease. She in fact never had EGD and colonoscopy in the past. Since being in the hospital, she is feeling somewhat well. She denies any abdominal pain. She reports no nausea, vomiting. PAST MEDICAL HISTORY: Significant for hypertension, hyperlipidemia, atrial fibrillation on Eliquis, history of asthma, gastroesophageal reflux disease. PAST SURGICAL HISTORY: Cholecystectomy. MEDICATIONS: At home include Norvasc, Lasix Eliquis, Cordarone, Coreg, Lofibra. ALLERGIES: None. SOCIAL HISTORY: No smoking. No alcohol use. FAMILY HISTORY: Mother has diabetes mellitus. REVIEW OF SYSTEMS: CARDIOPULMONARY: She denies any chest pain, shortness of breath. : No dysuria or hematuria. MUSCULOSKELETAL: Unremarkable. SKIN: Unremarkable. ENDOCRINE: Unremarkable. PSYCHIATRIC: Unremarkable. NEUROLOGY: Unremarkable. ENT/VISION: Unremarkable. CONSTITUTIONAL: Progressive fatigue, weakness. No weight loss. No fever, chills, night sweats. PHYSICAL EXAMINATION: She appears comfortable, in no apparent distress. VITAL SIGNS: Stable. Blood pressure is 133/82, pulse rate 86 per minute and afebrile. HEENT: Examination unremarkable, conjunctivae are pale, sclerae nonicteric. Oral cavity no lesions. NECK: No JVD or lymph node enlargement. CHEST: Clear to auscultation. HEART: Regular rate and rhythm. ABDOMEN: Soft, bowel sounds are positive. No organomegaly. EXTREMITIES: No pedal edema. SKIN: No rashes. NEURO: She is alert and oriented x3. No focal deficits. LABS: Done today, WBC 3, hemoglobin 6.3, platelets 79,000, MCV 108, PTT, INR 1.3, BUN 107, creatinine 3.02, AST and ALT are 154 and 63 respectively. T-bilirubin 1.3, and alkaline phosphatase 45. Stool occult blood was positive. IMPRESSION: 1. This is a patient who presents to the hospital with extreme fatigue and severe symptomatic anemia with a hemoglobin of 6.3, and Hemoccult-positive stool and has been having black tarry stools for the last 2 weeks' duration. Most likely dealing with a gastrointestinal source of bleeding, possibly upper, but colonic etiology cannot be excluded. Patient never had EGD or colonoscopy in the past. No prior history of peptic ulcer disease or recent NSAID use. She is receiving one unit of blood transfusion currently. 2. Mild pancytopenia, rule out underlying bone marrow pathology. 3. Elevated serum transaminases. 4. Atrial fibrillation on Eliquis, currently on hold, last dose was last night. 5. Chronic kidney disease. RECOMMENDATIONS: 1. Hold Eliquis. 2. Clear liquid diet. 3. I had a lengthy discussion with the patient regarding further GI workup including an EGD and colonoscopy and we will schedule this for morning. In the meantime, because of the extreme amount of fatigue and ongoing nausea, will obtain COVID-19 test. 4. Repeat labs in the morning. 5. Continue Protonix 40 mg daily and will follow with you closely. Thank you for this consultation. MARCELLO / ESTEPHANIA: [id number] /
[2019-07-25] MEDS ORDERED: amLODIPine 2.5 MG TAB PO SCH (18:00)
[2019-07-25] MEDS: CARVEDILOL 6.25 MG TAB PO SCH (18:25)
[2019-07-25 20:23] LABS: Anisocytosis Slight; HCT 22.8 % (34.0-46.0); HGB 7.3 gm/dL (11.4-16.0); Hypochromasia Slight; MCH 33.7 pg (25.0-35.0); MCHC 32.2 g/dL (31.0-37.0); MCV 104.6 fL (80.0-100.0); Macrocytosis Marked; Mean Platelet Volume 9.4; Platelet Count 69 k/uL (150-450); Poikilocytosis Slight; RBC 2.18 m/uL (3.80-5.40); WBC 3.7 k/uL (3.8-10.6)
[2019-07-25 21:50] LABS: Anisocytosis (M) Present; Band Neutrophils % 3 %; Eosinophils # (M) 0.04 k/uL (0-0.7); Lymphocytes # (M) 1.15 k/uL (1.0-4.8); Monocytes # (M) 0.44 k/uL (0-1.0); Neutrophils % (M) 53 %; Nucleated Red Blood Cells 0 /100 WBC (0-0); Polychromasia Present; Total Cells Counted 100
[2019-07-26] MEDS: SODIUM CHLORIDE 0.9% 1,000 ML IV SCH (00:40)
[2019-07-26] MEDS: CARVEDILOL 6.25 MG TAB PO SCH ×2 (06:36→16:59)
[2019-07-26 07:28] LABS: Calcium 8.4 mg/dL (8.4-10.2); Potassium 4.3 mmol/L (3.5-5.1)
[2019-07-26 07:52] LABS: Anisocytosis Moderate; HCT 20.4 % (34.0-46.0); Hypochromasia Slight; MCH 34.1 pg (25.0-35.0); MCHC 32.7 g/dL (31.0-37.0); MCV 104.2 fL (80.0-100.0); Macrocytosis Marked; Mean Platelet Volume 9.8; Poikilocytosis Moderate; RBC 1.96 m/uL (3.80-5.40); RDW 20.3 % (11.5-15.5)
[2019-07-26 07:58] LABS: HGB 6.7 gm/dL (11.4-16.0); Platelet Count 63 k/uL (150-450)
[2019-07-26] MEDS: POLYETHYLENE GLYCOL 3350 17 GM POWD.PACK PO SCH (08:31)
[2019-07-26] MEDS: PANTOPRAZOLE 40 MG/10 ML VIAL IV SCH (08:33)
[2019-07-26] MEDS: AMIODARONE 100 MG TAB PO SCH (09:45)
[2019-07-26] MEDS ORDERED: guaiFENesin-DM 100-10MG/5ML 10 ML CUP PO PRN (10:45)
[2019-07-26] MEDS ORDERED: ACETAMINOPHEN TAB 325 MG TAB PO PRN (10:45)
[2019-07-26 10:51] LABS: Band Neutrophils % 2 %; Eosinophils # (M) 0.03 k/uL (0-0.7); Lymphocytes # (M) 0.54 k/uL (1.0-4.8); Monocytes # (M) 0.42 k/uL (0-1.0); Neutrophils % (M) 65 %; Nucleated Red Blood Cells 0 /100 WBC (0-0); Total Cells Counted 100
--- NOTE | 2019-07-26 11:27 | P.PN ---
Subjective 83-year-old pleasant female on Eliquis most probably for atrial fibrillation is admitted for generalized weakness found to have upper GI bleedthe patient is on tonics and Eliquis is on hold. Patient blood pressure is local discontinue Norvasc patient does have congestive heart failure was receiving IV fluids which were discontinued patient will be given a dose of Lasix after 2 units of blood transfusion nephrology is following the patient for chronic kidney disease stage IV patient baseline creatinine last time was 1.9 presently around 2.5 may have a competent of acute renal failure. No dark stools since her hospitalization. Patient hemoglobin is at 6.3 will receive 1 more unit of blood transfusion patient may need more than that.patient is negative for covid 19 Constitutional: Denied any fatigue denied any fever. Cardio vascular: denied any chest pain, palpitations Gastrointestinal denied any nausea vomiting Pulmonary: Denied any shortness of breath patient does have significant dry cough no evidence of pneumonia. Neurologic denied any new focal deficits All inpatient medications were reviewed and appropriate changes in these medications as dictated in the interval history and assessment and plan. Objective - Vital Signs Vital signs: Vital Signs Temp 97.6 F 07/26/19 08:00 Pulse 52 L 07/26/19 08:00 Resp 16 07/26/19 08:00 BP 104/73 07/26/19 08:00 Pulse Ox 98 07/26/19 08:00 Intake & Output 07/25/19 07/26/19 07/26/19 18:59 06:59 18:59 Intake Total 1280 480 Output Total 300 Balance 1280 180 Weight 74.843 kg 77.8 kg Intake: Intake, IV Titration 350 Amount Sodium Chloride 0.9% 1, 350 000 ml @ 75 mls/hr IV . [id number] [facility] Rx#:[id number] Oral 620 480 Blood Product 310 Rc As-3 Unit 310 [id number] Output: Urine 300 Other: Voiding Method Bedside Commode Bedside Commode # Voids 1 1 - Exam PHYSICAL EXAMINATION: GENERAL: The patient is alert and oriented x3, not in any acute distress. Well developed, well nourished. HEENT: Pupils are round and equally reacting to light. EOMI. No scleral icterus. No conjunctival pallor. Normocephalic, atraumatic. No pharyngeal erythema. No thyromegaly. CARDIOVASCULAR: S1 and S2 present. No murmurs, rubs, or gallops. PULMONARY: Chest is clear to auscultation, no wheezing or crackles. ABDOMEN: Soft, nontender, nondistended, normoactive bowel sounds. No palpable organomegaly. MUSCULOSKELETAL: No joint swelling or deformity. EXTREMITIES: No cyanosis, clubbing, or pedal edema. NEUROLOGICAL: Gross neurological examination did not reveal any focal deficits. SKIN: No rashes. Note: Because of COVID 19 isolation, some of the history and physical exam findings or indirect and obtained from nursing staff, and other physician examinations to avoid unnecessary contact with the patient. - Labs CBC & Chem 7: 07/26/19 05:51 07/26/19 05:51 Labs: Abnormal Lab Results - Last 24 Hours (Table) 07/25/19 07/25/19 07/26/19 Range/Units 10:40 19:31 05:51 WBC 3.7 L (3.8-10.6) k/uL RBC 2.18 L (3.80-5.40) m/uL Hgb 7.3 L (11.4-16.0) gm/dL Hct 22.8 L (34.0-46.0) % MCV 104.6 H (80.0-100.0) fL RDW 20.0 H (11.5-15.5) % Plt Count 69 L (150-450) k/uL Lymphocytes # (Manual) (1.0-4.8) k/uL Macrocytosis Marked A Sodium 133 L (137-145) mmol/L BUN 99 H (7-17) mg/dL Creatinine 2.84 H (0.52-1.04) mg/dL Crossmatch See Detail 07/26/19 Range/Units 05:51 WBC 3.0 L (3.8-10.6) k/uL RBC 1.96 L (3.80-5.40) m/uL Hgb 6.7 L* (11.4-16.0) gm/dL Hct 20.4 L (34.0-46.0) % MCV 104.2 H (80.0-100.0) fL RDW 20.3 H (11.5-15.5) % Plt Count 63 L (150-450) k/uL Lymphocytes # (Manual) 0.54 L (1.0-4.8) k/uL Macrocytosis Marked A Sodium (137-145) mmol/L BUN (7-17) mg/dL Creatinine (0.52-1.04) mg/dL Crossmatch Assessment and Plan Plan: -acute blood loss anemia from upper GI bleed, patient is receiving PRBC transfusion possibility of upper GI endoscopy area -pancytopenia and macrocytic anemia: Will obtain B12 and folic acid levels -Hyponatremia hypovolemic hyponatremia from GI bleed. We'll receiving blood transfusion hyponatremia is expected to improve -Congestive heart failure chronic systolic dysfunction previous EF is around 40% repeat echocardiogram is being obtained if maybe even less than that now patient is not in acute exacerbation appears to be actually hypovolemic, patient's IV fluids were discontinued and patient will be given as needed Lasix after blood transfusion we will hold off on her home dose of Lasix -renal failure on chronic kidney disease stage IV chronic kidney disease is probably secondary to hypertensive nephrosclerosis acute renal failure secondary to prerenal azotemia from GI bleed. nonspecific elevation of liver enzymes -Mild troponin elevation no evidence of acute myocardial infarction at this time. -Hypertension hold off on amlodipine because of hypotension -Hyperlipidemia
[2019-07-26] MEDS ORDERED: FUROSEMIDE 10 MG/ML 4 ML VIAL IV STA (11:54)
--- NOTE | 2019-07-26 11:56 | P.NPCON ---
History of Present Illness - Reason for Consult hyponatremia - History of Present Illness Reason for consultation: Acute kidney injury on chronic kidney disease History of present illness: Patient is a 83-year-old female seen in renal consultation for acute kidney injury on chronic kidney disease. Patient has chronic kidney disease stage III with baseline creatinine near 2. She follows with me outpatient. Etiology is cardiorenal syndrome. UA has been benign in the past. Creatinine on admission was 3.02 and is 2.84 today. Patient presented to the hospital with generalized weakness. Her hemoglobin was noted to be low at 6.3 for which she has received blood transfusion. Hemoglobin was again low this morning at 6.7 and she will be receiving another unit of blood. She was having black stools prior to admission. She has been evaluated by GI and is scheduled for EGD and colonoscopy tomorrow. Oral intake is fair. No vomiting or diarrhea. No chest pain or shortness of breath. She has history of systolic CHF with ejection fraction of 40-45% from echocardiogram done in August 2017. She was also noted to have moderate tricuspid and mitral regurgitation as well as pulmonary hypertension. Cardiology seeing her as well and she will be getting another echocardiogram done. She's currently receiving IV fluids. She has been voiding. No hematuria or dysuria. Denies use of nonsteroidals. Vital signs are stable. General: The patient appeared well nourished and normally developed. HEENT: Head exam is unremarkable. Neck is without jugular venous distension. LUNGS: Lungs are clear to auscultation and percussion. Breath sounds decreased. HEART: Rate and Rhythm are regular. First and second heart sounds normal. No murmurs, rubs or gallops. ABDOMEN: Abdominal exam reveals normal bowel sounds. Non-tender and non- distended. EXTREMITITES: 1+ edema. Past Medical History Past Medical History: Asthma, GERD/Reflux, Hyperlipidemia, Hypertension, P neumonia, Renal Disease Additional Past Medical History / Comment(s): asthma yrs ago, constipation, kidney failure 08/2017, fell and fx arm 08/2017 History of Any Multi-Drug Resistant Organisms: None Reported Past Surgical History: Cholecystectomy Additional Past Surgical History / Comment(s): elisha cataracts, Past Anesthesia/Blood Transfusion Reactions: No Reported Reaction Past Psychological History: No Psychological Hx Reported Additional Psychological History / Comment(s): pt's .pt has occasional bouts of sadness, but no thoughs of wanting to harm self. pt lives in a single level home that has 4 porch steps. no home care servies recieved. uses a cane when up. Smoking Status: Former smoker Past Alcohol Use History: None Reported Additional Past Alcohol Use History / Comment(s): started smoking at age 22, smoked 1 1/2 packs per wek. quit 1977 Past Drug Use History: None Reported - Past Family History Mother Family Medical History: Diabetes Mellitus Father Family Medical History: Cancer Medications and Allergies Home Medications Medication Instructions Recorded Confirmed Type Fenofibrate [Lofibra] 160 mg PO HS@1800 02/02/17 07/25/19 History Furosemide [Lasix] 40 mg PO BID@0800,1800 12/01/17 07/25/19 History Amiodarone [Cordarone] 100 mg PO DAILY@0800 07/25/19 07/25/19 History Apixaban [Eliquis] 2.5 mg PO BID@0800,1800 07/25/19 07/25/19 History Carvedilol [Coreg] 6.25 mg PO BID@0800,1800 07/25/19 07/25/19 History amLODIPine [Norvasc] 2.5 mg PO HS@1800 07/25/19 07/25/19 History Allergies Allergy/AdvReac Type Severity Reaction Status Date / Time No Known Allergies Allergy Verified 07/25/19 11:13 Physical Exam Vitals: Vital Signs Temp Pulse Pulse Resp BP BP Pulse Ox 07/26/19 11:33 53 L 18 125/56 97 07/26/19 08:00 97.6 F 52 L 16 104/73 98 07/26/19 03:52 97.5 F L 56 L 16 129/56 98 07/25/19 23:29 97.5 F L 52 L 17 120/58 100 07/25/19 20:00 97.5 F L 52 L 17 100/55 100 07/25/19 18:07 97.3 F L 66 20 116/66 95 07/25/19 16:00 97.4 F L 65 20 113/67 95 07/25/19 15:33 96.8 F L 53 L 18 124/54 96 07/25/19 15:03 97.0 F L 66 18 124/72 95 07/25/19 14:53 97.1 F L 56 L 18 133/53 96 07/25/19 12:00 97.5 F L 62 16 119/62 98 Intake and Output 07/25/19 07/26/19 07/26/19 22:59 06:59 14:59 Intake Total 860 480 Output Total 300 Balance 860 180 Intake: Intake, IV Titration 350 Amount Sodium Chloride 0.9% 1, 350 000 ml @ 75 mls/hr IV . [id number] Rx#:[id number] Oral 200 480 Blood Product 310 Rc As-3 Unit 310 [id number] Output: Urine 300 Other: Voiding Method Bedside Commode Bedside Commode # Voids 1 1 Weight 74.843 kg 77.8 kg Results - Lab Results Most recent lab results Calcium 8.4 mg/dL (8.4-10.2) 07/26/19 05:51 Phosphorus 4.4 mg/dL (2.5-4.5) 07/25/19 09:05 Magnesium 2.7 mg/dL (1.6-2.3) H 07/25/19 09:05 07/26/19 05:51 07/26/19 05:51 Assessment and Plan Plan: Assessment: 1. Acute kidney injury secondary to ATN secondary to acute blood loss anemia and diuresis. Creatinine was 3.02 admission and is 2.84 today. UA benign. 2. Chronic kidney disease stage III with baseline creatinine near 2 secondary to cardiorenal syndrome. 3. Acute blood loss anemia secondary to GI bleed status post blood transfusion. Scheduled for EGD and colonoscopy tomorrow. 4. Mild volume overload. 5. Chronic systolic CHF with ejection fraction of 40-45%. Plan: Hep-Lock IV fluids. Lasix 40 mg IV once after blood transfusion. Add Aranesp. Check iron studies. Follow-up echocardiogram. Repeat electrolytes in the morning. Thank you for the conversation. I will continue to follow the patient with you during her hospital stay.
--- NOTE | 2019-07-26 12:41 | CONS ---
CONSULTATION REASON FOR CONSULTATION: GI bleeding on Eliquis. Mrs. Linda Jamison is an 83-year-old lady with a known history of atrial fibrillation and flutter. In 2017, she underwent flutter ablation. Since then, she has been on Eliquis 2.5 mg b.i.d. She came into the hospital complaining of weakness, lack of energy, fatigue, dizziness and lightheadedness. After arrival, she was found to have a hemoglobin that was quite low. She also complained of some black tarry stool. Her hemoglobin is low. She has been taking her Eliquis as prescribed 2.5 mg b.i.d. She actually is in a sinus rhythm at the time. She also complains of lower extremity edema and some lethargy. She denies any chest discomfort or shortness of breath. PAST MEDICAL HISTORY: 1. History of atrial flutter, status post ablation. 2. Hypertension. 3. Hyperlipidemia. 4. History of mitral regurgitation and ejection fraction in the 40% to 45% range based on an echocardiogram from 2018 with moderate mitral regurgitation and moderate pulmonary hypertension. 5. She is status post bilateral cataract surgery. MEDICATIONS: Medications at home include Coreg 12.5 mg b.i.d., amiodarone 100 mg daily, Lasix 40 mg b.i.d. apixaban 2.5 mg b.i.d. and fenofibrate. ALLERGIES: None. REVIEW OF SYSTEMS: Remarkable for lethargy, weakness, fatigue, black tarry stool. No hematemesis or cough with fever or chills. LABORATORY DATA: Suggests that the creatinine is elevated at 3.02, her usual creatinine is about 1.5 to 2.0. Her hemoglobin was down to 6.3 and she has received 1 unit of packed RBCs. Her initial troponin was 0.05, which may not represent any myocardial injury. PHYSICAL EXAMINATION: On examination, blood pressure is 128/70, pulse rate is 60 per minute, sinus with PVCs. HEENT: Unremarkable. Fundus was not examined by me. Neck is supple. There is JVD of 1 cm. No carotid bruit. Heart exam reveals S1, S2 heard normally. There is a short systolic murmur, preserved second heart sound. Lungs revealed a diminished air entry. Abdomen is soft. Lower extremities reveal 1+ edema diminished pulses. Central nervous system is normal. IMPRESSION: 1. Gastrointestinal bleeding, probably precipitated by Eliquis 2.5 mg b.i.d. 2. History of hypertension. 3. Hyperlipidemia. 4. History of atrial flutter with previous ablation in December. RECOMMENDATION: I am recommending that we check additional troponin to make sure that this is flat and does not show any rise. I am recommending that she should not be on anticoagulation anymore and I explained this to the patient and suggested that the risk of bleeding is much higher than the risk of stroke under the circumstances because she had life- threatening bleeding and is requiring blood transfusion. I will obtain echocardiogram to assess LV function. She will hopefully have an endoscopy either today or tomorrow. Discussed my thoughts in detail with the patient. Thank you very much for the consult. MARCELLO / ESTEPHANIA: [id number] /
[2019-07-26] MEDS ORDERED: DARBEPOETIN ALFA 40 MCG/0.4 ML SYRINGE SQ SCH (14:00)
[2019-07-26] MEDS ORDERED: guaiFENesin SYRUP 100MG/5ML 200 MG/10 ML CUP ONE (14:34)
[2019-07-26] MEDS ORDERED: LACTATED RINGERS 1,000 ML IV SCH (15:15)
[2019-07-26] MEDS ORDERED: PEG 3350-NA SULF,BICARB,CL/KCL 4,000 ML BOTTLE PO ONE (16:00)
--- NOTE | 2019-07-26 16:12 | ECHOF ---
Referral Reason:LV function MEASUREMENTS -------- HEIGHT: 165.1 cm WEIGHT: 77.6 kg BP: RVIDd: 3.7 cm (< 3.3) IVSd: 1.0 cm (0.6 - 1.1) LVIDd: 4.6 cm (3.9 - 5.3) LVPWd: 1.2 cm (0.6 - 1.1) IVSs: 1.2 cm LVIDs: 3.2 cm LVPWs: 1.8 cm LAESV Index (A-L): 88.61 ml/m IVSd: 1.0 cm (0.6 - 1.1) LVIDd: 5.6 cm (3.9 - 5.3) LVPWd: 1.1 cm (0.6 - 1.1) IVSs: 1.5 cm LVIDs: 3.8 cm LVPWs: 1.8 cm EDV(Teich): 156 ml ESV(Teich): 60 ml EF(Teich): 61 % %FS: 33 % SV(Teich): 95 ml Ao Diam: 2.6 cm (2.0 - 3.7) AV Cusp: 2.1 cm (1.5 - 2.6) MV EXCURSION: 18.048 mm (> 18.000) MV EF SLOPE: 37 mm/s (70 - 150) EPSS: 1.4 cm MV E Aron: 1.28 m/s MV DecT: 296 ms MV A Aron: 0.98 m/s MV E/A Ratio: 1.31 RAP: 20.00 mmHg RVSP: 78.57 mmHg FINDINGS -------- Resting bradycardia (HR<60bpm). This was a technically adequate study. The left ventricular size is normal. There is borderline concentric left ventricular hypertrophy. Overall left ventricular systolic function is low-normal with, an EF between 50 - 55 %. Left ventr icular fillimg pressure cannot be estimated due to severe mitral regurgitation. The right ventricle is mild to moderately enlarged. LA is severely dilated >40 ml/m2 The right atrium is moderately enlarged. Interatrial and interventricular septum intact. There is mild aortic valve sclerosis. There is mild aortic regurgitation. Moderate mitral annular calcification present. Severe mitral regurgitation is present. Severe tricuspid regurgitation present. There is severe pulmonary hypertension. The right ventric ular systolic pressure, as measured by Doppler, is 78.57mmHg. Moderate pulmonic regurgitation. The aortic root size is normal. The inferior vena cava is dilated with poor inspiratory collapse which is consistent with estimated r ight atrial pressure of 20 mmHg. There is no pericardial effusion. CONCLUSIONS -------- 1. There is borderline concentric left ventricular hypertrophy. 2. Overall left ventricular systolic function is low-normal with, an EF between 50 - 55 %. 3. Left ventricular fillimg pressure cannot be estimated due to severe mitral regurgitation. 4. The right ventricle is mild to moderately enlarged. 5. LA is severely dilated >40 ml/m2 6. The right atrium is moderately enlarged. 7. There is mild aortic valve sclerosis. 8. There is mild aortic regurgitation. 9. Moderate mitral annular calcification present. 10. Severe mitral regurgitation is present. 11. Severe tricuspid regurgitation present. 12. There is severe pulmonary hypertension. 13. Moderate pulmonic regurgitation. 14. The inferior vena cava is dilated with poor inspiratory collapse which is consistent with estimat ed right atrial pressure of 20 mmHg. REFRIGERATOR CABINETMAKER: Angela Reyna RDCS
--- NOTE | 2019-07-26 18:02 | PN ---
PROGRESS NOTE DATE OF DICTATION: 07/26/2019 This patient is an 83-year-old pleasant white female admitted to the hospital with severe symptomatic anemia and hemoglobin of 6.8 g/dL. She received one unit of blood transfusion yesterday. Her hemoglobin was down to 6.7 this morning and she is receiving a second unit of blood transfusion. In the meantime, she denies any symptoms. She reports no nausea or vomiting. No abdominal pain. She did have some black tarry stools for the last 2 weeks' duration. She has been on Eliquis, which has been on hold for the last 2 days. PHYSICAL EXAMINATION: She appears comfortable. No apparent distress. Vital signs are stable. Blood pressure 137/85, pulse rate 70, temperature 97.5. HEENT examination unremarkable. Conjunctivae pink. Sclerae anicteric. Oral cavity no lesions. NECK: No JVD or lymph node enlargement. CHEST: Clear to auscultation. HEART: Regular rate and rhythm. ABDOMEN: Soft. Bowel sounds are positive. No organomegaly. EXTREMITIES: No pedal edema. SKIN: No rashes. NEUROLOGIC: Alert and oriented x3. No focal deficits. LABS: WBC 3, hemoglobin 6.7, platelets 63. BUN and creatinine 99 and 2.84, respectively. IMPRESSION: 1. Severe symptomatic anemia with a hemoglobin of 6.7, requiring two units of blood transfusion. Patient clinically with no active bleeding, but she did say that she has been having some black tarry stools for the last 2 weeks' duration. No prior history of EGD or colonoscopy in the past. After one unit of blood transfusion, hemoglobin was 6.7 and she is currently receiving a second unit of blood transfusion. 2. Atrial fibrillation, on Eliquis, currently on hold. 3. Elevated BUN and creatinine; possible chronic kidney disease. Part of the elevation of BUN could be explained on the basis of upper GI source of bleeding. RECOMMENDATIONS: 1. Agree with blood transfusion. 2. Continue with a clear liquid diet. 3. Proceed with an EGD and colonoscopy tomorrow. Discussed with the patient risks, benefits and complications of the procedures, and she is agreeable to it. Thank you for this consultation. MMODL / IJN: [id number] /
[2019-07-26 18:41] LABS: Folate, Serum 10.6 ng/mL
[2019-07-26 19:16] LABS: Anisocytosis Moderate; HCT 25.6 % (34.0-46.0); MCH 33.6 pg (25.0-35.0); MCHC 33.4 g/dL (31.0-37.0); MCV 100.5 fL (80.0-100.0); Macrocytosis Moderate; Mean Platelet Volume 9.6; Poikilocytosis Moderate; RBC 2.55 m/uL (3.80-5.40); RDW 20.5 % (11.5-15.5); WBC 4.4 k/uL (3.8-10.6)
[2019-07-26 19:17] LABS: HGB 8.6 gm/dL (11.4-16.0); Platelet Count 66 k/uL (150-450)
[2019-07-26 23:25] LABS: % Iron Saturation 9.37 (12.00-45.00)
[2019-07-26 23:34] LABS: Ferritin 174.9 ng/mL (10.0-291.0)
[2019-07-27] MEDS: CARVEDILOL 6.25 MG TAB PO SCH (06:41)
[2019-07-27] MEDS ORDERED: LIDOCAINE 1% INJ 10MG/ML (20 ML MDV) ONE (07:08)
[2019-07-27] MEDS ORDERED: PROPOFOL 10 MG/ML 20 ML VIAL IV ONE (07:08)
[2019-07-27] MEDS ORDERED: IV FLUID CONTINUATION 1,000 ML IV ONE ×2 (07:12)
[2019-07-27 07:42] LABS: Calcium 7.9 mg/dL (8.4-10.2); Potassium 3.6 mmol/L (3.5-5.1)
--- NOTE | 2019-07-27 07:42 | P.PCN ---
Date of Procedure: 07/27/19 Procedure(s) Performed: Brief history: Patient is a pleasant 83 white female admitted hospital with severe symptomatic anemia and a hemoglobin of 6.8 g/dL he had 2 units of blood transfusion. She has been having intermittent dark colored stools for the last 2 weeks' duration. She is hence scheduled for an upper endoscopy as well as colonoscopy as a part of evaluation of severe symptomatic anemia. She has history of A. fib and has been oneliquis which is currently on hold. Procedure performed: Esophagogastroduodenoscopy with biopsy Colonoscopy with snare polypectomy Preoperative diagnosis: Severe symptomatic anemia and black tarry stools of 2 weeks Anesthesia: MAC Procedure: After informed consent was obtained from the patient was brought into the endoscopy unit and IV sedation was administered by anesthesia under continuous monitoring. Initially upper endoscopy was done. The Olympus GF 160 video endoscope was inserted inserted into the mouth and esophagus intubated without any difficulty and was gradually advanced into the stomach and duodenum and carefully examined. The bulb and second part of the duodenum appeared normal. Abscesses were done from the duodenum to rule out celiac disease. The scope was then withdrawn into the stomach adequately insufflated with air and upon careful examination the antrum and body, cardia and fundus appeared normal. The scope was then withdrawn into the esophagus. The GE junction was located at 40 cm to the incisors. It appeared regular with no erythema erosions or ulcerations. Rest of the esophagus appeared normal. Patient tolerated the procedure well. At this time the patient continued to remain sedation. Initial digital rectal examination was normal. Olympus CF 160 video colonoscope was then inserted into the rectum and gradually advanced to the cecum without any difficulty. Careful examination was performed as the scope was gradually being withdrawn. The prep was excellent. In the cecum there was a 2 mm polyp that was removed by snare polypectomy. In the hepatic flexure there was a 5 mm and 1 cm broad-based polyps removed by snare polypectomy. In the transverse colon there was another 5 mm polyp removed by snare polypectomy. In the descending colon there was a 3- 5 mm sessile polyp removed by snare polypectomy. Scattered left-sided diverticulosis seen. There was mild rectal prolapse seen.. Retroflexion was performed in the rectum and no lesions were noted. Patient tolerated the procedure well. Impression: 1. Upper endoscopy revealed mild antral gastritis. 2. Colonoscopy revealed: a) 2 mm cecal polyp status post polypectomy b) 5 mm and 1 cm hepatic flexure polyp status post snare polypectomy c) 5 mm distal transverse colon polyp status post polypectomy d) 5 mm descending colon polyp status post polypectomy e) scattered sigmoid diverticulosis f) mild rectal prolapse Recommendations: Findings of this examination were discussed with the patient. She was advised to follow with the biopsy results. If there is evidence of active bleeding, anticoagulation can be resumed transverse colon there was a 5 mm sessile polyp removed by snare polypectomy.
[2019-07-27 07:48] LABS: Anisocytosis Moderate; Basophils % (A) 0 %; Eosinophils % (A) 0 %; HCT 23.3 % (34.0-46.0); HGB 7.8 gm/dL (11.4-16.0); Hypochromasia Slight; Lymphocytes # (A) 0.5 k/uL (1.0-4.8); Lymphocytes % (A) 12 %; MCH 33.9 pg (25.0-35.0); MCHC 33.5 g/dL (31.0-37.0); MCV 101.3 fL (80.0-100.0); Macrocytosis Moderate; Mean Platelet Volume 10.6; Monocytes # (A) 0.4 k/uL (0-1.0); Monocytes % (A) 8 %; Neutrophils # (A) 3.2 k/uL (1.3-7.7); Neutrophils % (A) 76 %; Poikilocytosis Moderate; RDW 20.5 % (11.5-15.5); WBC 4.2 k/uL (3.8-10.6)
[2019-07-27 07:50] LABS: Platelet Count 53 k/uL (150-450)
--- NOTE | 2019-07-27 10:26 | PN ---
PROGRESS NOTE Mrs. Jamison had an upper and lower endoscopy. There were small polyps on the lower endoscopy. Upper endoscopy revealed antral gastritis. However hemoglobin was less than 7. She required multiple units of packed RBCs. Given these circumstances, I am recommending that we discontinue both aspirin because of antral gastritis and also Eliquis at least for 2 weeks and she will see Dr. Mckenna upon discharge, which will happen probably tomorrow. She will see Dr. Mckenna in 2 weeks. We will discontinue amiodarone. She is in sinus bradycardia. Continue all her other medications. Increase activity. She has an ejection fraction of 45% with moderate to severe mitral regurgitation on the echo. I explained to her the findings on the upper and lower endoscopy, advised that we will stay off the Eliquis at least for 2 weeks and we will let Dr. Mckenna decide whether she should continue this or not. She will see him in the next 7 to 14 days. Advised to gradually increase the activity and plan for discharge tomorrow. MMODL / IJN: [id number] /
--- NOTE | 2019-07-27 11:10 | P.PN ---
Subjective 83-year-old pleasant female on Eliquis most probably for atrial fibrillation is admitted for generalized weakness found to have upper GI bleedthe patient is on tonics and Eliquis is on hold. Patient blood pressure is local discontinue Norvasc patient does have congestive heart failure was receiving IV fluids which were discontinued patient will be given a dose of Lasix after 2 units of blood transfusion nephrology is following the patient for chronic kidney disease stage IV patient baseline creatinine last time was 1.9 presently around 2.5 may have a competent of acute renal failure. No dark stools since her hospitalization. Patient hemoglobin is at 6.3 will receive 1 more unit of blood transfusion patient may need more than that.patient is negative for covid 19 07/27/2019 No overnight events patient doesn't have any more clinical GI bleed hemoglobin is 7.8 fairly stable but patient is quite weak will need physical therapy evaluation may be placement in subacute rehabitation depending on the evaluation. Patient has mild antral gastritis, patient is being resumed on her anticoagulation patient has multiple polyps that were removed. Constitutional: Denied any fatigue denied any fever. Cardio vascular: denied any chest pain, palpitations Gastrointestinal denied any nausea vomiting Pulmonary: Denied any shortness of breath patient does have significant dry cough no evidence of pneumonia. Neurologic denied any new focal deficits All inpatient medications were reviewed and appropriate changes in these medications as dictated in the interval history and assessment and plan. Objective - Vital Signs Vital signs: Vital Signs Temp 97.5 F L 07/27/19 03:45 Pulse 55 L 07/27/19 08:12 Resp 16 07/27/19 08:12 BP 114/62 07/27/19 08:12 Pulse Ox 95 07/27/19 07:59 Intake & Output 07/26/19 07/27/19 07/27/19 18:59 06:59 18:59 Intake Total 1150 300 Output Total 320 Balance 830 300 Weight 84.5 kg Intake: IV 300 Oral 840 Blood Product 310 Rc As-1 Unit 310 [id number] Output: Urine 300 Emesis 20 Other: Voiding Method Bedside Commode # Voids 2 1 # Bowel Movements 1 - Exam PHYSICAL EXAMINATION: GENERAL: The patient is alert and oriented x3, not in any acute distress. Well developed, well nourished. HEENT: Pupils are round and equally reacting to light. EOMI. No scleral icterus. No conjunctival pallor. Normocephalic, atraumatic. No pharyngeal erythema. No thyromegaly. CARDIOVASCULAR: S1 and S2 present. No murmurs, rubs, or gallops. PULMONARY: Chest is clear to auscultation, no wheezing or crackles. ABDOMEN: Soft, nontender, nondistended, normoactive bowel sounds. No palpable organomegaly. MUSCULOSKELETAL: No joint swelling or deformity. EXTREMITIES: No cyanosis, clubbing, or pedal edema. NEUROLOGICAL: Gross neurological examination did not reveal any focal deficits. SKIN: No rashes. Note: Because of COVID 19 isolation, some of the history and physical exam findings or indirect and obtained from nursing staff, and other physician examinations to avoid unnecessary contact with the patient. - Labs CBC & Chem 7: 07/27/19 05:54 07/27/19 05:54 Labs: Abnormal Lab Results - Last 24 Hours (Table) 07/25/19 07/25/19 07/26/19 Range/Units 09:05 10:40 10:37 RBC (3.80-5.40) m/uL Hgb (11.4-16.0) gm/dL Hct (34.0-46.0) % MCV (80.0-100.0) fL RDW (11.5-15.5) % Plt Count (150-450) k/uL Lymphocytes # (1.0-4.8) k/uL Sodium (137-145) mmol/L BUN (7-17) mg/dL Creatinine (0.52-1.04) mg/dL Calcium (8.4-10.2) mg/dL Iron 34 L (50-170) ug/dL % Saturation 9.37 L (12.00-45.00) Troponin I 0.042 H* (0.000-0.034) ng/mL Crossmatch See Detail 07/26/19 07/27/19 07/27/19 Range/Units 18:28 05:54 05:54 RBC 2.55 L 2.30 L (3.80-5.40) m/uL Hgb 8.6 L D 7.8 L (11.4-16.0) gm/dL Hct 25.6 L 23.3 L (34.0-46.0) % MCV 100.5 H 101.3 H (80.0-100.0) fL RDW 20.5 H 20.5 H (11.5-15.5) % Plt Count 66 L 53 L (150-450) k/uL Lymphocytes # 0.5 L (1.0-4.8) k/uL Sodium 132 L (137-145) mmol/L BUN 81 H (7-17) mg/dL Creatinine 2.44 H (0.52-1.04) mg/dL Calcium 7.9 L (8.4-10.2) mg/dL Iron (50-170) ug/dL % Saturation (12.00-45.00) Troponin I (0.000-0.034) ng/mL Crossmatch Assessment and Plan Plan: -acute blood loss anemia from upper GI bleed, patient is receiving PRBC transfusion possibility of upper GI endoscopy area, patient has a mild antral g astritis and had multiple polyps that were removed. She will be resumed on anticoagulation -pancytopenia and macrocytic anemia: B12 and folate levels are within normal limits patient may have myelodysplasia may need further evaluation as an outpatient -Hyponatremia hypovolemic hyponatremia from GI bleed. We'll receiving blood transfusion hyponatremia is expected to improve -Congestive heart failure chronic systolic dysfunction previous EF is around 40% repeat echocardiogram showed normal ejection fraction i but severe mitral regurgitation patient is actually hypovolemic, diuretics are being managed by nephrology -renal failure on chronic kidney disease stage IV chronic kidney disease is p robably secondary to hypertensive nephrosclerosis acute renal failure secondary to prerenal azotemia from GI bleed. nonspecific elevation of liver enzymes -Mild troponin elevation no evidence of acute myocardial infarction at this time. -Hypertension hold off on amlodipine because of hypotension -Hyperlipidemia -Generalized deconditioning PT and OT evaluation
--- NOTE | 2019-07-27 11:46 | P.PN ---
Subjective Patient is seen in follow-up for acute kidney injury on chronic kidney disease. Renal function is better today. Hemoglobin is improved. Denies any active bleeding. No vomiting or diarrhea. Vital signs are stable. General: The patient appeared well nourished and normally developed. HEENT: Head exam is unremarkable. Neck is without jugular venous distension. LUNGS: Lungs are clear to auscultation and percussion. Breath sounds decreased. HEART: Rate and Rhythm are regular. ABDOMEN: Soft. Nontender. EXTREMITITES: 1+edema. Objective - Vital Signs Vital signs: Vital Signs Temp 97.5 F L 07/27/19 03:45 Pulse 55 L 07/27/19 08:12 Resp 16 07/27/19 08:12 BP 114/62 07/27/19 08:12 Pulse Ox 95 07/27/19 07:59 Intake & Output 07/26/19 07/27/19 07/27/19 18:59 06:59 18:59 Intake Total 1150 300 Output Total 320 Balance 830 300 Weight 84.5 kg Intake: IV 300 Oral 840 Blood Product 310 Rc As-1 Unit 310 [id number] Output: Urine 300 Emesis 20 Other: Voiding Method Bedside Commode # Voids 2 1 2 # Bowel Movements 1 1 - Labs CBC & Chem 7: 07/27/19 05:54 07/27/19 05:54 Labs: Abnormal Lab Results - Last 24 Hours (Table) 07/25/19 07/25/19 07/26/19 Range/Units 09:05 10:40 10:37 RBC (3.80-5.40) m/uL Hgb (11.4-16.0) gm/dL Hct (34.0-46.0) % MCV (80.0-100.0) fL RDW (11.5-15.5) % Plt Count (150-450) k/uL Lymphocytes # (1.0-4.8) k/uL Sodium (137-145) mmol/L BUN (7-17) mg/dL Creatinine (0.52-1.04) mg/dL Calcium (8.4-10.2) mg/dL Iron 34 L (50-170) ug/dL % Saturation 9.37 L (12.00-45.00) Troponin I 0.042 H* (0.000-0.034) ng/mL Crossmatch See Detail 07/26/19 07/27/19 07/27/19 Range/Units 18:28 05:54 05:54 RBC 2.55 L 2.30 L (3.80-5.40) m/uL Hgb 8.6 L D 7.8 L (11.4-16.0) gm/dL Hct 25.6 L 23.3 L (34.0-46.0) % MCV 100.5 H 101.3 H (80.0-100.0) fL RDW 20.5 H 20.5 H (11.5-15.5) % Plt Count 66 L 53 L (150-450) k/uL Lymphocytes # 0.5 L (1.0-4.8) k/uL Sodium 132 L (137-145) mmol/L BUN 81 H (7-17) mg/dL Creatinine 2.44 H (0.52-1.04) mg/dL Calcium 7.9 L (8.4-10.2) mg/dL Iron (50-170) ug/dL % Saturation (12.00-45.00) Troponin I (0.000-0.034) ng/mL Crossmatch Assessment and Plan Plan: Assessment: 1. Acute kidney injury secondary to ATN secondary to acute blood loss anemia and diuresis. Creatinine was 3.02 admission and is 2.44 today. UA benign. 2. Chronic kidney disease stage III with baseline creatinine near 2 secondary to cardiorenal syndrome. 3. Acute blood loss anemia secondary to GI bleed status post blood transfusion. EGD revealed mild antral gastritis. Colonoscopy revealed multiple polyps that were removed as well as sigmoid diverticulosis. Maintained on Aranesp. Severe iron deficiency noted. 4. Mild volume overload. 5. Acute on chronic diastolic CHF with severe mitral and tricuspid re gurgitation. 6. Severe pulmonary hypertension. 7. Hypervolemic hyponatremia. Plan: IV iron today. Start Lasix 40 mg orally once daily. Repeat electrolytes in the morning.
[2019-07-27] MEDS: POLYETHYLENE GLYCOL 3350 17 GM POWD.PACK PO SCH (11:54)
[2019-07-27] MEDS: PANTOPRAZOLE 40 MG/10 ML VIAL IV SCH (12:06)
[2019-07-27] MEDS: AMIODARONE 100 MG TAB PO SCH (12:06)
[2019-07-27] MEDS: FUROSEMIDE 40 MG TAB PO SCH (12:08)
[2019-07-27] MEDS ORDERED: SODIUM FERRIC GLUCONAT-SUCROSE 125 MG in SODIUM CHLORIDE 0.9% 100 ML IVPB SCH (12:15)
[2019-07-27] MEDS: SODIUM FERRIC GLUCONAT-SUCROSE 125 MG in SODIUM CHLORIDE 0.9% 100 ML IVPB SCH (15:32)
[2019-07-27] MEDS: CARVEDILOL 3.125 MG TAB PO SCH (17:06)
[2019-07-27] MEDS: APIXABAN 2.5 MG TABLET PO SCH (17:10)
[2019-07-28 00:39] VITALS: RESP 18
[2019-07-28] MEDS: CARVEDILOL 3.125 MG TAB PO SCH (06:24)
[2019-07-28 07:56] LABS: Anisocytosis Moderate; Basophils % (A) 0 %; Eosinophils # (A) 0.1 k/uL (0-0.7); Eosinophils % (A) 1 %; HCT 23.3 % (34.0-46.0); HGB 7.8 gm/dL (11.4-16.0); Hypochromasia Slight; Lymphocytes # (A) 0.6 k/uL (1.0-4.8); Lymphocytes % (A) 9 %; MCH 33.7 pg (25.0-35.0); MCHC 33.7 g/dL (31.0-37.0); Macrocytosis Moderate; Mean Platelet Volume 9.9; Monocytes # (A) 0.6 k/uL (0-1.0); Monocytes % (A) 10 %; Neutrophils # (A) 4.7 k/uL (1.3-7.7); Neutrophils % (A) 76 %; Poikilocytosis Moderate; RBC 2.33 m/uL (3.80-5.40); RDW 20.2 % (11.5-15.5); WBC 6.2 k/uL (3.8-10.6)
[2019-07-28 07:58] LABS: Platelet Count 56 k/uL (150-450)
[2019-07-28 08:17] LABS: Magnesium 2.5 mg/dL (1.6-2.3); Potassium 4.4 mmol/L (3.5-5.1)
[2019-07-28] MEDS: POLYETHYLENE GLYCOL 3350 17 GM POWD.PACK PO SCH (09:03)
[2019-07-28] MEDS: AMIODARONE 100 MG TAB PO SCH (09:04)
[2019-07-28] MEDS: FUROSEMIDE 40 MG TAB PO SCH (09:04)
[2019-07-28] MEDS: PANTOPRAZOLE 40 MG/10 ML VIAL IV SCH (09:04)
[2019-07-28] MEDS: APIXABAN 2.5 MG TABLET PO SCH (09:05)
[2019-07-28 09:51] VITALS: PULSE 57
[2019-07-28] MEDS: SODIUM FERRIC GLUCONAT-SUCROSE 125 MG in SODIUM CHLORIDE 0.9% 100 ML IVPB SCH (10:08)
--- NOTE | 2019-07-28 11:13 | P.PN ---
Subjective Patient is seen in follow-up for acute kidney injury on chronic kidney disease. Renal function is fairly stable. Hemoglobin is stable at 7.8. Denies any active bleeding. No vomiting or diarrhea. Vital signs are stable. General: The patient appeared well nourished and normally developed. HEENT: Head exam is unremarkable. Neck is without jugular venous distension. LUNGS: Lungs are clear to auscultation and percussion. Breath sounds decreased. HEART: Rate and Rhythm are regular. ABDOMEN: Soft. Nontender. EXTREMITITES: 1+ edema. Objective - Vital Signs Vital signs: Vital Signs Temp 97.7 F 07/28/19 08:00 Pulse 57 L 07/28/19 08:00 Resp 18 07/28/19 08:00 BP 103/60 07/28/19 08:00 Pulse Ox 95 07/28/19 08:00 Intake & Output 07/27/19 07/28/19 07/28/19 18:59 06:59 18:59 Intake Total 500 110 Output Total 200 Balance 500 -90 Weight 80 kg Intake: IV 300 10 .9 10 Oral 200 100 Output: Urine 200 Other: Voiding Method Bedside Commode Bedside Commode # Voids 3 1 # Bowel Movements 1 - Labs CBC & Chem 7: 07/28/19 06:36 07/28/19 06:36 Labs: Abnormal Lab Results - Last 24 Hours (Table) 07/28/19 07/28/19 Range/Units 06:36 06:36 RBC 2.33 L (3.80-5.40) m/uL Hgb 7.8 L (11.4-16.0) gm/dL Hct 23.3 L (34.0-46.0) % RDW 20.2 H (11.5-15.5) % Plt Count 56 L (150-450) k/uL Lymphocytes # 0.6 L (1.0-4.8) k/uL Sodium 133 L (137-145) mmol/L BUN 86 H (7-17) mg/dL Creatinine 2.56 H (0.52-1.04) mg/dL Calcium 8.0 L (8.4-10.2) mg/dL Magnesium 2.5 H (1.6-2.3) mg/dL Assessment and Plan Plan: Assessment: 1. Acute kidney injury secondary to ATN secondary to acute blood loss anemia and diuresis. Creatinine was 3.02 admission and is stable at 2.56 today. UA benign. 2. Chronic kidney disease stage III with baseline creatinine near 2 secondary to cardiorenal syndrome. 3. Acute blood loss anemia secondary to GI bleed status post blood transfusion. EGD revealed mild antral gastritis. Colonoscopy revealed multiple polyps that were removed as well as sigmoid diverticulosis. Maintained on Aranesp. Severe iron deficiency noted. 4. Volume overload. 5. Acute on chronic diastolic CHF with severe mitral and tricuspid regurgitation. 6. Severe pulmonary hypertension. 7. Hypervolemic hyponatremia. Plan: IV iron today - this will be her second dose. I will change Lasix to 40 mg IV once daily. Repeat electrolytes in the morning.
[2019-07-28] MEDS ORDERED: FUROSEMIDE 10 MG/ML 4 ML VIAL IV SCH (11:15)
--- NOTE | 2019-07-28 13:01 | P.DS ---
Providers Date of admission: 07/25/19 11:03 Expected date of discharge: 07/28/19 Attending physician: Cristian Anglin Consults: 07/25/19 11:03 Consult Physician Urgent Consulting Provider: Geneva Dowell Consult Reason/Comments: gi hemorrhage Do you want consulting provider notified?: Yes 07/25/19 11:55 Consult Physician Routine Consulting Provider: Carisa Blanco Consult Reason/Comments: arf Do you want consulting provider notified?: Yes 07/25/19 11:56 Consult Physician Routine Consulting Provider: Cammy Millan Consult Reason/Comments: knew the pt Do you want consulting provider notified?: Yes Primary care physician: Cristian Anglin Hospital Course: Final diagnosis -acute blood loss anemia from upper GI bleed -pancytopenia and macrocytic anemia -Hyponatremia hypovolemic hyponatremia from GI bleed -Congestive heart failure chronic systolic dysfunction previous EF is around 40% -renal failure on chronic kidney disease stage IV chronic kidney disease is prob ably secondary to hypertensive nephrosclerosis acute renal failure secondary to prerenal azotemia from GI bleed. -nonspecific elevation of liver enzymes -Mild troponin elevation no evidence of acute myocardial infarction at this time. -Hypertension -Hyperlipidemia -Generalized deconditioning Discharge disposition Patient is being discharged in a stable condition with guarded prognosis to [facility] for continued PT/OT therapy. Patient will need to follow-up with cardiology Dr. Mckenna to discuss resuming anticoagulation with in the next 2 weeks. Total time taken is 35 minutes. History of present illness This is an 83-year-old female who was recently admitted with generalized weakness and found to have an upper GI bleed and was being closely monitored. Patient was taking anticoagulation of Eliquis and will resume in approximately 2 weeks after cardiology follow-up with Dr. Mckenna in the outpatient setting. Patient was seen and evaluated by GI and underwent an EGD showing antral ulcer with no active bleeding noted. Patient's hemoglobin is stable at 7.8 and will need close monitoring for bleeding along with CBC in the next 2-3 days to monitor hemoglobin. Patient continue on Protonix daily. Patient does have history of chronic kidney disease stage IV and is being seen by nephrology. Patient has some low iron studies and received 2 doses of IV iron during hospitalization. Patient will continue on ferrous sulfate daily in the outpatient setting. Patient has history of congestive heart failure chronic systolic dysfunction and will be resumed on Lasix 40 mg daily. Patient continues to be quite weak requiring assistance and would benefit from rehab at an [facility]. Patient will be discharged today to [facility] continue PT/OT therapy. Currently no reports of chest pain, shortness of breath, or palpitations. Patient is afebrile. No reports of nausea or vomiting and patient is tolerating diet. Guarded prognosis. On exam vital signs are stable. Temp is 97.7 F, pulse is 57, respirations are 18, blood pressure is 103/60, oxygen saturation is 95% on room air. Cardio S1, S2 are present. Respiratory shows diminished breath sounds at the bases no wheezing or rhonchi noted. Abdomen is soft and nontender. Nervous system shows moderate diffuse weakness. Please refer to medication reconciliation sheet for a list of medications. Patient Condition at Discharge: Stable Plan - Discharge Summary Discharge Rx Participant: Yes New Discharge Prescriptions: New Omeprazole [PriLOSEC] 40 mg PO AC-BRKFST #30 capsule.dr He-DM 100-10MG/5ML [Robitussin DM] 10 ml PO Q6H PRN #100 ml PRN Reason: Cough Darbepoetin Salazar [Aranesp] 40 mcg SQ Q7D syringe Carvedilol [Coreg] 3.125 mg PO BID-W/MEALS tab Polyethylene Glycol 3350 [Miralax] 17 gm PO DAILY powd.pack Acetaminophen Tab [Tylenol] 650 mg PO Q4HR PRN tab PRN Reason: Fever And/ Or Pain Continue Fenofibrate [Lofibra] 160 mg PO HS@1800 Amiodarone [Cordarone] 100 mg PO DAILY@0800 Changed Furosemide [Lasix] 40 mg PO DAILY #0 Discontinued amLODIPine [Norvasc] 2.5 mg PO HS@1800 Apixaban [Eliquis] 2.5 mg PO BID@0800,1800 Carvedilol [Coreg] 6.25 mg PO BID@0800,1800 Discharge Medication List Fenofibrate [Lofibra] 160 mg PO HS@1800 02/02/17 [History] Amiodarone [Cordarone] 100 mg PO DAILY@0800 07/25/19 [History] Omeprazole [PriLOSEC] 40 mg PO AC-BRKFST #30 capsule. 07/27/19 [Rx] guaiFENesin-DM 100-10MG/5ML [Robitussin DM] 10 ml PO Q6H PRN #100 ml 07/27/19 [Rx] Acetaminophen Tab [Tylenol] 650 mg PO Q4HR PRN tab 07/28/19 [Rx] Carvedilol [Coreg] 3.125 mg PO BID-W/MEALS tab 07/28/19 [Rx] Darbepoetin Salazar [Aranesp] 40 mcg SQ Q7D syringe 07/28/19 [Rx] Furosemide [Lasix] 40 mg PO DAILY #0 07/28/19 [Rx] Polyethylene Glycol 3350 [Miralax] 17 gm PO DAILY powd.pack 07/28/19 [Rx] Follow up Appointment(s)/Referral(s): Cristian Anglin MD [Primary Care Provider] - 1-2 days Severino Mckenna MD [STAFF PHYSICIAN] - 2 Weeks [facility], [NON-STAFF] - Geneva Dowell MD [STAFF PHYSICIAN] - 2 Weeks (TELEvisit) Ambulatory/Diagnostic Orders: Basic Metabolic Panel [LAB.AMB] Time Frame: 3 Days, Location: None Selected Complete Blood Count w/diff [LAB.AMB] Time Frame: 3 Days, Location: None Selected Activity/Diet/Wound Care/Special Instructions: Patient is going to [facility] Activity as tolerated Continue current diet heart healthy Repeat labs in 3 days Continue with PT/OT Per cardiology recommendations hold Eliquis 2.5 mg twice a day for 2 weeks and follow-up with cardiology to discuss resuming Follow-up with cardiology in 2 weeks Discharge Disposition: TRANSFER TO SNF/ECF
[2019-07-28 14:19] VITALS: BP 126/68; TEMP 98
--- NOTE | 2019-07-28 14:54 | PN ---
PROGRESS NOTE DATE OF SERVICE: 07/28/2019 Patient is an 83-year-old pleasant white female admitted to hospital with severe symptomatic anemia and hemoglobin of 6.5, requiring 2 units of blood transfusion. She had an EGD colonoscopy done by me yesterday that showed some gastritis and multiple colon polyps that were removed. Biopsies of which are still pending. Patient is doing better. She complains of some chronic back pain. Eliquis has been resumed yesterday. PHYSICAL EXAMINATION: Vital signs are stable. Blood pressure is 103/60, pulse rate 57, temperature 97.7. HEENT: Examination unremarkable, conjunctivae are pink, sclerae nonicteric, oral cavity no lesions. NECK: No JVD or lymph node enlargement. CHEST: Clear to auscultation. HEART: Regular rhythm and rhythm. ABDOMEN: Soft. Bowel sounds are positive. No organomegaly. EXTREMITIES: No pedal edema. SKIN: No rashes. NEUROLOGIC: Alert and oriented x3. No focal deficits. LABS: Done today, WBC 6.2, hemoglobin 7.8, and platelets are normal. Basic metabolic panel showed a BUN of 38 and creatinine 2.56. IMPRESSION: 1. Severe symptomatic anemia with a hemoglobin of 6.1 g/dL. The patient received 2 units of PRBC with intermittent dark colored stools. Status post EGD and colonoscopy yesterday that showed some gastritis and colon polyps. No obvious source of bleeding identified. Eliquis resumed. Hemoglobin remains stable. 2. Atrial fibrillation on Eliquis. 3. Chronic back pain. 4. Chronic kidney disease. RECOMMENDATIONS: I discussed with the patient EGD and colonoscopy findings, suggest that I will notify her with the biopsy results in the next 3-4 days. In the meantime, continue to monitor hemoglobin on a frequent basis. Part of anemia could be related to chronic kidney disease. Continue with Eliquis for now. She can be discharged to rehab with outpatient followup as needed. Thank you for this consultation. MMODL / IJN: [id number] /
== END 2019-07-28 14:50 | DRG 377 ==
LOC: EC 08:56 → 3SCARD 11:03
PROVIDERS: ADMIT Family Medicine; ATTEND Family Medicine
PROC: 30233N1 Transfusion of Nonautologous Red Blood Cells into Peripheral Vein, Percutaneous Approach (ICD-10-PCS; principal; 2019-07-25)
PROC: 0DJ08ZZ Inspection of Upper Intestinal Tract, Via Natural or Artificial Opening Endoscopic (ICD-10-PCS; 2019-07-27 07:00)
PROC: 0DBL8ZZ Excision of Transverse Colon, Via Natural or Artificial Opening Endoscopic (ICD-10-PCS; 2019-07-27 07:00)
PROC: 0DBH8ZZ Excision of Cecum, Via Natural or Artificial Opening Endoscopic (ICD-10-PCS; 2019-07-27 07:00)
PROC: 0DBM8ZZ Excision of Descending Colon, Via Natural or Artificial Opening Endoscopic (ICD-10-PCS; 2019-07-27 07:00)
DX: K29.71 Gastritis, unspecified, with bleeding (principal); N17.0 Acute kidney failure with tubular necrosis; I50.43 Acute on chronic combined systolic (congestive) and diastolic (congestive) heart failure; D62 Acute posthemorrhagic anemia; D61.818 Other pancytopenia; E87.1 Hypo-osmolality and hyponatremia; I13.0 Hypertensive heart and chronic kidney disease with heart failure and stage 1 through stage 4 chronic kidney disease, or unspecified chronic kidney disease; N18.4 Chronic kidney disease, stage 4 (severe); E78.5 Hyperlipidemia, unspecified; E86.1 Hypovolemia; Z20.828 Contact with and (suspected) exposure to other viral communicable diseases; G89.29 Other chronic pain; I08.1 Rheumatic disorders of both mitral and tricuspid valves; I27.20 Pulmonary hypertension, unspecified; I48.91 Unspecified atrial fibrillation; J45.909 Unspecified asthma, uncomplicated; K21.9 Gastro-esophageal reflux disease without esophagitis; K57.30 Diverticulosis of large intestine without perforation or abscess without bleeding; K62.3 Rectal prolapse; K63.5 Polyp of colon; Z79.01 Long term (current) use of anticoagulants; Z79.899 Other long term (current) drug therapy; Z83.3 Family history of diabetes mellitus; Z87.01 Personal history of pneumonia (recurrent); Z87.19 Personal history of other diseases of the digestive system; Z87.891 Personal history of nicotine dependence; Z98.42 Cataract extraction status, left eye; Z98.41 Cataract extraction status, right eye; R74.8 Abnormal levels of other serum enzymes
CPT/HCPCS: 36415; 43239; 45385; 70450; 71045; 80048; 80053; 81003; 82272; 82550; 82607; 82728; 82746; 82747; 83540; 83550; 83605; 83735; 84100; 84443; 84484; 85025; 85027; 85610; 85730; 86850; 86900; 86901; 86920; 87502; 87635; 88305; 88342; 93005; 93306; 96361; 96374; 99291